=== PATIENT | female | born 1965 | race Caucasian/White ===

== ENCOUNTER 2016-11-28 10:25 | Emergency (ER) | payer MEDICARE, MEDICAID ==
[2016-11-28] MEDS ORDERED: Diazepam 5 MG TAB ONE (11:32)
[2016-11-28] MEDS ORDERED: Fentanyl 100 MCG/2 ML VIAL ONE (11:32)
== END 2016-11-28 14:29 | disposition home or self-care (01) ==
LOC: ERS 10:25
DX: M54.42 Lumbago with sciatica, left side (principal); M54.41 Lumbago with sciatica, right side; E11.9 Type 2 diabetes mellitus without complications; E78.5 Hyperlipidemia, unspecified; I10 Essential (primary) hypertension; F31.9 Bipolar disorder, unspecified; F41.9 Anxiety disorder, unspecified; Z87.891 Personal history of nicotine dependence; J44.9 Chronic obstructive pulmonary disease, unspecified; Z79.4 Long term (current) use of insulin; Z79.899 Other long term (current) drug therapy; Z79.82 Long term (current) use of aspirin; X50.1XXA Overexertion from prolonged static or awkward postures, initial encounter
CPT/HCPCS: 96374; J3010

== ENCOUNTER 2017-03-11 10:27 | Emergency (ER) | payer MEDICARE, MEDICAID | END 2017-03-11 11:34 | disposition home or self-care (01) | LOC: SCSER 10:27 | DX: L02.31 Cutaneous abscess of buttock (principal); E11.9 Type 2 diabetes mellitus without complications; E78.5 Hyperlipidemia, unspecified; I10 Essential (primary) hypertension; J44.9 Chronic obstructive pulmonary disease, unspecified; F41.9 Anxiety disorder, unspecified; F31.9 Bipolar disorder, unspecified; Z87.891 Personal history of nicotine dependence | CPT/HCPCS: 99282 ==

== ENCOUNTER 2017-03-24 11:09 | Outpatient (CLI) | payer MEDICARE, MEDICAID | END 2017-03-24 11:10 | disposition home or self-care (01) | LOC: BICMAMMO 11:09 | PROVIDERS: ATTEND Internal Medicine | DX: Z12.31 Encounter for screening mammogram for malignant neoplasm of breast (principal) | CPT/HCPCS: 77063; 77067 ==

== ENCOUNTER 2017-08-12 10:09 | Emergency (ER) | payer MEDICAID, MEDICARE | END 2017-08-12 11:08 | disposition home or self-care (01) | LOC: SCSER 10:09 | DX: L02.415 Cutaneous abscess of right lower limb (principal); E11.9 Type 2 diabetes mellitus without complications; E78.5 Hyperlipidemia, unspecified; I10 Essential (primary) hypertension; J44.9 Chronic obstructive pulmonary disease, unspecified; F41.9 Anxiety disorder, unspecified; F31.9 Bipolar disorder, unspecified; Z87.891 Personal history of nicotine dependence | CPT/HCPCS: 99283 ==

== ENCOUNTER 2018-01-26 17:00 | Emergency (ER) | payer MEDICARE | END 2018-01-26 17:42 | disposition home or self-care (01) | LOC: SCSER 17:00 | DX: S76.912A Strain of unspecified muscles, fascia and tendons at thigh level, left thigh, initial encounter (principal); F31.9 Bipolar disorder, unspecified; F41.9 Anxiety disorder, unspecified; J44.9 Chronic obstructive pulmonary disease, unspecified; E78.5 Hyperlipidemia, unspecified; E11.9 Type 2 diabetes mellitus without complications; I10 Essential (primary) hypertension; Z87.891 Personal history of nicotine dependence; W18.11XA Fall from or off toilet without subsequent striking against object, initial encounter | CPT/HCPCS: 99283 ==

== ENCOUNTER 2018-06-03 13:24 | Outpatient (CLI) | payer MEDICARE | END 2018-06-03 13:25 | disposition home or self-care (01) | LOC: DTY/OP 13:24 | PROVIDERS: ATTEND Internal Medicine | DX: E11.9 Type 2 diabetes mellitus without complications (principal); E66.9 Obesity, unspecified | CPT/HCPCS: 97802 ==

== ENCOUNTER 2018-08-05 15:25 | Inpatient (IN) | payer MEDICARE ==
[2018-08-05 16:07] LABS: #Basophils 0.1 thou/uL (0.0-0.2); #Eosinphils 0.3 thou/uL (0.0-0.7); #Lymphocytes 2.1 thou/uL (1.20-3.40); #Monocytes 0.6 thou/uL (0.11-0.59); #Neutrophils 5.9 thou/uL (1.40-6.50); %Basophils 0.7 % (0.0-1.0); %Eosinophils 3.2 % (0.0-10.0); %Lymphocytes 23.6 % (21.0-51.0); %Monocytes 7.1 % (0.0-10.0); %Neutrophils 65.4 % (42.0-75.0); Hemoglobin 10.4 g/dL (12.0-16.0); Mean Corpuscular HGB CONC 31.1 g/dL (32.0-36.0); Mean Corpuscular Hemoglobin 25.1 pg (27.0-31.0); Mean Corpuscular Volume 80.5 fL (78.0-98.0); Mean Platelet Volume 7.4 fL (7.4-10.4); Platelet Count 348 thou/uL (130-400); RBC Distribution Width 13.6 % (11.5-14.5); Red Blood Cell (RBC) Count 4.16 mill/uL (4.20-5.40)
--- NOTE | 2018-08-05 16:19 | RAD ---
PORTABLE CHEST ONE VIEW: 08/05/18 at 4:04 p.m. HISTORY: Dyspnea. FINDINGS: Comparison is made with exam of 10/21/12. The heart size is mildly enlarged. There is continued elevation of the right hemidiaphragm. No focal areas of consolidation, pneumothoraces, roselia pulmonary edema or pleural effusions are seen. There ar e degenerative changes in the spine. IMPRESSION: No acute process. POS: OFF
[2018-08-05 16:25] LABS: ALT (SGPT) 40 U/L (8-55); AST (SGOT) 32 U/L (5-34); Albumin 4.5 g/dL (3.5-5.0); Alkaline Phosphatase 51 U/L (40-150); Anion Gap 13 mmol/L (10-20); BUN (Urea Nitrogen) 16 mg/dL (9.8-20.1); Bilirubin, Total 0.2 mg/dL (0.2-1.2); Calc. Creatinine Clearance 0 mL/min (70-130); Calcium 9.4 mg/dL (7.8-10.44); Carbon Dioxide 31 mmol/L (22-29); Chloride 102 mmol/L (98-107); Estimated GFR-MDRD 53; Globulin 2.4 g/dL (2.4-3.5); Glucose 215 mg/dL (70-105); Potassium 4.3 mmol/L (3.5-5.1); Protein, Total 6.9 g/dL (6.0-8.3); Sodium 142 mmol/L (136-145)
[2018-08-05] MEDS ORDERED: methylPREDNISolone Sod Succ/PF 125 MG/2 ML VIAL ONE (17:11)
[2018-08-05 18:45] VITALS: BMI 47.2
[2018-08-05] MEDS ORDERED: Dextrose 50% Abboject 50 ML SYRINGE IVP PRN (21:19)
[2018-08-05] MEDS ORDERED: Dextrose 5% in Water 1,000 ML IV PRN (21:19)
[2018-08-05] MEDS ORDERED: Acetaminophen 325 MG TAB PO PRN (21:20)
[2018-08-05] MEDS: Insulin Regular 300 UNITS/3 ML VIAL SC PRN (21:34)
[2018-08-05] MEDS: methylPREDNISolone Sod Succ 40 MG VIAL IVP SCH (23:57)
[2018-08-06] MEDS ORDERED: Ondansetron ODT 8 MG TAB PO PRN (00:20)
[2018-08-06] MEDS ORDERED: hydrOXYzine Pamoate 25 mg Capsule PO PRN (00:26)
--- NOTE | 2018-08-06 01:55 | HP ---
CHIEF COMPLAINT: Shortness of breath, hypoxia. HISTORY OF PRESENT ILLNESS: Yehuda is a 53-year-old female with past medical history of COPD, obstructive sleep apnea, and diabetes mellitus who came to the office for routine physical. While in the office, she was hypoxic with high saturation of 85% on room air. The patient says she has been coughing some, had some difficulty breathing. The patient was given neb treatments and in spite of that, the saturation did not improve much. So she was transferred to the hospital for further evaluation. In the ER, the patient was evaluated and found to be in COPD exacerbation. She was given Solu-Medrol and neb treatment and admitted for further evaluation and management. PAST MEDICAL HISTORY: 1. Hypertension. 2. Diabetes mellitus. 3. History of bipolar disease. 4. COPD. 5. Obstructive sleep apnea. 6. Hyperlipidemia. 7. Morbid obesity. PAST SURGICAL HISTORY: 1. Status post knee surgery. 2. Status post ovarian wedge resection. 3. Status post hysterectomy. CURRENT MEDICATIONS: The patient is on: 1. Metformin 500 mg two tablets b.i.d. 2. Fenofibrate 150 daily. 3. Lisinopril 20 mg b.i.d. 4. Lyrica 100 mg b.i.d. 5. Prevacid 30 mg daily. 6. Tramadol p.r.n. 7. Olanzapine 20 mg daily. 8. Zofran p.r.n. 9. BuSpar 10 mg b.i.d. 10. Crestor 10 mg daily. 11. Ventolin inhaler q.i.d. 12. Onglyza 5 mg daily. 13. Insulin 70/30, 60 units in the morning, 50 in the evening. ALLERGIES: 1. BIAXIN. 2. KETOROLAC. 3. LATEX. 4. NATURAL RUBBER. 5. MORPHINE. FAMILY HISTORY: Nothing contributory. SOCIAL HISTORY: Patient lives with family. No history of smoking. No history of alcohol. REVIEW OF SYSTEMS: CARDIOVASCULAR: No chest pain. Has shortness of breath. RESPIRATORY: Has cough productive of white sputum. GASTROINTESTINAL: No nausea or vomiting. No abdominal pain. CENTRAL NERVOUS SYSTEM: Has headache. No dizziness. PHYSICAL EXAMINATION: GENERAL: Patient is alert, awake, oriented x3. VITAL SIGNS: Temperature 98, pulse 75, respirations 20, blood pressure 130/80. HEENT: Head is normocephalic and atraumatic. Pupils are equal and reactive. Nasopharynx is pale and dry. Hard and soft palate, no lesions. Skin turgor is decreased. NECK: Supple. No JVD. LUNGS: Breath sounds diminished bilaterally. Percussion dull bilaterally. Rhonchi present bilaterally. HEART: S1 and S2, regular. ABDOMEN: Soft. No distention. No tenderness. Normal bowel sounds present. CENTRAL NERVOUS SYSTEM: No focal deficits. LABORATORY DATA: CBC shows WBC 9, hemoglobin 10, hematocrit 33, platelets 348. D-dimer 0.28. Metabolic panel; sodium 140, potassium 4.3, chloride 102, CO2 31, BUN 16, creatinine 1, glucose 215. Troponin less than 0.01. IMAGING STUDIES: Chest x-ray negative. EKG shows normal sinus rhythm, no acute ST-T changes seen. ASSESSMENT: 1. Chronic obstructive pulmonary disease with acute exacerbation. 2. Hypoxia. 3. Obstructive sleep apnea. 4. Insulin-dependent diabetes. 5. Hypertension. 6. Bipolar disorder. PLAN: 1. Vital signs q.4h. 2. Activities as tolerated. 3. Allergies multiple. 4. Hep-Lock. 5. Solu-Medrol 20 IVP q.6 hours, Levaquin 750 mg IV piggyback daily. 6. DuoNeb 1 unit q.i.d. 7. Continue home medications. Accu-Chek before meals and at night. Sliding scale. Moderate regular insulin. Job ID: [id number]
[2018-08-06] MEDS: Insulin Regular 300 UNITS/3 ML VIAL SC PRN ×3 (05:28→21:02)
[2018-08-06] MEDS: methylPREDNISolone Sod Succ 40 MG VIAL IVP SCH ×3 (05:29→17:47)
[2018-08-06] MEDS: HumuLIN 70/30 (300 UNITS/3 ML VIAL) SC SCH (08:25)
[2018-08-06] MEDS: OLANZapine 5 MG TAB PO SCH (08:25)
[2018-08-06] MEDS: metFORMIN XR 500 MG TAB PO SCH ×2 (08:26→16:46)
[2018-08-06] MEDS: traMADol HCl 50 MG TAB PO SCH ×2 (08:26→20:29)
[2018-08-06] MEDS: Alogliptin 25 MG TAB PO SCH (08:27)
[2018-08-06] MEDS: Pregabalin 50 MG CAP PO SCH ×3 (08:28→20:33)
[2018-08-06] MEDS: Loratadine 10 MG TAB PO SCH (08:29)
[2018-08-06] MEDS: Fenofibrate Nanocrystallized 145 MG TAB PO SCH (08:29)
[2018-08-06] MEDS: Aspirin 81 mg Enteric Coated Tablet PO SCH (08:29)
[2018-08-06] MEDS: busPIRone HCl 10 MG TAB PO SCH ×2 (08:29→20:28)
[2018-08-06] MEDS: Lisinopril 20 MG TAB PO SCH ×2 (08:29→20:30)
[2018-08-06] MEDS: Magnesium Oxide 250 MG TAB PO SCH (08:29)
--- NOTE | 2018-08-06 09:51 | CT ---
CTA CHEST WITH CONTRAST: HISTORY: Shortness of breath for a month. COMPARISON: 12/16/2011 TECHNIQUE: Multiple contiguous axial images were obtained in a CTA chest with contrast, per pulmonary embolism p rotocol, and 3D oblique MIP reformats and direct coronal reformats were performed. FINDINGS: The pulmonary arteries are well opacified without filling defects to suggest pulmonary emboli. The h eart is normal in size without focal cardiac abnormality. No hilar or mediastinal lymphadenopathy is seen. There is a 4 mm nodule at the superior aspect of the left lower lobe on image 70 of 137. No other pu lmonary nodules are seen. Atelectasis is seen in the left lower lobe. No pneumothorax or pleural ef fusion is seen. Degenerative changes are seen in the spine. There is diffuse fatty infiltration of the liver. The o ther visualized subdiaphragmatic structures are unremarkable. The chest wall soft tissues are unrema rkable. IMPRESSION: 1. No evidence of pulmonary thromboembolism. 2. Left lower lobe pulmonary nodule. This was not definitely seen on the prior radiograph but could have been missed secondary to slice selection. 3. Fatty liver. POS: JASON
[2018-08-06] MEDS ORDERED: ISOVUE-370 76%-LOCM 1 ML ONE (10:15)
[2018-08-06] MEDS ORDERED: HumuLIN 70/30 (300 UNITS/3 ML VIAL) SC SCH (17:00)
[2018-08-06] MEDS ORDERED: Melatonin 3 MG TAB PO PRN (20:38)
[2018-08-06] MEDS ORDERED: Rosuvastatin 10 MG TAB PO SCH (21:00)
[2018-08-07] MEDS: methylPREDNISolone Sod Succ 40 MG VIAL IVP SCH ×3 (00:03→11:24)
[2018-08-07] MEDS: Insulin Regular 300 UNITS/3 ML VIAL SC PRN ×2 (06:01→11:26)
[2018-08-07] MEDS: OLANZapine 5 MG TAB PO SCH (08:07)
[2018-08-07] MEDS: Loratadine 10 MG TAB PO SCH (08:07)
[2018-08-07] MEDS: Magnesium Oxide 250 MG TAB PO SCH (08:08)
[2018-08-07] MEDS: Aspirin 81 mg Enteric Coated Tablet PO SCH (08:08)
[2018-08-07] MEDS: busPIRone HCl 10 MG TAB PO SCH (08:08)
[2018-08-07] MEDS: metFORMIN XR 500 MG TAB PO SCH (08:09)
[2018-08-07] MEDS: Alogliptin 25 MG TAB PO SCH (08:09)
[2018-08-07] MEDS: Fenofibrate Nanocrystallized 145 MG TAB PO SCH (08:10)
[2018-08-07] MEDS: traMADol HCl 50 MG TAB PO SCH (08:10)
[2018-08-07] MEDS: Lisinopril 20 MG TAB PO SCH (08:11)
[2018-08-07] MEDS: Pregabalin 50 MG CAP PO SCH ×2 (08:11→14:39)
[2018-08-07] MEDS: HumuLIN 70/30 (300 UNITS/3 ML VIAL) SC SCH (08:12)
--- NOTE | 2018-08-07 11:05 | EKG ---
Test Reason : Blood Pressure : / mmHG Vent. Rate : 101 BPM Atrial Rate : 101 BPM P-R Int : 164 ms QRS Dur : 086 ms QT Int : 350 ms P-R-T Axes : 046 057 004 degrees QTc Int : 453 ms Sinus tachycardia Septal infarct , age undetermined Abnormal ECG Confirmed by MODESTA BILLS ([id number]), scientific editor JOSE WHITNEY ([id number]) on 08/07/2018 11:04:55 AM Referred By: Confirmed By:MODESTA BILLS
[2018-08-07 11:25] VITALS: BP 120/74; TEMP 98
--- NOTE | 2018-08-09 08:12 | PQF ---
[facility] Crystal Reports Winform ViewerDENIS SOTO VENKAT R MD [id number] [id number] CLINICAL DOCUMENTATION CLARIFICATION FORM: POST DISCHARGE Addendum to original discharge summary date: ____ Late entry note date: __ DATE: 08/09/2018 ATTN: BRIAN RIBEIRO Please exercise your independent, professional judgment in responding to the clarification form. Clinical indicators are provided on the bottom of this form for your review Please check appropriate box(s): [ ] Acute Respiratory Failure: [ ] with Hypoxia [ ] with Hypercapnia [ ] Acute On Chronic Respiratory Failure: [ ] with Hypoxia [ ] with Hypercapnia [ ] ARDS (Acute Respiratory Distress Syndrome) [ ] Chronic Respiratory Failure only [ ] with Hypoxia [ ] with Hypercapnia [ y Hypoxia [ ] Other diagnosis [ ] Unable to determine In addition, please specify: Present on Admission (POA): [ y] Yes [ ] No [ ] Unable to determine For continuity of documentation, please document condition throughout progress notes and discharge summary. Thank You. CLINICAL INDICATORS - SIGNS / SYMPTOMS / LABS COPD exacerbation-H&P, 08/05 Sat-85% on room air-H&P, 08/05 Pulse:95, RR:20-H&P, 08/05 Lungs: breath sounds diminished bilaterally, percussion dull bilaterally, Rhonchi present bilaterally Hypoxia-H&P, 08/05 Acute asthma exacerbation, dyspnea, hypoxia-ED record, 08/05 Left lower lobe of pulmonary nodule-CAT scan report, 08/06 RISK FACTORS COPD exacerbation-H&P, 08/05 Hypoxia-H&P, 08/05 TREATMENTS: Solu-medrol 20 IVP, Duoneb 1 unit-H&P, 08/05 [facility] Crystal Reports Winform Viewer (This form is maintained as a part of the permanent medical record) 2014 [employer], [employer]. All Rights Reserved Christina Hernandez [not provided] [not provided] KAYLIE
== END 2018-08-07 16:32 | disposition home or self-care (01) | DRG 191 ==
LOC: ERS 15:25 → T4-A 17:03
PROVIDERS: ADMIT Internal Medicine; ATTEND Internal Medicine
DX: J44.1 Chronic obstructive pulmonary disease with (acute) exacerbation (principal); Z68.42 Body mass index [BMI] 45.0-49.9, adult; R09.02 Hypoxemia; M79.7 Fibromyalgia; E66.01 Morbid (severe) obesity due to excess calories; G47.33 Obstructive sleep apnea (adult) (pediatric); E11.9 Type 2 diabetes mellitus without complications; E78.5 Hyperlipidemia, unspecified; I10 Essential (primary) hypertension; F31.9 Bipolar disorder, unspecified; F41.9 Anxiety disorder, unspecified; Z90.710 Acquired absence of both cervix and uterus; Z88.8 Allergy status to other drugs, medicaments and biological substances; Z88.6 Allergy status to analgesic agent; Z88.1 Allergy status to other antibiotic agents; Z91.040 Latex allergy status
CPT/HCPCS: 36415; 36416; 71045; 71275; 80053; 83880; 84484; 85025; 85379; 93005; 94640; 96374; J1815; J2920; J2930; J7620; Q9966

== ENCOUNTER 2018-09-05 10:20 | Emergency (ER) | payer MEDICARE ==
[2018-09-05] MEDS ORDERED: Aspirin Chewable 81 MG TAB ONE ×2 (10:34→10:37)
--- NOTE | 2018-09-05 10:46 | RAD ---
XR Chest 1 View Portable HISTORY: Shortness of breath COMPARISON: 08/05/2018 study. FINDINGS: Heart size is enlarged. No signs of failure or focal infiltrates. IMPRESSION: Cardiomegaly. Stable exam.
[2018-09-05] MEDS ORDERED: Dexamethasone 10 MG/ML VIAL ONE (11:03)
[2018-09-05 11:18] LABS: ALT (SGPT) 54 U/L (8-55); AST (SGOT) 50 U/L (5-34); Albumin 4.2 g/dL (3.5-5.0); Alkaline Phosphatase 50 U/L (40-150); Anion Gap 15 mmol/L (10-20); BUN (Urea Nitrogen) 13 mg/dL (9.8-20.1); Bilirubin, Total 0.3 mg/dL (0.2-1.2); Calc. Creatinine Clearance 0 mL/min (70-130); Calcium 9.6 mg/dL (7.8-10.44); Carbon Dioxide 29 mmol/L (22-29); Chloride 100 mmol/L (98-107); Estimated GFR-MDRD 65; Globulin 3.3 g/dL (2.4-3.5); Glucose 227 mg/dL (70-105); Potassium 4.5 mmol/L (3.5-5.1); Protein, Total 7.5 g/dL (6.0-8.3); Sodium 139 mmol/L (136-145)
[2018-09-05 11:21] LABS: #Eosinphils 0.4 thou/uL (0.0-0.7); #Lymphocytes 1.6 thou/uL (1.20-3.40); #Monocytes 0.4 thou/uL (0.11-0.59); #Neutrophils 4.3 thou/uL (1.40-6.50); %Basophils 0.6 % (0.0-1.0); %Eosinophils 5.4 % (0.0-10.0); %Lymphocytes 23.8 % (21.0-51.0); %Monocytes 6.2 % (0.0-10.0); Hemoglobin 10.2 g/dL (12.0-16.0); Hypochromia SLIGHT = 6-15 cells (100X) (0-5/hpf); MDiff Complete? YES; Mean Corpuscular HGB CONC 29.8 g/dL (32.0-36.0); Mean Corpuscular Hemoglobin 24.4 pg (27.0-31.0); Mean Corpuscular Volume 81.7 fL (78.0-98.0); Mean Platelet Volume 7.8 fL (7.4-10.4); Platelet Count 357 thou/uL (130-400); RBC Distribution Width 14.9 % (11.5-14.5); Red Blood Cell (RBC) Count 4.19 mill/uL (4.20-5.40); White Blood Cell (WBC) Count 6.8 thou/uL (4.8-10.8)
== END 2018-09-05 13:30 | disposition home or self-care (01) ==
LOC: ERS 10:20
DX: J44.1 Chronic obstructive pulmonary disease with (acute) exacerbation (principal); E11.9 Type 2 diabetes mellitus without complications; E78.5 Hyperlipidemia, unspecified; F41.9 Anxiety disorder, unspecified; F31.9 Bipolar disorder, unspecified; Z87.891 Personal history of nicotine dependence; Z79.4 Long term (current) use of insulin; Z79.899 Other long term (current) drug therapy
CPT/HCPCS: 71045; 80053; 83880; 84484; 85025; 93005; 94640; J1100; J7620

== ENCOUNTER 2018-10-11 15:15 | Emergency (ER) | payer MEDICARE ==
[2018-10-11] MEDS ORDERED: Diazepam 5 MG TAB ONE (16:09)
[2018-10-11 16:26] LABS: #Basophils 0.1 thou/uL (0.0-0.2); #Eosinphils 0.3 thou/uL (0.0-0.7); #Lymphocytes 2.8 thou/uL (1.20-3.40); #Monocytes 0.9 thou/uL (0.11-0.59); #Neutrophils 8.1 thou/uL (1.40-6.50); %Basophils 0.6 % (0.0-1.0); %Eosinophils 2.9 % (0.0-10.0); %Lymphocytes 22.9 % (21.0-51.0); %Neutrophils 66.6 % (42.0-75.0); Hemoglobin 10.4 g/dL (12.0-16.0); Mean Corpuscular HGB CONC 31.5 g/dL (32.0-36.0); Mean Corpuscular Hemoglobin 24.8 pg (27.0-31.0); Mean Corpuscular Volume 78.7 fL (78.0-98.0); Mean Platelet Volume 7.6 fL (7.4-10.4); Platelet Count 374 thou/uL (130-400); RBC Distribution Width 15.6 % (11.5-14.5); Red Blood Cell (RBC) Count 4.18 mill/uL (4.20-5.40); White Blood Cell (WBC) Count 12.1 thou/uL (4.8-10.8)
[2018-10-11 16:52] LABS: ALT (SGPT) 45 U/L (8-55); AST (SGOT) 27 U/L (5-34); Albumin 4.4 g/dL (3.5-5.0); Alkaline Phosphatase 54 U/L (40-150); Anion Gap 13 mmol/L (10-20); BUN (Urea Nitrogen) 12 mg/dL (9.8-20.1); Bilirubin, Total 0.3 mg/dL (0.2-1.2); Calc. Creatinine Clearance 0 mL/min (70-130); Calcium 9.7 mg/dL (7.8-10.44); Carbon Dioxide 30 mmol/L (22-29); Chloride 101 mmol/L (98-107); Estimated GFR-MDRD 60; Globulin 2.6 g/dL (2.4-3.5); Glucose 122 mg/dL (70-105); Sodium 140 mmol/L (136-145)
== END 2018-10-11 17:45 | disposition home or self-care (01) ==
LOC: ERS 15:15
DX: R25.2 Cramp and spasm (principal); E11.9 Type 2 diabetes mellitus without complications; E78.5 Hyperlipidemia, unspecified; I10 Essential (primary) hypertension; J44.9 Chronic obstructive pulmonary disease, unspecified; F31.9 Bipolar disorder, unspecified; M79.7 Fibromyalgia; F41.9 Anxiety disorder, unspecified; Z87.891 Personal history of nicotine dependence; Z79.4 Long term (current) use of insulin; Z79.899 Other long term (current) drug therapy
CPT/HCPCS: 80053; 84443; 85025; 96360

== ENCOUNTER 2018-10-25 11:47 | Outpatient (CLI) | payer MEDICARE ==
--- NOTE | 2018-10-25 12:11 | RAD ---
Exam: Chest 2 views COMPARISON: 09/05/2018, 02/23/2012 HISTORY: Dyspnea FINDINGS: Upper normal cardiac silhouette Unremarkable pulmonary vessels Costophrenic angles are clear Mild hyperinflation with chronic changes. No consolidation or mass. No pneumothorax or acute osseous abnormalities. IMPRESSION: No acute cardiopulmonary process. Stable exam.
== END 2018-10-25 11:48 | disposition home or self-care (01) ==
LOC: RAD 11:47
PROVIDERS: ATTEND Internal Medicine Critical Care Medicine
DX: R06.00 Dyspnea, unspecified (principal)
CPT/HCPCS: 71046

== ENCOUNTER 2018-11-11 12:39 | Outpatient (CLI) | payer MEDICARE ==
--- NOTE | 2018-11-12 15:22 | PFT ---
PATIENT HISTORY: HEIGHT: 63 in WEIGHT: 274 SMOKER: no HOW LON yrs PACKS PER DAY: 1 PRODUCTIVE COUGH: no LUNG DISEASE: PHYSICIAN INTERPRETATION PFT data: 11/11/18 The FEV1 and FVC are both moderately to severely decreased. There is no improvement in spirometry after Bronchodilatation. Total Lung Capacity is mildly decreased. The gas exchange is normal. IMPRESSION: This is a Mild Restrictive Pulmonary Impairment. Normal gas exchange. I would favor obesity as being the reason for this impairment. [place] Engineer: ELISE Data Consultant: ELISE LOTT
== END 2018-11-11 12:40 | disposition home or self-care (01) ==
LOC: CP 12:39
PROVIDERS: ATTEND Internal Medicine Critical Care Medicine
DX: J45.909 Unspecified asthma, uncomplicated (principal)
CPT/HCPCS: 94060; 94727; 94729

== ENCOUNTER 2019-01-29 21:41 | Inpatient (IN) | payer MEDICARE ==
[2019-01-29 22:14] LABS: Bilirubin Negative (Negative); Blood, Urine Negative (Negative); Clarity Clear (Clear); Glucose, Urine (Dipstick) Normal (Negative); Leukocyte Negative Leu/uL (Negative); Nitrite Negative (Negative); Protein, Urine (Dipstick) Negative (Neg-Trace); Urobilinogen Normal mg/dL (Less than 2)
[2019-01-29 22:16] LABS: Pregnancy Test - Urine (BHCG) Negative (Negative); Pregu Control Background? CLEAR/WHITE (CLR/WHITE); Pregu Control Bar Appear? YES (CONTROL BAR); Specific Gravity 1.005 (1.002-1.036)
[2019-01-29] MEDS ORDERED: predniSONE 20 MG TAB ONE (22:59)
--- NOTE | 2019-01-29 23:03 | RAD ---
Chest AP view INDICATION: Dyspnea and shortness of breath COMPARISON: October 25, 2018 FINDINGS: Lungs:The lungs are clear Cardiac silhouette:Stable mild cardiomegaly Pulmonary vasculature:Normal Pleural spaces:No pleural effusion or pneumothorax is demonstrated. Upper abdomen:No abnormality seen. Osseous structures: No acute osseous abnormality. Additional findings:None. IMPRESSION: No acute cardiopulmonary abnormality.
[2019-01-29 23:09] LABS: #Eosinphils 0.5 thou/uL (0.0-0.7); #Lymphocytes 1.9 thou/uL (1.20-3.40); #Monocytes 0.8 thou/uL (0.11-0.59); %Basophils 0.4 % (0.0-1.0); %Eosinophils 3.8 % (0.0-10.0); %Lymphocytes 15.7 % (21.0-51.0); %Monocytes 6.7 % (0.0-10.0); %Neutrophils 73.4 % (42.0-75.0); Hemoglobin 9.3 g/dL (12.0-16.0); Mean Corpuscular HGB CONC 30.8 g/dL (32.0-36.0); Mean Corpuscular Hemoglobin 23.4 pg (27.0-31.0); Platelet Count 378 thou/uL (130-400); RBC Distribution Width 16.9 % (11.5-14.5); Red Blood Cell (RBC) Count 3.98 mill/uL (4.20-5.40); White Blood Cell (WBC) Count 12.2 thou/uL (4.8-10.8)
[2019-01-29 23:30] LABS: ALT (SGPT) 24 U/L (8-55); AST (SGOT) 21 U/L (5-34); Albumin 4.5 g/dL (3.5-5.0); Alkaline Phosphatase 55 U/L (40-110); Anion Gap 12 mmol/L (10-20); BUN (Urea Nitrogen) 15 mg/dL (9.8-20.1); Bilirubin, Total 0.4 mg/dL (0.2-1.2); Calc. Creatinine Clearance 0 mL/min (70-130); Calcium 9.6 mg/dL (7.8-10.44); Carbon Dioxide 32 mmol/L (22-29); Chloride 103 mmol/L (98-107); Estimated GFR-MDRD 63; Globulin 3.1 g/dL (2.4-3.5); Glucose 103 mg/dL (70-105); Protein, Total 7.6 g/dL (6.0-8.3); Sodium 143 mmol/L (136-145)
[2019-01-30] MEDS ORDERED: Ondansetron ODT 4 MG TAB SL PRN (03:14)
[2019-01-30] MEDS ORDERED: Ondansetron PF 4 MG/2 ML Vial IVP PRN (03:14)
[2019-01-30] MEDS ORDERED: Acetaminophen 325 MG TAB PO PRN (03:14)
[2019-01-30 03:49] VITALS: BMI 50.9
[2019-01-30] MEDS: methylPREDNISolone Sod Succ 40 MG VIAL IVP SCH ×2 (05:48→11:26)
--- NOTE | 2019-01-30 08:17 | CT ---
CTA OF THE THORAX UTILIZING IV CONTRAST AND PE PROTOCOL AND 3D REFORMATTED IMAGING: COMPARISON: Prior CT PE examination dated 08/06/2018. FINDINGS: The timing of the contrast bolus limits evaluation of the segmental pulmonary arteries. No definite central pulmonary embolus is evident. A few shotty-appearing lymph nodes are seen within the mediastinum, none of which are pathologically enlarged based on size criteria. There are areas of subsegmental volume loss seen throughout both lungs. The 4 mm pulmonary nodule previously described in the superior left lower lobe is slightly larger now measuring 6 mm. There is a stable right upper lobe nodule measuring 5 mm. No additional new pulmon charline nodule is evident. There is subtle scattered ground-glass opacity seen throughout both lungs. T his is new from the prior exam. Visualized upper abdomen demonstrates no definite acute abnormality. No acute osseous abnormality is evident. There is scattered degenerative and osteoarthritic change. IMPRESSION: 1. No definite central pulmonary embolus is evident. The contrast timing limits evaluation of the s egmental pulmonary arteries. 2. Scattered areas of ground-glass opacity seen throughout both lungs may reflect subsegmental volum e loss; however, an atypical infectious process cannot be entirely excluded. 3. Enlarging left lower lobe pulmonary nodule. Stable right upper lobe pulmonary nodule measuring 5 mm. Short-term followup in 3 months is recommended to document stability. 4. Slightly more prominent shotty-appearing lymph nodes within the mediastinum, none of which are pa thologically enlarged. These may be reactive in nature. Followup CT evaluation is recommended CODE LN POS: ISABEL
[2019-01-30] MEDS ORDERED: Furosemide 20 MG TAB PO SCH (09:30)
[2019-01-30] MEDS ORDERED: Dextrose 50% Abboject 50 ML SYRINGE IVP PRN (09:31)
[2019-01-30] MEDS ORDERED: Dextrose 5% in Water 1,000 ML IV PRN (09:31)
[2019-01-30] MEDS ORDERED: Iopamidol 370 76% 100 ML VIAL ONE (11:17)
[2019-01-30] MEDS: Insulin Regular 300 UNITS/3 ML VIAL SC PRN ×2 (11:34→15:58)
[2019-01-30] MEDS ORDERED: Melatonin 3 MG TAB PO PRN (11:38)
[2019-01-30] MEDS ORDERED: PROVENTIL INHALER 6.7 G (200 INHALATIONS) INH PRN (11:53)
[2019-01-30] MEDS ORDERED: Aspirin 81 mg Enteric Coated Tablet PO SCH (12:00)
[2019-01-30] MEDS ORDERED: metFORMIN 500 MG TAB PO SCH (12:15)
[2019-01-30] MEDS ORDERED: HumuLIN 70/30 (300 UNITS/3 ML VIAL) SC SCH ×3 (12:15→21:45)
[2019-01-30] MEDS ORDERED: Fenofibrate Nanocrystallized 145 MG TAB PO SCH (12:15)
[2019-01-30] MEDS ORDERED: traMADol HCl 50 MG TAB PO SCH (12:15)
[2019-01-30] MEDS ORDERED: Alogliptin 25 MG TAB PO SCH (12:15)
[2019-01-30] MEDS ORDERED: Magnesium Oxide 250 MG TAB PO SCH (12:15)
[2019-01-30] MEDS ORDERED: OLANZapine 5 MG TAB PO SCH (12:15)
[2019-01-30] MEDS ORDERED: Lisinopril 20 MG TAB PO SCH (12:15)
[2019-01-30] MEDS ORDERED: Loratadine 10 MG TAB PO SCH (12:15)
[2019-01-30] MEDS: Pregabalin 50 MG CAP PO SCH ×2 (15:57→20:56)
[2019-01-30] MEDS: metFORMIN 500 MG TAB PO SCH (16:00)
[2019-01-30] MEDS: Mometasone/Formoterol 120 PUFF INHALER INH SCH (19:00)
[2019-01-30] MEDS ORDERED: Ondansetron ODT 8 MG TAB PO PRN (20:00)
[2019-01-30] MEDS: traMADol HCl 50 MG TAB PO SCH (20:56)
[2019-01-30] MEDS: busPIRone HCl 10 MG TAB PO SCH (20:57)
[2019-01-30] MEDS: Montelukast Sodium 10 mg Tablet PO SCH (20:57)
[2019-01-30] MEDS: Lisinopril 20 MG TAB PO SCH (20:57)
[2019-01-30] MEDS: Rosuvastatin 10 MG TAB PO SCH (20:57)
[2019-01-31] MEDS: Insulin Regular 300 UNITS/3 ML VIAL SC PRN ×3 (06:32→16:32)
[2019-01-31] MEDS: Mometasone/Formoterol 120 PUFF INHALER INH SCH ×2 (06:51→18:33)
--- NOTE | 2019-01-31 08:43 | HP ---
CHIEF COMPLAINT: Shortness of breath, hypoxia. HISTORY OF PRESENT ILLNESS: Ms. Blackman is a 53-year-old female with past medical history of obstructive sleep apnea, hypertension, diabetes, possible obesity hypoventilation, came because of shortness of breath going on for 3 days. The patient thought that shortness of breath will get better in the next day or two but it got worse to the point she could not breathe, she could not move. She was not able to ambulate because she was getting very short of breath on walking very short distances. She does have some dry cough, which is not much. No fever. No chest pain. No nausea or vomiting. No headache. No dizziness. Her main complaint is shortness of breath especially on exertion. So she came to the hospital. The patient was found to be hypoxic as well. It was not clear what caused her shortness of breath because she did not have any wheezing. CT angio chest was negative for pulmonary embolism. There was no evidence of any CHF either. She was started on DuoNebs and Solu-Medrol. The patient received DuoNeb treatment x3 in the ER and received some prednisone as well. She was admitted for further evaluation and management. Currently, patient is still short of breath. She states she uses CPAP during the night. PAST MEDICAL HISTORY: 1. Insulin-dependent diabetes mellitus. 2. Hypertension. 3. Morbid obesity. 4. Hyperlipidemia. 5. Obstructive sleep apnea, on CPAP. 6. Bipolar disorder. 7. Possible obesity hypoventilation .. PAST SURGICAL HISTORY: Status post knee surgery, status post ovarian resection, status post hysterectomy. CURRENT MEDICATIONS: The patient is on 1. Tylenol p.r.n. 2. Aspirin 81 mg daily. 3. Symbicort two puffs b.i.d. 4. BuSpar 10 mg b.i.d. 5. Zyrtec 10 mg daily. 6. Vitamin D 5000 units daily. 7. Fenofibrate 160 mg daily. 8. Insulin 70/30, 85 units in the morning, 60 in the evening. 9. DuoNeb q.i.d. 10. Prevacid 30 mg daily. 11. Lisinopril 20 b.i.d. 12. Magnesium 250 daily. 13. Melatonin 10 mg at bedtime p.r.n. 14. Metformin 1000 b.i.d. 15. Singulair 10 mg daily. 16. Olanzapine 20 mg daily. 17. Zofran 8 mg daily p.r.n. 18. Lyrica 100 mg t.i.d. 19. Crestor 10 mg daily. 20. Onglyza 5 mg daily. 21. Tramadol p.r.n. 22. Ventolin inhaler p.r.n. ALLERGIES: 1. BIAXIN. 2. LATEX. 3. NATURAL RUBBER. 4. MORPHINE. 5. KETOROLAC. FAMILY HISTORY: Nothing contributory. SOCIAL HISTORY: The patient lives with family. No history of alcohol intake. No history of smoking. REVIEW OF SYSTEMS: Cardiovascular: No chest pain. Has shortness of breath. RESPIRATORY: Has cough. No fever. GASTROINTESTINAL: No nausea or vomiting, no abdominal pain. CENTRAL NERVOUS SYSTEM: No focal deficits. PHYSICAL EXAMINATION: GENERAL: The patient is alert, awake, oriented x3. VITAL SIGNS: Temperature 98, pulse 70, respirations 20, blood pressure 120/60. HEENT: Head is normocephalic, atraumatic. Pupils are equal and reactive. Nasopharynx is pale and dry. NECK: Supple. No JVD. LUNGS: Bilateral air entry present. No expiratory wheeze. HEART: S1, S2, regular. ABDOMEN: Soft. No distention. No tenderness. Normal bowel sounds. RECTAL: Deferred. CENTRAL NERVOUS SYSTEM: No focal deficit. EXTREMITIES: 2+ pitting edema. LABORATORY DATA: CBC shows WBC 12, hemoglobin 9.3, hematocrit 30, platelets 378. Metabolic panel: Sodium 143, potassium 4, chloride 103, CO2 of 32, BUN 15, creatinine 0.9, glucose 103. Urinalysis negative. D-dimer 0.47. DIAGNOSTIC STUDIES: Chest x-ray negative. CT angio chest negative for pulmonary embolism, showed scattered areas of ground-glass opacities, also showed right upper lobe pulmonary nodule which is stable. Pulmonary function test done in October revealed mild restrictive pulmonary impairment, possibly due to her obesity. EKG shows normal sinus rhythm, no acute ST-T changes seen. ASSESSMENT: 1. Possible obesity hypoventilation with respiratory distress. 2. Obstructive sleep apnea. 3. History of bronchial asthma. 4. Insulin-dependent diabetes mellitus. 5. Hypertension. 6. Morbid obesity. 7. Peripheral edema. PLAN: 1. Vital signs q.4 hours. 2. Activity as tolerated. 3. Hep-Lock. 4. Allergies, Biaxin, ketorolac, latex, morphine. 5. Diet, ADA. 6. DuoNeb 1 unit q.6 hours. 7. Solu-Medrol 20 IVP q.6. 8. Continue home medications. 9. Oxygen via nasal cannula 3 L. 10. Accu-Chek before meals and at bedtime. 11. Sliding scale moderate with regular insulin. 12. Pulmonary consult. Job ID: [id number]
[2019-01-31] MEDS: metFORMIN 500 MG TAB PO SCH ×2 (08:51→16:30)
[2019-01-31] MEDS: Alogliptin 25 MG TAB PO SCH (08:51)
[2019-01-31] MEDS: traMADol HCl 50 MG TAB PO SCH ×2 (08:52→20:38)
[2019-01-31] MEDS: Pregabalin 50 MG CAP PO SCH ×3 (08:53→20:36)
[2019-01-31] MEDS: busPIRone HCl 10 MG TAB PO SCH ×2 (08:54→20:36)
[2019-01-31] MEDS: Lisinopril 20 MG TAB PO SCH ×2 (08:56→20:37)
[2019-01-31] MEDS: Aspirin 81 mg Enteric Coated Tablet PO SCH (08:56)
[2019-01-31] MEDS: Loratadine 10 MG TAB PO SCH (08:57)
[2019-01-31] MEDS: Fenofibrate Nanocrystallized 145 MG TAB PO SCH (08:58)
[2019-01-31] MEDS: OLANZapine 5 MG TAB PO SCH (08:59)
[2019-01-31] MEDS ORDERED: Furosemide 20 MG TAB PO SCH (09:00)
[2019-01-31] MEDS: HumuLIN 70/30 (300 UNITS/3 ML VIAL) SC SCH ×2 (09:02→20:37)
[2019-01-31] MEDS: Magnesium Oxide 250 MG TAB PO SCH (09:08)
[2019-01-31] MEDS: Rosuvastatin 10 MG TAB PO SCH (20:36)
[2019-01-31] MEDS: Montelukast Sodium 10 mg Tablet PO SCH (20:37)
[2019-01-31] MEDS: Ibuprofen 600 MG TAB PO PRN (21:21)
--- NOTE | 2019-02-01 02:18 | CON ---
DATE OF CONSULTATION: 01/31/2019 SUBJECTIVE: Natalia Blackman is a very pleasant 53-year-old female whom I have seen in the office. She has had pulmonary function test done in the past that showed restrictive defect. This is felt largely to be related to her size. She was admitted this admission with complaints of shortness of breath. She says she improved with the nebulizer therapy and is under the impression that maybe the oxygen made her feel better. She subsequently has been admitted. We were consulted. She is a former smoker, but there were not a lot of abnormalities on her pulmonary function test that would lead me to believe that she had COPD. This admission, she had a CT pulmonary angiogram that showed no infiltrates and no evidence of thromboembolic disease. She was hospitalized in July with a similar event. I have explained to her that her pulmonary function test may not show an obstructive pattern if she has asthma mixed with her size issues. She is on Singulair. As I have explained to her she has no active asthma at the time of pulmonary function testing, we may not pick this up. PAST MEDICAL HISTORY: Remarkable for; 1. Sleep apnea. 2. Diabetes. 3. Hypertension. 4. Lipid disorder. 5. Reported bipolar disorder. 6. History of knee surgery. 7. History of hysterectomy and ovarian resection. MEDICATIONS: Prior to admission, she is on; 1. Aspirin. 2. Symbicort. 3. BuSpar. 4. Zyrtec. 5. Vitamin D. 6. Fenofibrate. 7. Insulin. 8. DuoNeb. 9. Prevacid. 10. Lisinopril. 11. Magnesium. 12. Melatonin. 13. Metformin. 14. Singulair. 15. Olanzapine. 16. Zofran. 17. Lyrica. 18. Crestor. 19. Onglyza. 20. Tramadol. 21. P.r.n. Ventolin. ALLERGIES: SHE REPORTS ALLERGIES TO BIAXIN, LATEX, MORPHINE, AND KETOPROFEN. FAMILY HISTORY: Negative for lung disease in early age. SOCIAL HISTORY: She is no longer smoking or drinking. REVIEW OF SYSTEMS: Ten point review of systems completed, otherwise negative. PHYSICAL EXAMINATION: GENERAL: Pleasant, in no distress. VITAL SIGNS: She is afebrile; heart rate is 90; respiratory rate is 18; oximetry is 95% on 3 L, has been as high as 100% on 3 L during the day; and blood pressure is 124/62. HEAD AND NECK: Unremarkable. She has no cervical lymphadenopathy. LUNGS: Distant, clear. HEART: Regular rhythm. S1, S2 normal. ABDOMEN: Soft and nontender. EXTREMITIES: Without clubbing, cyanosis, or edema. IMAGING: Chest CT and chest radiograph showed no infiltrates. It is interesting to note that her dyspnea was described as inspiratory, but she denies having stridor. IMPRESSION: 1. Question asthmatic bronchitis. 2. I think current management is appropriate given that she has improved clinically. 3. She is receiving nebulized treatments every 4 hours. She appears to be improving. She is a diabetic but may benefit from low-dose steroids if she fails to continue to improve. This is a 50 minute consult, with greater than 50% of time spent on unit coordinating care. Job ID: [id number] MTDD
[2019-02-01] MEDS: Insulin Regular 300 UNITS/3 ML VIAL SC PRN (06:48)
[2019-02-01] MEDS: Mometasone/Formoterol 120 PUFF INHALER INH SCH ×2 (07:22→20:30)
[2019-02-01] MEDS: OLANZapine 5 MG TAB PO SCH (08:25)
[2019-02-01] MEDS: metFORMIN 500 MG TAB PO SCH ×2 (08:25→17:15)
[2019-02-01] MEDS: busPIRone HCl 10 MG TAB PO SCH ×2 (08:25→21:48)
[2019-02-01] MEDS: Aspirin 81 mg Enteric Coated Tablet PO SCH (08:25)
[2019-02-01] MEDS: traMADol HCl 50 MG TAB PO SCH ×2 (08:26→21:52)
[2019-02-01] MEDS: Pregabalin 50 MG CAP PO SCH ×3 (08:27→21:50)
[2019-02-01] MEDS: Loratadine 10 MG TAB PO SCH (08:27)
[2019-02-01] MEDS: Fenofibrate Nanocrystallized 145 MG TAB PO SCH (08:27)
[2019-02-01] MEDS: Alogliptin 25 MG TAB PO SCH (08:28)
[2019-02-01] MEDS: Magnesium Oxide 250 MG TAB PO SCH (08:28)
[2019-02-01] MEDS: HumuLIN 70/30 (300 UNITS/3 ML VIAL) SC SCH ×2 (08:29→21:52)
[2019-02-01] MEDS: Lisinopril 20 MG TAB PO SCH ×2 (08:29→21:48)
[2019-02-01] MEDS: Ibuprofen 600 MG TAB PO PRN ×2 (13:00→21:58)
[2019-02-01] MEDS: Rosuvastatin 10 MG TAB PO SCH (21:49)
[2019-02-01] MEDS: Montelukast Sodium 10 mg Tablet PO SCH (21:49)
[2019-02-02] MEDS: Insulin Regular 300 UNITS/3 ML VIAL SC PRN (06:29)
[2019-02-02] MEDS: Mometasone/Formoterol 120 PUFF INHALER INH SCH (07:09)
[2019-02-02 07:20] VITALS: BP 107/68; TEMP 98.1
--- NOTE | 2019-02-02 07:42 | PRG ---
DATE OF SERVICE: 02/01/2019 SUBJECTIVE: Natalia Blackman is feeling better. OBJECTIVE: VITAL SIGNS: She is afebrile. Heart rate is 80, satting up to 95 on room air, clear now. HEART: Regular rhythm. ABDOMEN: Soft. LABORATORY: IMPRESSION: 1. airways. 2. . 3. Obesity. 4. Sleep apnea therapy. 5. Diabetes. 6. Hypertension. Probably should go home on some prednisone therapy as well as her Singulair but I would think she could go home in the morning. She wants to get out of the hospital because she has to take care of her father as her sister is leaving, going to [place]. Job ID: [id number]
[2019-02-02] MEDS ORDERED: predniSONE 20 MG TAB PO SCH (08:00)
[2019-02-02] MEDS: Aspirin 81 mg Enteric Coated Tablet PO SCH (08:32)
[2019-02-02] MEDS: Fenofibrate Nanocrystallized 145 MG TAB PO SCH (08:33)
[2019-02-02] MEDS: Loratadine 10 MG TAB PO SCH (08:33)
[2019-02-02] MEDS: metFORMIN 500 MG TAB PO SCH (08:33)
[2019-02-02] MEDS: Magnesium Oxide 250 MG TAB PO SCH (08:33)
[2019-02-02] MEDS: traMADol HCl 50 MG TAB PO SCH (08:36)
[2019-02-02] MEDS: OLANZapine 5 MG TAB PO SCH (08:37)
[2019-02-02] MEDS: busPIRone HCl 10 MG TAB PO SCH (08:38)
[2019-02-02] MEDS: Pregabalin 50 MG CAP PO SCH (08:39)
[2019-02-02] MEDS: Alogliptin 25 MG TAB PO SCH (08:40)
[2019-02-02] MEDS: Lisinopril 20 MG TAB PO SCH (08:40)
[2019-02-02] MEDS: HumuLIN 70/30 (300 UNITS/3 ML VIAL) SC SCH (08:44)
--- NOTE | 2019-02-03 03:14 | PQF ---
DENIS SOTO VENKAT R MD [id number] [place] [id number] CLINICAL DOCUMENTATION CLARIFICATION FORM: POST DISCHARGE Addendum to original discharge summary date: ____ Late entry note date: __ DATE: 02/03/19 ATTN: Júnior Bush Please exercise your independent, professional judgment in responding to the clarification form. Clinical indicators are provided on the bottom of this form for your review Can you please further clarify the etiology of SOB based on the clinical indicators below? Please check appropriate box(s): [ ] Acute Respiratory Failure: [ ] with Hypoxia[ ] with Hypercapnia [ ] Asthmatic Bronchitis [ ] Acute respiratory distress [ ] Hypoxia [ y] Other diagnosis please specify _obesity hypoventilation [ ] Unable to determine In addition, please specify: Present on Admission (POA): [ y ] Yes [ ] No [ ] Unable to determine For continuity of documentation, please document condition throughout progress notes and discharge summary. Thank You. CLINICAL INDICATORS - SIGNS / SYMPTOMS / LABS ED Provider pg.5- hypoxia H and P pg.1- Shortness of breath, hypoxia H and P pg.3- Possible obesity hypoventilation with respiratory distress Consult Dr. Jeter pg.3- questionable asthmatic bronchitis RISK FACTORS DM- H and P pg.1 Hypertension- H and P pg.1 Morbid Obesity- H and P pg.1 Obstructive sleep apnea- H and P pg.1 Former smoker- Consult- Dr. jeter pg.1 TREATMENTS: Vital signs B6hhrel- H and P pg.3 DuoNeb 1 unit q 6 Hours- H and P pg.1 Solu-Medrol 20IVP q6- H and P pg.1 Pulmonary consult- 01/31 Chest X ray 01/29 IV fluids- MAR (This form is maintained as a part of the permanent medical record) 2014 [employer]. All Rights Reserved [email or web address] [not provided] MTDD
== END 2019-02-02 10:45 | disposition home or self-care (01) | DRG 206 ==
LOC: ERS 21:41 → SURG A 01-30 01:49
PROVIDERS: ADMIT Internal Medicine; ATTEND Internal Medicine
DX: E66.2 Morbid (severe) obesity with alveolar hypoventilation (principal); Z68.43 Body mass index [BMI] 50.0-59.9, adult; J45.909 Unspecified asthma, uncomplicated; M79.7 Fibromyalgia; E11.9 Type 2 diabetes mellitus without complications; E78.5 Hyperlipidemia, unspecified; I10 Essential (primary) hypertension; F41.9 Anxiety disorder, unspecified; F31.9 Bipolar disorder, unspecified; Z90.49 Acquired absence of other specified parts of digestive tract; Z87.891 Personal history of nicotine dependence; Z88.8 Allergy status to other drugs, medicaments and biological substances; Z88.1 Allergy status to other antibiotic agents; Z88.5 Allergy status to narcotic agent; Z91.040 Latex allergy status; Z79.4 Long term (current) use of insulin; Z79.51 Long term (current) use of inhaled steroids; Z79.82 Long term (current) use of aspirin; Z99.89 Dependence on other enabling machines and devices; Z90.710 Acquired absence of both cervix and uterus; Z79.899 Other long term (current) drug therapy
CPT/HCPCS: 36415; 36416; 71045; 71275; 80053; 81003; 81025; 83880; 84484; 85025; 85379; 87804; 93005; J1815; J2920; J7512; J7620; Q0162; Q9967

== ENCOUNTER 2019-02-21 12:37 | Outpatient (CLI) | payer MEDICARE ==
--- NOTE | 2019-02-21 14:00 | RAD ---
2 VIEWS CHEST: Date: 02/21/2019 COMPARISON: 10/25/18. HISTORY: Dyspnea. FINDINGS: Two views of the chest show normal sized cardiomediastinal silhouette. There is no evidence of consol idation, mass, or pleural effusion. The bones are unremarkable. IMPRESSION: No evidence of acute cardiopulmonary disease. POS: CET
== END 2019-02-21 12:38 | disposition home or self-care (01) ==
LOC: RAD 12:37
PROVIDERS: ATTEND Internal Medicine Critical Care Medicine
DX: R06.00 Dyspnea, unspecified (principal)
CPT/HCPCS: 71046

== ENCOUNTER 2019-07-22 10:50 | Inpatient (IN) | payer MEDICARE, OTHER ==
[2019-07-22] MEDS ORDERED: Acetaminophen 500 MG TAB ONE (11:19)
[2019-07-22 11:32] LABS: #Lymphocytes 0.8 thou/uL (1.20-3.40); #Monocytes 0.5 thou/uL (0.11-0.59); #Neutrophils 5.4 thou/uL (1.40-6.50); %Basophils 0.3 % (0.0-1.0); %Eosinophils 0.4 % (0.0-10.0); %Lymphocytes 12.4 % (21.0-51.0); Hemoglobin 9.5 g/dL (12.0-16.0); Mean Corpuscular HGB CONC 30.2 g/dL (32.0-36.0); Mean Platelet Volume 8.2 fL (7.4-10.4); Platelet Count 336 thou/uL (130-400); RBC Distribution Width 16.2 % (11.5-14.5); Red Blood Cell (RBC) Count 4.11 mill/uL (4.20-5.40); White Blood Cell (WBC) Count 6.8 thou/uL (4.8-10.8)
[2019-07-22 11:59] LABS: ALT (SGPT) 50 U/L (8-55); AST (SGOT) 41 U/L (5-34); Albumin 4.1 g/dL (3.5-5.0); Alkaline Phosphatase 66 U/L (40-110); Anion Gap 12 mmol/L (10-20); BUN (Urea Nitrogen) 13 mg/dL (9.8-20.1); Bilirubin, Total 0.4 mg/dL (0.2-1.2); Calc. Creatinine Clearance 0 mL/min (70-130); Calcium 8.5 mg/dL (7.8-10.44); Carbon Dioxide 31 mmol/L (22-29); Chloride 101 mmol/L (98-107); Estimated GFR-MDRD 69; Globulin 3.3 g/dL (2.4-3.5); Glucose 177 mg/dL (70-105); Protein, Total 7.4 g/dL (6.0-8.3); Sodium 140 mmol/L (136-145)
--- NOTE | 2019-07-22 12:18 | RAD ---
RADIOGRAPH CHEST 1 VIEW: DATE: 07/22/2019 TIME: 11:26 AM HISTORY: 54-year-old female COVID-19 positive patient with increasing dyspnea COMPARISON: 07/19/2019 FINDINGS: Diffusely prominent interstitial markings. Additional hazy, patchy infiltrate-like densities at right upper and right lower lung zones. This appears slightly worse than on the prior study. No pneumothorax. IMPRESSION: Suspicious for developing mild right-sided infiltrates: Continued follow-up recommended.
[2019-07-22] MEDS ORDERED: cefTRIAXone\\ROCEPHIN 2 GM VIAL ONE (13:13)
[2019-07-22] MEDS ORDERED: ALPRAZolam 0.5 MG TAB PO PRN (18:17)
[2019-07-22] MEDS ORDERED: Dextrose 50% Abboject 50 ML SYRINGE SLOW IVP PRN (18:25)
[2019-07-22] MEDS ORDERED: Dextrose 5% in Water 1,000 ML IV PRN (18:25)
[2019-07-22] MEDS ORDERED: Bisacodyl 5 MG TAB PO PRN (18:27)
[2019-07-22] MEDS ORDERED: Senokot S 8.6-50 MG TAB PO PRN (18:27)
[2019-07-22] MEDS ORDERED: Albuterol 200 PUFF (6.7GM INHALER) INH SCH ×2 (18:30→19:00)
[2019-07-22] MEDS: Acetaminophen 325 MG TAB PO PRN ×2 (19:12→23:26)
[2019-07-22] MEDS: Rosuvastatin 10 MG TAB PO SCH (19:12)
[2019-07-22] MEDS: traMADol HCl 50 MG TAB PO SCH ×2 (19:12→19:40)
[2019-07-22] MEDS: busPIRone HCl 10 MG TAB PO SCH (19:12)
[2019-07-22] MEDS: Montelukast Sodium 10 mg Tablet PO SCH (19:12)
[2019-07-22] MEDS: Famotidine 20 MG TAB PO SCH (19:12)
[2019-07-22] MEDS: Enoxaparin Sodium 40 MG/0.4 ML SYRINGE SC SCH (19:13)
[2019-07-22] MEDS: Lisinopril 20 MG TAB PO SCH (19:13)
[2019-07-22 19:42] LABS: Bacteria/HPF None Seen HPF (None Seen); Bilirubin Negative (Negative); Blood, Urine Negative (Negative); Clarity Clear (Clear); Glucose, Urine (Dipstick) Normal (Negative); Leukocyte Negative Leu/uL (Negative); Nitrite Negative (Negative); Protein, Urine (Dipstick) 10 mg/dL (Neg-Trace); RBC/HPF 0-3 HPF (0-3); Squamous Epithelial 0-3 HPF (0-3); Urobilinogen Normal mg/dL (Less than 2); WBC/HPF 0-3 HPF (0-3)
[2019-07-22] MEDS ORDERED: rOPINIRole HCl 2 MG TAB PO SCH (19:45)
[2019-07-22] MEDS ORDERED: Polyethylene Glycol 3350 17 GM Packet PO PRN (19:57)
--- NOTE | 2019-07-22 20:01 | PDOC.EVN ---
Event Note - Event Note Event Note: Patient evaluated for COVID-19 with Pneumonia. Diagnosed 2 days ago. Vitals reviewed. I agree with the note, A & P of care as documented by SHEET CUTTING OPERATOR Jeff. GOODEN consulted Selected Entries 07/22/19 19:35 Temperature 100.5 F H Blood Pressure 177/80 H [Sitting] Respiratory 24 H Rate O2 Sat by Pulse 97 Oximetry Oxygen Flow 2 Rate Oxygen Delivery Nasal Cannula Method Laboratory Tests 07/22/19 07/22/19 15:40 15:40 D-Dimer 0.38 Ferritin 13.62
--- NOTE | 2019-07-22 20:42 | HP ---
PRIMARY CARE PHYSICIAN: Alem Marion MD CHIEF COMPLAINT: Fever, cough, and worsening shortness of breath. HISTORY OF PRESENT ILLNESS: The patient is a 54-year-old female with a past medical history significant for asthma; diabetes, type 2, on insulin; and bipolar with anxiety, who presents to the ER for the above complaint. The patient reports that approximately 1 week ago, multiple family members including her dad, sister, [id number], and 2 nephews, whom she lives with, tested positive for COVID. Per ER report, she tested positive for COVID 2 days ago as well. She reports developing worsening SOB, non productive cough and subjective fever yesterday. She denies any chest pain, heart palpitations, or lower extremity swelling. She denies any abdominal pain, nausea, vomiting, or diarrhea. She denies any nasal congestion or sore throat. For the above reason, she came to the ER. In the ER , vital signs were taken. She had a temperature of 101.6 oral. She was given 1 g of Tylenol. She was also tachypneic at 24 with SpO2 of 90% on room air. Chest x- ray showed suspicious for developing right-sided infiltrates. Her white blood cell count was 6.8. Her lactic acid was 0.7. Her EKG was normal sinus rhythm. Her initial troponin 0.017, and her CMP was unremarkable. She was started on Levaquin and Rocephin IV piggyback and given a liter of fluids. ALLERGIES: 1. CLARITHROMYCIN. 2. KETOROLAC. 3. LATEX. 4. MORPHINE. HOME MEDICATIONS: 1. Insulin Novolin 70/30 of 75 units subcutaneously q.p.m. and 90 units subcutaneously q.a.m. 2. Ondansetron 8 mg ODT tablet p.o. p.r.n. nausea and vomiting. 3. Metformin 1000 mg p.o. b.i.d. 4. Onglyza 5 mg p.o. daily. 5. Symbicort 160-4.5 two puffs inhaled b.i.d. 6. BuSpar 10 mg p.o. b.i.d. 7. Zyrtec 10 mg p.o. daily. 8. Vitamin D3 of 5000 units p.o. daily. 9. Fenofibrate 160 mg p.o. daily. 10. DuoNeb 3 mL nebulized q.i.d. p.r.n. shortness of breath and wheezing. 11. Lansoprazole 30 mg p.o. daily. 12. Lisinopril 20 mg p.o. b.i.d. 13. Magnesium 500 mg p.o. daily. 14. Singulair 10 mg p.o. at bedtime. 15. Olanzapine 20 mg p.o. daily. 16. Lyrica 100 mg p.o. t.i.d. 17. Vitamin B6 of 50 mg p.o. daily. 18. Requip 2 mg p.o. at 1945 in the evening. 19. Crestor 10 mg p.o. at bedtime. 20. Tramadol 50 mg p.o. b.i.d. PAST MEDICAL HISTORY: 1. Asthma. 2. Diabetes, type 2, on insulin. 3. Hypertension. 4. Hyperlipidemia. 5. Restless legs. 6. Fibromyalgia. 7. Anxiety and bipolar. 8. Morbid obesity. BMI 51. PAST SURGICAL HISTORY: 1. Hysterectomy in 2000. 2. Bilateral ovaries in 1989. 3. Right knee surgery in 2000. 4. Right cataracts in 2014. 5. Left cataracts in 2014. SOCIAL HISTORY: The patient lives with her family. She is a former smoker, quit in 2012, had more than a half a pack per day habit. She denies any EtOH or illicit drug use. She is unemployed. FAMILY HISTORY: Positive for hypertension. Positive for diabetes. REVIEW OF SYSTEMS: All other review of systems is negative unless otherwise noted in the HPI. PHYSICAL EXAMINATION: VITAL SIGNS: Temperature 101.6 Fahrenheit oral, blood pressure 160/72, heart rate 89, respirations 24, SpO2 of 92% on room air, pain scale 0/10. CONSTITUTIONAL: The patient is in mild resp. distress upon examination. She is alert, oriented to person, place, and time. She is nontoxic-appearing. HEENT: Eyes; PERRLA. Extraocular muscles are intact. Sclerae are Nonicteric. ENT; nares are patent bilaterally. Oropharynx is clear. Uvula is midline. Mucous membranes are dry. NECK: Supple. Trachea is midline. No JVD. RESPIRATORY/CHEST: Respirations; she is tachypneic, unable to speak in full sentences. Her lungs sound tight. Expiratory wheezes and rhonchi. CARDIOVASCULAR: Regular rate and rhythm. S1 and S2 appreciated. No murmurs, rubs, or gallops. ABDOMEN: Soft and nontender. Active bowel sounds. No guarding or rigidity. No peritoneal signs. EXTREMITIES: Bilateral upper extremities; full range of motion. Strength 5/5 on the power scale. Palpable radial pulses. Brisk cap refill. No swelling. Bilateral lower extremities; no swelling. Full range of motion. Palpable pedal pulses. Brisk cap refill. NEUROLOGIC: The patient is in mild respiratory distress. GCS of 15. Able to follow commands. PSYCHIATRIC: The patient has history of bipolar. She denies any suicidal or homicidal ideation. LABORATORY DATA: Chest x-ray was positive, suspicious for developing right- sided infiltrates. Troponin was 0.017. Lactic acid was 0.7. EKG was normal sinus rhythm. Sodium 140, potassium 4, chloride 101, carbon dioxide 31, BUN 13, creatinine 0.86, GFR 69, glucose 177, calcium 8.5, total bilirubin 0.4, AST 41, ALT 50, alkaline phosphatase 66, albumin 4.1. WBCs were 6.8, hemoglobin 9.5, hematocrit 31.3, platelets 336. D-dimer was 0.38. IMPRESSION AND PLAN: 1. Sepsis, likely secondary to COVID and bacterial pneumonia. Admit the patient to the telemetry floor inpatient status. Expected length of stay, at least 2 midnights. On exam, the patient was tachypneic into the mid 20s, saturating 100 % on 2 L nasal cannula, having difficulty speaking in complete sentence without having to take a breath. The patient received 1 L in the ER and had a lactic acid of 0.7. Blood cultures are pending. We will order UA. We will continue Rocephin and Levaquin for now, IV piggyback. 2. COVID positive. The patient reports that she has multiple family members, who have tested positive for COVID. The patient herself was positive for COVID 2 days [address] We will place the patient on droplet precautions. We will check acute phase reactants, ferritin, CRP, and D-dimer. We will consult Infectious Disease. 3. Asthma. The patient sounds a little tight on physical exam, saturating 100% on 2 L nasal cannula. We will restart the patient's home respiratory medications. 4. Diabetes, type 2. The patient reports taking insulin at home. She is on 70/ 30. She takes 90 units in the a.m. and 75 units in the evening. We will start NPH at approximately half the dose, and we will add aggressive sliding scale. We will check blood sugars a.c. and at bedtime. 5. Hypertension. The patient's blood pressure is stable, she presented at 160/ 72. We will restart the patient's home medications when reconciled. 6. Hyperlipidemia. We will restart the patient's home medications when reconciled. 7. Fibromyalgia, appears stable at this time. We will restart the patient's home medications when reconciled. 8. Restless legs. We will restart the patient's home medications when reconciled. 9. Bipolar. We will restart the patient's antipsychotic medications when reconciled. 10. Morbid obesity with BMI of 51. 11. Lovenox for deep venous thrombosis prophylaxis. We will add Pepcid for gastrointestinal prophylaxis. 12. The patient is a full code. She has not listed any MPOA. Discussed the case with Dr. Her. Job ID: [id number] MTDD
[2019-07-22] MEDS: Pregabalin 50 MG CAP PO SCH (20:43)
[2019-07-22] MEDS: guaiFENesin ER 600 MG TAB PO SCH (20:44)
[2019-07-22] MEDS: NPH, Human Insulin Isophane 300 UNIT/3 ML VIAL SC SCH (20:54)
[2019-07-22] MEDS ORDERED: rOPINIRole HCl 1 MG TAB PO SCH (21:00)
[2019-07-23] MEDS ORDERED: Ibuprofen 600 MG TAB PO PRN (00:31)
[2019-07-23 06:19] LABS: Anion Gap 12 mmol/L (10-20); BUN (Urea Nitrogen) 11 mg/dL (9.8-20.1); Calc. Creatinine Clearance 143 mL/min (70-130); Calcium 8.3 mg/dL (7.8-10.44); Carbon Dioxide 32 mmol/L (22-29); Chloride 103 mmol/L (98-107); Estimated GFR-MDRD 63; Glucose 131 mg/dL (70-105); Magnesium 1.9 mg/dL (1.6-2.6); Potassium 3.8 mmol/L (3.5-5.1); Sodium 143 mmol/L (136-145)
[2019-07-23 06:29] LABS: Mean Corpuscular HGB CONC 29.7 g/dL (32.0-36.0); Mean Corpuscular Hemoglobin 22.8 pg (27.0-31.0); Mean Corpuscular Volume 76.6 fL (78.0-98.0); Mean Platelet Volume 7.5 fL (7.4-10.4); Platelet Count 296 thou/uL (130-400); RBC Distribution Width 15.9 % (11.5-14.5); Red Blood Cell (RBC) Count 3.97 mill/uL (4.20-5.40); White Blood Cell (WBC) Count 5.5 thou/uL (4.8-10.8)
[2019-07-23 06:34] LABS: #Lymphocytes 1.2 thou/uL (1.20-3.40); #Monocytes 0.4 thou/uL (0.11-0.59); #Neutrophils 3.8 thou/uL (1.40-6.50); %Basophils 0.3 % (0.0-1.0); %Eosinophils 0.4 % (0.0-10.0); %Lymphocytes 22.1 % (21.0-51.0); %Monocytes 7.4 % (0.0-10.0); %Neutrophils 69.8 % (42.0-75.0); Hypochromia SLIGHT = 6-15 cells (100X) (0-5/hpf); MDiff Complete? YES
[2019-07-23] MEDS: Mometasone 200 MCG/Formoterol 5 MCG 120 PUFF INHALER INH SCH ×2 (06:41→18:32)
[2019-07-23] MEDS: Albuterol 200 PUFF (6.7GM INHALER) INH SCH ×4 (06:54→18:34)
[2019-07-23] MEDS: Fenofibrate Nanocrystallized 145 MG TAB PO SCH ×2 (09:19→09:54)
[2019-07-23] MEDS: Ascorbic Acid 500 mg Chewable Tablet PO SCH (09:19)
[2019-07-23] MEDS: busPIRone HCl 10 MG TAB PO SCH ×2 (09:19→21:01)
[2019-07-23] MEDS: Pregabalin 50 MG CAP PO SCH ×3 (09:19→21:01)
[2019-07-23] MEDS: Loratadine 10 MG TAB PO SCH (09:20)
[2019-07-23] MEDS: guaiFENesin ER 600 MG TAB PO SCH ×2 (09:20→21:03)
[2019-07-23] MEDS: pyridOXINE 50 MG (B6) TAB PO SCH (09:21)
[2019-07-23] MEDS: traMADol HCl 50 MG TAB PO SCH ×2 (09:21→21:04)
[2019-07-23] MEDS: Lisinopril 20 MG TAB PO SCH ×2 (09:46→21:03)
[2019-07-23] MEDS: Famotidine 20 MG TAB PO SCH ×2 (09:46→21:01)
[2019-07-23] MEDS: Zinc Sulfate 220 MG CAP PO SCH (09:55)
[2019-07-23] MEDS: OLANZapine 5 MG TAB PO SCH (09:55)
[2019-07-23] MEDS: Magnesium Oxide 250 MG TAB PO SCH (09:56)
[2019-07-23] MEDS: NPH, Human Insulin Isophane 300 UNIT/3 ML VIAL SC SCH ×2 (10:03→22:12)
[2019-07-23] MEDS: cefTRIAXone\\ROCEPHIN 1 GM in Sodium Chloride 0.9% 100 ML IVPB SCH (12:09)
[2019-07-23] MEDS: HumaLOG 300 UNITS/3 ML VIAL SC PRN (12:15)
[2019-07-23] MEDS: ALPRAZolam 0.5 MG TAB PO PRN ×2 (13:04→21:39)
[2019-07-23] MEDS: Ibuprofen 600 MG TAB PO PRN ×2 (14:31→21:01)
--- NOTE | 2019-07-23 17:25 | CON ---
DATE OF CONSULTATION: 07/23/2019 REASON FOR CONSULTATION: COVID-19 pneumonia. HISTORY OF PRESENT ILLNESS: A 54-year-old who used to be a patient of Dr. Meza with a history of COPD, prior smoking, obesity, type 2 diabetes, and bipolar disorder. The last time she was in the hospital was in January last year, came in with shortness of breath and was given corticosteroid inhalers and antimicrobials, and improved, was sent home on her usual medications. She has a fairly lengthy list as well as prednisone in tapering doses. This time, she started having symptoms about 7 days before today, about 5 days before admission, her whole family has developed COVID infection and she is the only one who was in the hospital and she developed a fever and some respiratory symptoms. She lost her sense of smell and became anorectic. No vomiting. She has had quite pronounced headaches and some diarrhea. No genitourinary symptoms. No other neurological symptoms. No skin disorder. MEDICAL HISTORY: 1. COPD. 2. Fibromyalgia. 3. Bipolar disorder. 4. Type 2 diabetes. 5. Hyperlipidemia. 6. Hypertension. 7. Restless legs syndrome. 8. Obesity. 9. Has had ovarian wedge resection. 10. Right knee surgery. SOCIAL HISTORY: Former smoker. No alcoholic beverage use. [place] town with family. ALLERGIES: BIAXIN, KETOROLAC, AND LATEX. CURRENT MEDICATIONS: 1. Proventil. 2. Xanax. 3. Vitamin C. 4. Dulcolax. 5. BuSpar. 6. Ceftriaxone. 7. Enoxaparin. 8. Pepcid. 9. TriCor. 10. Glucagon. 11. Motrin. 12. Insulin. 13. Levofloxacin. 14. Zestril. 15. MiraLAX. 16. Ropinirole. 17. Zinc sulfate. FAMILY HISTORY: Noncontributory. PHYSICAL EXAMINATION: VITAL SIGNS: T-max 100.5, BP 170/72, O2 saturations were started at 97 and now is starting to go down into 92, pulse 86, and respirations 18 O2. She is at 3 L nasal cannula. SKIN: Peripheral IV access. She is voiding in the in the toilet. No lymphadenopathy. GENERAL: She is awake, oriented, and speaks in full sentences. HEENT: Ocular movements conjugate. Oral cavity normal. NECK: Supple. LUNGS: Faint crackles up to a third of right and left hemithorax. HEART: S1 and S2. Regular rate. ABDOMEN: Soft with prominent panniculus. No tenderness. No organomegaly or bladder distention. EXTREMITIES: No joint inflammatory activity. Trace edema in the lower extremities. Pulses 1+ in dorsalis pedis. NEUROLOGIC: Nonfocal including cognitive function. LABORATORY STUDIES: Sodium 143 and creatinine 0.93. Lactic acid was 0.7. Ferritin was quite low at 13.62. CRP is 2.79. D-dimer 0.38. Chest x-ray with developing infiltrate in the right hemithorax. The COVID test was positive on 07/18. ASSESSMENT: 1. Asthma/chronic obstructive pulmonary disease. 2. Prior smoking. 3. Bipolar disorder. 4. Obesity. 5. Hypertension. 6. COVID-19 pneumonia with worsening respiratory function, increasing levels of O2 supplementation requirement. DISCUSSION: The patient has normal renal function and is within the range for administration of antiviral drug. I discussed the recommendations for the drug, explained that this is an emergency use authorization medication, but is not yet approved, but formally approved by FDA, but there is enough data to justify its use. I discussed potential adverse reactions, mostly liver toxicity, the need for monitoring. The patient understood and agreed with the administration of the antiviral, remdesivir. Continue monitoring her CRP, D-dimer, and ferritin every other day and O2 supplementation requirements as well as continuation of Lovenox prophylaxis. Job ID: [id number]
[2019-07-23] MEDS ORDERED: Non-Formulary Item 1 EACH in Sodium Chloride 0.9% 250 ML 210 ML IV SCH (18:00)
--- NOTE | 2019-07-23 19:19 | PDOC.HOSPP ---
- Subjective Encounter Date: 07/23/19 Encounter Time: 19:15 Subjective: f/u for COVID-19 PNA on current Remdesivir/Rocephin/Levaquin/Vit C/Zinc. Remains on 3L/min NC. - Objective Vital Signs & Weight: Vital Signs (12 hours) Temp Pulse Resp BP BP Pulse Ox 07/23/19 18:32 20 94 L 07/23/19 16:00 99.1 F 77 20 129/58 L 07/23/19 12:30 97.8 F 86 18 171/72 H 92 L 07/23/19 09:46 135/60 07/23/19 08:50 97.3 F L 83 20 135/60 95 Weight Weight 288 lb 1.6 oz I&O: 07/22/19 07/23/19 07/24/19 06:59 06:59 06:59 Intake Total 480 1300 Output Total 1100 Balance -620 1300 Result Diagrams: 07/23/19 05:22 07/23/19 05:22 Additional Labs: Accuchecks 07/23/19 07/22/19 12:11 20:52 POC Glucose 208 H 152 H Radiology Reviewed by me: Yes (PCXR - mild R infiltrates) EKG Reviewed by me: Yes (Tele -SR) Hospitalist ROS - Medication Medications: Active Medications Generic Name Dose Route Start Last Admin Trade Name Freq PRN Reason Stop Dose Admin Acetaminophen 650 mg 07/22/19 18:27 07/22/19 23:26 Tylenol PO 650 mg Q4H PRN Administration Headache/Fever/Mild Pain (1-3) Albuterol Sulfate 2 puff 07/23/19 07:00 07/23/19 18:34 Proventil Hfa INH 2 inh QID-RT BETO Administration Alprazolam 0.5 mg 07/23/19 12:57 07/23/19 13:04 Xanax PO 0.5 mg BIDPRN PRN Administration Anxiety Ascorbic Acid 1,000 mg 07/23/19 09:00 07/23/19 09:19 Vitamin C PO 1,000 mg DAILY BETO Administration Buspirone HCl 10 mg 07/22/19 21:00 07/23/19 09:19 Buspar PO 10 mg BID BETO Administration Cholecalciferol 5,000 units 07/23/19 09:00 07/23/19 09:18 Vitamin D3 PO 5,000 units DAILY BETO Administration Enoxaparin Sodium 40 mg 07/22/19 21:00 07/22/19 19:13 Lovenox SC 40 mg 2100 BETO Administration Famotidine 20 mg 07/22/19 21:00 07/23/19 09:46 Pepcid PO 20 mg BID BETO Administration Fenofibrate 145 mg 07/23/19 09:00 07/23/19 09:54 Tricor PO Not Given DAILY BETO Guaifenesin 600 mg 07/22/19 21:00 07/23/19 09:20 Mucinex PO 600 mg Q12HR BETO Administration Ceftriaxone Sodium 1 gm/ 100 mls @ 200 mls/hr 07/23/19 13:00 07/23/19 12:09 Sodium Chloride IVPB 100 mls Q24HR BETO Administration Levofloxacin 750 mg/ Device 150 mls @ 100 mls/hr 07/23/19 14:00 07/23/19 13: 20 IVPB 150 mls 1400 BETO Administration Ibuprofen 600 mg 07/23/19 13:08 07/23/19 14:31 Motrin PO 600 mg Q6H PRN Administration PAIN>3 Insulin Human Lispro 0 units 07/22/19 18:25 07/23/19 12:15 Humalog SC 6 unit .AGGRESSIVE SLIDING PRN Administration Aggressive Correctional Scale Insulin Human NPH 30 unit 07/22/19 21:00 07/22/19 20:54 Humulin N SC Not Given [facility] Insulin Human NPH 35 unit 07/23/19 09:00 07/23/19 10:03 Humulin N SC 35 unit DAILY BETO Administration Lisinopril 20 mg 07/22/19 21:00 07/23/19 09:46 Zestril PO 20 mg BID BETO Administration Loratadine 10 mg 07/23/19 09:00 07/23/19 09:20 Claritin PO 10 mg DAILY BETO Administration Magnesium Oxide 500 mg 07/23/19 09:00 07/23/19 09:56 Magnesium Oxide PO 500 mg DAILY BETO Administration Mometasone Furoate/Formoterol Fumar 2 puff 07/23/19 06:30 07/23/19 18:32 Dulera 200 Mcg/5 Mcg Inhaler INH 2 puff BID-RT BETO Administration Montelukast Sodium 10 mg 07/22/19 21:00 07/22/19 19:12 Singulair PO 10 mg HS BETO Administration Olanzapine 20 mg 07/23/19 09:00 07/23/19 09:55 Zyprexa PO 20 mg DAILY BETO Administration Pantoprazole Sodium 40 mg 07/23/19 09:00 07/23/19 09:21 Protonix PO 40 mg DAILY BETO Administration Pregabalin 100 mg 07/22/19 21:00 07/23/19 14:31 Lyrica PO 100 mg TID BETO Administration Pyridoxine HCl 50 mg 07/23/19 09:00 07/23/19 09:21 Vitamin B 6 PO 50 mg DAILY BETO Administration Rosuvastatin Calcium 10 mg 07/22/19 21:00 07/22/19 19:12 Crestor PO 10 mg HS BETO Administration Tramadol HCl 50 mg 07/22/19 21:00 07/23/19 09:21 Ultram PO Not Given BID BETO Zinc Sulfate 220 mg 07/23/19 09:00 07/23/19 09:55 Zinc Sulfate PO 220 mg DAILY BETO Administration - Exam General Appearance: NAD, awake alert Eye: PERRL, anicteric sclera ENT: normocephalic atraumatic, no oropharyngeal lesions Neck: supple, symmetric, no JVD, no thyromegaly, no lymphadenopathy Heart: RRR, no gallops, no rubs, normal peripheral pulses Heart - other findings: S1, S2 Respiratory: no tachypnea Respiratory - other findings: scattered rhonchi Gastrointestinal: soft, non-tender, non-distended, normal bowel sounds, no palpable masses Extremities: no cyanosis, no clubbing, no edema Skin: normal turgor, no lesions Neurological: cranial nerve grossly intact, no new deficit Musculoskeletal: generalized weakness Psychiatric: normal affect, A&O x 3 Hosp A/P (1) Pneumonia due to COVID-19 virus Code(s): U07.1 - COVID-19; J12.89 - OTHER VIRAL PNEUMONIA Status: Acute Plan: Continue pulmonary support, Remdesivir IV, continue Rocephin/Levaquin/O2 support /Vitamin C/Zinc (2) Acute respiratory failure with hypoxia Code(s): J96.01 - ACUTE RESPIRATORY FAILURE WITH HYPOXIA Status: Acute Plan: Continue O2 support with NC (3) CKD (chronic kidney disease), stage III Code(s): N18.3 - CHRONIC KIDNEY DISEASE, STAGE 3 (MODERATE) Status: Chronic Plan: Avoid nephrotoxic meds and limit contrast (4) HTN (hypertension) Code(s): I10 - ESSENTIAL (PRIMARY) HYPERTENSION Status: Chronic Qualifiers: Hypertension type: essential hypertension Qualified Code(s): I10 - Essential (primary) hypertension Plan: Resume home BP meds and monitor clinical response (5) DM II (diabetes mellitus, type II), controlled Code(s): E11.9 - TYPE 2 DIABETES MELLITUS WITHOUT COMPLICATIONS Status: Chronic Plan: Continue NPH 35u qam/30u qhs, ISS, serial accuchecks, ADA - Plan continue antibiotics, PT/OT, social service liaison, respiratory therapy, out of bed/ ambulate, DVT proph w/SCDs Continue current O2 support Remdesivir daily Continue Rocephin/Levaquin Albuterl MDI q6h PRN Continue Dulera Continue Singulair AM lab: BMP, CBC
[2019-07-23] MEDS: Enoxaparin Sodium 40 MG/0.4 ML SYRINGE SC SCH (21:00)
[2019-07-23] MEDS: Rosuvastatin 10 MG TAB PO SCH (21:01)
[2019-07-23] MEDS: rOPINIRole HCl 1 MG TAB PO SCH (21:01)
[2019-07-23] MEDS: Montelukast Sodium 10 mg Tablet PO SCH (21:03)
[2019-07-23] MEDS: Acetaminophen 325 MG TAB PO PRN (23:54)
[2019-07-23] MEDS: Ondansetron PF 4 MG/2 ML Vial IVP PRN (23:54)
[2019-07-24] MEDS ORDERED: Albuterol 200 PUFF (6.7GM INHALER) INH PRN (01:25)
[2019-07-24] MEDS ORDERED: Mometasone 100 MCG/Formoterol 5 MCG 120 PUFF INHALER INH SCH ×2 (01:30→18:30)
[2019-07-24] MEDS ORDERED: Mometasone 200 MCG/Formoterol 5 MCG 120 PUFF INHALER INH SCH ×2 (01:45)
[2019-07-24 05:30] LABS: Anion Gap 18 mmol/L (10-20); BUN (Urea Nitrogen) 11 mg/dL (9.8-20.1); CRP (Inflammatory) 8.24 mg/dL (= or < 0.5); Calc. Creatinine Clearance 146 mL/min (70-130); Calcium 8.6 mg/dL (7.8-10.44); Carbon Dioxide 26 mmol/L (22-29); Chloride 101 mmol/L (98-107); Estimated GFR-MDRD 64; Glucose 171 mg/dL (70-105); Potassium 4.2 mmol/L (3.5-5.1); Sodium 141 mmol/L (136-145)
[2019-07-24 05:33] LABS: ALT (SGPT) 44 U/L (8-55); AST (SGOT) 32 U/L (5-34); Albumin 4.1 g/dL (3.5-5.0); Alkaline Phosphatase 72 U/L (40-110); Bilirubin, Direct 0.2 mg/dL (0.1-0.3); Bilirubin, Total 0.3 mg/dL (0.2-1.2); Protein, Total 7.4 g/dL (6.0-8.3)
[2019-07-24] MEDS: HumaLOG 300 UNITS/3 ML VIAL SC PRN ×2 (06:05→08:52)
[2019-07-24] MEDS: Albuterol 200 PUFF (6.7GM INHALER) INH SCH ×4 (06:14→18:33)
[2019-07-24] MEDS: Mometasone 200 MCG/Formoterol 5 MCG 120 PUFF INHALER INH SCH ×2 (06:14→18:34)
[2019-07-24 06:16] LABS: Band 19 % (5-11); Eosinophils 1 % (0-10); Hemoglobin 9.9 g/dL (12.0-16.0); Hypochromia SLIGHT = 6-15 cells (100X) (0-5/hpf); Lymphocytes 19 % (21-51); MDiff Complete? YES; Mean Corpuscular HGB CONC 29.7 g/dL (32.0-36.0); Mean Corpuscular Hemoglobin 23.2 pg (27.0-31.0); Mean Corpuscular Volume 78.4 fL (78.0-98.0); Mean Platelet Volume 8.4 fL (7.4-10.4); Monocytes 8 % (0-10); Myelocyte 1 % (0-0); Neutrophil 52 % (42-75); Platelet Count 289 thou/uL (130-400); Platelet Morphology Comment Appears Adequate; Polychromasia SLIGHT = 2-3 cells (100X) (0-2/hpf); Red Blood Cell (RBC) Count 4.24 mill/uL (4.20-5.40); White Blood Cell (WBC) Count 7.7 thou/uL (4.8-10.8)
[2019-07-24 06:52] LABS: Actual Bicarbonate (HCO3a) 33.3 mEq/L (22-28); Calcium, Ionized (arterial) 1.17 mmol/L (1.12-1.30); Carboxyhemoglobin (COHb) 0.9 gm% (0.0-3.0); Hemoglobin (Hb) 10.6 g/dL (12.0-16.0); O2 Tension (PaO2), arterial 61.5 mmHg (80.0-100.0); Potassium - ABG Lab 4.57 mmol/L (3.70-5.30)
[2019-07-24 06:56] LABS: ALV-art Gradient 81.055 (0-20); CO2 Tension 91.3 mmHg (35.0-45.0); Puncture Site RRA; pH, Arterial 7.18 (7.35-7.45)
[2019-07-24] MEDS ORDERED: hydrALAZINE 20 MG/ML VIAL SLOW IVP PRN (08:04)
[2019-07-24] MEDS: Fenofibrate Nanocrystallized 145 MG TAB PO SCH (08:05)
[2019-07-24] MEDS: Lisinopril 20 MG TAB PO SCH ×2 (08:05→22:50)
[2019-07-24] MEDS: busPIRone HCl 10 MG TAB PO SCH ×2 (08:05→21:16)
[2019-07-24] MEDS: Zinc Sulfate 220 MG CAP PO SCH (08:06)
[2019-07-24] MEDS: Pregabalin 50 MG CAP PO SCH ×3 (08:06→21:15)
[2019-07-24] MEDS: Loratadine 10 MG TAB PO SCH (08:06)
[2019-07-24] MEDS: Ascorbic Acid 500 mg Chewable Tablet PO SCH (08:06)
[2019-07-24] MEDS: guaiFENesin ER 600 MG TAB PO SCH ×3 (08:07→22:53)
[2019-07-24] MEDS: Acetaminophen 325 MG TAB PO PRN ×2 (08:07→14:11)
[2019-07-24] MEDS: ALPRAZolam 0.5 MG TAB PO PRN (08:07)
[2019-07-24] MEDS: traMADol HCl 50 MG TAB PO SCH ×2 (08:07→21:15)
[2019-07-24] MEDS: hydrALAZINE 20 MG/ML VIAL SLOW IVP PRN (08:08)
[2019-07-24] MEDS: Famotidine 20 MG TAB PO SCH ×2 (08:09→21:13)
--- NOTE | 2019-07-24 08:26 | PDOC.HOSPP ---
- Subjective Encounter Date: 07/24/19 Encounter Time: 08:15 Subjective: f/u for COVID-19 PNA decompensating overnight with somnolence and increased O2 requirement necessitating transfer to CCU for BiPAP NIMV. Receiving Rocephin/ Levaquin/Remdesivir. - Objective Vital Signs & Weight: Vital Signs (12 hours) Temp Pulse Resp BP BP Pulse Ox 07/24/19 08:08 111 H 220/110 H 07/24/19 08:05 102 H 28 H 220/110 H 98 07/24/19 06:55 89 L 07/24/19 04:15 98.9 F 109 H 24 H 143/64 H 94 L 07/24/19 01:30 98.6 F 101 H 24 H 145/67 H 94 L 07/24/19 00:35 102 H 93 L 07/24/19 00:33 84 L 07/24/19 00:25 96 07/24/19 00:12 93 L 07/24/19 00:11 96 07/24/19 00:01 100.4 F H 100 24 H 141/70 H 80 L 07/23/19 21:12 99.4 F 99 22 H 173/89 H 98 Weight Weight 288 lb 1.6 oz I&O: 07/23/19 07/24/19 07/25/19 06:59 06:59 06:59 Intake Total 480 1560 Output Total 1100 Balance -620 1560 Result Diagrams: 07/24/19 05:05 07/24/19 05:05 Additional Labs: Accuchecks 07/24/19 07/23/19 07/23/19 06:37 21:18 16:56 POC Glucose 342 H 157 H 122 H 07/23/19 12:11 POC Glucose 208 H Laboratory Tests 07/24/19 07/24/19 07/24/19 05:05 05:05 05:05 Neutrophils % (Manual) 52 Band Neuts % (Manual) 19 H Bicarbonate Actual ABG pH ABG pCO2 ABG pO2 ABG O2 Sat (Measured) Inspired O2 Ferritin 65.24 C-Reactive Protein 8.24 H 07/24/19 06:40 Neutrophils % (Manual) Band Neuts % (Manual) Bicarbonate Actual 33.3 H ABG pH 7.18 L* ABG pCO2 91.3 H* ABG pO2 61.5 L ABG O2 Sat (Measured) 85.7 L* Inspired O2 36 Ferritin C-Reactive Protein Radiology Reviewed by me: Yes (PCXR - increased bilat infiltrates) EKG Reviewed by me: Yes (Tele - sinus tachycardia) Hospitalist ROS - Medication Medications: Active Medications Generic Name Dose Route Start Last Admin Trade Name Freq PRN Reason Stop Dose Admin Acetaminophen 650 mg 07/22/19 18:27 07/24/19 08:07 Tylenol PO 650 mg Q4H PRN Administration Headache/Fever/Mild Pain (1-3) Albuterol Sulfate 2 puff 07/23/19 07:00 07/24/19 06:14 Proventil Hfa INH 2 inh QID-RT BETO Administration Alprazolam 0.5 mg 07/23/19 12:57 07/24/19 08:07 Xanax PO 0.5 mg BIDPRN PRN Administration Anxiety Ascorbic Acid 1,000 mg 07/23/19 09:00 07/24/19 08:06 Vitamin C PO 1,000 mg DAILY BETO Administration Buspirone HCl 10 mg 07/22/19 21:00 07/24/19 08:05 Buspar PO 10 mg BID BTEO Administration Cholecalciferol 5,000 units 07/23/19 09:00 07/24/19 08:05 Vitamin D3 PO 5,000 units DAILY BETO Administration Enoxaparin Sodium 40 mg 07/22/19 21:00 07/23/19 21:00 Lovenox SC 40 mg 2100 BETO Administration Famotidine 20 mg 07/22/19 21:00 07/24/19 08:09 Pepcid PO Not Given BID BETO Fenofibrate 145 mg 07/23/19 09:00 07/24/19 08:05 Tricor PO 145 mg DAILY BETO Administration Guaifenesin 600 mg 07/22/19 21:00 07/24/19 08:07 Mucinex PO 600 mg Q12HR BETO Administration Hydralazine HCl 10 mg 07/22/19 20:04 07/24/19 08:08 Apresoline SLOW IVP 10 mg Q4H PRN Administration SBP Greater Than 180 Ceftriaxone Sodium 1 gm/ 100 mls @ 200 mls/hr 07/23/19 13:00 07/23/19 12:09 Sodium Chloride IVPB 100 mls Q24HR BETO Administration Levofloxacin 750 mg/ Device 150 mls @ 100 mls/hr 07/23/19 14:00 07/23/19 13: 20 IVPB 150 mls 1400 BETO Administration Ibuprofen 600 mg 07/23/19 13:08 07/23/19 21:01 Motrin PO 600 mg Q6H PRN Administration PAIN>3 Insulin Human Lispro 0 units 07/22/19 18:25 07/24/19 06:05 Humalog SC 3 unit .AGGRESSIVE SLIDING PRN Administration Aggressive Correctional Scale Insulin Human NPH 30 unit 07/22/19 21:00 07/23/19 22:12 Humulin N SC Not Given HS BETO Insulin Human NPH 35 unit 07/23/19 09:00 07/23/19 10:03 Humulin N SC 35 unit DAILY BETO Administration Lisinopril 20 mg 07/22/19 21:00 07/24/19 08:05 Zestril PO 20 mg BID BETO Administration Loratadine 10 mg 07/23/19 09:00 07/24/19 08:06 Claritin PO 10 mg DAILY BETO Administration Magnesium Oxide 500 mg 07/23/19 09:00 07/23/19 09:56 Magnesium Oxide PO 500 mg DAILY BETO Administration Mometasone Furoate/Formoterol Fumar 2 puff 07/23/19 06:30 07/24/19 06:14 Dulera 200 Mcg/5 Mcg Inhaler INH 2 puff BID-RT BETO Administration Montelukast Sodium 10 mg 07/22/19 21:00 07/23/19 21:03 Singulair PO 10 mg HS BETO Administration Olanzapine 20 mg 07/23/19 09:00 07/23/19 09:55 Zyprexa PO 20 mg DAILY BETO Administration Ondansetron HCl 4 mg 07/23/19 23:38 07/23/19 23:54 Zofran IVP 4 mg Q6H PRN Administration Nausea/Vomiting Pantoprazole Sodium 40 mg 07/23/19 09:00 07/24/19 08:06 Protonix PO 40 mg DAILY BETO Administration Pregabalin 100 mg 07/22/19 21:00 07/24/19 08:06 Lyrica PO 100 mg TID BETO Administration Pyridoxine HCl 50 mg 07/23/19 09:00 07/23/19 09:21 Vitamin B 6 PO 50 mg DAILY BETO Administration Ropinirole HCl 2 mg 07/23/19 19:45 07/23/19 21:01 Requip PO 2 mg 194 BETO Administration Rosuvastatin Calcium 10 mg 07/22/19 21:00 07/23/19 21:01 Crestor PO 10 mg HS BETO Administration Tramadol HCl 50 mg 07/22/19 21:00 07/24/19 08:07 Ultram PO 50 mg BID BETO Administration Zinc Sulfate 220 mg 07/23/19 09:00 07/24/19 08:06 Zinc Sulfate PO 220 mg DAILY BETO Administration - Exam General - other findings: somnolent, lethargic, opens eyes to name Eye: PERRL, anicteric sclera ENT: normocephalic atraumatic, no oropharyngeal lesions Neck: supple, symmetric, no JVD, no thyromegaly Heart: no murmur, no gallops, no rubs, normal peripheral pulses Heart - other findings: S1, S2, tachycardic Respiratory: no rales, tachypneic Respiratory - other findings: diminished bilat Gastrointestinal: soft, non-tender, non-distended, normal bowel sounds Gastrointestinal - other findings: obese Extremities: no cyanosis, no clubbing, 1+ LE edema Skin: normal turgor, no lesions Neurological: cranial nerve grossly intact Musculoskeletal: generalized weakness Psychiatric: somnolent, lethargic Hosp A/P (1) Acute respiratory failure with hypoxia Code(s): J96.01 - ACUTE RESPIRATORY FAILURE WITH HYPOXIA Status: Acute Plan: Continue BiPAP NIMV titrating to clinical response (2) Pneumonia due to COVID-19 virus Code(s): U07.1 - COVID-19; J12.89 - OTHER VIRAL PNEUMONIA Status: Acute Plan: Continue Rocephin/Levaquin, continue Remdesivir and transfuse convalescent plasma today (3) CKD (chronic kidney disease), stage III Code(s): N18.3 - CHRONIC KIDNEY DISEASE, STAGE 3 (MODERATE) Status: Chronic (4) HTN (hypertension) Code(s): I10 - ESSENTIAL (PRIMARY) HYPERTENSION Status: Chronic Qualifiers: Hypertension type: essential hypertension Qualified Code(s): I10 - Essential (primary) hypertension (5) DM II (diabetes mellitus, type II), controlled Code(s): E11.9 - TYPE 2 DIABETES MELLITUS WITHOUT COMPLICATIONS Status: Chronic - Plan plan discussed w/ family, continue antibiotics, social worker delinquency prevention, respiratory therapy, DVT proph w/SCDs Continue critical support BiPAP NIMV with FIO2 40% Remdesivir IV Transfuse convalescent plasma today Type and Screen Continue Rocephin/Levaquin Albuterl MDI q6h PRN Continue Dulera Continue Singulair AM lab: BMP, CBC, BNP PCXR in am Discussed and coordinated care with Dr. Mcgregor/Andrea Updated clinical situation with pt's sister Rohini Davila Critical care provided by me: 35min
[2019-07-24] MEDS: Magnesium Oxide 250 MG TAB PO SCH (08:51)
[2019-07-24] MEDS: pyridOXINE 50 MG (B6) TAB PO SCH (08:52)
[2019-07-24] MEDS: OLANZapine 5 MG TAB PO SCH (08:52)
[2019-07-24] MEDS: NPH, Human Insulin Isophane 300 UNIT/3 ML VIAL SC SCH ×2 (09:05→22:50)
[2019-07-24] MEDS ORDERED: Ventilator Sedation Protocol 1 EACH FS SCH (12:15)
[2019-07-24] MEDS ORDERED: Propofol BOLUS 1,000 MG/100 ML VIAL IV PRN (12:17)
[2019-07-24] MEDS ORDERED: Morphine 2 MG/ML SYRINGE SLOW IVP PRN (12:17)
[2019-07-24] MEDS ORDERED: DISCONTINUE PREVIOUS NARCOTIC PAIN MEDICATIONS AND BENZODIAZEPINES FS SCH (12:17)
[2019-07-24] MEDS ORDERED: Fentanyl BOLUS 250 ML IVPB PRN (12:17)
[2019-07-24] MEDS ORDERED: Propofol 1,000 MG/100 ML VIAL IV ONE (12:37)
[2019-07-24] MEDS: cefTRIAXone\\ROCEPHIN 1 GM in Sodium Chloride 0.9% 100 ML IVPB SCH (12:50)
[2019-07-24] MEDS: Lorazepam 2 MG/ML VIAL SLOW IVP PRN (12:51)
--- NOTE | 2019-07-24 13:46 | RAD ---
PORTABLE CHEST: History: Mental status change. Covid positive. Comparison: 07-22-2019. FINDINGS: Poor inspiration. Bilateral infiltrates with somewhat nodular infiltrates apparent. IMPRESSION: Suboptimal exam due to positioning with poor inspiration. There are bilateral infiltrates apparent. POS: AGW
[2019-07-24] MEDS: fentaNYL Citrate/PF 2,000 MCG in Sodium Chloride 0.9% 60 ML IV SCH (14:05)
[2019-07-24 14:39] LABS: Bilirubin Negative (Negative); Blood, Urine Negative (Negative); Clarity Clear (Clear); Glucose, Urine (Dipstick) 200 mg/dL (Negative); Leukocyte Negative Leu/uL (Negative); Nitrite Negative (Negative); Protein, Urine (Dipstick) 50 mg/dL (Neg-Trace); Squamous Epithelial None Seen HPF (0-3); Urobilinogen Normal mg/dL (Less than 2)
[2019-07-24 14:51] LABS: Bacteria/HPF Rare-Few HPF (None Seen); Transitional Epithelial 0-3 HPF (None Seen)
[2019-07-24 14:52] LABS: RBC/HPF 0-3 HPF (0-3); WBC/HPF 0-3 HPF (0-3)
[2019-07-24] MEDS ORDERED: Sodium Chloride 0.9% 1,000 ML IV SCH ×2 (15:30→18:45)
[2019-07-24] MEDS: Propofol 1,000 MG/100 ML VIAL IV PRN (16:33)
[2019-07-24] MEDS ORDERED: Non-Formulary Item 1 EACH in Sodium Chloride 0.9% 250 ML 230 ML IV SCH (18:00)
[2019-07-24] MEDS: Albumin 25% 25 GM/100 ML BOT IVPB SCH (19:58)
[2019-07-24] MEDS: rOPINIRole HCl 1 MG TAB PO SCH (21:13)
[2019-07-24] MEDS: Montelukast Sodium 10 mg Tablet PO SCH (21:13)
[2019-07-24] MEDS: Rosuvastatin 10 MG TAB PO SCH (21:13)
[2019-07-24] MEDS: methylPREDNISolone Sod Succ 40 MG VIAL IVP SCH (21:14)
[2019-07-24] MEDS: Enoxaparin Sodium 40 MG/0.4 ML SYRINGE SC SCH (21:14)
[2019-07-24 23:41] LABS: Lactic Acid 0.8 mmol/L (0.5-2.2)
[2019-07-24 23:56] LABS: Anion Gap 16 mmol/L (10-20); BUN (Urea Nitrogen) 26 mg/dL (9.8-20.1); Calc. Creatinine Clearance 53 mL/min (70-130); Calcium 7.9 mg/dL (7.8-10.44); Carbon Dioxide 24 mmol/L (22-29); Chloride 105 mmol/L (98-107); Estimated GFR-MDRD 20; Glucose 126 mg/dL (70-105); Potassium 4.3 mmol/L (3.5-5.1); Sodium 141 mmol/L (136-145)
[2019-07-25] MEDS: Albumin 25% 25 GM/100 ML BOT IVPB SCH ×4 (00:33→18:12)
[2019-07-25] MEDS: Propofol 1,000 MG/100 ML VIAL IV PRN ×5 (00:33→21:48)
[2019-07-25] MEDS: Sodium Chloride 0.9% 1,000 ML IV SCH ×3 (00:50→11:32)
[2019-07-25] MEDS: Acetaminophen 325 MG TAB PO PRN ×2 (03:22→08:48)
[2019-07-25 06:03] LABS: Hemoglobin 8.5 g/dL (12.0-16.0); Mean Corpuscular HGB CONC 31.7 g/dL (32.0-36.0); Mean Corpuscular Hemoglobin 23.6 pg (27.0-31.0); Mean Corpuscular Volume 74.6 fL (78.0-98.0); Mean Platelet Volume 8.7 fL (7.4-10.4); Platelet Count 261 thou/uL (130-400); RBC Distribution Width 15.9 % (11.5-14.5); Red Blood Cell (RBC) Count 3.57 mill/uL (4.20-5.40); White Blood Cell (WBC) Count 4.1 thou/uL (4.8-10.8)
[2019-07-25 06:16] LABS: Band 21 % (5-11); Lymphocytes 17 % (21-51); MDiff Complete? YES; Monocytes 5 % (0-10); Neutrophil 57 % (42-75)
[2019-07-25 06:20] LABS: ALT (SGPT) 2261 U/L (8-55); Albumin 3.8 g/dL (3.5-5.0); Alkaline Phosphatase 70 U/L (40-110); Anion Gap 18 mmol/L (10-20); BUN (Urea Nitrogen) 35 mg/dL (9.8-20.1); Bilirubin, Direct 0.4 mg/dL (0.1-0.3); Bilirubin, Total 0.5 mg/dL (0.2-1.2); Calc. Creatinine Clearance 42 mL/min (70-130); Calcium 7.9 mg/dL (7.8-10.44); Carbon Dioxide 22 mmol/L (22-29); Chloride 106 mmol/L (98-107); Estimated GFR-MDRD 15; Globulin 2.4 g/dL (2.4-3.5); Glucose 215 mg/dL (70-105); Potassium 4.6 mmol/L (3.5-5.1); Protein, Total 6.2 g/dL (6.0-8.3); Sodium 141 mmol/L (136-145)
[2019-07-25 06:24] LABS: AST (SGOT) Greater than 3500 U/L (5-34)
--- NOTE | 2019-07-25 07:00 | CON ---
DATE OF CONSULTATION: HISTORY OF PRESENT ILLNESS: Natalia Blackman is a 54-year-old female who sees Dr. Mena in our office, 128 kg, presented to the hospital with low-grade fever, temperature 99, blood pressure 160/72, respirations 24, and sats in room are 92. This was on 07/22/2019. As of 07/23/2019, she became progressively more hypoxic. X-ray shows worsening diffuse infiltrates. She was transferred to the ICU, placed on noninvasive ventilation. She has a positive coronavirus serology done several days ago. In the ICU, she is on a BiPAP. Denies any coughing or wheezing or chest pain. PAST MEDICAL HISTORY: Chronic asthma, history of bipolar disorder, anxiety, chronic pain, diabetes, hyperlipidemia, hypertension, and restless legs. SOCIAL HISTORY: Previous tobacco abuse, previous apparent drug abuse, none recently. PREVIOUS SURGERIES: Right knee, ovarian surgery, and hysterectomy. ALLERGIES: BIAXIN AND MORPHINE. HOME MEDICATIONS: Includes: 1. Vitamin B6 of 50 mg. 2. Requip 2. 3. Zofran . 4. Magnesium. 5. Zyrtec 10. 6. Tramadol 50. 7. BuSpar 10. 8. Lansoprazole 30. 9. Lyrica 100. 10. Singulair 10. 11. Olanzapine 20. 12. Symbicort twice a day. 13. Crestor 10. 14. Insulin 75 units in the evening, 90 units in the morning. REVIEW OF SYSTEMS: Unremarkable. PHYSICAL EXAMINATION: VITAL SIGNS: Blood pressure 156/91, sats are 96% right now, . CHEST: No wheezing or crackles. CARDIAC: Normal S1, S2. No gallops. ABDOMEN: Soft. LABORATORY DATA: White count 7000, H and H 9 and 33, and platelet count is 289. Lytes are normal. PO2 was 61, pCO2 was 91, pH 7.18 on nasal O2. ASSESSMENT AND PLAN: Respiratory failure, marked respiratory acidosis, bilateral pulmonary infiltrates, pneumonia, acute respiratory distress syndrome, and coronavirus positive. The patient was apparently given remdesivir yesterday. She is on ceftriaxone and Levaquin and other home medication. Started low-dose steroids. She is probably going to benefit from plasma therapy. Otherwise, we will follow and notify Dr. Mena who was seen in the past. Consultation note, 70 minutes, 50% direct patient care. Job ID: [id number]
[2019-07-25] MEDS: Albuterol 200 PUFF (6.7GM INHALER) INH SCH ×2 (07:45→11:10)
[2019-07-25] MEDS: Mometasone 200 MCG/Formoterol 5 MCG 120 PUFF INHALER INH SCH (07:45)
[2019-07-25] MEDS: Famotidine 20 MG TAB PO SCH (08:45)
[2019-07-25] MEDS: Pregabalin 50 MG CAP PO SCH ×3 (08:45→20:35)
[2019-07-25] MEDS: guaiFENesin ER 600 MG TAB PO SCH (08:45)
[2019-07-25] MEDS: traMADol HCl 50 MG TAB PO SCH (08:46)
[2019-07-25] MEDS: Loratadine 10 MG TAB PO SCH (08:46)
[2019-07-25] MEDS: Lisinopril 20 MG TAB PO SCH (08:46)
[2019-07-25] MEDS: Zinc Sulfate 220 MG CAP PO SCH (08:47)
[2019-07-25] MEDS: Ascorbic Acid 500 mg Chewable Tablet PO SCH (08:48)
[2019-07-25] MEDS: OLANZapine 5 MG TAB PO SCH (08:49)
[2019-07-25] MEDS: Magnesium Oxide 250 MG TAB PO SCH (08:49)
[2019-07-25] MEDS: pyridOXINE 50 MG (B6) TAB PO SCH (08:50)
[2019-07-25] MEDS: NPH, Human Insulin Isophane 300 UNIT/3 ML VIAL SC SCH ×2 (08:54→21:01)
[2019-07-25] MEDS: methylPREDNISolone Sod Succ 40 MG VIAL IVP SCH ×2 (08:55→20:37)
[2019-07-25] MEDS ORDERED: Famotidine 20 MG TAB PO SCH (09:00)
[2019-07-25] MEDS: busPIRone HCl 10 MG TAB PO SCH ×3 (09:00→20:46)
[2019-07-25] MEDS: Fenofibrate Nanocrystallized 145 MG TAB PO SCH (09:00)
--- NOTE | 2019-07-25 10:49 | ULT ---
RENAL ULTRASOUND: HISTORY: Acute kidney insufficiency. FINDINGS: Both kidneys have a normal sonographic appearance. No hydronephrosis. The urinary bladder is contra cted with Palomo catheter in place. Cortical echogenicity appears normally maintained. IMPRESSION: Unremarkable renal ultrasound. POS: [facility]
--- NOTE | 2019-07-25 11:31 | RAD ---
PORTABLE CHEST: HISTORY: COVID positive pneumonia followup. FINDINGS: Extensive infiltrative lung changes are stable. Endotracheal tube is in satisfactory position. NG t ube is below the hemidiaphragm. IMPRESSION: Stable pneumonia changes. POS: [facility]
[2019-07-25] MEDS: HumaLOG 300 UNITS/3 ML VIAL SC PRN ×3 (11:33→21:02)
[2019-07-25] MEDS: cefTRIAXone\\ROCEPHIN 1 GM in Sodium Chloride 0.9% 100 ML IVPB SCH (13:06)
[2019-07-25] MEDS ORDERED: Sodium Chloride 0.9% (PF) 10 ML VIAL FS PRN (13:12)
--- NOTE | 2019-07-25 15:03 | CON ---
DATE OF CONSULTATION: SERVICE: Renal Medicine. HISTORY OF PRESENT ILLNESS: Ms. Blackman is a 54-year-old white female, who was admitted for worsening shortness of breath. She presented with fever and cough. She does have history of being COVID positive in exposure to other COVID positive patients. We are now being consulted for her acute kidney injury. Initially, urine sediment was relatively benign. Empiric volume repletion is being given. She is currently on albumin infusion as well as crystalloid. She has now gone to acute respiratory failure, currently intubated. ID is following the patient and currently on antiviral therapy. REVIEW OF SYSTEMS: Not obtainable since the patient is sedated and intubated. MEDICATIONS: 1. Albumin 25 g IV q.6 hours. 2. Xanax 0.5 mg p.o. b.i.d. p.r.n. 3. Ascorbic acid 1000 mg daily. 4. Buspirone 10 mg p.o. b.i.d. 5. Ceftriaxone 1 g IV q.24 hours. 6. Vitamin D 5000 international units daily. 7. Lovenox 30 mg subcu daily. 8. Pepcid 20 mg daily. 9. Lisinopril 20 mg p.o. b.i.d. - on hold. 10. Levaquin 750 mg every 2 days. 11. Methylprednisolone 40 mg IV b.i.d. 12. Singulair 10 mg at bedtime. 13. NPH 35 units subcu daily and 30 units at night. 14. Lyrica 100 mg p.o. b.i.d. 15. Normal saline at 100 mL/h. PAST MEDICAL HISTORY: 1. Acute kidney injury, recently diagnosis worsening renal dysfunction - on admission. 2. Type 2 diabetes mellitus. 3. Asthma. 4. Hypertension. 5. Hyperlipidemia. 6. Restless legs syndrome. 7. Anxiety and bipolar disorder. 8. Morbid obesity. PAST SURGICAL HISTORY: Recently, status post intubation, status post hysterectomy, status post bilateral oophorectomy, status post right knee surgery, and status post right bilateral cataract surgery. SOCIAL HISTORY: The patient lives with her family. Lives in the [facility]. She is a former smoker, quit in 2012. No alcohol. No IV drug abuse. Unemployed. FAMILY HISTORY: Positive family history of diabetes mellitus and hypertension. PHYSICAL EXAMINATION: VITAL SIGNS: Blood pressure 159/90, heart rate 61, respiratory rate 22, O2 saturations 99%, and temperature 99.5. GENERAL: The patient is sedated, intubated, on ventilator support. SKIN: Adequate turgor. HEENT: She has a slightly pale conjunctivae. Anicteric sclerae. NECK: No neck mass. No carotid bruits. No JVD. CHEST: No deformities. LUNGS: Decreased breath sounds. HEART: Normal sinus rhythm. No murmur. No gallops. No rubs. ABDOMEN: Globular, soft, and nontender. No masses. EXTREMITIES: Positive for edema. NEUROLOGICAL: Sedated and intubated. IMAGING DATA: Chest x-ray of July 25, 2019, shows extensive infiltrated lung changes/pneumonia. Renal ultrasound within normal. LABORATORY DATA: Laboratories of July 25, 2019; white count 4.1, hemoglobin 8.5. Sodium 141, potassium 4.6, chloride 106, carbon dioxide 22, BUN 35, creatinine 3.22, glucose 215, AST greater than 3500, ALT is 2261, and albumin 3.8. White count 4.1, hemoglobin 8.5. Urinalysis of July 24, 2019; specific gravity 1.018, protein is 50. No pigmented granular casts, rbc's 0 to 3, wbc 0 to 3. ASSESSMENT AND PLAN: 1. Acute kidney injury/decreased urine output - I still suspect that this could be a hemodynamically-mediated renal dysfunction. The patient may be third-spacing secondary to a presumed sepsis. Currently, on empiric IV antibiotics. Previously on antiviral therapy. Continue supportive care. Agree with albumin infusion. No indication for any dialytic intervention. I will be reviewing another urine sediment to rule out any superimposed acute tubular necrosis. Urine chemistries - urine sodium can be done to see if this can confirm prerenal azotemia with this patient. 2. Pneumonia/viral, most likely from coronavirus. Currently, on supportive care. Overall, prognosis with this patient remains guarded. Thank you for the consult. We will continue to follow. Job ID: [id number]
[2019-07-25 16:17] LABS: Bilirubin Negative (Negative); Blood, Urine 2+ (Negative); Clarity Turbid (Clear); Glucose, Urine (Dipstick) 70 mg/dL (Negative); Leukocyte Negative Leu/uL (Negative); Nitrite Negative (Negative); Protein, Urine (Dipstick) 70 mg/dL (Neg-Trace); Squamous Epithelial 0-3 HPF (0-3); Urobilinogen Normal mg/dL (Less than 2); WBC/HPF 0-3 HPF (0-3)
[2019-07-25 16:18] LABS: Bacteria/HPF 1+ HPF (None Seen)
[2019-07-25 16:31] LABS: Creatinine, Urine 93.83 mg/dL (47-110)
--- NOTE | 2019-07-25 18:04 | PRG ---
DATE OF SERVICE: SUBJECTIVE: Ms. Blackman is in the ICU. She is orotracheally intubated. OBJECTIVE: VITAL SIGNS: She has had temp elevations up to 103 and O2 saturations are like 98 with a FiO2 of 50. BP 120/70. Heart rate 53. The blood pressure has remained stable at 130/70. GENERAL: The exam shows the patient is sedated. Constricted pupils. LUNGS: With coarse breath sounds. HEART: S1 and S2 regular rate. ABDOMEN: Soft. LABORATORY DATA: Latest labs; white cell count 4.1, hemoglobin 8.5, platelets 261, 21% bands, D-dimer 0.72 yesterday, and ferritin 65. Had a marked elevation of transaminases to 3500 and creatinine went up to 2.51 and 3.22. Remdesivir has been discontinued. DIAGNOSTIC DATA: Chest x-ray showed bilateral infiltrates, fairly stable. Dr. Jordan has been consulted because of her decreasing renal function. Does not feel that there is an indication for dialysis yet. ASSESSMENT AND DISCUSSION: Chronic obstructive pulmonary disease, prior smoking, bipolar disorder, obesity, hypertension, severe COVID pneumonia, marked elevation in liver enzymes and remdesivir has been discontinued worsening renal function, possibly hemodynamically mediated. I do not see any episode of severe hypotension, so it does not look like she had liver ischemia. So until proven otherwise, we will have to assume remdesivir toxicity. Job ID: [id number]
--- NOTE | 2019-07-25 18:59 | PDOC.HOSPP ---
- Subjective Encounter Date: 07/25/19 Encounter Time: 17:20 Subjective: f/u for COVID-19 PNA and resp failure requiring mech ventilation. Remains ventilated and sedate. Poor UOP per nursing despite IVF's and Albumin infusion. - Objective Vital Signs & Weight: Vital Signs (12 hours) Pulse Resp BP Pulse Ox 07/25/19 18:23 56 L 07/25/19 18:00 22 H 07/25/19 16:00 22 H 07/25/19 15:06 54 L 22 H 98 07/25/19 15:00 53 L 140/78 07/25/19 14:00 22 H 07/25/19 12:00 22 H 07/25/19 11:00 54 L 126/71 07/25/19 10:00 22 H 07/25/19 08:46 140/63 07/25/19 08:00 23 H 95 07/25/19 07:40 61 130/65 Weight Admit Weight 296 lb Weight 296 lb 8.348 oz Most Recent Monitor Data Heart Rate from ECG 56 NIBP 130/71 NIBP BP-Mean 90 Respiration from ECG 23 SpO2 95 I&O: 07/24/19 07/25/19 07/26/19 06:59 06:59 06:59 Intake Total 1560 5454.3 2004 Output Total 725 220 Balance 1560 4729.3 1785 Result Diagrams: 07/25/19 05:41 07/25/19 05:41 Additional Labs: Accuchecks 07/25/19 07/25/19 07/24/19 16:40 11:41 21:27 POC Glucose 280 H 240 H 135 H Microbiology 07/22/19 13:22 Venous blood - Left Hand Blood Culture - Final Coagulase Neg Staphylococcus 07/24/19 09:15 Urine abdi catheter Urine Culture - Preliminary NO GROWTH AT 24 HOURS 07/22/19 13:22 Venous blood - Right Arm Blood Culture - Preliminary NO GROWTH AT 48 HOURS Laboratory Tests 07/22/19 07/24/19 07/24/19 11:20 05:05 05:05 Neutrophils % (Manual) Band Neuts % (Manual) Bicarbonate Actual ABG pH ABG pCO2 ABG pO2 ABG O2 Sat (Measured) Inspired O2 Creatinine 0.91 Magnesium Ferritin 65.24 AST 41 H ALT 50 C-Reactive Protein 8.24 H 06/09/0407/24/19 07/24/19 05:05 05:05 06:40 Neutrophils % (Manual) 52 Band Neuts % (Manual) 19 H Bicarbonate Actual 33.3 H ABG pH 7.18 L* ABG pCO2 91.3 H* ABG pO2 61.5 L ABG O2 Sat (Measured) 85.7 L* Inspired O2 36 Creatinine Magnesium Ferritin AST 32 ALT 44 C-Reactive Protein 07/24/19 07/25/19 07/25/19 23:15 05:41 05:41 Neutrophils % (Manual) Band Neuts % (Manual) Bicarbonate Actual ABG pH ABG pCO2 ABG pO2 ABG O2 Sat (Measured) Inspired O2 Creatinine 2.51 H Magnesium 2.1 Ferritin AST Greater than 3500 H ALT 2261 H C-Reactive Protein Radiology Reviewed by me: Yes (PCXR - marked bilat infiltrates unchanged from prior study) EKG Reviewed by me: Yes (Tele - SR) Hospitalist ROS - Medication Medications: Active Medications Generic Name Dose Route Start Last Admin Trade Name Freq PRN Reason Stop Dose Admin Acetaminophen 650 mg 07/22/19 18:27 07/25/19 08:48 Tylenol PO 650 mg Q4H PRN Administration Headache/Fever/Mild Pain (1-3) Albuterol/Ipratropium 3 ml 07/25/19 14:30 07/25/19 18:22 Duoneb NEB 3 ml [id number] BETO Administration Alprazolam 0.5 mg 07/23/19 12:57 07/24/19 08:07 Xanax PO 0.5 mg BIDPRN PRN Administration Anxiety Ascorbic Acid 1,000 mg 07/23/19 09:00 07/25/19 08:48 Vitamin C PO 1,000 mg DAILY BETO Administration Buspirone HCl 10 mg 07/22/19 21:00 07/25/19 09:00 Buspar PO 10 mg BID BETO Administration Cholecalciferol 5,000 units 07/23/19 09:00 07/25/19 09:00 Vitamin D3 PO 5,000 units DAILY BETO Administration Hydralazine HCl 10 mg 07/22/19 20:04 07/24/19 08:08 Apresoline SLOW IVP 10 mg Q4H PRN Administration SBP Greater Than 180 Ceftriaxone Sodium 1 gm/ 100 mls @ 200 mls/hr 07/23/19 13:00 07/25/19 13:06 Sodium Chloride IVPB 100 mls Q24HR BETO Administration Fentanyl Citrate 2,000 mcg/ 100 mls @ 0 mls/hr 07/24/19 12:17 07/24/19 14:05 Sodium Chloride IV 08/23/19 12:17 100 mls INF BETO Administration Protocol Per Protocol Sodium Chloride 1,000 mls @ 125 mls/hr 07/25/19 00:24 07/25/19 11:32 Normal Saline 0.9% IV 1,000 mls .Q8H BETO Administration Levofloxacin 750 mg/ Device 150 mls @ 100 mls/hr 07/25/19 14:00 07/25/19 14: 39 IVPB 150 mls Q2D@1400 BETO Administration Insulin Human Lispro 0 units 07/22/19 18:25 07/25/19 17:00 Humalog SC 280 unit .AGGRESSIVE SLIDING PRN Administration Aggressive [employer] Scale Insulin Human NPH 30 unit 07/22/19 21:00 07/24/19 22:50 Humulin N SC Not Given HS BETO Insulin Human NPH 35 unit 07/23/19 09:00 07/25/19 08:54 Humulin N SC 35 unit DAILY BETO Administration Loratadine 10 mg 07/23/19 09:00 07/25/19 08:46 Claritin PO 10 mg DAILY BETO Administration Lorazepam 2 mg 07/24/19 12:17 07/24/19 12:51 Ativan SLOW IVP 08/23/19 12:17 2 mg Q1H PRN Administration Breakthrough agitation Magnesium Oxide 500 mg 07/23/19 09:00 07/25/19 08:49 Magnesium Oxide PO 500 mg DAILY BETO Administration Methylprednisolone Sodium Succinate 40 mg 07/24/19 21:00 07/25/19 08:55 Solu-Medrol IVP 40 mg BID BETO Administration Montelukast Sodium 10 mg 07/22/19 21:00 07/24/19 21:13 Singulair PO 10 mg HS BEOT Administration Olanzapine 20 mg 07/23/19 09:00 07/25/19 08:49 Zyprexa PO 20 mg DAILY BETO Administration Ondansetron HCl 4 mg 07/23/19 23:38 07/23/19 23:54 Zofran IVP 4 mg Q6H PRN Administration Nausea/Vomiting Pregabalin 100 mg 07/22/19 21:00 07/25/19 14:40 Lyrica PO 100 mg TID BETO Administration Propofol 1,000 mg 07/24/19 12:17 07/25/19 17:07 Diprivan IV 08/23/19 12:17 1,000 mg INF PRN Administration TO ACHIEVE GOAL RASS Protocol Pyridoxine HCl 50 mg 07/23/19 09:00 07/25/19 08:50 Vitamin B 6 PO 50 mg DAILY BETO Administration Ropinirole HCl 2 mg 07/23/19 19:45 07/24/19 21:13 Requip PO 2 mg 1945 BETO Administration Zinc Sulfate 220 mg 07/23/19 09:00 07/25/19 08:47 Zinc Sulfate PO 220 mg DAILY BETO Administration - Exam General Appearance: NAD General - other findings: sedate on mech vent ENT: normocephalic atraumatic, no oropharyngeal lesions ENT - other findings: ETT in place Neck: supple, symmetric, no JVD, no thyromegaly, no lymphadenopathy Heart: RRR, no gallops, no rubs, normal peripheral pulses Heart - other findings: S1, S2 Respiratory: no tachypnea Respiratory - other findings: diminished bilat, coarse sounds noted Gastrointestinal: soft, non-tender, non-distended, normal bowel sounds, no palpable masses Extremities: no cyanosis, no clubbing, 2+ LE edema Skin: normal turgor, no lesions Musculoskeletal: generalized weakness Psychiatric: somnolent, lethargic Psychiatric - other findings: sedate on mech ventilation Hosp A/P (1) Acute respiratory failure with hypoxia Code(s): J96.01 - ACUTE RESPIRATORY FAILURE WITH HYPOXIA Status: Acute Plan: continue Mech ventilation titrating to clinical response, not weanable currently , AM PCXR/ABG (2) Pneumonia due to COVID-19 virus Code(s): U07.1 - COVID-19; J12.89 - OTHER VIRAL PNEUMONIA Status: Acute Plan: Continue Rocephin/Levaquin, pulmonary supportive mgmt, O2 support (3) Acute kidney injury (TAMICA) with acute tubular necrosis (ATN) Code(s): N17.0 - ACUTE KIDNEY FAILURE WITH TUBULAR NECROSIS Status: Acute Plan: Worsening renal function, avoid nephrotoxic meds and limit contrast exposure, continue IVF's and Albumin infusion (4) CKD (chronic kidney disease), stage III Code(s): N18.3 - CHRONIC KIDNEY DISEASE, STAGE 3 (MODERATE) Status: Chronic (5) HTN (hypertension) Code(s): I10 - ESSENTIAL (PRIMARY) HYPERTENSION Status: Chronic Qualifiers: Hypertension type: essential hypertension Qualified Code(s): I10 - Essential (primary) hypertension (6) DM II (diabetes mellitus, type II), controlled Code(s): E11.9 - TYPE 2 DIABETES MELLITUS WITHOUT COMPLICATIONS Status: Chronic - Plan continue antibiotics, PT/OT, social service liaison, respiratory therapy, out of bed/ ambulate, DVT proph w/SCDs Continue critical support Continue SIMV for mech ventilation Remdesivir IV d/c'd due to TAMICA s/p convalescent plasma Type and Screen Continue Rocephin/Levaquin Albuterl MDI q6h PRN Continue Dulera Continue Singulair AM lab: BMP, CBC, BNP PCXR in am Start TF's 20ml/h Discussed and coordinated care with Dr. Mcgregor/Andrea
[2019-07-25] MEDS: rOPINIRole HCl 1 MG TAB PO SCH (19:30)
[2019-07-25] MEDS ORDERED: Sodium Chloride 0.9% 15 ML NEB ONE (20:00)
[2019-07-25] MEDS: Montelukast Sodium 10 mg Tablet PO SCH (20:35)
[2019-07-25] MEDS: Enoxaparin Sodium 60 MG/0.6 ML SYRINGE SC SCH (20:36)
[2019-07-25] MEDS ORDERED: Enoxaparin Sodium 30 MG/0.3 ML SYRINGE SC SCH (21:00)
--- NOTE | 2019-07-25 21:23 | PRG ---
DATE OF SERVICE: 07/25/2019 SUBJECTIVE: Ms. lBackman's events over the weekend have been reviewed. She is ventilated. She is sedated. OBJECTIVE: VITAL SIGNS: Heart rate is in the 50s, respiratory rates in the 20s. LUNGS: Clear anteriorly. HEART: Regular rhythm. ABDOMEN: Soft. EXTREMITIES: Without edema. LABORATORY DATA: White count 4.1, hemoglobin 8.5, platelets 261. PH 7.8, CO2 91, PO2 of 61. Blood gas was done today. Electrolytes today are normal except for creatinine 3.22. Urine output is falling off dramatically. Nephrology has been consulted. Reportedly, her COVID serology was positive, 07/18. This is 6 days later that she is mechanically ventilated. She has bilateral infiltrates on chest x-ray. IMPRESSION: 1. COVID-19 pneumonia. 2. Underlying asthma. She was seen in the office earlier this year and was doing well. 3. History of diabetes. 4. Obesity with deconditioning. 5. History of multiple family members with COVID. 6. Allergies to clarithromycin, latex, morphine. 7. She has had convalescent plasma. 8. The antiviral drug has been stopped because of elevated liver enzymes. 9. Antiviral drug is about to be in short supply again from what I can tell. 10. Her Levaquin dose is at this point, probably too high for her degree of renal function. 11. The Levaquin will be discontinued. Doxycycline will be started to cover for atypical, even though it is unlikely that she has an atypical infection. 12. Her Lovenox next dose will be increased to cover for the COVID associated hypercoagulable state. 13. She is on Pepcid for GI prophylaxis. We will continue supportive care. Critical care time 30 min. Job ID: [id number] [facility]
[2019-07-26] MEDS: Sodium Chloride 0.9% 1,000 ML IV SCH ×3 (01:22→14:00)
[2019-07-26] MEDS: Propofol 1,000 MG/100 ML VIAL IV PRN ×6 (01:45→21:10)
[2019-07-26 04:37] LABS: ALT (SGPT) 2171 U/L (8-55); AST (SGOT) 2734 U/L (5-34); Alkaline Phosphatase 71 U/L (40-110); Bilirubin, Direct 0.3 mg/dL (0.1-0.3); Bilirubin, Total 0.3 mg/dL (0.2-1.2); Calc. Creatinine Clearance 28 mL/min (70-130); Estimated GFR-MDRD 9; Protein, Total 6.2 g/dL (6.0-8.3)
[2019-07-26 05:31] LABS: Anion Gap 23 mmol/L (10-20); BUN (Urea Nitrogen) 64 mg/dL (9.8-20.1); Calc. Creatinine Clearance 28 mL/min (70-130); Calcium 7.5 mg/dL (7.8-10.44); Carbon Dioxide 17 mmol/L (22-29); Chloride 105 mmol/L (98-107); Estimated GFR-MDRD 9; Glucose 338 mg/dL (70-105); Potassium 4.8 mmol/L (3.5-5.1); Sodium 140 mmol/L (136-145)
[2019-07-26] MEDS: HumaLOG 300 UNITS/3 ML VIAL SC PRN ×4 (05:44→21:21)
[2019-07-26] MEDS: Lorazepam 2 MG/ML VIAL SLOW IVP PRN ×2 (05:47→12:01)
[2019-07-26] MEDS: Magnesium Oxide 250 MG TAB PO SCH (07:21)
[2019-07-26] MEDS: busPIRone HCl 10 MG TAB PO SCH ×2 (07:21→21:09)
[2019-07-26] MEDS: Pregabalin 50 MG CAP PO SCH ×3 (07:22→21:08)
[2019-07-26] MEDS: Zinc Sulfate 220 MG CAP PO SCH (07:22)
[2019-07-26] MEDS: Loratadine 10 MG TAB PO SCH (07:22)
[2019-07-26] MEDS: Ascorbic Acid 500 mg Chewable Tablet PO SCH (07:23)
[2019-07-26] MEDS: OLANZapine 5 MG TAB PO SCH (07:23)
[2019-07-26] MEDS: NPH, Human Insulin Isophane 300 UNIT/3 ML VIAL SC SCH ×2 (07:24→08:13)
[2019-07-26] MEDS: methylPREDNISolone Sod Succ 40 MG VIAL IVP SCH ×2 (07:24→21:09)
[2019-07-26] MEDS: Pantoprazole 40 MG VIAL IVP SCH (07:24)
--- NOTE | 2019-07-26 07:48 | RAD ---
AP VIEW OF THE CHEST: INDICATION: History of respiratory failure and pneumonia; COVID positive. COMPARISON: Prior exam dated 07/25/2019. IMPRESSION: Stable bilateral pneumonia, ET tube, and gastric catheter. No pneumothorax is demonstrated. POS: BH
[2019-07-26] MEDS: hydrALAZINE 20 MG/ML VIAL SLOW IVP PRN (08:07)
[2019-07-26] MEDS: pyridOXINE 50 MG (B6) TAB PO SCH (08:14)
--- NOTE | 2019-07-26 10:47 | PRG ---
DATE OF SERVICE: 07/26/2019 SUBJECTIVE: Ms. Blackman is a 54-year-old white female, who has viral pneumonia secondary to related COVID-19 infection. We are following her up for acute kidney injury. Initially, the patient presented with progressive azotemia as well as decreased urine output. Empiric volume repletion was given to this patient in the last 24 to 48 hours. Two days ago, she received a total of 5 L of fluid combination crystalloid and albumin. Yesterday, she received a total of 3.8 L. However, urine output still noted to be down on the oliguric side. I did review the urine sediment. There is no evidence of a superimposed acute tubular necrosis or glomerulonephritis. My feeling is that she may be third-spacing. Due to the significantly decreased urine output and the need to remove volume, we may need to initiate dialysis. I have consulted Surgery for placement of a temporary dialysis catheter. OBJECTIVE: VITAL SIGNS: Blood pressure is 148/65, heart rate 100, respiratory rate 22, O2 saturation 92%, and temperature 97.2. GENERAL: The patient is intubated, sedated on ventilator support, obese. SKIN: Adequate turgor. HEENT: Slightly pale conjunctivae. Anicteric sclerae. NECK: No neck mass. No carotid bruits. No JVD. CHEST: No deformities. LUNGS: Decreased breath sounds. HEART: Normal sinus rhythm. No murmur. No gallops. No rubs. ABDOMEN: Globular, soft, and nontender. No masses. EXTREMITIES: Positive for edema. MEDICATIONS: Medications of July 26, 2019, were reviewed. LABORATORY DATA: Laboratories of July 26, 2019; sodium 140, potassium 4.8, chloride 105, carbon dioxide 17, BUN 64, creatinine 4.95, glucose 338, and calcium 7.5. On July 25, 2019; white count 4.1, hemoglobin 8.5. Urinalysis of July 25, 2019; specific gravity 1.015, rbc 11 to 20, protein is 70, wbc 0 to 3, urine sodium 26, and urine creatinine 93.83. ASSESSMENT AND PLAN: 1. Acute kidney injury - initially we felt that this was a hemodynamically-mediated renal dysfunction. Empiric volume repletion was given - crystalloid plus colloid without improvement in the renal function or urine output. She continues to remain on the oliguric side. Possibility of superimposed acute tubular necrosis always remains with this patient. She does have proteinuria in the last few days. Our plan is due to volume issues. We will initiate her on hemodialysis. A surgical consult has been done. 2. Viral pneumonia/COVID-19 infection - supportive care. Overall, agree with current management. Job ID: [id number]
[2019-07-26] MEDS: Acetaminophen 325 MG TAB PO PRN (12:01)
--- NOTE | 2019-07-26 13:15 | PRG ---
DATE OF SERVICE: 07/26/2019 SUBJECTIVE: Natalia Blackman remains mechanically ventilated. OBJECTIVE: VITAL SIGNS: Her blood pressure is up earlier this morning and at lunch, but now is down to 142/74. Intake and outputs positive 3250. She was positive 4729 yesterday, positive 1560 the day before. She still has 590 mL urine out in spite of the positive fluid balance. LUNGS: Unchanged. HEART: Unchanged. ABDOMEN: Unchanged. LABORATORY DATA: White count 4.1, hemoglobin 8.5, platelets 261. Yesterday, sodium 140, potassium 4.8, chloride 105, bicarb 17, BUN 64, creatinine 4.95. Blood gas was not done today. IMPRESSION: 1. Respiratory failure, with respiratory acidosis. She likely will require dialysis. 2. COVID-19 pneumonia. Need a blood gas today. Critical care time 30 min. Job ID: [id number] [facility]
[2019-07-26 13:17] LABS: Actual Bicarbonate (HCO3a) 18.8 mEq/L (22-28); Base Excess (BEa) -7.2 mEq/L (-2.0 to +3.0); CO2 Tension 39.8 mmHg (35.0-45.0); Calcium, Ionized (arterial) 1.04 mmol/L (1.12-1.30); Carboxyhemoglobin (COHb) 0.2 gm% (0.0-3.0); Hemoglobin (Hb) 9.9 g/dL (12.0-16.0); O2 Tension (PaO2), arterial 71.6 mmHg (80.0-100.0); Potassium - ABG Lab 4.52 mmol/L (3.70-5.30); pH, Arterial 7.29 (7.35-7.45)
[2019-07-26 13:22] LABS: Puncture Site RRA
--- NOTE | 2019-07-26 14:44 | PQF ---
CLINICAL DOCUMENTATION IMPROVEMENT CLARIFICATION FORM: ICD-10 Updated PLEASE DO AN ADDENDUM TO THE PROGRESS NOTE WITH ANY DOCUMENTATION UPDATES OR ADDITIONS AND CARRY THROUGH TO DC SUMMARY. THANK YOU. DATE: 07/26/2019 ATTN: Dr. Koch Please exercise your independent, professional judgment in responding to the clarification form. Clinical indicators are provided on the bottom of this form for your review Please check appropriate box(s) to clarify if the following diagnosis has been ruled in or ruled out: SEPSIS [ ] Ruled in diagnosis [ ] Continue to treat [ ] Resolved [ x ] Ruled out diagnosis [ ] Improving [ ] Cannot rule out diagnosis [ ] Other diagnosis [ ] Unable to determine In addition, please specify: Present on Admission (POA): [ ] Yes [ x ] No [ ] Unable to determine For continuity of documentation, please document condition throughout progress notes and discharge summary. Thank You. CLINICAL INDICATORS - SIGNS / SYMPTOMS / LABS / RESULTS AND LOCATION IN ER Record 07/21: VS BP 185/91, pulse 83, Resp. 26. Temp 101.0 H&P 07/21: Chest x-ray positive, suspicious for developing r-sided infiltrates. I/P: Sepsis, likely secondary to COVID and bacterial pneumonia. LAB 07/21: C-Reactive Protein 2.79 07/24 (August) Acute resp. failure with hypoxia Pneumonia d/t COVID-19 virus TAMICA with ATN RISKS; H&P 07/21: Covid positive. Asthma, DM 2, Morbid obesity with BMI 51. 07/22 (August) Pneumonia due to COVID-19 virus. Acute respiratory failure with hypoxia. TREATMENT: ID Consult 07/22 07/24 (August) Continue SIMV for mech ventilation. Remdesivir IV dc'd due to TAMICA s/p convalescent plasma; Continue Rocephin/Levaquin Thank you, Nelida (This form is maintained as a part of the permanent medical record) 2014 [employer]. All Rights Reserved Nelida Montejo RN, BSN [email or web address]
[2019-07-26] MEDS ORDERED: NPH, Human Insulin Isophane 300 UNIT/3 ML VIAL SC SCH (17:37)
[2019-07-26 17:58] LABS: HBSAB Concentration 5.95 mIU/mL; HBSAg Index 0.22 S/CO (0-0.99); Hep B Surf AB Non-Reactive (NonReactive); Hep B Surf Ag Non-Reactive S/CO (NonReactive)
[2019-07-26] MEDS: rOPINIRole HCl 1 MG TAB PO SCH (20:46)
[2019-07-26] MEDS ORDERED: rOPINIRole HCl 1 MG TAB PO SCH (21:00)
[2019-07-26] MEDS: Montelukast Sodium 10 mg Tablet PO SCH (21:08)
[2019-07-26] MEDS: Enoxaparin Sodium 60 MG/0.6 ML SYRINGE SC SCH (21:09)
[2019-07-26] MEDS: cefTRIAXone\\ROCEPHIN 1 GM in Sodium Chloride 0.9% 100 ML IVPB SCH (21:10)
--- NOTE | 2019-07-26 23:54 | OP ---
DATE OF PROCEDURE: 07/26/2019 PREOPERATIVE DIAGNOSES: 1. Acute COVID-19 infection with respiratory failure. 2. Acute renal failure. POSTOPERATIVE DIAGNOSES: 1. Acute COVID-19 infection with respiratory failure. 2. Acute renal failure. PROCEDURE PERFORMED: Placement of right femoral Trialysis catheter for hemodialysis. INDICATIONS FOR PROCEDURE: A 54-year-old morbidly obese woman, admitted in ICU following a COVID-19 infection with acute respiratory failure. The patient has developed an interval acute renal failure. She requires emergent hemodialysis and I have been asked to place a catheter for that purpose. DESCRIPTION OF PROCEDURE: Informed consent was obtained from the patient's family. The patient was placed in supine position on full mechanical ventilator support. The right groin was sterilely prepped and draped in usual fashion. The right femoral artery was palpated at the groin and medial to this, the overlying skin was infiltrated with 1% lidocaine. The right femoral vein was cannulated with an 18-gauge introducer needle returning dark venous blood. Guidewire was passed through the needle and advanced into the right femoral vein without resistance. Needle was withdrawn over the guidewire. A stab incision was made adjacent to the guidewire using an 11 scalpel. The dilator was passed over the guidewire dilating the subcutaneous tissues. The dilator was removed and a triple-lumen Trialysis catheter was advanced over the guidewire and placed in the right femoral vein without resistance down to the hub. Guidewire was removed. Dark venous blood was aspirated from all three ports, which were individually flushed with sterile saline followed by heparin. Catheter was secured to the right groin using 3-0 nylon suture at two points. Sterile dressings were applied. The patient tolerated the operation without any apparent complication and remains hemodynamically stable following completion of the procedure. Job ID: [id number]
[2019-07-27] MEDS: Propofol 1,000 MG/100 ML VIAL IV PRN ×3 (01:46→09:30)
[2019-07-27] MEDS: Sodium Chloride 0.9% 1,000 ML IV SCH ×2 (03:41→08:15)
[2019-07-27] MEDS: HumaLOG 300 UNITS/3 ML VIAL SC PRN ×3 (04:14→11:01)
[2019-07-27] MEDS: hydrALAZINE 20 MG/ML VIAL SLOW IVP PRN (05:24)
[2019-07-27] MEDS: ALPRAZolam 0.5 MG TAB PO PRN (05:29)
[2019-07-27] MEDS: Lorazepam 2 MG/ML VIAL SLOW IVP PRN (05:29)
[2019-07-27 07:21] LABS: Hemoglobin 9.3 g/dL (12.0-16.0); Mean Corpuscular HGB CONC 31.5 g/dL (32.0-36.0); Mean Corpuscular Hemoglobin 23.3 pg (27.0-31.0); Mean Corpuscular Volume 73.8 fL (78.0-98.0); Mean Platelet Volume 9.4 fL (7.4-10.4); Platelet Count 341 thou/uL (130-400); RBC Distribution Width 16.3 % (11.5-14.5); Red Blood Cell (RBC) Count 4.01 mill/uL (4.20-5.40); White Blood Cell (WBC) Count 15.1 thou/uL (4.8-10.8)
[2019-07-27] MEDS: Pregabalin 50 MG CAP PO SCH ×3 (07:23→20:50)
[2019-07-27] MEDS: pyridOXINE 50 MG (B6) TAB PO SCH (07:24)
[2019-07-27] MEDS: Loratadine 10 MG TAB PO SCH (07:24)
[2019-07-27] MEDS: Ascorbic Acid 500 mg Chewable Tablet PO SCH (07:24)
[2019-07-27] MEDS: Magnesium Oxide 250 MG TAB PO SCH (07:24)
[2019-07-27] MEDS: OLANZapine 5 MG TAB PO SCH (07:24)
[2019-07-27] MEDS: Zinc Sulfate 220 MG CAP PO SCH (07:24)
[2019-07-27] MEDS: Pantoprazole 40 MG VIAL IVP SCH (07:25)
[2019-07-27] MEDS: methylPREDNISolone Sod Succ 40 MG VIAL IVP SCH (07:25)
[2019-07-27] MEDS: busPIRone HCl 10 MG TAB PO SCH ×2 (07:29→20:49)
[2019-07-27 07:47] LABS: Band 14 % (5-11); Lymphocytes 3 % (21-51); MDiff Complete? YES; Microcytosis SLIGHT = 6-15 cells (100X) (0-5/hpf); Monocytes 3 % (0-10); Myelocyte 1 % (0-0); Neutrophil 78 % (42-75); Platelet Morphology Comment Appears Adequate; Polychromasia SLIGHT = 2-3 cells (100X) (0-2/hpf); Reactive Lymphocytes 1 % (0-10)
--- NOTE | 2019-07-27 07:48 | RAD ---
Chest one view HISTORY: Pneumonia. Follow-up. COMPARISON: 07/26/2019. FINDINGS: Cardiac silhouette is magnified and enlarged. Pulmonary vasculature remains engorged. Mediastinum is midline. Lines and tubes are unchanged in position. Patchy areas of ill-defined parenchymal infiltrate throughout each lung are unchanged in appearance. No evidence of pneumothorax. surveillance system monitor leads overlie the chest. IMPRESSION : Multifocal bilateral infiltrates and other findings are stable.
[2019-07-27 07:50] LABS: ALT (SGPT) 1745 U/L (8-55); AST (SGOT) 768 U/L (5-34); Albumin 3.7 g/dL (3.5-5.0); Alkaline Phosphatase 78 U/L (40-110); Anion Gap 20 mmol/L (10-20); BUN (Urea Nitrogen) 83 mg/dL (9.8-20.1); Bilirubin, Direct 0.2 mg/dL (0.1-0.3); Bilirubin, Total 0.3 mg/dL (0.2-1.2); Calc. Creatinine Clearance 26 mL/min (70-130); Calcium 7.6 mg/dL (7.8-10.44); Carbon Dioxide 17 mmol/L (22-29); Chloride 104 mmol/L (98-107); Estimated GFR-MDRD 8; Glucose 497 mg/dL (70-105); Protein, Total 6.3 g/dL (6.0-8.3); Sodium 136 mmol/L (136-145)
[2019-07-27] MEDS ORDERED: NPH, Human Insulin Isophane 300 UNIT/3 ML VIAL SC SCH (09:00)
--- NOTE | 2019-07-27 10:58 | PRG ---
DATE OF SERVICE: 07/27/2019 SUBJECTIVE: Ms. Blackman is a 54-year-old white female with known diagnosis of viral pneumonia secondary to COVID-19, and seen by the Renal Service for acute kidney injury. Initially, we felt that she had a hemodynamically-mediated renal dysfunction. Her renal function continues to worsen with concomitant decreased urine output. She may simply be third-spacing. Her urine sediment did not show outright acute tubular necrosis. However, her clinical course is more suggestive of an acute tubular necrosis. Hemodialysis has been initiated. Due to the much decreased urine output, we will hold off the current normal saline on hold for the moment. OBJECTIVE: VITAL SIGNS: Blood pressure is 170/70 with a heart rate of 99, O2 saturation 90%. GENERAL: The patient is sedated, intubated, on ventilator support. SKIN: Adequate turgor. HEENT: Pinkish conjunctivae. Anicteric sclerae. NECK: No neck mass. No carotid bruits. No JVD. CHEST: No deformities. LUNGS: Decreased breath sounds. HEART: Tachycardic. Normal sinus rhythm. No murmur. No gallops or rubs. ABDOMEN: Globular, soft, nontender. EXTREMITIES: Trace edema. MEDICATIONS: Medications of July 27, 2019, were reviewed. LABORATORY DATA: Laboratories of July 27, 2019, white count 15.1, hemoglobin 9.3, sodium 136, potassium 5, chloride 104, carbon dioxide 17, BUN 83, creatinine 5.36, GFR 8 mL/minute, calcium 7.6, AST 768, ALT 1745, albumin is 3.7. ASSESSMENT AND PLAN: 1. Acute kidney injury, consider the possibility of now a superimposed acute tubular necrosis. She is currently having a urine output of at least more than a liter in the last 24 hours. We will continue current dialysis regimen. I plan to do a 2-hour hemodialysis with this patient. Please note that dialysis was initiated due to the progressive azotemia as well as decreased urine output. 2. Viral pneumonia/acute respiratory failure-secondary to a COVID-19 infection. Continuing supportive care. 3. Borderline anemia. We will continue to observe. Overall prognosis remains guarded with this patient. Job ID: [id number]
[2019-07-27] MEDS: HUMULIN R 100 UNITS in Sodium Chloride 0.9% 100 ML IVPB SCH ×2 (14:02→20:50)
--- NOTE | 2019-07-27 14:52 | PRG ---
DATE OF SERVICE: 07/27/2019 SUBJECTIVE: Natalia Blackman remains mechanically ventilated. She is a little bit dyssynchronous with ventilation. She also is extremely hyperglycemic, so we are taking her off propofol drip, putting her on an insulin drip, and switching her to a Versed drip for sedation. OBJECTIVE: VITAL SIGNS: Heart rates in the 90s, blood pressure 166/82, FiO2 is at 50%. She is being dialyzed when I evaluated her. HEAD AND NECK: Unchanged. LUNGS: Clear anteriorly. HEART: Regular rhythm. ABDOMEN: Soft. EXTREMITIES: Without edema. LABORATORY DATA: White count 15.1, hemoglobin 9.3, and platelets 341. Sodium 136, potassium 5, chloride 104, bicarb 17, BUN 83, and creatinine 5.36. IMPRESSION: 1. COVID positive pneumonia. 2. Underlying asthma. 3. Acute renal failure. 4. Dramatically elevated liver enzymes of unclear etiology. PLAN: Continue supportive care. She is currently not weanable. Her premorbid deconditioning and asthma will play a role in whether or not she will need a tracheostomy at some point. At this point in time, she is medically stable, and obviously, she would not be a candidate for tracheostomy for at least 2 weeks from now. In theory, she is no longer contagious after 8 days of symptoms, but we would certainly try to delay this as long as possible. CRITICAL CARE TIME: 30 minutes. Job ID: [id number] MTDD
--- NOTE | 2019-07-27 15:54 | PDOC.HOSPP ---
- Subjective Encounter Date: 07/27/19 Encounter Time: 15:50 Subjective: f/u for COVID-19 PNA on current Rocephin/Doxycycline/Solumedrol. Remains mech ventilated and received HD today with approx 2L removed. - Objective Vital Signs & Weight: Vital Signs (12 hours) Temp Pulse Resp BP Pulse Ox 07/27/19 14:30 90 07/27/19 14:00 22 H 07/27/19 12:00 22 H 07/27/19 10:41 85 07/27/19 10:00 22 H 07/27/19 08:20 103 H 07/27/19 08:00 22 H 92 L 07/27/19 06:00 22 H 07/27/19 05:24 101 H 203/91 H 07/27/19 04:00 97.7 F 22 H Weight Admit Weight 296 lb Weight 298 lb 8.094 oz Most Recent Monitor Data Heart Rate from ECG 71 NIBP 139/65 NIBP BP-Mean 89 Respiration from ECG 22 SpO2 91 I&O: 07/26/19 07/27/19 07/28/19 06:59 06:59 06:59 Intake Total 3840 4057 180 Output Total 590 1670 950 Balance 3250 2387 -770 Result Diagrams: 07/27/19 07:13 07/27/19 07:13 Additional Labs: Accuchecks 07/27/19 07/27/19 07/27/19 15:19 11:00 04:13 POC Glucose 305 H 460 H 456 H 07/26/19 07/26/19 21:24 16:58 POC Glucose 378 H 428 H Microbiology 07/22/19 13:22 Venous blood - Left Hand Blood Culture - Final Coagulase Neg Staphylococcus 07/24/19 09:15 Urine abdi catheter Urine Culture - Preliminary NO GROWTH AT 24 HOURS 07/22/19 13:22 Venous blood - Right Arm Blood Culture - Preliminary NO GROWTH AT 48 HOURS Laboratory Tests 07/22/19 07/24/19 07/24/19 11:20 05:05 05:05 WBC Hgb Neutrophils % (Manual) Band Neuts % (Manual) Bicarbonate Actual ABG pH ABG pCO2 ABG pO2 ABG O2 Sat (Measured) Inspired O2 Carbon Dioxide Creatinine 0.91 Magnesium Ferritin 65.24 AST 41 H ALT 50 Alkaline Phosphatase C-Reactive Protein 8.24 H 07/24/19 07/24/19 07/24/19 05:05 05:05 06:40 WBC Hgb Neutrophils % (Manual) 52 Band Neuts % (Manual) 19 H Bicarbonate Actual 33.3 H ABG pH 7.18 L* ABG pCO2 91.3 H* ABG pO2 61.5 L ABG O2 Sat (Measured) 85.7 L* Inspired O2 36 Carbon Dioxide Creatinine Magnesium Ferritin AST 32 ALT 44 Alkaline Phosphatase C-Reactive Protein 07/24/19 07/25/19 07/25/19 23:15 05:41 05:41 WBC 4.1 L Hgb 8.5 L Neutrophils % (Manual) Band Neuts % (Manual) Bicarbonate Actual ABG pH ABG pCO2 ABG pO2 ABG O2 Sat (Measured) Inspired O2 Carbon Dioxide Creatinine 2.51 H Magnesium Ferritin AST Greater than 3500 H ALT 2261 H Alkaline Phosphatase C-Reactive Protein 07/25/19 07/26/19 07/27/19 05:41 03:40 07:13 WBC Hgb Neutrophils % (Manual) Band Neuts % (Manual) Bicarbonate Actual ABG pH ABG pCO2 ABG pO2 ABG O2 Sat (Measured) Inspired O2 Carbon Dioxide 17 L Creatinine Magnesium 2.1 Ferritin AST 768 H ALT 1745 H Alkaline Phosphatase 78 C-Reactive Protein 07/27/19 07:13 WBC Hgb Neutrophils % (Manual) Band Neuts % (Manual) Bicarbonate Actual ABG pH ABG pCO2 ABG pO2 ABG O2 Sat (Measured) Inspired O2 Carbon Dioxide Creatinine Magnesium Ferritin AST ALT Alkaline Phosphatase C-Reactive Protein 3.81 H Radiology Reviewed by me: Yes (PCXR - multifocal infiltrates, lines/tubes in place) EKG Reviewed by me: Yes (Tele - SR, short run V-tach) Hospitalist ROS - Medication Medications: Active Medications Generic Name Dose Route Start Last Admin Trade Name Freq PRN Reason Stop Dose Admin Acetaminophen 650 mg 07/22/19 18:27 07/26/19 12:01 Tylenol PO 650 mg Q4H PRN Administration Headache/Fever/Mild Pain (1-3) Albuterol/Ipratropium 3 ml 07/25/19 14:30 07/27/19 14:29 Duoneb NEB 3 ml [id number] BETO Administration Ascorbic Acid 1,000 mg 07/23/19 09:00 06/10/20 07:24 Vitamin C PO 1,000 mg DAILY BETO Administration Buspirone HCl 10 mg 07/22/19 21:00 07/27/19 07:29 Buspar PO 10 mg BID BETO Administration Cholecalciferol 5,000 units 07/23/19 09:00 07/27/19 07:29 Vitamin D3 PO 5,000 units DAILY BETO Administration Enoxaparin Sodium 60 mg 07/25/19 21:00 07/26/19 21:09 Lovenox SC 60 mg 2100 BETO Administration Hydralazine HCl 10 mg 07/22/19 20:04 07/27/19 05:24 Apresoline SLOW IVP 10 mg Q4H PRN Administration SBP Greater Than 180 Fentanyl Citrate 2,000 mcg/ 100 mls @ 0 mls/hr 07/24/19 12:17 07/24/19 14:05 Sodium Chloride IV 08/23/19 12:17 100 mls INF BETO Administration Protocol Per Protocol Doxycycline Hyclate 100 mg/ 100 mls @ 100 mls/hr 07/25/19 21:00 07/27/19 08: 15 Sodium Chloride IVPB 100 mls Q12HR BETO Administration Ceftriaxone Sodium 1 gm/ 100 mls @ 200 mls/hr 07/26/19 21:00 07/26/19 21:10 Sodium Chloride IVPB 100 mls 2100 BETO Administration Insulin Human Regular 100 101 mls @ 0 mls/hr 07/27/19 13:30 07/27/19 14:02 units/ Sodium Chloride IVPB 101 mls INF BETO Administration Protocol Titrate Midazolam HCl 100 mls @ 0 mls/hr 07/27/19 13:30 07/27/19 14:02 Versed IVPB 100 mls INF BETO Administration Protocol Titrate Loratadine 10 mg 07/23/19 09:00 07/27/19 07:24 Claritin PO 10 mg DAILY BETO Administration Lorazepam 2 mg 07/24/19 12:17 07/27/19 05:29 Ativan SLOW IVP 08/23/19 12:17 2 mg Q1H PRN Administration Breakthrough agitation Magnesium Oxide 500 mg 07/23/19 09:00 07/27/19 07:24 Magnesium Oxide PO 500 mg DAILY BETO Administration Montelukast Sodium 10 mg 07/22/19 21:00 07/26/19 21:08 Singulair PO 10 mg HS BETO Administration Ondansetron HCl 4 mg 07/23/19 23:38 07/23/19 23:54 Zofran IVP 4 mg Q6H PRN Administration Nausea/Vomiting Pantoprazole Sodium 40 mg 07/26/19 09:00 07/27/19 07:25 Protonix IVP 40 mg DAILY BETO Administration Pregabalin 100 mg 07/22/19 21:00 07/27/19 07:23 Lyrica PO 100 mg TID BETO Administration Pyridoxine HCl 50 mg 07/23/19 09:00 07/27/19 07:24 Vitamin B 6 PO 50 mg DAILY BETO Administration Sodium Chloride 10 ml 07/22/19 18:27 07/25/19 20:37 Flush - Normal Saline IVF 10 ml Q12HR PRN Administration Saline Flush Zinc Sulfate 220 mg 07/23/19 09:00 07/27/19 07:24 Zinc Sulfate PO 220 mg DAILY BETO Administration - Exam General Appearance: NAD General - other findings: sedate on mech vent ENT: normocephalic atraumatic, no oropharyngeal lesions ENT - other findings: ETT in place Neck: supple, symmetric, no JVD, no thyromegaly Heart: RRR, no murmur, no gallops, no rubs, normal peripheral pulses Heart - other findings: S1, S2 Respiratory - other findings: diminished bilat, scattered coarse sounds Gastrointestinal: soft, non-tender, non-distended, normal bowel sounds Gastrointestinal - other findings: obese Extremities: no cyanosis, no clubbing, 2+ LE edema Skin: normal turgor Skin - other findings: erythema of head/neck Psychiatric: somnolent, lethargic Hosp A/P (1) Acute respiratory failure with hypoxia Code(s): J96.01 - ACUTE RESPIRATORY FAILURE WITH HYPOXIA Status: Acute Plan: Continue [facility] ventilation, not weanable currently, continue pulmonary supportive mgmt (2) Pneumonia due to COVID-19 virus Code(s): U07.1 - COVID-19; J12.89 - OTHER VIRAL PNEUMONIA Status: Acute Plan: Continue Rocephin/Doxycycline/Solumedrol (3) Acute kidney injury (TAMICA) with acute tubular necrosis (ATN) Code(s): N17.0 - ACUTE KIDNEY FAILURE WITH TUBULAR NECROSIS Status: Acute Plan: Continue HD per Renal service, monitor daily weight and volume status (4) CKD (chronic kidney disease), stage III Code(s): N18.3 - CHRONIC KIDNEY DISEASE, STAGE 3 (MODERATE) Status: Chronic (5) HTN (hypertension) Code(s): I10 - ESSENTIAL (PRIMARY) HYPERTENSION Status: Chronic Qualifiers: Hypertension type: essential hypertension Qualified Code(s): I10 - Essential (primary) hypertension (6) DM II (diabetes mellitus, type II), controlled Code(s): E11.9 - TYPE 2 DIABETES MELLITUS WITHOUT COMPLICATIONS Status: Chronic Plan: Labile due to Solumedrol, Insulin gtt, serial accuchecks, Solumedrol dose decreased by 1/2 - Plan plan discussed w/ family, continue antibiotics, dialysis social worker, respiratory therapy, DVT proph w/SCDs Continue critical support Continue SIMV for mech ventilation, no weanable Remdesivir IV d/c'd due to TAMICA s/p convalescent plasma Type and Screen Continue Rocephin/Doxycycline Albuterl MDI q6h PRN Continue Dulera Continue Singulair Nutritional support with Vital HP @ 25ml/h AM lab: BMP, CBC, CRP PCXR in am
--- NOTE | 2019-07-27 16:37 | PRG ---
DATE OF SERVICE: 07/27/2019 SUBJECTIVE: The patient still intubated, in the ICU. OBJECTIVE: VITAL SIGNS: T-max 103 day before yesterday. She has been afebrile since. O2 saturation is 92% to 94%, FiO2 is like 50. BP 130/60, pulse is 71. HEENT: Ocular movements are not testable. LUNGS: Coarse breath sounds. HEART: S1 and S2. Regular rate. ABDOMEN: Soft, not distended. Unable to evaluate mobility. LABORATORY DATA: White cell count 15.1, probably from steroids. Hemoglobin 9.3, platelets 341, 14% bands. Creatinine is 5.36. AST is down to 768, ALT is at 1745, which is down. Bilirubin is normal. CRP is down to 3.81 and ferritin is 65. Coagulase-negative Staph, one set of blood culture, probably a contaminant. Chest x-ray from today with multifocal bilateral infiltrates. ASSESSMENT AND DISCUSSION: Chronic obstructive lung disease, smoking, bipolar disorder, obesity, hypertension, severe COVID pneumonia, hepatotoxicity versus COVID associated liver disease. Remdesivir has been discontinued. The patient has renal failure, it could again either be remdesivir or COVID infection associated renal failure. The patient has a dialysis catheter and will be started to be dialyzed. The prognosis is guarded. Job ID: [id number]
[2019-07-27] MEDS ORDERED: Propofol 1,000 MG/100 ML VIAL IV ONE (20:27)
[2019-07-27] MEDS: cefTRIAXone\\ROCEPHIN 1 GM in Sodium Chloride 0.9% 100 ML IVPB SCH (20:49)
[2019-07-27] MEDS: Enoxaparin Sodium 60 MG/0.6 ML SYRINGE SC SCH (20:49)
[2019-07-27] MEDS: Montelukast Sodium 10 mg Tablet PO SCH (20:50)
[2019-07-28] MEDS: HUMULIN R 100 UNITS in Sodium Chloride 0.9% 100 ML IVPB SCH ×2 (03:28→23:28)
[2019-07-28] MEDS ORDERED: Propofol 1,000 MG/100 ML VIAL IV ONE (05:12)
[2019-07-28 05:19] LABS: Anion Gap 15 mmol/L (10-20); BUN (Urea Nitrogen) 68 mg/dL (9.8-20.1); CRP (Inflammatory) 2.03 mg/dL (= or < 0.5); Calc. Creatinine Clearance 31 mL/min (70-130); Calcium 8.1 mg/dL (7.8-10.44); Carbon Dioxide 25 mmol/L (22-29); Chloride 106 mmol/L (98-107); Estimated GFR-MDRD 11; Glucose 155 mg/dL (70-105); Potassium 3.9 mmol/L (3.5-5.1); Sodium 142 mmol/L (136-145)
[2019-07-28 05:57] LABS: Band 16 % (5-11); Hemoglobin 8.3 g/dL (12.0-16.0); Lymphocytes 16 % (21-51); MDiff Complete? YES; Mean Corpuscular HGB CONC 30.2 g/dL (32.0-36.0); Mean Corpuscular Hemoglobin 21.8 pg (27.0-31.0); Mean Corpuscular Volume 72.1 fL (78.0-98.0); Mean Platelet Volume 9.1 fL (7.4-10.4); Monocytes 2 % (0-10); Neutrophil 66 % (42-75); Platelet Count 357 thou/uL (130-400); RBC Distribution Width 16.1 % (11.5-14.5); White Blood Cell (WBC) Count 12.9 thou/uL (4.8-10.8)
[2019-07-28] MEDS: Zinc Sulfate 220 MG CAP PO SCH (08:06)
[2019-07-28] MEDS: Loratadine 10 MG TAB PO SCH (08:06)
[2019-07-28] MEDS: Ascorbic Acid 500 mg Chewable Tablet PO SCH (08:06)
[2019-07-28] MEDS: Pantoprazole 40 MG VIAL IVP SCH (08:06)
[2019-07-28] MEDS: methylPREDNISolone Sod Succ 40 MG VIAL IVP SCH (08:06)
[2019-07-28] MEDS: Pregabalin 50 MG CAP PO SCH ×3 (08:14→20:31)
[2019-07-28] MEDS: busPIRone HCl 10 MG TAB PO SCH ×2 (08:15→20:36)
[2019-07-28] MEDS: pyridOXINE 50 MG (B6) TAB PO SCH (09:02)
[2019-07-28] MEDS: Magnesium Oxide 250 MG TAB PO SCH (09:02)
[2019-07-28] MEDS ORDERED: Heparin 10,000 UNITS/ 10 ML VIAL ONE (09:08)
--- NOTE | 2019-07-28 10:15 | PDOC.HOSPP ---
- Subjective Encounter Date: 07/28/19 Encounter Time: 09:30 Subjective: f/u for COVID-19 PNA and resp failure remaining on mech ventilation. Receiving HD this am with plans for 3hr session. - Objective Vital Signs & Weight: Vital Signs (12 hours) Temp Pulse Resp BP Pulse Ox 07/28/19 09:02 94 07/28/19 08:00 98.8 F 22 H 95 07/28/19 06:00 22 H 07/28/19 04:00 22 H 07/28/19 02:20 70 115/55 L 07/28/19 02:00 22 H 07/28/19 00:00 22 H 07/27/19 22:27 90 160/79 H Weight Admit Weight 296 lb Weight 305 lb 8.971 oz Most Recent Monitor Data Heart Rate from ECG 68 NIBP 119/69 NIBP BP-Mean 85 Respiration from ECG 6 SpO2 95 I&O: 07/27/19 07/28/19 07/29/19 06:59 06:59 06:59 Intake Total 4057 3105.7 100 Output Total 1670 2090 Balance 2387 1015.7 100 Result Diagrams: 07/28/19 04:05 07/28/19 04:05 Additional Labs: Accuchecks 07/28/19 07/28/19 07/28/19 06:22 05:37 04:06 POC Glucose 156 H 137 H 175 H 07/28/19 07/28/19 07/28/19 03:06 02:08 01:10 POC Glucose 153 H 125 H 123 H 07/28/19 07/27/19 07/27/19 00:15 23:08 22:02 POC Glucose 144 H 156 H 194 H 07/27/19 07/27/19 07/27/19 21:06 19:39 17:55 POC Glucose 224 H 240 H 273 H 07/27/19 07/27/19 07/27/19 17:07 16:00 15:19 POC Glucose 300 H 305 H 305 H 07/27/19 11:00 POC Glucose 460 H Microbiology 07/22/19 13:22 Venous blood - Left Hand Blood Culture - Final Coagulase Neg Staphylococcus 07/24/19 09:15 Urine abdi catheter Urine Culture - Preliminary NO GROWTH AT 24 HOURS 07/22/19 13:22 Venous blood - Right Arm Blood Culture - Preliminary NO GROWTH AT 48 HOURS Laboratory Tests 07/22/19 07/24/19 07/24/19 11:20 05:05 05:05 WBC Hgb Neutrophils % (Manual) Band Neuts % (Manual) Bicarbonate Actual ABG pH ABG pCO2 ABG pO2 ABG O2 Sat (Measured) Inspired O2 Carbon Dioxide Creatinine 0.91 Magnesium Ferritin 65.24 AST 41 H ALT 50 Alkaline Phosphatase C-Reactive Protein 8.24 H 07/24/19 07/24/19 07/24/19 05:05 05:05 06:40 WBC Hgb Neutrophils % (Manual) 52 Band Neuts % (Manual) 19 H Bicarbonate Actual 33.3 H ABG pH 7.18 L* ABG pCO2 91.3 H* ABG pO2 61.5 L ABG O2 Sat (Measured) 85.7 L* Inspired O2 36 Carbon Dioxide Creatinine Magnesium Ferritin AST 32 ALT 44 Alkaline Phosphatase C-Reactive Protein 07/24/19 07/25/19 07/25/19 23:15 05:41 05:41 WBC 4.1 L Hgb 8.5 L Neutrophils % (Manual) Band Neuts % (Manual) Bicarbonate Actual ABG pH ABG pCO2 ABG pO2 ABG O2 Sat (Measured) Inspired O2 Carbon Dioxide Creatinine 2.51 H Magnesium Ferritin AST Greater than 3500 H ALT 2261 H Alkaline Phosphatase C-Reactive Protein 07/25/19 07/26/19 07/27/19 05:41 03:40 07:13 WBC Hgb Neutrophils % (Manual) Band Neuts % (Manual) Bicarbonate Actual ABG pH ABG pCO2 ABG pO2 ABG O2 Sat (Measured) Inspired O2 Carbon Dioxide 17 L Creatinine Magnesium 2.1 Ferritin AST 768 H ALT 1745 H Alkaline Phosphatase 78 C-Reactive Protein 07/27/19 07:13 WBC Hgb Neutrophils % (Manual) Band Neuts % (Manual) Bicarbonate Actual ABG pH ABG pCO2 ABG pO2 ABG O2 Sat (Measured) Inspired O2 Carbon Dioxide Creatinine Magnesium Ferritin AST ALT Alkaline Phosphatase C-Reactive Protein 3.81 H Radiology Reviewed by me: Yes (PCXR - multifocal bilat infiltrates) EKG Reviewed by me: Yes (Tele - SR) Hospitalist ROS - Medication Medications: Active Medications Generic Name Dose Route Start Last Admin Trade Name Freq PRN Reason Stop Dose Admin Acetaminophen 650 mg 07/22/19 18:27 07/26/19 12:01 Tylenol PO 650 mg Q4H PRN Administration Headache/Fever/Mild Pain (1-3) Albuterol/Ipratropium 3 ml 07/25/19 14:30 07/28/19 09:02 Duoneb NEB 3 ml [id number] BETO Administration Ascorbic Acid 1,000 mg 07/23/19 09:00 07/28/19 08:06 Vitamin C PO 1,000 mg DAILY BETO Administration Buspirone HCl 10 mg 07/22/19 21:00 07/28/19 08:15 Buspar PO 10 mg BID BETO Administration Cholecalciferol 5,000 units 07/23/19 09:00 07/28/19 08:15 Vitamin D3 PO 5,000 units DAILY BETO Administration Enoxaparin Sodium 60 mg 07/25/19 21:00 07/27/19 20:49 Lovenox SC 60 mg 2100 BETO Administration Hydralazine HCl 10 mg 07/22/19 20:04 07/27/19 05:24 Apresoline SLOW IVP 10 mg Q4H PRN Administration SBP Greater Than 180 Fentanyl Citrate 2,000 mcg/ 100 mls @ 0 mls/hr 07/24/19 12:17 07/24/19 14:05 Sodium Chloride IV 08/23/19 12:17 100 mls INF BETO Administration Protocol Per Protocol Ceftriaxone Sodium 1 gm/ 100 mls @ 200 mls/hr 07/26/19 21:00 07/27/19 20:49 Sodium Chloride IVPB 100 mls 2100 BETO Administration Insulin Human Regular 100 101 mls @ 0 mls/hr 07/27/19 13:30 07/28/19 03:28 units/ Sodium Chloride IVPB 101 mls INF BETO Administration Protocol Titrate Midazolam HCl 100 mls @ 0 mls/hr 07/27/19 13:30 07/28/19 03:54 Versed IVPB 100 mls INF BETO Administration Protocol Titrate Loratadine 10 mg 07/23/19 09:00 07/28/19 08:06 Claritin PO 10 mg DAILY BETO Administration Lorazepam 2 mg 07/24/19 12:17 07/27/19 05:29 Ativan SLOW IVP 08/23/19 12:17 2 mg Q1H PRN Administration Breakthrough agitation Magnesium Oxide 500 mg 07/23/19 09:00 07/27/19 07:24 Magnesium Oxide PO 500 mg DAILY BETO Administration Methylprednisolone Sodium Succinate 40 mg 07/28/19 09:00 07/28/19 08:06 Solu-Medrol IVP 40 mg DAILY BETO Administration Montelukast Sodium 10 mg 07/22/19 21:00 07/27/19 20:50 Singulair PO 10 mg HS BETO Administration Ondansetron HCl 4 mg 07/23/19 23:38 07/23/19 23:54 Zofran IVP 4 mg Q6H PRN Administration Nausea/Vomiting Pantoprazole Sodium 40 mg 07/26/19 09:00 07/28/19 08:06 Protonix IVP 40 mg DAILY BETO Administration Pregabalin 100 mg 07/22/19 21:00 07/28/19 08:14 Lyrica PO 100 mg TID BETO Administration Pyridoxine HCl 50 mg 07/23/19 09:00 07/27/19 07:24 Vitamin B 6 PO 50 mg DAILY BETO Administration Sodium Chloride 10 ml 07/22/19 18:27 07/25/19 20:37 Flush - Normal Saline IVF 10 ml Q12HR PRN Administration Saline Flush Zinc Sulfate 220 mg 07/23/19 09:00 07/28/19 08:06 Zinc Sulfate PO 220 mg DAILY BETO Administration - Exam General - other findings: sedate on mech vent ENT: normocephalic atraumatic, no oropharyngeal lesions ENT - other findings: ETT in place Neck: supple, symmetric, no JVD, no thyromegaly, no lymphadenopathy Heart: RRR, no murmur, no gallops, no rubs, normal peripheral pulses Heart - other findings: S1, S2 Respiratory: tachypneic Respiratory - other findings: diminished bilat, exp wheezes Gastrointestinal: soft, non-tender, non-distended, normal bowel sounds, no palpable masses Gastrointestinal - other findings: obese Extremities: no cyanosis, no clubbing, no edema Skin: normal turgor, no lesions Psychiatric: somnolent, lethargic Psychiatric - other findings: sedate on mech vent Hosp A/P (1) Acute respiratory failure with hypoxia Code(s): J96.01 - ACUTE RESPIRATORY FAILURE WITH HYPOXIA Status: Acute Plan: Continue mech ventilation, not weanable, see below (2) Pneumonia due to COVID-19 virus Code(s): U07.1 - COVID-19; J12.89 - OTHER VIRAL PNEUMONIA Status: Acute Plan: Continue Rocephin/Solumedrol, s/p convalescent plasma (3) Acute kidney injury (TAMICA) with acute tubular necrosis (ATN) Code(s): N17.0 - ACUTE KIDNEY FAILURE WITH TUBULAR NECROSIS Status: Acute Plan: HD continuing today, serial creatinine monitoring (4) CKD (chronic kidney disease), stage III Code(s): N18.3 - CHRONIC KIDNEY DISEASE, STAGE 3 (MODERATE) Status: Chronic (5) HTN (hypertension) Code(s): I10 - ESSENTIAL (PRIMARY) HYPERTENSION Status: Chronic Qualifiers: Hypertension type: essential hypertension Qualified Code(s): I10 - Essential (primary) hypertension (6) DM II (diabetes mellitus, type II), controlled Code(s): E11.9 - TYPE 2 DIABETES MELLITUS WITHOUT COMPLICATIONS Status: Chronic Plan: Overall glycemic trend improved, continue Insulin gtt, serial accuchecks - Plan continue antibiotics, drug abuse social worker, respiratory therapy, DVT proph w/SCDs Continue critical support Continue SIMV for mech ventilation, not weanable Remdesivir IV d/c'd due to TAMICA s/p convalescent plasma Continue Rocephin/Solumedrol Albuterl MDI q6h PRN Continue Dulera Continue Singulair Nutritional support with Vital HP @ 25ml/h HD per Renal service AM lab: CMP, CBC, CRP PCXR in am
--- NOTE | 2019-07-28 10:28 | PRG ---
DATE OF SERVICE: 07/28/2019 SUBJECTIVE: Ms. Blackman is a 54-year-old white female who was admitted for acute respiratory failure secondary to viral pneumonia from COVID-19 infection. She is currently intubated on ventilator support. We are following her up for acute kidney injury, which is most likely related to acute tubular necrosis. She is tolerating her hemodialysis. I am attempting 3 L fluid removal with her. I have discontinued her IV fluids yesterday. No acute events noted last night. The patient is not-weanable from her endotracheal tube at the moment and consideration for tracheostomy is being made. OBJECTIVE: VITAL SIGNS: Blood pressure 117/56, heart rate 65, O2 saturation is 95%, and temperature 97.7. GENERAL: The patient is sedated, intubated on ventilator support. Obese. SKIN: Adequate turgor. HEENT: Slightly pale conjunctivae. Anicteric sclerae. NECK: No neck mass. No carotid bruits. No JVD. CHEST: No deformities. LUNGS: Harsh breath sounds. HEART: Normal sinus rhythm. No murmurs, gallops, or rubs. ABDOMEN: Globular, soft, nontender. EXTREMITIES: No edema. MEDICATIONS: Medications of July 28, 2019, were reviewed. LABORATORY DATA: Laboratories of July 28, 2019; white count 12.9, hemoglobin 8.3. Sodium 142, potassium 3.9, chloride 106, carbon dioxide 25, BUN 68, creatinine 4.38, and glucose 185. C-reactive protein 2.03, calcium 8.1. ASSESSMENT AND PLAN: 1. Acute kidney injury secondary to presumed acute tubular necrosis, continuing daily hemodialysis with fluid removal as tolerated. As previously mentioned, attempt at 3 L fluid removal. We will re-evaluate again tomorrow if there is a need for dialysis. 2. Acute respiratory failure secondary to viral pneumonia/COVID-19. Supportive care. Possible tracheostomy placement. Overall, prognosis remains guarded. Job ID: [id number]
--- NOTE | 2019-07-28 12:05 | PRG ---
DATE OF SERVICE: SUBJECTIVE: Natalia Blackman remains hemodynamically stable and sedated. OBJECTIVE: VITAL SIGNS: Heart rate is in 60s, blood pressure 110/62, respiratory rates in the teens to low 20s. She is afebrile. LUNGS: Clear. HEART: Regular rhythm. ABDOMEN: Soft. EXTREMITIES: Without asymmetry. LABORATORY DATA: White count 12.9, hemoglobin 8.3, and platelets 357. Electrolytes are normal. Creatinine 4.38. Currently being dialyzed. IMPRESSION: 1. Respiratory failure associated with COVID pneumonia. 2. Asthma, clinically stable. 3. Obesity. 4. Deconditioning. 5. Acute renal failure. 6. Hepatitis ? secondary to COVID. The enzyme elevation is out of proportion to what we normally see. In any event, she appears to be stable. Her improvement will, however, be slow. CRITICAL CARE TIME: 30 minutes. Job ID: [id number]
[2019-07-28] MEDS: Lorazepam 2 MG/ML VIAL SLOW IVP PRN (12:14)
[2019-07-28] MEDS: Acetaminophen 325 MG TAB PO PRN (12:14)
[2019-07-28] MEDS: fentaNYL Citrate/PF 2,000 MCG in Sodium Chloride 0.9% 60 ML IV SCH (13:29)
[2019-07-28] MEDS: Enoxaparin Sodium 60 MG/0.6 ML SYRINGE SC SCH (20:30)
[2019-07-28] MEDS: cefTRIAXone\\ROCEPHIN 1 GM in Sodium Chloride 0.9% 100 ML IVPB SCH (20:31)
[2019-07-28] MEDS: Montelukast Sodium 10 mg Tablet PO SCH (20:31)
[2019-07-29 04:04] LABS: Band 5 % (5-11); Hemoglobin 8.5 g/dL (12.0-16.0); Hypochromia SLIGHT = 6-15 cells (100X) (0-5/hpf); Lymphocytes 14 % (21-51); MDiff Complete? YES; Mean Corpuscular HGB CONC 32.5 g/dL (32.0-36.0); Mean Corpuscular Hemoglobin 23.6 pg (27.0-31.0); Mean Corpuscular Volume 72.5 fL (78.0-98.0); Mean Platelet Volume 9.3 fL (7.4-10.4); Microcytosis SLIGHT = 6-15 cells (100X) (0-5/hpf); Monocytes 4 % (0-10); Neutrophil 77 % (42-75); Platelet Count 318 thou/uL (130-400); Platelet Morphology Comment Appears Adequate; RBC Distribution Width 16.3 % (11.5-14.5); White Blood Cell (WBC) Count 11.5 thou/uL (4.8-10.8)
[2019-07-29 04:08] LABS: ALT (SGPT) 755 U/L (8-55); AST (SGOT) 112 U/L (5-34); Albumin 3.2 g/dL (3.5-5.0); Alkaline Phosphatase 63 U/L (40-110); Anion Gap 16 mmol/L (10-20); BUN (Urea Nitrogen) 63 mg/dL (9.8-20.1); Bilirubin, Total 0.3 mg/dL (0.2-1.2); CRP (Inflammatory) 1.59 mg/dL (= or < 0.5); Calc. Creatinine Clearance 36 mL/min (70-130); Calcium 8.2 mg/dL (7.8-10.44); Carbon Dioxide 25 mmol/L (22-29); Chloride 104 mmol/L (98-107); Estimated GFR-MDRD 12; Globulin 2.4 g/dL (2.4-3.5); Glucose 129 mg/dL (70-105); Potassium 4.8 mmol/L (3.5-5.1); Protein, Total 5.6 g/dL (6.0-8.3); Sodium 140 mmol/L (136-145)
--- NOTE | 2019-07-29 08:11 | RAD ---
SINGLE VIEW OF THE CHEST: COMPARISON: 07/27/2019. HISTORY: Ventilated patient with respiratory failure. FINDINGS: A single view of the chest shows an enlarged but stable cardiomediastinal silhouette. The endotrache al tube and NG tube are unchanged in position. There are stable mixed scattered opacities in the ca gs. IMPRESSION: Stable exam. POS: EAA
[2019-07-29] MEDS: Magnesium Oxide 250 MG TAB PO SCH (09:43)
[2019-07-29] MEDS: Pantoprazole 40 MG VIAL IVP SCH (09:48)
[2019-07-29] MEDS: methylPREDNISolone Sod Succ 40 MG VIAL IVP SCH (09:48)
[2019-07-29] MEDS: Pregabalin 50 MG CAP PO SCH (09:49)
[2019-07-29] MEDS: Ascorbic Acid 500 mg Chewable Tablet PO SCH (09:49)
[2019-07-29] MEDS: busPIRone HCl 10 MG TAB PO SCH (09:49)
[2019-07-29] MEDS: Zinc Sulfate 220 MG CAP PO SCH (09:50)
[2019-07-29] MEDS: Loratadine 10 MG TAB PO SCH (09:50)
[2019-07-29] MEDS: pyridOXINE 50 MG (B6) TAB PO SCH (09:53)
--- NOTE | 2019-07-29 14:39 | PRG ---
DATE OF SERVICE: 07/29/2019 SUBJECTIVE: Ms. Blackman is hemodynamically stable. OBJECTIVE: VITAL SIGNS: Heart rate is 105, blood pressure 134/67, respiratory rate in the 20s, oximetry is in the low 90s, and temperature is 100.2. LUNGS: Unchanged. HEART: Unchanged. ABDOMEN: Unchanged. EXTREMITIES: Unchanged. She was sedated for ventilation with Versed 10 mg in an hour. LABORATORY DATA: White count 11.5, hemoglobin 8.5, and platelets 318. Sodium 140, potassium 4.8, chloride 104, bicarb 25, BUN 63, creatinine 3.9. Intake and outputs +107. Her urine output in the last 24 hours was 1035. She is starting to make urine, so dialysis is being held today. Chest x-ray still shows diffuse infiltrates. I talked to the daughter. I explained that this will be a slow process with her significant deconditioning leading up to this. I answered all of her questions to her satisfaction. She will remain with current care in the critical care unit. CRITICAL CARE TIME: 30 minutes. Job ID: [id number]
[2019-07-29] MEDS: HumaLOG 300 UNITS/3 ML VIAL SC PRN ×2 (16:06→20:42)
--- NOTE | 2019-07-29 16:44 | PRG ---
DATE OF SERVICE: 07/29/2019 SUBJECTIVE: The patient is in the ICU and intubated, being dialyzed except for today. OBJECTIVE: GENERAL: She is awake and follows commands and understands questions. VITAL SIGNS: Temperature seems to have improved over the past few hours. BP 150/71, and O2 saturations are ranging from 91% to 98% on mechanical ventilator, FiO2 is 50%. LUNGS: Coarse breath sounds. HEART: S1 and S2. Regular rate. ABDOMEN: Soft. Not distended. GENITOURINARY: She has had quite a bit of urinary output over the past 24 hours. LABORATORY DATA: White cell count is at 11.5, hemoglobin 8.5, platelets 318. Creatinine is 3.94. AST is down to 112, ALT is down to 755. CRP is at 1.59. Ferritin was not repeated from the 7th. D-dimer 0.72. The x-ray showed bilateral infiltrates. ASSESSMENT AND DISCUSSION: Chronic obstructive pulmonary disease, smoking, bipolar disorder, obesity, severe COVID pneumonia, hepatotoxicity versus COVID associated effects or hepatic congestion from the kidney failure and right-sided overload. and hopefully, the kidney function will recover in the ensuing days. Again, as expected, protracted clinical course if she survives this illness in the ICU. Job ID: [id number] [facility]
--- NOTE | 2019-07-29 18:00 | PDOC.EVN ---
Event Note - Event Note Event Note: To limit provider exposure please see previous notes from Pulmonology and ID regarding progress today. Pt remains on mech ventilation and unable to wean. Tolerated HD but currently held after increased urine output observed. Will continue to follow with Pulmonology and ID service.
[2019-07-29] MEDS: Enoxaparin Sodium 60 MG/0.6 ML SYRINGE SC SCH (20:03)
[2019-07-29] MEDS: cefTRIAXone\\ROCEPHIN 1 GM in Sodium Chloride 0.9% 100 ML IVPB SCH (20:03)
[2019-07-29] MEDS ORDERED: Insulin Regular 300 UNITS/3 ML VIAL IVP SCH (22:15)
[2019-07-30] MEDS: HumaLOG 300 UNITS/3 ML VIAL SC PRN ×11 (00:20→22:37)
[2019-07-30 06:31] LABS: Hemoglobin 8.3 g/dL (12.0-16.0); Mean Corpuscular HGB CONC 31.1 g/dL (32.0-36.0); Mean Corpuscular Hemoglobin 22.5 pg (27.0-31.0); Mean Corpuscular Volume 72.3 fL (78.0-98.0); Mean Platelet Volume 8.9 fL (7.4-10.4); Platelet Count 315 thou/uL (130-400); RBC Distribution Width 16.3 % (11.5-14.5); Red Blood Cell (RBC) Count 3.68 mill/uL (4.20-5.40); White Blood Cell (WBC) Count 13.1 thou/uL (4.8-10.8)
[2019-07-30 06:32] LABS: Band 3 % (5-11); Eosinophils 1 % (0-10); Lymphocytes 21 % (21-51); MDiff Complete? YES; Monocytes 10 % (0-10); Neutrophil 65 % (42-75); Platelet Morphology Comment Appears Adequate
[2019-07-30 06:41] LABS: Anion Gap 17 mmol/L (10-20); BUN (Urea Nitrogen) 103 mg/dL (9.8-20.1); Calc. Creatinine Clearance 25 mL/min (70-130); Calcium 8.9 mg/dL (7.8-10.44); Carbon Dioxide 24 mmol/L (22-29); Chloride 105 mmol/L (98-107); Estimated GFR-MDRD 8; Glucose 130 mg/dL (70-105); Potassium 5.2 mmol/L (3.5-5.1); Sodium 141 mmol/L (136-145)
[2019-07-30] MEDS: Ascorbic Acid 500 mg Chewable Tablet PO SCH (08:09)
[2019-07-30] MEDS: Pantoprazole 40 MG VIAL IVP SCH (08:10)
[2019-07-30] MEDS: methylPREDNISolone Sod Succ 40 MG VIAL IVP SCH (08:10)
--- NOTE | 2019-07-30 12:24 | PRG ---
DATE OF SERVICE: 07/30/2019 SUBJECTIVE: Ms. Blackman remains mechanically ventilated. OBJECTIVE: VITAL SIGNS: Heart rate is in 80s, respiratory rate is in the high 20s to 30, oximetry is in the low 90s, FiO2 is at 50%, and blood pressure 157/76. LUNGS: Clear. HEART: Regular rhythm. ABDOMEN: Soft. EXTREMITIES: Without asymmetry. LABORATORY DATA: White count 13.1, hemoglobin 8.3, and platelets 315. Sodium 141, potassium 5.2, chloride 105, bicarb 24, BUN 103, and creatinine 5.49. IMPRESSION: 1. Respiratory failure. 2. COVID pneumonia. 3. Obesity. 4. Asthma. 5. Acute renal failure. 6. Hepatic enzymitis. PLAN: We are making slow decrease ventilatory support. This will be a slow progress, but we seem to be making slow progress. CRITICAL CARE TIME: 30 minutes. Job ID: [id number]
[2019-07-30] MEDS ORDERED: Heparin 10,000 UNITS/ 10 ML VIAL ONE (12:39)
--- NOTE | 2019-07-30 12:49 | PRG ---
DATE OF SERVICE: 07/30/2019 SUBJECTIVE: Ms. Blackman is a 54-year-old white female, followed up by the Renal Service for acute kidney injury secondary to presumed acute tubular necrosis. She has been undergoing hemodialysis. Our plan is to schedule her back for her hemodialysis today. BUN is noted at 103 with a creatinine of 5.49. She did not receive dialysis yesterday. In addition, the patient has been having urine output of about 1.3 L in the last 24 hours. No acute events noted. OBJECTIVE: VITAL SIGNS: Blood pressure 157/76, heart rate 91, respiratory rate 32, O2 saturation 90%, temperature 98.6. GENERAL: The patient is sedated, intubated, on ventilator support, obese. SKIN: Adequate turgor. HEENT: She has a slightly pale conjunctivae. Anicteric sclerae. No neck mass. No carotid bruits. No JVD. CHEST: No deformities. LUNGS: Decreased breath sounds. HEART: Normal sinus rhythm. No murmurs, no gallops, no rubs. ABDOMEN: Globular, soft, nontender. EXTREMITIES: Trace edema. MEDICATIONS: Medications of July 30, 2019, was reviewed. LABORATORY DATA: Laboratories of July 30, 2019; white count 13.1, hemoglobin 8.3. Sodium 141, potassium 5.2, chloride 105, carbon dioxide 24, BUN 103, creatinine 5.49, glucose 130, calcium 8.9. ASSESSMENT AND PLAN: 1. Acute kidney injury - secondary to presumed acute tubular necrosis. The patient is currently nonoliguric. We will continue hemodialysis regimen. I have planned her for 3-hour hemodialysis today with fluid removal only as tolerated. 2. Anemia. Continue supportive care, p.r.n. blood transfusion. 3. Acute respiratory failure from COVID pneumonia. Continue supportive care. Overall, prognosis remains guarded with this patient. Job ID: [id number]
--- NOTE | 2019-07-30 18:57 | PDOC.HOSPP ---
- Subjective Encounter Date: 07/30/19 Subjective: Remains on mechanical ventilation. - Objective Vital Signs & Weight: Vital Signs (12 hours) Pulse Resp Pulse Ox 07/30/19 18:42 84 93 L 07/30/19 16:04 92 07/30/19 16:03 92 30 H 93 L 07/30/19 14:00 31 H 07/30/19 12:00 33 H 07/30/19 10:31 85 30 H 92 L 07/30/19 10:00 29 H 07/30/19 08:13 71 22 H 94 L 07/30/19 08:00 22 H 94 L Weight Admit Weight 296 lb Weight 302 lb 7.587 oz Most Recent Monitor Data Heart Rate from ECG 88 NIBP 142/77 NIBP BP-Mean 98 Respiration from ECG 30 SpO2 95 I&O: 07/29/19 07/30/19 07/31/19 06:59 06:59 06:59 Intake Total 1142.3 204.0 100 Output Total 1035 1385 1070 Balance 107.3 -1181.0 -970 Result Diagrams: 07/30/19 06:14 07/30/19 06:14 Additional Labs: Accuchecks 07/30/19 07/30/19 07/30/19 06:17 04:23 02:10 POC Glucose 136 H 153 H 188 H 07/29/19 07/29/19 07/29/19 23:54 22:10 20:15 POC Glucose 260 H 312 H 382 H 07/29/19 18:00 POC Glucose 413 H Hospitalist ROS - Medication Medications: Active Medications Generic Name Dose Route Start Last Admin Trade Name Ricardoq PRN Reason Stop Dose Admin Acetaminophen 650 mg 07/22/19 18:27 07/28/19 12:14 Tylenol PO 650 mg Q4H PRN Administration Headache/Fever/Mild Pain (1-3) Albuterol/Ipratropium 3 ml 07/25/19 14:30 07/30/19 18:42 Duoneb NEB 3 ml [id number] BETO Administration Ascorbic Acid 1,000 mg 07/23/19 09:00 07/30/19 08:09 Vitamin C PO 1,000 mg DAILY BETO Administration Enoxaparin Sodium 60 mg 07/25/19 21:00 07/29/19 20:03 Lovenox SC 60 mg 2100 BETO Administration Hydralazine HCl 10 mg 07/22/19 20:04 07/27/19 05:24 Apresoline SLOW IVP 10 mg Q4H PRN Administration SBP Greater Than 180 Fentanyl Citrate 2,000 mcg/ 100 mls @ 0 mls/hr 07/24/19 12:17 07/28/19 13:29 Sodium Chloride IV 08/23/19 12:17 100 mls INF BETO Administration Protocol Per Protocol Ceftriaxone Sodium 1 gm/ 100 mls @ 200 mls/hr 07/26/19 21:00 07/29/19 20:03 Sodium Chloride IVPB 100 mls 2100 BETO Administration Midazolam HCl 100 mls @ 0 mls/hr 07/27/19 13:30 07/30/19 18:31 Versed IVPB 100 mls INF BETO Administration Protocol Titrate Insulin Human Lispro 0 units 07/29/19 15:40 07/30/19 18:51 Humalog SC 6 unit .AGGRESSIVE SLIDING PRN Administration AGGRESSIVE SLIDING SCALE Protocol Lorazepam 2 mg 07/24/19 12:17 07/28/19 12:14 Ativan SLOW IVP 08/23/19 12:17 2 mg Q1H PRN Administration Breakthrough agitation Methylprednisolone Sodium Succinate 40 mg 07/28/19 09:00 07/30/19 08:10 Solu-Medrol IVP 40 mg DAILY BETO Administration Ondansetron HCl 4 mg 07/23/19 23:38 07/23/19 23:54 Zofran IVP 4 mg Q6H PRN Administration Nausea/Vomiting Pantoprazole Sodium 40 mg 07/26/19 09:00 07/30/19 08:10 Protonix IVP 40 mg DAILY BETO Administration Sodium Chloride 10 ml 07/22/19 18:27 07/25/19 20:37 Flush - Normal Saline IVF 10 ml Q12HR PRN Administration Saline Flush Sodium Chloride 10 ml 07/25/19 13:12 07/29/19 09:48 Normal Saline Pf FS 10 ml PRN PRN Administration RECONSTITUTION - Exam General - other findings: Physical examination was not performed to limit provider exposure. Hosp A/P (1) Acute kidney injury (TAMICA) with acute tubular necrosis (ATN) Code(s): N17.0 - ACUTE KIDNEY FAILURE WITH TUBULAR NECROSIS Status: Acute (2) Acute respiratory failure with hypoxia Code(s): J96.01 - ACUTE RESPIRATORY FAILURE WITH HYPOXIA Status: Acute (3) Pneumonia due to COVID-19 virus Code(s): U07.1 - COVID-19; J12.89 - OTHER VIRAL PNEUMONIA Status: Acute (4) DM II (diabetes mellitus, type II), controlled Code(s): E11.9 - TYPE 2 DIABETES MELLITUS WITHOUT COMPLICATIONS Status: Chronic (5) HTN (hypertension) Code(s): I10 - ESSENTIAL (PRIMARY) HYPERTENSION Status: Chronic Qualifiers: Hypertension type: essential hypertension Qualified Code(s): I10 - Essential (primary) hypertension - Plan The patient remains on the vent and making slow progress per pulmonology. Nephrology planning to remove 3 L of fluids with hemodialysis today. We will continue to follow the management plan per pulmonology and nephrology until the patient is extubated.
[2019-07-30] MEDS: cefTRIAXone\\ROCEPHIN 1 GM in Sodium Chloride 0.9% 100 ML IVPB SCH (19:52)
[2019-07-30] MEDS: Enoxaparin Sodium 60 MG/0.6 ML SYRINGE SC SCH (19:53)
[2019-07-31] MEDS: HumaLOG 300 UNITS/3 ML VIAL SC PRN ×5 (00:28→14:31)
[2019-07-31 02:51] LABS: Band 4 % (5-11); Hemoglobin 8.5 g/dL (12.0-16.0); Hypochromia SLIGHT = 6-15 cells (100X) (0-5/hpf); Lymphocytes 23 % (21-51); MDiff Complete? YES; Mean Corpuscular HGB CONC 31.9 g/dL (32.0-36.0); Mean Corpuscular Hemoglobin 23.2 pg (27.0-31.0); Mean Corpuscular Volume 72.7 fL (78.0-98.0); Microcytosis SLIGHT = 6-15 cells (100X) (0-5/hpf); Monocytes 9 % (0-10); Neutrophil 64 % (42-75); Platelet Count 324 thou/uL (130-400); Platelet Morphology Comment Appears Adequate; RBC Distribution Width 16.3 % (11.5-14.5); Red Blood Cell (RBC) Count 3.65 mill/uL (4.20-5.40); White Blood Cell (WBC) Count 12.8 thou/uL (4.8-10.8)
[2019-07-31 03:03] LABS: Anion Gap 18 mmol/L (10-20); BUN (Urea Nitrogen) 72 mg/dL (9.8-20.1); Calc. Creatinine Clearance 36 mL/min (70-130); Calcium 8.7 mg/dL (7.8-10.44); Carbon Dioxide 26 mmol/L (22-29); Chloride 102 mmol/L (98-107); Estimated GFR-MDRD 12; Glucose 132 mg/dL (70-105); Potassium 5.3 mmol/L (3.5-5.1); Sodium 141 mmol/L (136-145)
[2019-07-31 07:47] LABS: Actual Bicarbonate (HCO3a) 25.6 mEq/L (22-28); Base Excess (BEa) 1.3 mEq/L (-2.0 to +3.0); CO2 Tension 39.5 mmHg (35.0-45.0); Calcium, Ionized (arterial) 1.16 mmol/L (1.12-1.30); Carboxyhemoglobin (COHb) 0.9 gm% (0.0-3.0); Hemoglobin (Hb) 9.4 g/dL (12.0-16.0); O2 Tension (PaO2), arterial 67.6 mmHg (80.0-100.0); Potassium - ABG Lab 4.65 mmol/L (3.70-5.30); pH, Arterial 7.43 (7.35-7.45)
[2019-07-31 08:06] LABS: Puncture Site RRAD
[2019-07-31 08:07] LABS: ALV-art Gradient 239.525 (0-20)
--- NOTE | 2019-07-31 08:29 | RAD ---
Exam: Chest one view HISTORY:Respiratory distress. Ventilated patient. Comparison: 07/29/2019 FINDINGS: Lines and tubes: Redemonstration of endotracheal and nasogastric tube. Cardiac silhouette:Stable cardiomegaly Aorta: Unremarkable Pulmonary vessels: Normal Costophrenic angles: Clear LUNGS: Stable opacification of the lung parenchyma. Pneumothorax: None Osseous abnormalities: None IMPRESSION: No significant interval change.
[2019-07-31] MEDS: methylPREDNISolone Sod Succ 40 MG VIAL IVP SCH (08:45)
[2019-07-31] MEDS: Ascorbic Acid 500 mg Chewable Tablet PO SCH (08:45)
[2019-07-31] MEDS: Pantoprazole 40 MG VIAL IVP SCH (08:45)
--- NOTE | 2019-07-31 13:47 | PDOC.HOSPP ---
- Subjective Encounter Date: 07/31/19 non-verbal Subjective: Remains on the Vent - Objective Vital Signs & Weight: Vital Signs (12 hours) Pulse Resp Pulse Ox 07/31/19 10:19 85 07/31/19 10:18 84 29 H 93 L 07/31/19 10:00 28 H 07/31/19 08:04 88 31 H 93 L 07/31/19 08:00 29 H 93 L 07/31/19 05:47 25 H 07/31/19 04:00 25 H 07/31/19 03:34 77 07/31/19 02:00 27 H Weight Admit Weight 296 lb Weight 305 lb 5.443 oz Most Recent Monitor Data Heart Rate from ECG 86 NIBP 131/65 NIBP BP-Mean 87 Respiration from ECG 25 SpO2 93 I&O: 07/30/19 07/31/19 08/01/19 06:59 06:59 06:59 Intake Total 204.0 449 80 Output Total 1385 6363 700 Balance -1181.0 -1531 -620 Result Diagrams: 07/31/19 02:26 07/31/19 02:26 Additional Labs: Accuchecks 07/31/19 07/31/19 07/31/19 04:30 02:20 00:23 POC Glucose 152 H 141 H 159 H 07/30/19 07/30/19 07/30/19 22:23 20:04 18:43 POC Glucose 170 H 200 H 222 H 07/30/19 07/30/19 07/30/19 16:31 14:18 12:25 POC Glucose 210 H 287 H 284 H 07/30/19 07/30/19 10:21 08:28 POC Glucose 186 H 156 H Hospitalist ROS - Medication Medications: Active Medications Generic Name Dose Route Start Last Admin Trade Name Freq PRN Reason Stop Dose Admin Acetaminophen 650 mg 07/22/19 18:27 07/28/19 12:14 Tylenol PO 650 mg Q4H PRN Administration Headache/Fever/Mild Pain (1-3) Albuterol/Ipratropium 3 ml 07/25/19 14:30 07/31/19 10:18 Duoneb NEB 3 ml [id number] BETO Administration Ascorbic Acid 1,000 mg 07/23/19 09:00 07/31/19 08:45 Vitamin C PO 1,000 mg DAILY BETO Administration Enoxaparin Sodium 60 mg 07/25/19 21:00 07/30/19 19:53 Lovenox SC 60 mg 2100 BETO Administration Hydralazine HCl 10 mg 07/22/19 20:04 07/27/19 05:24 Apresoline SLOW IVP 10 mg Q4H PRN Administration SBP Greater Than 180 Fentanyl Citrate 2,000 mcg/ 100 mls @ 0 mls/hr 07/24/19 12:17 07/28/19 13:29 Sodium Chloride IV 08/23/19 12:17 100 mls INF BETO Administration Protocol Per Protocol Ceftriaxone Sodium 1 gm/ 100 mls @ 200 mls/hr 07/26/19 21:00 07/30/19 19:52 Sodium Chloride IVPB 100 mls 2100 BETO Administration Midazolam HCl 100 mls @ 0 mls/hr 07/27/19 13:30 07/31/19 04:13 Versed IVPB 100 mls INF BETO Administration Protocol Titrate Insulin Human Lispro 0 units 07/29/19 15:40 07/31/19 13:26 Humalog SC 11 unit .AGGRESSIVE SLIDING PRN Administration AGGRESSIVE SLIDING SCALE Protocol Lorazepam 2 mg 07/24/19 12:17 07/28/19 12:14 Ativan SLOW IVP 08/23/19 12:17 2 mg Q1H PRN Administration Breakthrough agitation Methylprednisolone Sodium Succinate 40 mg 07/28/19 09:00 07/31/19 08:45 Solu-Medrol IVP 40 mg DAILY BETO Administration Ondansetron HCl 4 mg 07/23/19 23:38 07/23/19 23:54 Zofran IVP 4 mg Q6H PRN Administration Nausea/Vomiting Pantoprazole Sodium 40 mg 07/26/19 09:00 07/31/19 08:45 Protonix IVP 40 mg DAILY BETO Administration Sodium Chloride 10 ml 07/22/19 18:27 07/25/19 20:37 Flush - Normal Saline IVF 10 ml Q12HR PRN Administration Saline Flush Sodium Chloride 10 ml 07/25/19 13:12 07/29/19 09:48 Normal Saline Pf FS 10 ml PRN PRN Administration RECONSTITUTION - Exam Heart: RRR Hosp A/P (1) Acute kidney injury (TAMICA) with acute tubular necrosis (ATN) Code(s): N17.0 - ACUTE KIDNEY FAILURE WITH TUBULAR NECROSIS Status: Acute (2) Acute respiratory failure with hypoxia Code(s): J96.01 - ACUTE RESPIRATORY FAILURE WITH HYPOXIA Status: Acute (3) Pneumonia due to COVID-19 virus Code(s): U07.1 - COVID-19; J12.89 - OTHER VIRAL PNEUMONIA Status: Acute (4) DM II (diabetes mellitus, type II), controlled Code(s): E11.9 - TYPE 2 DIABETES MELLITUS WITHOUT COMPLICATIONS Status: Chronic (5) HTN (hypertension) Code(s): I10 - ESSENTIAL (PRIMARY) HYPERTENSION Status: Chronic Qualifiers: Hypertension type: essential hypertension Qualified Code(s): I10 - Essential (primary) hypertension - Plan The patient remains on the vent and making slow progress per pulmonology. Code positive status post convalescence plasma. Continue hemodialysis per nephrology. Remains on bronchodilators, corticosteroids and IV antibiotics.
--- NOTE | 2019-07-31 14:48 | PRG ---
DATE OF SERVICE: 07/31/2019 SUBJECTIVE: Ms. Blackman is hemodynamically stable. OBJECTIVE: VITAL SIGNS: Heart rate is in the 80s, respiratory rates in the high 20s, oximetry is 92%, FiO2 is at 50%, blood pressure 144/75. LUNGS: Unchanged. HEART: Unchanged. ABDOMEN: Unchanged. EXTREMITIES: Unchanged. LABORATORY DATA: White count 12.8, hemoglobin 8.5, and platelets 324. Sodium 141, potassium 5.3, chloride 102, bicarb 26, BUN 73, and creatinine 3.86. Intake and outputs negative 1531 and urine output was 1980 mL yesterday. She was dialyzed 2600 mL yesterday, which was not adding in the intake and output above. Chest x-ray is essentially unchanged. A pH 7.43, CO2 of 39, and PO2 of 67. IMPRESSION: 1. COVID-19 pneumonia. 2. Respiratory failure. 3. Asthma. 4. Acute renal failure. 5. Hepatic enzymitis, it is improved. 6. Metabolic acidosis. 7. Respiratory acidosis, it is improved. Her renal function may be starting to recover. We will continue with ventilatory support. She is currently not weanable now because of her underlying asthma and deconditioning. CRITICAL CARE TIME: 30 minutes. Job ID: [id number]
[2019-07-31] MEDS ORDERED: HumuLIN 70/30 (300 UNITS/3 ML VIAL) SC SCH ×2 (15:00→21:00)
[2019-07-31] MEDS: cefTRIAXone\\ROCEPHIN 1 GM in Sodium Chloride 0.9% 100 ML IVPB SCH (19:54)
[2019-07-31] MEDS: Enoxaparin Sodium 60 MG/0.6 ML SYRINGE SC SCH (19:55)
[2019-07-31] MEDS: HumuLIN 70/30 (300 UNITS/3 ML VIAL) SC SCH (19:56)
[2019-07-31] MEDS ORDERED: REG INSULIN SC SCH (21:00)
[2019-07-31] MEDS ORDERED: INSULIN NPH HUM SC SCH (21:00)
[2019-07-31] MEDS ORDERED: [UNRECOGNIZED DRUG - OTHER] SC SCH (21:00)
[2019-08-01] MEDS: HumaLOG 300 UNITS/3 ML VIAL SC PRN ×5 (00:39→20:51)
[2019-08-01 02:43] LABS: Band 8 % (5-11); Eosinophils 1 % (0-10); Hemoglobin 8.6 g/dL (12.0-16.0); Lymphocytes 9 % (21-51); MDiff Complete? YES; Mean Corpuscular HGB CONC 31.2 g/dL (32.0-36.0); Mean Corpuscular Hemoglobin 22.8 pg (27.0-31.0); Mean Corpuscular Volume 72.9 fL (78.0-98.0); Mean Platelet Volume 9.2 fL (7.4-10.4); Metamyelocyte 1 % (0-0); Monocytes 10 % (0-10); Neutrophil 71 % (42-75); Platelet Count 364 thou/uL (130-400); Platelet Morphology Comment Appears Adequate; RBC Distribution Width 16.5 % (11.5-14.5); Red Blood Cell (RBC) Count 3.77 mill/uL (4.20-5.40); White Blood Cell (WBC) Count 12.3 thou/uL (4.8-10.8)
[2019-08-01 02:55] LABS: Anion Gap 21 mmol/L (10-20); BUN (Urea Nitrogen) 105 mg/dL (9.8-20.1); Calc. Creatinine Clearance 33 mL/min (70-130); Calcium 9.6 mg/dL (7.8-10.44); Carbon Dioxide 27 mmol/L (22-29); Chloride 104 mmol/L (98-107); Estimated GFR-MDRD 11; Glucose 179 mg/dL (70-105); Potassium 5.6 mmol/L (3.5-5.1); Sodium 146 mmol/L (136-145)
[2019-08-01 07:01] LABS: Actual Bicarbonate (HCO3a) 25.3 mEq/L (22-28); Base Excess (BEa) 0.6 mEq/L (-2.0 to +3.0); CO2 Tension 40.6 mmHg (35.0-45.0); Calcium, Ionized (arterial) 1.24 mmol/L (1.12-1.30); Carboxyhemoglobin (COHb) 0.8 gm% (0.0-3.0); O2 Tension (PaO2), arterial 80.2 mmHg (80.0-100.0); Potassium - ABG Lab 5.04 mmol/L (3.70-5.30); pH, Arterial 7.41 (7.35-7.45)
[2019-08-01 07:39] LABS: Puncture Site RRA
[2019-08-01] MEDS: Pantoprazole 40 MG VIAL IVP SCH (08:56)
[2019-08-01] MEDS: methylPREDNISolone Sod Succ 40 MG VIAL IVP SCH (08:56)
[2019-08-01] MEDS: Ascorbic Acid 500 mg Chewable Tablet PO SCH (08:56)
[2019-08-01] MEDS: HumuLIN 70/30 (300 UNITS/3 ML VIAL) SC SCH ×2 (08:57→20:49)
[2019-08-01] MEDS ORDERED: [UNRECOGNIZED DRUG - OTHER] SC SCH (09:00)
[2019-08-01] MEDS ORDERED: REG INSULIN SC SCH (09:00)
[2019-08-01] MEDS ORDERED: INSULIN NPH HUM SC SCH (09:00)
--- NOTE | 2019-08-01 11:01 | PRG ---
DATE OF SERVICE: 08/01/2019 SUBJECTIVE: Natalia Blackman remains mechanically ventilated. OBJECTIVE: VITAL SIGNS: Heart rate is in 60s, blood pressure 150/56. She is afebrile. LUNGS: Unchanged. HEART: Unchanged. ABDOMEN: Unchanged. LABORATORY DATA: White count 12.3, hemoglobin 8.6, platelets 364. Sodium 146, potassium 5.6, chloride 104, bicarb 27, BUN 105, and creatinine 4.28. IMPRESSION: 1. COVID-19 pneumonia. 2. Liver enzyme elevation, it is improving. 3. Acute renal failure. She is starting to make good amounts of urine, but is also trending toward being hyperkalemic, so probably needs dialysis. We will decrease her ventilatory support today, although I would anticipate at some point in time she will require tracheostomy given her size and her inactivity. Critical care time 30 min. Job ID: [id number] [facility]
--- NOTE | 2019-08-01 11:13 | PRG ---
DATE OF SERVICE: 08/01/2019 SUBJECTIVE: Ms. Blackman is a 54-year-old white female, who was admitted for acute respiratory failure secondary to COVID-19 pneumonia. We are following her up for her acute kidney injury secondary to a presumed acute tubular necrosis. She has been undergoing intermittent hemodialysis. I reviewed her numbers this morning and urine output. She has picked up with her urine output. She made about 3 L of urine output in the last 24 hours. Chest x-ray showed some improvement. The pulmonary vessels are within normal. OBJECTIVE: VITAL SIGNS: Blood pressure is 115/56, heart rate 62, respiratory rate is 20, O2 saturation 94%, temperature 97.7. GENERAL: The patient is arousable, intubated on ventilator support. SKIN: Adequate turgor. HEENT: Slightly pale conjunctivae. Anicteric sclerae. NECK: No neck mass. No carotid bruits. No JVD. CHEST: No deformities. LUNGS: Decreased breath sounds. HEART: Normal sinus rhythm. No murmur. No gallops. No rubs. ABDOMEN: Globular, soft, nontender. No masses. EXTREMITIES: No edema. No deformities. MEDICATIONS: Medications of August 01, 2019, was reviewed. LABORATORY DATA: Laboratories of August 01, 2019, white count 12.3, hemoglobin 8.6, sodium 146, potassium 5.6, chloride 104, carbon dioxide 27, BUN 105, creatinine 4.28, glucose 179, calcium 9.6. ASSESSMENT AND PLAN: 1. Acute kidney injury secondary to presumed acute tubular necrosis. Continue supportive care. The patient is on intermittent hemodialysis. No indication for any emergent hemodialysis this morning. Due to the improving urine output, we will support IV intake with this patient. Albumin 25 g IV q.6 was given. 2. Mild hyperkalemia/mild hypernatremia. Continue to observe. If needed, we can start this patient on a relatively hypotonic solution half-normal saline at 100 mL/h depending what the serum sodium will be tomorrow. 3. COVID-19 pneumonia/acute respiratory failure. Continue supportive care. The patient is stable. Job ID: [id number]
[2019-08-01] MEDS: Albumin 25% 25 GM/100 ML BOT IVPB SCH ×3 (11:40→22:02)
--- NOTE | 2019-08-01 20:38 | PDOC.HOSPP ---
- Subjective Encounter Date: 08/01/19 non-verbal (Intubated) - Objective Vital Signs & Weight: Vital Signs (12 hours) Temp Pulse Resp BP Pulse Ox 08/01/19 20:00 97.5 F L 08/01/19 18:33 88 147/83 H 08/01/19 18:00 22 H 08/01/19 16:00 19 08/01/19 14:53 63 110/47 L 08/01/19 14:44 71 23 H 98 08/01/19 14:00 20 08/01/19 10:38 76 127/58 L 08/01/19 10:37 73 24 H 98 08/01/19 10:00 24 H Weight Admit Weight 296 lb Weight 303 lb 12.752 oz Most Recent Monitor Data Heart Rate from ECG 80 NIBP 152/71 NIBP BP-Mean 98 Respiration from ECG 21 SpO2 94 I&O: 07/31/19 08/01/19 08/02/19 06:59 06:59 06:59 Intake Total 449 850 696 Output Total 7460 1298 2773 Balance -5442 -0764 -9984 Result Diagrams: 08/01/19 02:20 08/01/19 02:20 Additional Labs: Accuchecks 08/01/19 07/31/19 07/27/19 00:28 20:55 14:23 POC Glucose 223 H 226 H 307 H Hospitalist ROS - Medication Medications: Active Medications Generic Name Dose Route Start Last Admin Trade Name Freq PRN Reason Stop Dose Admin Acetaminophen 650 mg 07/22/19 18:27 07/28/19 12:14 Tylenol PO 650 mg Q4H PRN Administration Headache/Fever/Mild Pain (1-3) Albumin Human 25 gm 08/01/19 10:00 08/01/19 16:32 Albumin 25% IVPB 08/02/19 04:01 25 gm Q6H BETO Administration Albuterol/Ipratropium 3 ml 07/25/19 14:30 08/01/19 18:32 Duoneb NEB 3 ml [id number] BETO Administration Ascorbic Acid 1,000 mg 07/23/19 09:00 08/01/19 08:56 Vitamin C PO 1,000 mg DAILY BETO Administration Enoxaparin Sodium 60 mg 07/25/19 21:00 07/31/19 19:55 Lovenox SC 60 mg 2100 BETO Administration Hydralazine HCl 10 mg 07/22/19 20:04 07/27/19 05:24 Apresoline SLOW IVP 10 mg Q4H PRN Administration SBP Greater Than 180 Fentanyl Citrate 2,000 mcg/ 100 mls @ 0 mls/hr 07/24/19 12:17 07/28/19 13:29 Sodium Chloride IV 08/23/19 12:17 100 mls INF BETO Administration Protocol Per Protocol Ceftriaxone Sodium 1 gm/ 100 mls @ 200 mls/hr 07/26/19 21:00 07/31/19 19:54 Sodium Chloride IVPB 100 mls 2100 BETO Administration Midazolam HCl 100 mls @ 0 mls/hr 07/27/19 13:30 08/01/19 19:52 Versed IVPB 100 mls INF BETO Administration Protocol Titrate Insulin Human Isoph/Insulin Regular 35 units 07/31/19 21:00 08/01/19 08:57 Humulin 70/30 SC 35 unit Q12HR BETO Administration Insulin Human Lispro 0 units 07/29/19 15:40 08/01/19 16:50 Humalog SC 11 unit .AGGRESSIVE SLIDING PRN Administration AGGRESSIVE SLIDING SCALE Protocol Lorazepam 2 mg 07/24/19 12:17 07/28/19 12:14 Ativan SLOW IVP 08/23/19 12:17 2 mg Q1H PRN Administration Breakthrough agitation Methylprednisolone Sodium Succinate 40 mg 07/28/19 09:00 08/01/19 08:56 Solu-Medrol IVP 40 mg DAILY BETO Administration Ondansetron HCl 4 mg 07/23/19 23:38 07/23/19 23:54 Zofran IVP 4 mg Q6H PRN Administration Nausea/Vomiting Pantoprazole Sodium 40 mg 07/26/19 09:00 08/01/19 08:56 Protonix IVP 40 mg DAILY BETO Administration Sodium Chloride 10 ml 07/22/19 18:27 07/25/19 20:37 Flush - Normal Saline IVF 10 ml Q12HR PRN Administration Saline Flush Sodium Chloride 10 ml 07/25/19 13:12 07/29/19 09:48 Normal Saline Pf FS 10 ml PRN PRN Administration RECONSTITUTION - Exam General Appearance: awake alert Eye: anicteric sclera ENT: normocephalic atraumatic Neck: supple Heart: RRR Respiratory: normal chest expansion, no tachypnea Gastrointestinal: soft Hosp A/P (1) Acute kidney injury (TAMICA) with acute tubular necrosis (ATN) Code(s): N17.0 - ACUTE KIDNEY FAILURE WITH TUBULAR NECROSIS Status: Acute (2) Acute respiratory failure with hypoxia Code(s): J96.01 - ACUTE RESPIRATORY FAILURE WITH HYPOXIA Status: Acute (3) Pneumonia due to COVID-19 virus Code(s): U07.1 - COVID-19; J12.89 - OTHER VIRAL PNEUMONIA Status: Acute (4) DM II (diabetes mellitus, type II), controlled Code(s): E11.9 - TYPE 2 DIABETES MELLITUS WITHOUT COMPLICATIONS Status: Chronic (5) HTN (hypertension) Code(s): I10 - ESSENTIAL (PRIMARY) HYPERTENSION Status: Chronic Qualifiers: Hypertension type: essential hypertension Qualified Code(s): I10 - Essential (primary) hypertension - Plan Continue vent management per pulmonology. COVID positive, status post convalescence plasma. Urine output is improving. No acute indication for hemodialysis per nephrology. Mild hyperkalemia and hypernatremia are present. Continue to monitor. IV albumin initiated for volume support. On Lovenox for DVT prophylaxis given high risk for VTE with COVID. Remains on bronchodilators, corticosteroids and IV antibiotics.
[2019-08-01] MEDS: Enoxaparin Sodium 60 MG/0.6 ML SYRINGE SC SCH (20:46)
[2019-08-01] MEDS: cefTRIAXone\\ROCEPHIN 1 GM in Sodium Chloride 0.9% 100 ML IVPB SCH (20:46)
[2019-08-02] MEDS: Albumin 25% 25 GM/100 ML BOT IVPB SCH (05:35)
[2019-08-02 06:41] LABS: Hemoglobin 8.6 g/dL (12.0-16.0); Mean Corpuscular HGB CONC 31.1 g/dL (32.0-36.0); Mean Corpuscular Volume 73.9 fL (78.0-98.0); Mean Platelet Volume 9.3 fL (7.4-10.4); Platelet Count 373 thou/uL (130-400); RBC Distribution Width 16.9 % (11.5-14.5); Red Blood Cell (RBC) Count 3.72 mill/uL (4.20-5.40); White Blood Cell (WBC) Count 12.1 thou/uL (4.8-10.8)
[2019-08-02 07:06] LABS: Band 5 % (5-11); Eosinophils 1 % (0-10); Hypochromia SLIGHT = 6-15 cells (100X) (0-5/hpf); Lymphocytes 15 % (21-51); MDiff Complete? YES; Metamyelocyte 1 % (0-0); Microcytosis SLIGHT = 6-15 cells (100X) (0-5/hpf); Monocytes 5 % (0-10); Neutrophil 72 % (42-75); Platelet Morphology Comment Appears Adequate; Polychromasia SLIGHT = 2-3 cells (100X) (0-2/hpf); Reactive Lymphocytes 1 % (0-10)
[2019-08-02 07:12] LABS: Anion Gap 21 mmol/L (10-20); Calc. Creatinine Clearance 30 mL/min (70-130); Calcium 10.4 mg/dL (7.8-10.44); Carbon Dioxide 26 mmol/L (22-29); Chloride 108 mmol/L (98-107); Estimated GFR-MDRD 11; Glucose 103 mg/dL (70-105); Potassium 5.2 mmol/L (3.5-5.1); Sodium 150 mmol/L (136-145)
[2019-08-02 07:23] LABS: BUN (Urea Nitrogen) 112 mg/dL (9.8-20.1)
[2019-08-02 07:32] LABS: Actual Bicarbonate (HCO3a) 25.2 mEq/L (22-28); Base Excess (BEa) -0.5 mEq/L (-2.0 to +3.0); Calcium, Ionized (arterial) 1.32 mmol/L (1.12-1.30); Carboxyhemoglobin (COHb) 0.4 gm% (0.0-3.0); Hemoglobin (Hb) 10.5 g/dL (12.0-16.0); O2 Tension (PaO2), arterial 70.4 mmHg (80.0-100.0); Potassium - ABG Lab 4.83 mmol/L (3.70-5.30); pH, Arterial 7.36 (7.35-7.45)
[2019-08-02 07:33] LABS: Puncture Site RBA
--- NOTE | 2019-08-02 07:57 | RAD ---
RADIOGRAPH CHEST 1 VIEW: DATE: 08/02/2019 TIME: 4:49 AM HISTORY: 54-year-old female in respiratory failure COMPARISON: 07/31/2019 FINDINGS: No change in life support lines. No change in left pleural effusion. Patchy right-sided infiltrates remain. More diffuse interstitial type infiltrates bilaterally have im proved. No pneumothorax. IMPRESSION: 1) small focal consolidation right midlung zone unchanged. 2) mild interval improvement more diffuse interstitial type infiltrates, especially on the left
[2019-08-02] MEDS: HumuLIN 70/30 (300 UNITS/3 ML VIAL) SC SCH ×2 (08:05→19:52)
[2019-08-02] MEDS: Pantoprazole 40 MG VIAL IVP SCH (08:07)
[2019-08-02] MEDS: methylPREDNISolone Sod Succ 40 MG VIAL IVP SCH (08:07)
[2019-08-02] MEDS: Ascorbic Acid 500 mg Chewable Tablet PO SCH (08:07)
--- NOTE | 2019-08-02 09:15 | PRG ---
DATE OF SERVICE: 08/02/2019 SUBJECTIVE: Ms. Blackman is a 54-year-old white female who was admitted for acute respiratory failure secondary to a COVID-19 pneumonia. Currently intubated, on ventilator support. We are following her up for her acute kidney injury. In the last 2-3 days, the patient's urine output has picked up. Her creatinine has remained stable in the last 48 hours. We initially were planning to do dialysis, but we will hold it off. She might be recovering. Please note she received some albumin infusion yesterday. OBJECTIVE: VITAL SIGNS: Blood pressure is 143/71, heart rate 65, respiratory rate 19, O2 saturation 93%, and temperature 97.9. GENERAL: Noted to be sedated and intubated, on ventilator support. MEDICATIONS: Medications of 08/02/2019 were reviewed. LABORATORY DATA: On 08/02/2019: White count 12.1 and hemoglobin 8.6. Sodium 150, potassium 5.2, chloride 108, carbon dioxide 26, BUN 112, creatinine 4.24, GFR 11 mL/minute, and calcium 10.4. On 08/01/2019: BUN 105, creatinine 4.28, and potassium 5.6. ASSESSMENT AND PLAN: 1. Acute kidney injury, secondary to presumed acute tubular necrosis. The patient has started picking up her urine output. Creatinine also remained stable in the last 24 hours. My plan is to hold off dialysis. Continue to hydrate the patient. 2. Mild hyperkalemia. We will simply observe this. 3. Acute respiratory failure from viral infection. Supportive care. 4. Hypernatremie, free water 250 mL every 4 hours. We will also start hydrating the patient with 0.45% sodium chloride at 100 mL an hour. Overall prognosis remains guarded. Job ID: [id number]
[2019-08-02] MEDS ORDERED: Sodium Chloride 0.45% 1,000 ML IV SCH (10:45)
[2019-08-02] MEDS: HumaLOG 300 UNITS/3 ML VIAL SC PRN ×3 (17:07→20:29)
[2019-08-02] MEDS: Lorazepam 2 MG/ML VIAL SLOW IVP PRN (18:41)
[2019-08-02] MEDS: Enoxaparin Sodium 60 MG/0.6 ML SYRINGE SC SCH (19:55)
[2019-08-02] MEDS: cefTRIAXone\\ROCEPHIN 1 GM in Sodium Chloride 0.9% 100 ML IVPB SCH (19:55)
--- NOTE | 2019-08-02 20:31 | PDOC.HOSPP ---
- Subjective Encounter Date: 08/02/19 Subjective: Remains intubated - Objective Vital Signs & Weight: Vital Signs (12 hours) Pulse Resp BP 08/02/19 19:07 74 08/02/19 18:00 25 H 08/02/19 16:00 24 H 08/02/19 15:16 74 151/77 H 08/02/19 14:00 21 H 08/02/19 12:00 21 H 08/02/19 10:53 59 L 08/02/19 10:00 21 H Weight Admit Weight 296 lb Weight 279 lb 1.683 oz Most Recent Monitor Data Heart Rate from ECG 78 NIBP 172/76 NIBP BP-Mean 108 Respiration from ECG 23 SpO2 97 I&O: 08/01/19 08/02/19 08/03/19 06:59 06:59 06:59 Intake Total 850 1299 626 Output Total 3002 3925 2100 Balance -2155 -2401 -1654 Result Diagrams: 08/02/19 05:30 08/02/19 05:30 Additional Labs: Accuchecks 08/02/19 08/01/19 08/01/19 00:12 21:00 16:42 POC Glucose 190 H 276 H 321 H 08/01/19 08/01/19 08/01/19 12:00 07:51 04:46 POC Glucose 224 H 153 H 139 H Hospitalist ROS - Medication Medications: Active Medications Generic Name Dose Route Start Last Admin Trade Name Freq PRN Reason Stop Dose Admin Acetaminophen 650 mg 07/22/19 18:27 07/28/19 12:14 Tylenol PO 650 mg Q4H PRN Administration Headache/Fever/Mild Pain (1-3) Albuterol/Ipratropium 3 ml 07/25/19 14:30 08/02/19 19:07 Duoneb NEB 3 ml [id number] BETO Administration Ascorbic Acid 1,000 mg 07/23/19 09:00 08/02/19 08:07 Vitamin C PO 1,000 mg DAILY BETO Administration Enoxaparin Sodium 60 mg 07/25/19 21:00 08/02/19 19:55 Lovenox SC 60 mg 2100 BETO Administration Hydralazine HCl 10 mg 07/22/19 20:04 07/27/19 05:24 Apresoline SLOW IVP 10 mg Q4H PRN Administration SBP Greater Than 180 Fentanyl Citrate 2,000 mcg/ 100 mls @ 0 mls/hr 07/24/19 12:17 07/28/19 13:29 Sodium Chloride IV 08/23/19 12:17 100 mls INF BETO Administration Protocol Per Protocol Ceftriaxone Sodium 1 gm/ 100 mls @ 200 mls/hr 07/26/19 21:00 08/02/19 19:55 Sodium Chloride IVPB 100 mls 2100 BETO Administration Midazolam HCl 100 mls @ 0 mls/hr 07/27/19 13:30 08/02/19 17:08 Versed IVPB 100 mls INF BETO Administration Protocol Titrate Insulin Human Isoph/Insulin Regular 35 units 07/31/19 21:00 08/02/19 19:52 Humulin 70/30 SC 35 unit Q12HR BETO Administration Insulin Human Lispro 0 units 07/29/19 15:40 08/02/19 17:07 Humalog SC 9 unit .AGGRESSIVE SLIDING PRN Administration AGGRESSIVE SLIDING SCALE Protocol Lorazepam 2 mg 07/24/19 12:17 08/02/19 18:41 Ativan SLOW IVP 08/23/19 12:17 2 mg Q1H PRN Administration Breakthrough agitation Methylprednisolone Sodium Succinate 40 mg 07/28/19 09:00 08/02/19 08:07 Solu-Medrol IVP 40 mg DAILY BETO Administration Ondansetron HCl 4 mg 07/23/19 23:38 07/23/19 23:54 Zofran IVP 4 mg Q6H PRN Administration Nausea/Vomiting Pantoprazole Sodium 40 mg 07/26/19 09:00 08/02/19 08:07 Protonix IVP 40 mg DAILY BETO Administration Hosp A/P (1) Acute kidney injury (TAMICA) with acute tubular necrosis (ATN) Code(s): N17.0 - ACUTE KIDNEY FAILURE WITH TUBULAR NECROSIS Status: Acute (2) Acute respiratory failure with hypoxia Code(s): J96.01 - ACUTE RESPIRATORY FAILURE WITH HYPOXIA Status: Acute (3) Pneumonia due to COVID-19 virus Code(s): U07.1 - COVID-19; J12.89 - OTHER VIRAL PNEUMONIA Status: Acute (4) DM II (diabetes mellitus, type II), controlled Code(s): E11.9 - TYPE 2 DIABETES MELLITUS WITHOUT COMPLICATIONS Status: Chronic (5) HTN (hypertension) Code(s): I10 - ESSENTIAL (PRIMARY) HYPERTENSION Status: Chronic Qualifiers: Hypertension type: essential hypertension Qualified Code(s): I10 - Essential (primary) hypertension - Plan Continue vent management per pulmonology. COVID positive, status post convalescence plasma. Urine output is improving. No acute indication for hemodialysis per nephrology. Mild hyperkalemia and hypernatremia are present. Continue to monitor. Water flushes ordered to manage her hypernatremia. On Lovenox for DVT prophylaxis given high risk for VTE with COVID. Remains on bronchodilators, corticosteroids and IV antibiotics.
[2019-08-02] MEDS: Nystatin Cream 30 GM TUBE TOP SCH (21:54)
[2019-08-03 03:50] LABS: Band 11 % (5-11); Eosinophils 2 % (0-10); Hemoglobin 8.4 g/dL (12.0-16.0); Lymphocytes 14 % (21-51); MDiff Complete? YES; Mean Corpuscular HGB CONC 30.5 g/dL (32.0-36.0); Mean Corpuscular Hemoglobin 22.8 pg (27.0-31.0); Mean Corpuscular Volume 74.8 fL (78.0-98.0); Mean Platelet Volume 9.2 fL (7.4-10.4); Monocytes 8 % (0-10); Neutrophil 65 % (42-75); Platelet Count 404 thou/uL (130-400); Platelet Morphology Comment Appears Adequate; RBC Distribution Width 17.2 % (11.5-14.5); Red Blood Cell (RBC) Count 3.66 mill/uL (4.20-5.40); White Blood Cell (WBC) Count 11.3 thou/uL (4.8-10.8)
[2019-08-03 03:54] LABS: Anion Gap 17 mmol/L (10-20); Calc. Creatinine Clearance 34 mL/min (70-130); Calcium 10.7 mg/dL (7.8-10.44); Carbon Dioxide 28 mmol/L (22-29); Chloride 109 mmol/L (98-107); Estimated GFR-MDRD 13; Glucose 123 mg/dL (70-105); Potassium 4.8 mmol/L (3.5-5.1); Sodium 149 mmol/L (136-145)
[2019-08-03 04:06] LABS: BUN (Urea Nitrogen) 114 mg/dL (9.8-20.1)
[2019-08-03 06:53] LABS: Actual Bicarbonate (HCO3a) 25.2 mEq/L (22-28); Base Excess (BEa) -0.1 mEq/L (-2.0 to +3.0); CO2 Tension 44.1 mmHg (35.0-45.0); Calcium, Ionized (arterial) 1.33 mmol/L (1.12-1.30); Carboxyhemoglobin (COHb) 0.7 gm% (0.0-3.0); O2 Tension (PaO2), arterial 78.9 mmHg (80.0-100.0); Potassium - ABG Lab 4.63 mmol/L (3.70-5.30); pH, Arterial 7.38 (7.35-7.45)
--- NOTE | 2019-08-03 06:53 | PRG ---
DATE OF SERVICE: 08/02/2019 SUBJECTIVE: Natalia Blackman is tolerating decreased ventilatory support. OBJECTIVE: VITAL SIGNS: Blood pressure 151/77, heart rate 74. She is on 50%, oximetry is in the mid 90s, PEEP is at 8. LUNGS: Unchanged. HEART: Unchanged. ABDOMEN: Unchanged. LABORATORY DATA: White count 12.1, hemoglobin 8.6, platelets 373. Sodium 150, potassium 5.2, chloride 108, bicarb 26, BUN 112, creatinine 4.24. Intake and outputs -2401. Urine output was brisk in the last 24 hours, totaling 3700 mL. IMPRESSION AND PLAN: 1. Respiratory failure associated with COVID-19 pneumonia. 2. Acute renal failure. 3. Hepatic enzymitis. Overall, she is slowly improving. Chest x-ray is not improving rapidly as expected, but may be a little bit better looking back through several days worth of films, we may be able to avoid a tracheostomy. Job ID: [id number]
[2019-08-03 06:54] LABS: ALV-art Gradient 222.475 (0-20); Puncture Site RRA
--- NOTE | 2019-08-03 09:26 | PRG ---
DATE OF SERVICE: 08/03/2019 SUBJECTIVE: Ms. Blackman is a 54-year-old white female, who was admitted for an acute respiratory failure secondary to a viral [id number]. She is currently on ventilator support. We are following her up for her acute kidney injury. At that time, we felt that the acute kidney injury may be related to an acute tubular necrosis. She was placed on dialysis. On the last several days, we held off the dialysis and she started making urine output and creatinine is stabilizing. She was also noted to be hypernatremic and initially was given half-normal saline. In addition, we are continuing free water at 250 mL via NGT every 4 hours. No acute events noted. OBJECTIVE: VITAL SIGNS: Blood pressure 137/64, heart rate 84, respiratory rate 22, O2 saturation 93%, and temperature 97.9. GENERAL: Noted to be arousable, intubated on ventilator support, obese. SKIN: Adequate turgor. HEENT: Pinkish conjunctivae. Anicteric sclerae. NECK: No neck mass. No carotid bruits. No JVD. CHEST: No deformities. LUNGS: Decreased breath sounds. HEART: Normal sinus rhythm. No murmur. No gallops. No rubs. ABDOMEN: Globular, soft, nontender. No masses. EXTREMITIES: Trace edema. MEDICATIONS: Medications of August 03, 2019, were reviewed. LABORATORY DATA: Laboratories of August 03, 2019; white count 11.3, hemoglobin 8.4. Sodium 149, potassium 4.8, chloride 109, carbon dioxide 28, BUN 114, creatinine 3.76, glucose 123, and calcium 10.7. August 02, 2019, chest x-ray showed small focal consolidation in the right midlung zone. Improving interstitial infiltrates. ASSESSMENT AND PLAN: 1. Acute respiratory failure-secondary to viral pneumonia/[id number] stable. On empiric antibiotics. Currently slowly improving. Pulmonary is following. 2. Acute kidney injury-secondary to presumed acute tubular necrosis. I feel that there is some recovery with her renal function. The patient is diuresing and she is spontaneously improving her renal function. We will continue to hold off dialysis. Continue supportive care. 3. Hypernatremia, currently on free water via NG tube. Continue supportive care. Job ID: [id number] [facility]
[2019-08-03] MEDS: Ascorbic Acid 500 mg Chewable Tablet PO SCH (10:11)
[2019-08-03] MEDS: HumuLIN 70/30 (300 UNITS/3 ML VIAL) SC SCH ×2 (10:11→19:49)
[2019-08-03] MEDS: methylPREDNISolone Sod Succ 40 MG VIAL IVP SCH (10:12)
[2019-08-03] MEDS: Nystatin Cream 30 GM TUBE TOP SCH ×2 (10:12→21:10)
[2019-08-03] MEDS: Pantoprazole 40 MG VIAL IVP SCH (10:28)
[2019-08-03] MEDS: HumaLOG 300 UNITS/3 ML VIAL SC PRN ×4 (11:36→20:04)
--- NOTE | 2019-08-03 16:45 | PRG ---
DATE OF SERVICE: 08/03/2019 SUBJECTIVE: Natalia Blackman is clinically unchanged. We will continue to turn down her ventilator slowly. Her rate is turned down and her PEEP is turned down today. FiO2 is at 40. OBJECTIVE: VITAL SIGNS: Blood pressure is 116/54, heart rate is 83, respiratory rates in the teens with gradually decrease in her sedation as well. LUNGS: Unchanged. HEART: Unchanged. ABDOMEN: Unchanged. LABORATORY DATA: White count is 11.3, hemoglobin 8.4, platelets 404. Sodium 149, potassium 4.8, chloride 109, bicarb 28, BUN 114, creatinine 3.76. Urine output still brisk, but her BUN remains high. Her intake and outputs are -1710. IMPRESSION: 1. Respiratory failure associated with COVID-19. 2. Renal failure. 3. Hepatic enzymitis. 4. Obesity. 5. Asthma. 6. Deconditioning. PLAN: Continue supportive care and slow weaning. At some point in time, once we can get her to a comfortable place, we may be able to do a spontaneous breathing trial, but she is not at that point yet. Job ID: [id number]
[2019-08-03] MEDS: Enoxaparin Sodium 60 MG/0.6 ML SYRINGE SC SCH (19:49)
[2019-08-03] MEDS: cefTRIAXone\\ROCEPHIN 1 GM in Sodium Chloride 0.9% 100 ML IVPB SCH (19:49)
--- NOTE | 2019-08-03 21:50 | PDOC.BPN ---
- Brief Progress Note The patient remains intubated and on mechanical ventilation. Continue management per pulmonology team.
[2019-08-04 05:40] LABS: Band 5 % (5-11); Hemoglobin 8.6 g/dL (12.0-16.0); Hypochromia SLIGHT = 6-15 cells (100X) (0-5/hpf); Lymphocytes 8 % (21-51); MDiff Complete? YES; Mean Corpuscular HGB CONC 29.7 g/dL (32.0-36.0); Mean Corpuscular Hemoglobin 22.4 pg (27.0-31.0); Mean Corpuscular Volume 75.2 fL (78.0-98.0); Mean Platelet Volume 9.3 fL (7.4-10.4); Monocytes 8 % (0-10); Neutrophil 79 % (42-75); Platelet Count 424 thou/uL (130-400); Platelet Morphology Comment Appears Increased; RBC Distribution Width 17.3 % (11.5-14.5); Red Blood Cell (RBC) Count 3.82 mill/uL (4.20-5.40); White Blood Cell (WBC) Count 14.1 thou/uL (4.8-10.8)
[2019-08-04 05:51] LABS: Anion Gap 17 mmol/L (10-20); BUN (Urea Nitrogen) 120 mg/dL (9.8-20.1); Calc. Creatinine Clearance 40 mL/min (70-130); Carbon Dioxide 27 mmol/L (22-29); Chloride 111 mmol/L (98-107); Estimated GFR-MDRD 15; Glucose 111 mg/dL (70-105); Potassium 4.3 mmol/L (3.5-5.1); Sodium 151 mmol/L (136-145)
[2019-08-04 06:43] LABS: Actual Bicarbonate (HCO3a) 26.8 mEq/L (22-28); Base Excess (BEa) 1.7 mEq/L (-2.0 to +3.0); CO2 Tension 44.3 mmHg (35.0-45.0); Calcium, Ionized (arterial) 1.38 mmol/L (1.12-1.30); Carboxyhemoglobin (COHb) 0.7 gm% (0.0-3.0); Hemoglobin (Hb) 9.5 g/dL (12.0-16.0); O2 Tension (PaO2), arterial 73.8 mmHg (80.0-100.0); Potassium - ABG Lab 4.26 mmol/L (3.70-5.30)
[2019-08-04 07:57] LABS: ALV-art Gradient 156.025 (0-20); Puncture Site RRA
--- NOTE | 2019-08-04 08:27 | RAD ---
PORTABLE CHEST: DATE: 08/04/2019. PROVIDED CLINICAL HISTORY: Respiratory insufficiency. FINDINGS: Evaluation is limited by patient body habitus. Comparison 08/02/2019. Significant interval change wi th respect to the prior examination is not apparent. IMPRESSION: As above. POS: JAEL
[2019-08-04] MEDS: methylPREDNISolone Sod Succ 40 MG VIAL IVP SCH (08:40)
[2019-08-04] MEDS: Ascorbic Acid 500 mg Chewable Tablet PO SCH (08:40)
[2019-08-04] MEDS: Nystatin Cream 30 GM TUBE TOP SCH ×2 (08:41→20:27)
[2019-08-04] MEDS: Pantoprazole 40 MG VIAL IVP SCH (08:41)
[2019-08-04] MEDS: HumuLIN 70/30 (300 UNITS/3 ML VIAL) SC SCH ×2 (08:41→20:27)
--- NOTE | 2019-08-04 08:59 | PRG ---
DATE OF SERVICE: 08/04/2019 SUBJECTIVE: Ms. Blackman is a 54-year-old white female seen by the Renal Service for acute kidney injury secondary to presumed ATN. She underwent hemodialysis. However, in the last several days, renal function has improved and she is off dialysis. She has been noted to be diuresing very well. She is also mildly hypernatremic. OBJECTIVE: VITAL SIGNS: Blood pressure is 127/54, heart rate is 86, respiratory rate 21, O2 saturation 91%, and temperature 99.2. GENERAL: The patient is still intubated, but currently on CPAP, not in distress. Obese. SKIN: Adequate turgor. HEENT: She has slightly pale conjunctivae. Anicteric sclerae. NECK: No neck mass. No carotid bruits. No JVD. CHEST: No deformities. LUNGS: Decreased breath sounds. HEART: Normal sinus rhythm. No murmurs. No gallops. No rubs. ABDOMEN: Globular, soft. EXTREMITIES: No edema. MEDICATIONS: Medications of August 04, 2019, were reviewed. LABORATORY DATA: Laboratories of August 04, 2019; white count 14.1, hemoglobin 8.6. Sodium 151, potassium 4.3, chloride 111, carbon dioxide 27, BUN 120, creatinine 3.22, calcium is 11, and glucose 137. I's and O's for the last 24 hours showed intake of 2.6 L with urine output of 6 L. ASSESSMENT AND PLAN: 1. Acute kidney injury - secondary to a superimposed acute tubular necrosis, much improved. Currently off hemodialysis. The patient was noted to have diuresed about 6 L yesterday and prior to that she made 4.2 L. We will start this patient on relatively hypotonic solution in view of the hypernatremia. She is also on a free water supplement. 2. Hypernatremia - start 0.45% sodium chloride at 125 mL/hour. Adjust as needed. 3. Acute respiratory failure, currently on CPAP secondary to underlying viral pneumonia - COVID-19. Agree with current management. Job ID: [id number]
[2019-08-04] MEDS: HumaLOG 300 UNITS/3 ML VIAL SC PRN ×2 (12:19→20:02)
--- NOTE | 2019-08-04 13:22 | PRG ---
DATE OF SERVICE: 08/04/2019 SUBJECTIVE: Natalia Blackman is down to spontaneous breathing trial. She appears to be doing well. OBJECTIVE: VITAL SIGNS: Heart rates in the 90s, blood pressure 130/63, respiratory rates in the teens to low 20s. She is afebrile. LUNGS: Unchanged. HEART: Unchanged. ABDOMEN: Unchanged. LABORATORY DATA: White count 14.1, hemoglobin 8.6, platelets 424,000. Sodium 151, potassium 4.3, chloride 111, bicarb 27, BUN 120, creatinine 3.2. Intake and output, negative 3468. IMPRESSION AND PLAN: 1. Respiratory failure associated with COVID pneumonia. 2. Asthma. 3. Obesity. 4. Deconditioning. 5. Acute renal failure on top of chronic kidney disease. 6. Hepatic enzymitis. Overall, she is clinically improving. We may be able to extubate her in the morning. She does pass a leak test at this time. CRITICAL CARE TIME: 30 minutes. Job ID: [id number]
--- NOTE | 2019-08-04 14:49 | PDOC.HOSPP ---
- Subjective Encounter Date: 08/04/19 non-verbal (intubated ) - Objective Vital Signs & Weight: Vital Signs (12 hours) Temp Pulse Resp BP Pulse Ox 08/04/19 12:15 92 138/63 08/04/19 08:00 20 08/04/19 06:27 87 23 H 99 08/04/19 06:00 21 H 08/04/19 04:00 98.4 F 27 H 08/04/19 03:06 79 120/59 L 08/04/19 03:03 66 21 H 97 Weight Admit Weight 296 lb Weight 272 lb 11.389 oz Most Recent Monitor Data Heart Rate from ECG 77 NIBP 118/52 NIBP BP-Mean 74 Respiration from ECG 22 SpO2 98 I&O: 08/03/19 08/04/19 08/05/19 06:59 06:59 06:59 Intake Total 5067 2022 Output Total 4240 6150 420 Balance -1703 -3468 -420 Result Diagrams: 08/04/19 04:30 08/04/19 04:30 Additional Labs: Accuchecks 08/04/19 08/04/19 08/04/19 12:19 07:50 04:42 POC Glucose 251 H 137 H 125 H 08/03/19 08/03/19 08/03/19 23:49 20:01 18:41 POC Glucose 119 H 182 H 207 H 08/03/19 14:10 POC Glucose 207 H Hospitalist ROS - Medication Medications: Active Medications Generic Name Dose Route Start Last Admin Trade Name Freq PRN Reason Stop Dose Admin Acetaminophen 650 mg 07/22/19 18:27 07/28/19 12:14 Tylenol PO 650 mg Q4H PRN Administration Headache/Fever/Mild Pain (1-3) Albuterol/Ipratropium 3 ml 07/25/19 14:30 08/04/19 14:18 Duoneb NEB 3 ml [id number] BETO Administration Ascorbic Acid 1,000 mg 07/23/19 09:00 08/04/19 08:40 Vitamin C PO 1,000 mg DAILY BETO Administration Enoxaparin Sodium 60 mg 07/25/19 21:00 08/03/19 19:49 Lovenox SC 60 mg 2100 BETO Administration Hydralazine HCl 10 mg 07/22/19 20:04 07/27/19 05:24 Apresoline SLOW IVP 10 mg Q4H PRN Administration SBP Greater Than 180 Ceftriaxone Sodium 1 gm/ 100 mls @ 200 mls/hr 07/26/19 21:00 08/03/19 19:49 Sodium Chloride IVPB 100 mls 2100 BETO Administration Midazolam HCl 100 mls @ 0 mls/hr 07/27/19 13:30 08/04/19 12:08 Versed IVPB 100 mls INF BETO Administration Protocol Titrate Insulin Human Isoph/Insulin Regular 35 units 07/31/19 21:00 08/04/19 08:41 Humulin 70/30 SC Not Given Q12HR BETO Insulin Human Lispro 0 units 07/29/19 15:40 08/04/19 12:19 Humalog SC 9 unit .AGGRESSIVE SLIDING PRN Administration AGGRESSIVE SLIDING SCALE Protocol Methylprednisolone Sodium Succinate 40 mg 07/28/19 09:00 08/04/19 08:40 Solu-Medrol IVP 40 mg DAILY BETO Administration Nystatin 0 gm 08/02/19 21:00 08/04/19 08:41 Mycostatin Cream TOP 1 gm BID BETO Administration Ondansetron HCl 4 mg 07/23/19 23:38 07/23/19 23:54 Zofran IVP 4 mg Q6H PRN Administration Nausea/Vomiting Pantoprazole Sodium 40 mg 07/26/19 09:00 08/04/19 08:41 Protonix IVP 40 mg DAILY BETO Administration Hosp A/P (1) Acute kidney injury (TAMICA) with acute tubular necrosis (ATN) Code(s): N17.0 - ACUTE KIDNEY FAILURE WITH TUBULAR NECROSIS Status: Acute (2) Acute respiratory failure with hypoxia Code(s): J96.01 - ACUTE RESPIRATORY FAILURE WITH HYPOXIA Status: Acute (3) Pneumonia due to COVID-19 virus Code(s): U07.1 - COVID-19; J12.89 - OTHER VIRAL PNEUMONIA Status: Acute (4) DM II (diabetes mellitus, type II), controlled Code(s): E11.9 - TYPE 2 DIABETES MELLITUS WITHOUT COMPLICATIONS Status: Chronic (5) HTN (hypertension) Code(s): I10 - ESSENTIAL (PRIMARY) HYPERTENSION Status: Chronic Qualifiers: Hypertension type: essential hypertension Qualified Code(s): I10 - Essential (primary) hypertension - Plan Continue vent management per pulmonology. COVID positive, status post convalescence plasma. No acute indication for hemodialysis per nephrology. CXR unchanged. Sugar control is better after restarting Humalin 70/30. On Lovenox for DVT prophylaxis given high risk for VTE with COVID. Remains on bronchodilators, corticosteroids and IV antibiotics.
[2019-08-04] MEDS: cefTRIAXone\\ROCEPHIN 1 GM in Sodium Chloride 0.9% 100 ML IVPB SCH (20:25)
[2019-08-04] MEDS: Enoxaparin Sodium 60 MG/0.6 ML SYRINGE SC SCH (20:26)
[2019-08-05 04:50] LABS: Band 10 % (5-11); Eosinophils 3 % (0-10); Hemoglobin 8.5 g/dL (12.0-16.0); Lymphocytes 13 % (21-51); MDiff Complete? YES; Mean Corpuscular HGB CONC 31.1 g/dL (32.0-36.0); Mean Corpuscular Hemoglobin 23.6 pg (27.0-31.0); Mean Corpuscular Volume 76.1 fL (78.0-98.0); Mean Platelet Volume 8.9 fL (7.4-10.4); Monocytes 2 % (0-10); Neutrophil 72 % (42-75); Platelet Count 432 thou/uL (130-400); Platelet Morphology Comment Appears Increased; RBC Distribution Width 17.2 % (11.5-14.5); White Blood Cell (WBC) Count 14.2 thou/uL (4.8-10.8)
[2019-08-05 05:05] LABS: Anion Gap 15 mmol/L (10-20); BUN (Urea Nitrogen) 103 mg/dL (9.8-20.1); Calc. Creatinine Clearance 47 mL/min (70-130); Calcium 10.9 mg/dL (7.8-10.44); Carbon Dioxide 27 mmol/L (22-29); Chloride 113 mmol/L (98-107); Estimated GFR-MDRD 19; Glucose 120 mg/dL (70-105); Potassium 4.1 mmol/L (3.5-5.1); Sodium 151 mmol/L (136-145)
[2019-08-05] MEDS: Sodium Chloride 0.45% 1,000 ML IV SCH ×3 (07:20→15:31)
[2019-08-05] MEDS: Ascorbic Acid 500 mg Chewable Tablet PO SCH (10:05)
[2019-08-05] MEDS: Pantoprazole 40 MG VIAL IVP SCH (10:05)
[2019-08-05] MEDS: HumuLIN 70/30 (300 UNITS/3 ML VIAL) SC SCH ×2 (10:05→22:28)
[2019-08-05] MEDS: methylPREDNISolone Sod Succ 40 MG VIAL IVP SCH (10:05)
[2019-08-05] MEDS: Nystatin Cream 30 GM TUBE TOP SCH ×2 (10:05→22:28)
--- NOTE | 2019-08-05 10:05 | PRG ---
DATE OF SERVICE: 08/05/2019 SUBJECTIVE: Ms. Blackman is a 54-year-old white female, who was admitted for acute respiratory failure secondary to viral pneumonia/COVID-19. We are following up this patient for her acute kidney injury. Previously, she was on dialysis secondary to presumed ATN. She did recover with the renal function. She is off dialysis. We are currently doing gentle hydration with her due to much increased urine output. Last urine output was noted at 5 L. She is also noted to be hypernatremic. For that reason, she is on half-normal saline. OBJECTIVE: VITAL SIGNS: Blood pressure 125/66, heart rate 82, respiratory rate 19, and temperature 98. GENERAL: She is noted to be awake, intubated, and on CPAP. MEDICATIONS: Medications of August 05, 2019, reviewed. LABORATORY DATA: Laboratories of August 05, 2019: White count 4.2, hemoglobin 8.5. Sodium 151, potassium 4.1, chloride 103, carbon dioxide 23, BUN 103, creatinine 2.66, and calcium is 10.9. ASSESSMENT AND PLAN: 1. Acute kidney injury - superimposed acute tubular necrosis. She is now progressing and improving renal function, currently off dialysis. She is diuresing well. Half-normal saline was started yesterday. 2. Mild hypernatremia. Continuing half-normal saline. If her serum sodium further worsens, we can change her to a D5 water 0.5% sodium chloride. 3. Acute respiratory - improving - eventual extubation, doing better. Job ID: [id number] [facility]
--- NOTE | 2019-08-05 13:48 | PRG ---
DATE OF SERVICE: 08/05/2019 SUBJECTIVE: Natalia Blackman awakens. She is on a low-dose of Versed. OBJECTIVE: VITAL SIGNS: Heart rates in the 80s, respiratory rates in the teens to low 20s, blood pressure 125/66. LUNGS: Unchanged. HEART: Unchanged. ABDOMEN: Unchanged. It is anticipated that she will be extubated today. LABORATORY DATA: White count 14.2, hemoglobin 8.5, and platelets 432. Sodium 151, potassium 4.1, chloride 113, bicarb 27, BUN 103, and creatinine 2.66. IMPRESSION: 1. Respiratory failure secondary to COVID. 2. Asthma. 3. Obesity. 4. Acute renal failure, associated with COVID. Her intake and output negative 3468 and her urine output was 6150. 5. Her renal function is slowly recovering, and she is diuresing rapidly. She should do well postextubation. Job ID: [id number]
[2019-08-05] MEDS: Enoxaparin Sodium 60 MG/0.6 ML SYRINGE SC SCH (22:27)
[2019-08-05] MEDS: cefTRIAXone\\ROCEPHIN 1 GM in Sodium Chloride 0.9% 100 ML IVPB SCH (22:27)
[2019-08-05] MEDS: Ipratropium/Albuterol Sulfate 4 GM AER IH SCH (22:29)
[2019-08-06] MEDS: Ipratropium/Albuterol Sulfate 4 GM AER IH SCH ×3 (02:51→22:04)
[2019-08-06 07:52] LABS: Anion Gap 15 mmol/L (10-20); BUN (Urea Nitrogen) 84 mg/dL (9.8-20.1); Calc. Creatinine Clearance 55 mL/min (70-130); Calcium 10.2 mg/dL (7.8-10.44); Carbon Dioxide 24 mmol/L (22-29); Chloride 118 mmol/L (98-107); Estimated GFR-MDRD 23; Glucose 135 mg/dL (70-105); Potassium 4.2 mmol/L (3.5-5.1); Sodium 153 mmol/L (136-145)
--- NOTE | 2019-08-06 08:05 | RAD ---
SINGLE VIEW OF THE CHEST: Date: 08/06/2019 COMPARISON: 08/04/2019. HISTORY: Ventilated patient with respiratory failure. FINDINGS: Single view of the chest shows an enlarged but stable cardiomediastinal silhouette. The endotracheal tube has been removed. Subtle multifocal areas of air space opacity are seen in the lungs. IMPRESSION: Stable exam status post extubation. POS: EAA
[2019-08-06 08:22] LABS: Hemoglobin 8.9 g/dL (12.0-16.0); Mean Corpuscular HGB CONC 30.3 g/dL (32.0-36.0); Mean Corpuscular Hemoglobin 23.4 pg (27.0-31.0); Mean Corpuscular Volume 77.3 fL (78.0-98.0); RBC Distribution Width 17.3 % (11.5-14.5); White Blood Cell (WBC) Count 14.3 thou/uL (4.8-10.8)
[2019-08-06 08:23] LABS: Band 5 % (5-11); Eosinophils 1 % (0-10); Lymphocytes 10 % (21-51); MDiff Complete? YES; Mean Platelet Volume 9.2 fL (7.4-10.4); Monocytes 6 % (0-10); Neutrophil 78 % (42-75); Platelet Count 429 thou/uL (130-400)
[2019-08-06] MEDS: methylPREDNISolone Sod Succ 40 MG VIAL IVP SCH (08:57)
[2019-08-06] MEDS: Pantoprazole 40 MG VIAL IVP SCH (08:58)
[2019-08-06] MEDS: Ascorbic Acid 500 mg Chewable Tablet PO SCH (08:59)
[2019-08-06] MEDS: HumuLIN 70/30 (300 UNITS/3 ML VIAL) SC SCH ×2 (09:00→21:43)
[2019-08-06] MEDS: Sodium Chloride 0.45% 1,000 ML IV SCH (09:05)
[2019-08-06] MEDS: Nystatin Cream 30 GM TUBE TOP SCH ×2 (09:30→22:05)
[2019-08-06] MEDS ORDERED: Sodium Chloride 0.45% 1,000 ML IV SCH (09:51)
--- NOTE | 2019-08-06 10:28 | PRG ---
DATE OF SERVICE: 08/06/2019 SUBJECTIVE: The patient was successfully extubated yesterday afternoon. She is awake, alert, somewhat confused, but doing well. OBJECTIVE: VITAL SIGNS: Temperature 98.2, pulse 72, blood pressure 112/60, O2 saturation 93%. 24-hour intake 3086, output 4210. HEENT: Unremarkable. NECK: No adenopathy or JVD. LUNGS: Clear anteriorly. CARDIAC: S1 and S2. Regular. ABDOMEN: Soft. EXTREMITIES: No edema. She is currently wearing 2 L nasal cannula, O2 saturations about 95%. LABORATORY DATA: White blood cell count 14.3, hematocrit 29.4, and platelet count 429. Sodium 153, potassium 4.2, chloride 118, CO2 of 24, BUN 84, creatinine 2.2, and glucose 135. Chest x-ray shows stable and may be somewhat improved bilateral infiltrates. ASSESSMENT: 1. COVID-19 pneumonia with acute hypoxic respiratory failure, which did require mechanical ventilation. 2. Asthma. 3. Obesity. 4. Acute renal failure with improved renal function. 5. Hypernatremia. PLAN: This patient could be transferred out to the COVID-19 unit on . She is continuing anticoagulation. Her IV fluids have been adjusted by Dr. Jordan. She is on low-dose steroids. Need to initiate physical therapy. Need to initiate diet. Job ID: [id number]
--- NOTE | 2019-08-06 10:47 | PRG ---
DATE OF SERVICE: 08/06/2019 SUBJECTIVE: Ms. Blackman is a 54-year-old white female, who was admitted for acute respiratory failure secondary to viral pneumonia/COVID-19 infection. Please note, the patient went to acute kidney injury secondary to presumed ischemic acute tubular necrosis. She was on dialysis for about four days. We have stopped dialysis due to spontaneous recovery of the renal function. She is also diuresing well. She has been noted to be hypernatremic. For that reason, we are adjusting her fluid. No acute events noted. Please note, she is extubated. OBJECTIVE: VITAL SIGNS: Blood pressure 112/68, heart rate 72, respiratory rate 16, O2 saturation 93%. GENERAL: The patient is awake, comfortable, not in distress. SKIN: Adequate turgor. HEENT: She has pinkish conjunctivae. Anicteric sclerae. NECK: No neck mass. No carotid bruits. No JVD. CHEST: No deformities. LUNGS: Clear breath sounds. No wheezing. No crackles. HEART: Normal sinus rhythm. No murmur. No gallops. No rubs. ABDOMEN: Globular, soft, nontender. No masses. EXTREMITIES: No edema. No deformities. MEDICATIONS: Medications of August 06, 2019, was reviewed. LABORATORY DATA: Laboratories of August 06, 2019; white count 14.3, hemoglobin 8.9. Sodium 153, potassium 4.2, chloride 118, carbon dioxide 24, BUN 84, creatinine 2.19, glucose 135, calcium 10.2. ASSESSMENT AND PLAN: 1. Acute kidney injury-secondary to presumed acute tubular necrosis, slowly improving. Creatinine today is much improved when compared to yesterday, where it was 2.66. Continue current management. The patient is diuresing well. 2. Hypernatremia-changed IV fluid to D5 0.2% sodium chloride at 125 mL/hour. Encouraged the patient to increase her free water intake. 3. Acute respiratory failure secondary to COVID-19 pneumonia-stable, much improved. The patient is extubated and is oxygenating well. Overall, I agree with current management. Job ID: [id number]
[2019-08-06 11:39] LABS: SARS-CoV-2 MS2 Positive; SARS-CoV-2 N Gene Negative; SARS-CoV-2 S Gene Negative; SARS-CoV-2 orf1ab Negative
[2019-08-06] MEDS: D5 1/4 NS 1,000 ML IV SCH ×2 (12:59→19:39)
[2019-08-06] MEDS: HumaLOG 300 UNITS/3 ML VIAL SC PRN ×3 (13:05→18:45)
[2019-08-06] MEDS: Enoxaparin Sodium 60 MG/0.6 ML SYRINGE SC SCH (22:07)
--- NOTE | 2019-08-06 22:17 | PDOC.HOSPP ---
- Subjective Encounter Date: 08/06/19 - Objective Vital Signs & Weight: Vital Signs (12 hours) Temp Pulse Resp Pulse Ox 08/06/19 21:52 58 L 16 98 08/06/19 20:00 98.7 F 08/06/19 16:00 98.6 F 08/06/19 12:00 98.5 F Weight Admit Weight 296 lb Weight 261 lb 11.019 oz Most Recent Monitor Data Heart Rate from ECG 65 NIBP 134/78 NIBP BP-Mean 96 Respiration from ECG 17 SpO2 99 I&O: 08/05/19 08/06/19 08/07/19 06:59 06:59 06:59 Intake Total 5539.6 3086.3 1348 Output Total 5170 4210 2240 Balance 369.6 -1123.7 -892 Result Diagrams: 08/06/19 07:28 08/06/19 07:28 Additional Labs: Accuchecks 08/06/19 08/06/19 08/06/19 18:39 16:04 12:59 POC Glucose 175 H 187 H 174 H 08/06/19 08/06/19 08/05/19 05:08 00:57 22:25 POC Glucose 92 115 H 153 H 08/05/19 08/05/19 18:42 00:39 POC Glucose 223 H 126 H Hospitalist ROS - Medication Medications: Active Medications Generic Name Dose Route Start Last Admin Trade Name Freq PRN Reason Stop Dose Admin Acetaminophen 650 mg 07/22/19 18:27 07/28/19 12:14 Tylenol PO 650 mg Q4H PRN Administration Headache/Fever/Mild Pain (1-3) Albuterol/Ipratropium 0 gm 08/05/19 22:30 08/06/19 22:04 Combivent Respimat 20-100 Mcg IH 1 inh [id number] BETO Administration Ascorbic Acid 1,000 mg 07/23/19 09:00 08/06/19 08:59 Vitamin C PO Not Given DAILY BETO Enoxaparin Sodium 60 mg 07/25/19 21:00 08/06/19 22:07 Lovenox SC 60 mg 2100 BETO Administration Dextrose/Sodium Chloride 1,000 mls @ 125 mls/hr 08/06/19 12:30 08/06/19 19:39 D5 1/4 Ns IV 1,000 mls .Q8H BETO Administration Insulin Human Isoph/Insulin Regular 35 units 07/31/19 21:00 08/06/19 09:00 Humulin 70/30 SC 35 unit Q12HR BETO Administration Insulin Human Lispro 0 units 07/29/19 15:40 08/06/19 18:45 Humalog SC 3 unit .AGGRESSIVE SLIDING PRN Administration AGGRESSIVE SLIDING SCALE Protocol Methylprednisolone Sodium Succinate 40 mg 07/28/19 09:00 08/06/19 08:57 Solu-Medrol IVP 40 mg DAILY BETO Administration Nystatin 0 gm 08/02/19 21:00 08/06/19 22:05 Mycostatin Cream TOP 1 gm BID BETO Administration Ondansetron HCl 4 mg 07/23/19 23:38 07/23/19 23:54 Zofran IVP 4 mg Q6H PRN Administration Nausea/Vomiting Pantoprazole Sodium 40 mg 07/26/19 09:00 08/06/19 08:58 Protonix IVP 40 mg DAILY BETO Administration Sodium Chloride 10 ml 08/05/19 09:00 08/06/19 22:05 Flush - Normal Saline IVF 10 ml Q12HR BETO Administration - Exam General Appearance: awake alert ENT: normocephalic atraumatic Neck: supple Heart: RRR Respiratory: normal chest expansion, no tachypnea Gastrointestinal: soft, non-tender, non-distended, normal bowel sounds Extremities: no cyanosis Skin: normal turgor Neurological: cranial nerve grossly intact, no focal deficits Psychiatric: normal affect Hosp A/P (1) Acute kidney injury (TAMICA) with acute tubular necrosis (ATN) Code(s): N17.0 - ACUTE KIDNEY FAILURE WITH TUBULAR NECROSIS Status: Acute (2) Acute respiratory failure with hypoxia Code(s): J96.01 - ACUTE RESPIRATORY FAILURE WITH HYPOXIA Status: Acute (3) Pneumonia due to COVID-19 virus Code(s): U07.1 - COVID-19; J12.89 - OTHER VIRAL PNEUMONIA Status: Acute (4) DM II (diabetes mellitus, type II), controlled Code(s): E11.9 - TYPE 2 DIABETES MELLITUS WITHOUT COMPLICATIONS Status: Chronic (5) HTN (hypertension) Code(s): I10 - ESSENTIAL (PRIMARY) HYPERTENSION Status: Chronic Qualifiers: Hypertension type: essential hypertension Qualified Code(s): I10 - Essential (primary) hypertension - Plan The patient was extubated successfully. She is alert and oriented and does not appear to be in any distress. COVID positive, status post convalescence plasma. No acute indication for hemodialysis per nephrology. CXR unchanged. Sugar control is better after restarting Humalin 70/30. On Lovenox for DVT prophylaxis given high risk for VTE with COVID. Remains on bronchodilators, corticosteroids and IV antibiotics.
[2019-08-07] MEDS: Ipratropium/Albuterol Sulfate 4 GM AER IH SCH ×3 (02:16→21:07)
[2019-08-07] MEDS: D5 1/4 NS 1,000 ML IV SCH ×3 (03:46→20:45)
[2019-08-07 04:26] LABS: Anion Gap 16 mmol/L (10-20); BUN (Urea Nitrogen) 70 mg/dL (9.8-20.1); Calc. Creatinine Clearance 64 mL/min (70-130); Carbon Dioxide 27 mmol/L (22-29); Chloride 115 mmol/L (98-107); Estimated GFR-MDRD 28; Glucose 147 mg/dL (70-105); Potassium 4.2 mmol/L (3.5-5.1); Sodium 154 mmol/L (136-145)
[2019-08-07] MEDS: methylPREDNISolone Sod Succ 40 MG VIAL IVP SCH (09:45)
[2019-08-07] MEDS: Pantoprazole 40 MG VIAL IVP SCH (09:45)
[2019-08-07] MEDS: Ascorbic Acid 500 mg Chewable Tablet PO SCH (09:45)
[2019-08-07] MEDS: HumuLIN 70/30 (300 UNITS/3 ML VIAL) SC SCH ×2 (09:46→21:08)
--- NOTE | 2019-08-07 09:50 | PRG ---
DATE OF SERVICE: 08/07/2019 SUBJECTIVE: The patient is doing extremely well. She is awaiting to be transferred to the floor. OBJECTIVE: VITAL SIGNS: Temperature 97.5, pulse 56, blood pressure 147/59, and O2 sat 99%. HEENT: Unremarkable. NECK: No adenopathy or JVD. LUNGS: Clear anteriorly. CARDIAC: S1 and S2, regular. ABDOMEN: Soft. EXTREMITIES: No edema. LABORATORY DATA: Sodium 154, potassium 4.2, chloride 115, CO2 of 27, BUN 70, creatinine 1.8, and glucose 147. White blood cell count 14.3, hematocrit 29.4, and platelet count 429. ASSESSMENT: 1. COVID-19 pneumonia, apparently is negative for COVID on repeat testing yesterday. 2. Hypernatremia. 3. Acute renal failure, which is improving. PLAN: 1. Transfer to medical floor. 2. Increase free water. Job ID: [id number]
[2019-08-07] MEDS: Nystatin Cream 30 GM TUBE TOP SCH ×2 (11:43→20:44)
[2019-08-07] MEDS: Enoxaparin Sodium 60 MG/0.6 ML SYRINGE SC SCH (20:43)
--- NOTE | 2019-08-07 20:49 | PDOC.HOSPP ---
- Subjective Encounter Date: 08/07/19 Subjective: The patient is alert and oriented. She denied shortness of breath, chest pain, palpitations, or dizziness. - Objective Vital Signs & Weight: Vital Signs (12 hours) Temp Pulse Resp BP Pulse Ox 08/07/19 15:15 97.8 F 57 L 18 148/70 H 100 08/07/19 12:31 98.0 F 76 16 168/122 H 100 Weight Admit Weight 296 lb Weight 263 lb 0.183 oz Most Recent Monitor Data Heart Rate from ECG 69 NIBP 142/69 NIBP BP-Mean 93 Respiration from ECG 15 SpO2 97 I&O: 08/06/19 08/07/19 08/08/19 06:59 06:59 06:59 Intake Total 3086.3 3552 500 Output Total 4210 3880 1570 Balance -1123.7 -328 -1070 Result Diagrams: 08/06/19 07:28 08/07/19 03:27 Additional Labs: Accuchecks 08/06/19 08/06/19 23:56 20:02 POC Glucose 134 H 151 H Hospitalist ROS - Medication Medications: Active Medications Generic Name Dose Route Start Last Admin Trade Name Freq PRN Reason Stop Dose Admin Acetaminophen 650 mg 07/22/19 18:27 07/28/19 12:14 Tylenol PO 650 mg Q4H PRN Administration Headache/Fever/Mild Pain (1-3) Albuterol/Ipratropium 0 gm 08/05/19 22:30 08/07/19 05:58 Combivent Respimat 20-100 Mcg IH 1 inh [id number] BETO Administration Ascorbic Acid 1,000 mg 07/23/19 09:00 08/07/19 09:45 Vitamin C PO 1,000 mg DAILY BETO Administration Enoxaparin Sodium 60 mg 07/25/19 21:00 08/07/19 20:43 Lovenox SC 60 mg 2100 BETO Administration Dextrose/Sodium Chloride 1,000 mls @ 150 mls/hr 08/07/19 11:35 08/07/19 12:45 D5 1/4 Ns IV 1,000 mls .[id number] BETO Administration Insulin Human Isoph/Insulin Regular 35 units 07/31/19 21:00 08/07/19 09:46 Humulin 70/30 SC 35 unit Q12HR BETO Administration Insulin Human Lispro 0 units 07/29/19 15:40 08/06/19 18:45 Humalog SC 3 unit .AGGRESSIVE SLIDING PRN Administration AGGRESSIVE SLIDING SCALE Protocol Methylprednisolone Sodium Succinate 40 mg 07/28/19 09:00 08/07/19 09:45 Solu-Medrol IVP 40 mg DAILY BETO Administration Nystatin 0 gm 08/02/19 21:00 08/07/19 20:44 Mycostatin Cream TOP 1 gm BID BETO Administration Ondansetron HCl 4 mg 07/23/19 23:38 07/23/19 23:54 Zofran IVP 4 mg Q6H PRN Administration Nausea/Vomiting Pantoprazole Sodium 40 mg 07/26/19 09:00 08/07/19 09:45 Protonix IVP 40 mg DAILY BETO Administration Sodium Chloride 10 ml 08/05/19 09:00 08/07/19 20:44 Flush - Normal Saline IVF Not Given Q12HR BETO - Exam General Appearance: awake alert ENT: normocephalic atraumatic Neck: supple Heart: RRR, no murmur, no gallops, no rubs Respiratory: normal chest expansion, no tachypnea Hosp A/P (1) Acute kidney injury (TAMICA) with acute tubular necrosis (ATN) Code(s): N17.0 - ACUTE KIDNEY FAILURE WITH TUBULAR NECROSIS Status: Acute (2) Acute respiratory failure with hypoxia Code(s): J96.01 - ACUTE RESPIRATORY FAILURE WITH HYPOXIA Status: Acute (3) Pneumonia due to COVID-19 virus Code(s): U07.1 - COVID-19; J12.89 - OTHER VIRAL PNEUMONIA Status: Acute (4) DM II (diabetes mellitus, type II), controlled Code(s): E11.9 - TYPE 2 DIABETES MELLITUS WITHOUT COMPLICATIONS Status: Chronic (5) HTN (hypertension) Code(s): I10 - ESSENTIAL (PRIMARY) HYPERTENSION Status: Chronic Qualifiers: Hypertension type: essential hypertension Qualified Code(s): I10 - Essential (primary) hypertension - Plan The patient was extubated successfully. She is alert and oriented and does not appear to be in any distress. COVID positive, status post convalescence plasma. Repeat serology negative for COVID. No acute indication for hemodialysis per nephrology. CXR unchanged. Sugar control is better after restarting Humalin 70/30. Remains on bronchodilator and corticosteroids. Hypernatremia is present. Water intake was encouraged. On 02/19 NS per nephrology.
[2019-08-08] MEDS: Ondansetron PF 4 MG/2 ML Vial IVP PRN (00:12)
[2019-08-08] MEDS: Ipratropium/Albuterol Sulfate 4 GM AER IH SCH ×9 (01:19→22:32)
[2019-08-08] MEDS: D5 1/4 NS 1,000 ML IV SCH ×3 (05:19→12:50)
--- NOTE | 2019-08-08 09:06 | PDOC.HOSPP ---
- Subjective Encounter Date: 08/08/19 Encounter Time: 13:40 Subjective: Patient without complaints. Eager to improve and get out of hospital. - Objective Vital Signs & Weight: Vital Signs (12 hours) Temp Pulse Resp BP Pulse Ox 08/08/19 06:00 98.2 F 61 20 137/72 99 08/08/19 00:00 97.6 F 58 L 18 150/76 H 100 Weight Admit Weight 296 lb Weight 263 lb 0.183 oz Most Recent Monitor Data Heart Rate from ECG 69 NIBP 142/69 NIBP BP-Mean 93 Respiration from ECG 15 SpO2 97 I&O: 08/07/19 08/08/19 08/09/19 06:59 06:59 06:59 Intake Total 3552 2660 Output Total 3880 2770 Balance -328 -110 Result Diagrams: 08/06/19 07:28 08/08/19 09:03 Additional Labs: Accuchecks 08/08/19 08/07/19 05:30 09:58 POC Glucose 171 H 173 H Hospitalist ROS - Review of Systems Constitutional: denies: fever, chills Respiratory: denies: cough, shortness of breath Cardiovascular: denies: chest pain, palpitations Gastrointestinal: denies: nausea, vomiting, abdominal pain Neurological: reports: weakness - Medication Medications: Active Medications Generic Name Dose Route Start Last Admin Trade Name Freq PRN Reason Stop Dose Admin Acetaminophen 650 mg 07/22/19 18:27 07/28/19 12:14 Tylenol PO 650 mg Q4H PRN Administration Headache/Fever/Mild Pain (1-3) Albuterol/Ipratropium 0 gm 08/05/19 22:30 08/08/19 06:20 Combivent Respimat 20-100 Mcg IH Not Given [id number] BETO Ascorbic Acid 1,000 mg 07/23/19 09:00 08/07/19 09:45 Vitamin C PO 1,000 mg DAILY BETO Administration Enoxaparin Sodium 60 mg 07/25/19 21:00 08/07/19 20:43 Lovenox SC 60 mg 2100 BETO Administration Dextrose/Sodium Chloride 1,000 mls @ 150 mls/hr 08/07/19 11:35 08/08/19 05:19 D5 1/4 Ns IV 1,000 mls .Q6H40M BETO Administration Insulin Human Isoph/Insulin Regular 35 units 06/14/20 21:00 08/07/19 21:08 Humulin 70/30 SC Not Given Q12HR BETO Insulin Human Lispro 0 units 07/29/19 15:40 08/06/19 18:45 Humalog SC 3 unit .AGGRESSIVE SLIDING PRN Administration AGGRESSIVE SLIDING SCALE Protocol Methylprednisolone Sodium Succinate 40 mg 07/28/19 09:00 08/07/19 09:45 Solu-Medrol IVP 40 mg DAILY BETO Administration Nystatin 0 gm 08/02/19 21:00 08/07/19 20:44 Mycostatin Cream TOP 1 gm BID BETO Administration Ondansetron HCl 4 mg 07/23/19 23:38 08/08/19 00:12 Zofran IVP 4 mg Q6H PRN Administration Nausea/Vomiting Pantoprazole Sodium 40 mg 07/26/19 09:00 08/07/19 09:45 Protonix IVP 40 mg DAILY BETO Administration Sodium Chloride 10 ml 08/05/19 09:00 08/07/19 20:44 Flush - Normal Saline IVF Not Given Q12HR BETO - Exam General Appearance: NAD, awake alert ENT: moist mucosa Heart: RRR, no murmur, no gallops, no rubs Respiratory: CTAB, no wheezes, no rales, no ronchi Gastrointestinal: soft, non-tender, non-distended, normal bowel sounds Psychiatric: normal affect, normal behavior Hosp A/P (1) Pneumonia due to COVID-19 virus Code(s): U07.1 - COVID-19; J12.89 - OTHER VIRAL PNEUMONIA Status: Acute (2) Acute respiratory failure with hypoxia Code(s): J96.01 - ACUTE RESPIRATORY FAILURE WITH HYPOXIA Status: Acute (3) Acute kidney injury ([place]AMICA) with acute tubular necrosis (ATN) Code(s): N17.0 - ACUTE KIDNEY FAILURE WITH TUBULAR NECROSIS Status: Acute (4) CKD (chronic kidney disease), stage III Code(s): N18.3 - CHRONIC KIDNEY DISEASE, STAGE 3 (MODERATE) Status: Chronic (5) DM II (diabetes mellitus, type II), controlled Code(s): E11.9 - TYPE 2 DIABETES MELLITUS WITHOUT COMPLICATIONS Status: Chronic (6) HTN (hypertension) Code(s): I10 - ESSENTIAL (PRIMARY) HYPERTENSION Status: Chronic Qualifiers: Hypertension type: essential hypertension Qualified Code(s): I10 - Essential (primary) hypertension - Plan The patient was extubated successfully. She is alert and oriented and does not appear to be in any distress. COVID pneumonia, status post convalescence plasma. Repeat serology negative for COVID. No acute indication for hemodialysis per nephrology. CXR unchanged. Sugar control is better after restarting Humalin 70/30. Remains on bronchodilator and corticosteroids. Hypernatremia is present, slight worsening Water intake was encouraged. On 02/19 NS per nephrology.
[2019-08-08 09:29] LABS: Anion Gap 12 mmol/L (10-20); BUN (Urea Nitrogen) 48 mg/dL (9.8-20.1); Calc. Creatinine Clearance 76 mL/min (70-130); Calcium 9.2 mg/dL (7.8-10.44); Carbon Dioxide 27 mmol/L (22-29); Chloride 106 mmol/L (98-107); Estimated GFR-MDRD 34; Glucose 181 mg/dL (70-105); Potassium 3.9 mmol/L (3.5-5.1); Sodium 141 mmol/L (136-145)
[2019-08-08] MEDS: Pantoprazole 40 MG VIAL IVP SCH (10:25)
[2019-08-08] MEDS: Ascorbic Acid 500 mg Chewable Tablet PO SCH (10:25)
[2019-08-08] MEDS: methylPREDNISolone Sod Succ 40 MG VIAL IVP SCH (10:27)
[2019-08-08] MEDS: Nystatin Cream 30 GM TUBE TOP SCH ×2 (10:33→21:14)
[2019-08-08] MEDS: HumuLIN 70/30 (300 UNITS/3 ML VIAL) SC SCH ×2 (10:48→21:47)
[2019-08-08 16:09] VITALS: BMI 46.5
[2019-08-08] MEDS: Enoxaparin Sodium 60 MG/0.6 ML SYRINGE SC SCH (21:29)
[2019-08-09] MEDS: D5 1/4 NS 1,000 ML IV SCH ×2 (02:07→13:32)
[2019-08-09] MEDS: Ipratropium/Albuterol Sulfate 4 GM AER IH SCH ×6 (02:30→23:40)
[2019-08-09 05:53] LABS: #Basophils 0.1 thou/uL (0.0-0.2); #Eosinphils 0.3 thou/uL (0.0-0.7); #Lymphocytes 2.5 thou/uL (1.20-3.40); #Monocytes 0.6 thou/uL (0.11-0.59); #Neutrophils 7.4 thou/uL (1.40-6.50); %Basophils 0.7 % (0.0-1.0); %Eosinophils 2.4 % (0.0-10.0); %Lymphocytes 22.8 % (21.0-51.0); %Monocytes 5.7 % (0.0-10.0); %Neutrophils 68.3 % (42.0-75.0); Hemoglobin 8.7 g/dL (12.0-16.0); Mean Corpuscular HGB CONC 30.3 g/dL (32.0-36.0); Mean Corpuscular Hemoglobin 23.4 pg (27.0-31.0); Mean Corpuscular Volume 77.2 fL (78.0-98.0); Mean Platelet Volume 8.9 fL (7.4-10.4); Platelet Count 367 thou/uL (130-400); RBC Distribution Width 16.7 % (11.5-14.5); Red Blood Cell (RBC) Count 3.71 mill/uL (4.20-5.40); White Blood Cell (WBC) Count 10.9 thou/uL (4.8-10.8)
[2019-08-09 06:17] LABS: Anion Gap 12 mmol/L (10-20); BUN (Urea Nitrogen) 38 mg/dL (9.8-20.1); Calc. Creatinine Clearance 89 mL/min (70-130); Carbon Dioxide 29 mmol/L (22-29); Chloride 107 mmol/L (98-107); Estimated GFR-MDRD 41; Potassium 3.8 mmol/L (3.5-5.1); Sodium 144 mmol/L (136-145)
[2019-08-09 06:18] LABS: Calcium 9.5 mg/dL (7.8-10.44); Glucose 104 mg/dL (70-105)
--- NOTE | 2019-08-09 08:22 | PDOC.HOSPP ---
- Subjective Encounter Date: 08/09/19 Encounter Time: 11:30 Subjective: Patient without complaints. Strength very slowly improving. - Objective Vital Signs & Weight: Vital Signs (12 hours) Temp Pulse Resp BP Pulse Ox 08/09/19 02:07 98.3 F 60 18 135/69 99 Weight Admit Weight 296 lb Weight 252 lb 10.396 oz Most Recent Monitor Data Heart Rate from ECG 69 NIBP 142/69 NIBP BP-Mean 93 Respiration from ECG 15 SpO2 97 I&O: 08/08/19 08/09/19 08/10/19 06:59 06:59 06:59 Intake Total 2660 900 Output Total 2770 2625 Balance -110 -925 Result Diagrams: 08/09/19 05:14 08/09/19 05:14 Additional Labs: Accuchecks 08/08/19 08/07/19 21:40 20:59 POC Glucose 204 H 192 H Hospitalist ROS - Review of Systems Constitutional: denies: fever, chills Respiratory: denies: cough, shortness of breath Cardiovascular: denies: chest pain, palpitations Gastrointestinal: denies: nausea, vomiting, abdominal pain - Medication Medications: Active Medications Generic Name Dose Route Start Last Admin Trade Name Freq PRN Reason Stop Dose Admin Acetaminophen 650 mg 07/22/19 18:27 07/28/19 12:14 Tylenol PO 650 mg Q4H PRN Administration Headache/Fever/Mild Pain (1-3) Albuterol/Ipratropium 0 gm 08/05/19 22:30 08/08/19 19:30 Combivent Respimat 20-100 Mcg IH 1 inh [id number] BETO Administration Ascorbic Acid 1,000 mg 07/23/19 09:00 08/08/19 10:25 Vitamin C PO 1,000 mg DAILY BETO Administration Enoxaparin Sodium 60 mg 07/25/19 21:00 08/08/19 21:29 Lovenox SC 60 mg 2100 BETO Administration Dextrose/Sodium Chloride 1,000 mls @ 75 mls/hr 08/08/19 11:48 08/09/19 02:07 D5 1/4 Ns IV 1,000 mls .[id number] BETO Administration Insulin Human Isoph/Insulin Regular 35 units 07/31/19 21:00 08/08/19 21:47 Humulin 70/30 SC 35 unit Q12HR BETO Administration Insulin Human Lispro 0 units 07/29/19 15:40 08/06/19 18:45 Humalog SC 3 unit .AGGRESSIVE SLIDING PRN Administration AGGRESSIVE SLIDING SCALE Protocol Methylprednisolone Sodium Succinate 40 mg 07/28/19 09:00 08/08/19 10:27 Solu-Medrol IVP 40 mg DAILY BETO Administration Nystatin 0 gm 08/02/19 21:00 08/08/19 21:14 Mycostatin Cream TOP Not Given BID BETO Ondansetron HCl 4 mg 07/23/19 23:38 08/08/19 00:12 Zofran IVP 4 mg Q6H PRN Administration Nausea/Vomiting Pantoprazole Sodium 40 mg 07/26/19 09:00 08/08/19 10:25 Protonix IVP 40 mg DAILY BETO Administration Sodium Chloride 10 ml 08/05/19 09:00 08/08/19 21:30 Flush - Normal Saline IVF Not Given Q12HR BETO - Exam General Appearance: NAD, awake alert ENT: moist mucosa Heart: RRR, no murmur, no gallops, no rubs Respiratory: CTAB, no wheezes, no rales, no ronchi Gastrointestinal: soft, non-tender, non-distended, normal bowel sounds Psychiatric: normal affect, normal behavior, A&O x 3 Hosp A/P (1) Pneumonia due to COVID-19 virus Code(s): U07.1 - COVID-19; J12.89 - OTHER VIRAL PNEUMONIA Status: Acute (2) Acute respiratory failure with hypoxia Code(s): J96.01 - ACUTE RESPIRATORY FAILURE WITH HYPOXIA Status: Acute (3) Acute kidney injury ([place]AM[place]) with acute tubular necrosis (ATN) Code(s): N17.0 - ACUTE KIDNEY FAILURE WITH TUBULAR NECROSIS Status: Acute (4) CKD (chronic kidney disease), stage III Code(s): N18.3 - CHRONIC KIDNEY DISEASE, STAGE 3 (MODERATE) Status: Chronic (5) DM II (diabetes mellitus, type II), controlled Code(s): E11.9 - TYPE 2 DIABETES MELLITUS WITHOUT COMPLICATIONS Status: Chronic (6) HTN (hypertension) Code(s): I10 - ESSENTIAL (PRIMARY) HYPERTENSION Status: Chronic Qualifiers: Hypertension type: essential hypertension Qualified Code(s): I10 - Essential (primary) hypertension - Plan The patient was extubated successfully. She is alert and oriented and does not appear to be in any distress. COVID pneumonia, status post convalescence plasma. Repeat serology negative for COVID. No acute indication for hemodialysis per nephrology. CXR unchanged. Sugar control is better after restarting Humalin 70/30. Remains on bronchodilator and corticosteroids. Hypernatremia resolved Water intake was encouraged. On 02/19 NS per nephrology. Needs rehab/SNF. Patient has one negative Covid-19 test. Will see about possibility of placement at swing bed.
[2019-08-09] MEDS: HumuLIN 70/30 (300 UNITS/3 ML VIAL) SC SCH ×2 (09:25→21:35)
[2019-08-09] MEDS: Ascorbic Acid 500 mg Chewable Tablet PO SCH (09:26)
[2019-08-09] MEDS: Nystatin Cream 30 GM TUBE TOP SCH ×2 (09:26→21:39)
[2019-08-09] MEDS: Pantoprazole 40 MG VIAL IVP SCH (09:27)
[2019-08-09] MEDS: methylPREDNISolone Sod Succ 40 MG VIAL IVP SCH (09:30)
[2019-08-09] MEDS: HumaLOG 300 UNITS/3 ML VIAL SC PRN ×2 (13:37→18:52)
[2019-08-09] MEDS: Enoxaparin Sodium 60 MG/0.6 ML SYRINGE SC SCH (21:32)
[2019-08-10] MEDS: Ipratropium/Albuterol Sulfate 4 GM AER IH SCH ×4 (03:16→14:06)
[2019-08-10] MEDS: D5 1/4 NS 1,000 ML IV SCH (03:37)
[2019-08-10 06:54] LABS: #Basophils 0.1 thou/uL (0.0-0.2); #Eosinphils 0.3 thou/uL (0.0-0.7); #Monocytes 0.7 thou/uL (0.11-0.59); #Neutrophils 8.4 thou/uL (1.40-6.50); %Basophils 0.7 % (0.0-1.0); %Eosinophils 2.2 % (0.0-10.0); %Lymphocytes 23.9 % (21.0-51.0); %Monocytes 5.5 % (0.0-10.0); %Neutrophils 67.8 % (42.0-75.0); Hemoglobin 8.9 g/dL (12.0-16.0); Mean Corpuscular Hemoglobin 23.8 pg (27.0-31.0); Mean Corpuscular Volume 76.8 fL (78.0-98.0); Mean Platelet Volume 8.7 fL (7.4-10.4); Platelet Count 343 thou/uL (130-400); RBC Distribution Width 16.8 % (11.5-14.5); Red Blood Cell (RBC) Count 3.72 mill/uL (4.20-5.40); White Blood Cell (WBC) Count 12.3 thou/uL (4.8-10.8)
[2019-08-10 07:16] LABS: Anion Gap 12 mmol/L (10-20); BUN (Urea Nitrogen) 29 mg/dL (9.8-20.1); Calc. Creatinine Clearance 97 mL/min (70-130); Calcium 9.9 mg/dL (7.8-10.44); Carbon Dioxide 30 mmol/L (22-29); Chloride 104 mmol/L (98-107); Estimated GFR-MDRD 48; Glucose 127 mg/dL (70-105); Potassium 3.5 mmol/L (3.5-5.1); Sodium 142 mmol/L (136-145)
--- NOTE | 2019-08-10 08:21 | PDOC.HOSPP ---
- Subjective Encounter Date: 08/10/19 Encounter Time: 11:00 Subjective: Patient without complaints. Moving a bit better. No shortness of breath on supplemental oxygen. - Objective Vital Signs & Weight: Vital Signs (12 hours) Temp Pulse Resp BP Pulse Ox 08/10/19 08:00 98.2 F 96 16 166/77 H 96 08/10/19 04:00 98.2 F 66 18 126/73 98 08/10/19 00:00 98.2 F 61 16 120/55 L 99 Weight Admit Weight 296 lb Weight 248 lb 3.848 oz Most Recent Monitor Data Heart Rate from ECG 69 NIBP 142/69 NIBP BP-Mean 93 Respiration from ECG 15 SpO2 97 I&O: 08/09/19 08/10/19 08/11/19 06:59 06:59 06:59 Intake Total 900 Output Total 2925 Balance -2024 Result Diagrams: 08/10/19 06:35 08/10/19 06:35 Additional Labs: Accuchecks 08/10/19 08/09/19 08/09/19 03:46 21:50 18:56 POC Glucose 120 H 160 H 204 H 08/09/19 13:41 POC Glucose 246 H Hospitalist ROS - Review of Systems Constitutional: denies: fever, chills Respiratory: denies: cough, shortness of breath Cardiovascular: denies: chest pain, palpitations Gastrointestinal: denies: nausea, vomiting, abdominal pain - Medication Medications: Active Medications Generic Name Dose Route Start Last Admin Trade Name Freq PRN Reason Stop Dose Admin Acetaminophen 650 mg 07/22/19 18:27 07/28/19 12:14 Tylenol PO 650 mg Q4H PRN Administration Headache/Fever/Mild Pain (1-3) Albuterol/Ipratropium 0 gm 08/05/19 22:30 08/10/19 06:46 Combivent Respimat 20-100 Mcg IH 1 inh [id number] BETO Administration Ascorbic Acid 1,000 mg 07/23/19 09:00 08/09/19 09:26 Vitamin C PO 1,000 mg DAILY BETO Administration Enoxaparin Sodium 60 mg 07/25/19 21:00 08/09/19 21:32 Lovenox SC 60 mg 2100 BETO Administration Dextrose/Sodium Chloride 1,000 mls @ 75 mls/hr 08/08/19 11:48 08/10/19 03:37 D5 1/4 Ns IV 1,000 mls .[id number] BETO Administration Insulin Human Isoph/Insulin Regular 35 units 07/31/19 21:00 08/09/19 21:35 Humulin 70/30 SC Not Given Q12HR BETO Insulin Human Lispro 0 units 07/29/19 15:40 08/09/19 18:52 Humalog SC 6 unit .AGGRESSIVE SLIDING PRN Administration AGGRESSIVE SLIDING SCALE Protocol Methylprednisolone Sodium Succinate 40 mg 07/28/19 09:00 08/09/19 09:30 Solu-Medrol IVP 40 mg DAILY BETO Administration Nystatin 0 gm 08/02/19 21:00 08/09/19 21:39 Mycostatin Cream TOP 30 gm BID BETO Administration Ondansetron HCl 4 mg 07/23/19 23:38 08/08/19 00:12 Zofran IVP 4 mg Q6H PRN Administration Nausea/Vomiting Pantoprazole Sodium 40 mg 07/26/19 09:00 08/09/19 09:27 Protonix IVP 40 mg DAILY BETO Administration Sodium Chloride 10 ml 08/05/19 09:00 08/09/19 21:34 Flush - Normal Saline IVF Not Given Q12HR BETO - Exam General Appearance: NAD, awake alert ENT: moist mucosa Heart: RRR, no murmur, no gallops, no rubs Respiratory: CTAB, no wheezes, no rales, no ronchi Gastrointestinal: soft, non-tender, non-distended, normal bowel sounds Psychiatric: normal affect, normal behavior, A&O x 3 Hosp A/P (1) Pneumonia due to COVID-19 virus Code(s): U07.1 - COVID-19; J12.89 - OTHER VIRAL PNEUMONIA Status: Acute (2) Acute respiratory failure with hypoxia Code(s): J96.01 - ACUTE RESPIRATORY FAILURE WITH HYPOXIA Status: Acute (3) Acute kidney injury ([place]) with acute tubular necrosis (ATN) Code(s): N17.0 - ACUTE KIDNEY FAILURE WITH TUBULAR NECROSIS Status: Acute (4) CKD (chronic kidney disease), stage III Code(s): N18.3 - CHRONIC KIDNEY DISEASE, STAGE 3 (MODERATE) Status: Chronic (5) DM II (diabetes mellitus, type II), controlled Code(s): E11.9 - TYPE 2 DIABETES MELLITUS WITHOUT COMPLICATIONS Status: Chronic (6) HTN (hypertension) Code(s): I10 - ESSENTIAL (PRIMARY) HYPERTENSION Status: Chronic Qualifiers: Hypertension type: essential hypertension Qualified Code(s): I10 - Essential (primary) hypertension - Plan The patient was extubated successfully. She is alert and oriented and does not appear to be in any distress. COVID pneumonia, status post convalescence plasma. Repeat serology negative for COVID. No acute indication for hemodialysis per nephrology. CXR unchanged. Sugar control is better after restarting Humalin 70/30. Remains on bronchodilator and corticosteroids. Hypernatremia resolved Water intake was encouraged. On 02/19 NS per nephrology. Needs rehab/SNF. Patient has one negative Covid-19 test. Will see about possibility of placement at swing bed. Will recheck Covid-19.
[2019-08-10] MEDS: Ascorbic Acid 500 mg Chewable Tablet PO SCH (09:20)
[2019-08-10] MEDS: HumuLIN 70/30 (300 UNITS/3 ML VIAL) SC SCH (09:20)
[2019-08-10] MEDS: methylPREDNISolone Sod Succ 40 MG VIAL IVP SCH (09:21)
[2019-08-10] MEDS: Nystatin Cream 30 GM TUBE TOP SCH (09:21)
[2019-08-10] MEDS: Pantoprazole 40 MG VIAL IVP SCH (09:22)
[2019-08-10] MEDS: HumaLOG 300 UNITS/3 ML VIAL SC PRN (11:58)
[2019-08-10 13:27] VITALS: BP 148/78; TEMP 98
[2019-08-10] MEDS ORDERED: Apixaban 5 MG TAB PO SCH (21:00)
--- NOTE | 2019-08-11 06:03 | DIS ---
DATE OF ADMISSION: 07/22/2019 DATE OF DISCHARGE: 08/10/2019 PRIMARY CARE PHYSICIAN: Dr. Marion. REASON FOR ADMISSION: COVID pneumonia. DIAGNOSES AT DISCHARGE: 1. COVID pneumonia, improved, with repeat testing negative x1, second repeat test is pending. 2. Acute respiratory failure with hypoxia, improved. 3. Acute tubular necrosis, resolved on top of stage 3 chronic kidney disease. 4. Diabetes mellitus, type 2. 5. Hypertension. 6. Restless legs syndrome. 7. Asthma. 8. Fibromyalgia. 9. Anxiety and bipolar depression. 10. Morbid obesity. 11. Sepsis, resolved. PROCEDURES: 1. Ultrasound of the kidneys showing normal renal ultrasound. 2. Right femoral Trialysis catheter placement and later removal. CONSULTATIONS: 1. Infectious Disease, Dr. Mendez. 2. Pulmonology, Dr. Mena. 3. Nephrology, Dr. Jordan. SUMMARY OF HOSPITAL COURSE: This is a 54-year-old white female with a past medical history of insulin-dependent diabetes mellitus, asthma, hypertension, hyperlipidemia, restless legs syndrome, fibromyalgia and morbid obesity, who presented with 1 week of fever, cough and shortness of breath. She had positive COVID test 2 days prior to arrival to the hospital. The patient was admitted. She did qualify for a trial of remdesivir per Dr. Mendez. Since this was given, the patient had decline of her course during hospitalization. She eventually required intubation and mechanical ventilation for persistent hypoxia. The patient also developed acute tubular necrosis from her severe illness and she had to be put on temporary dialysis for a few days until her kidneys improved. The patient did meet criteria for sepsis on arrival. The patient had a very prolonged hospital course. She was eventually able to be extubated and then had slow improvement with weaning down of her oxygen and starting to get her moving. She is still very debilitated and will need further physical therapy given her COVID infection. She is not able to go to rehab or [facility] facility. We did do a repeat COVID test when she was markedly improved, about 5 days ago, this was negative. A second repeat test is being done today. For now, she is still on COVID contact precautions. We were able to arrange for her to go to a swing bed in [place] with continued contact precautions until the second test comes back negative. Per Dr. Mena's recommendations, we are continuing the patient on anticoagulation for full 3 months after her admission. We will switch her to Eliquis from the once a day Lovenox that she has been on. DISCHARGE MANAGEMENT: Discharged to swing bed at [facility]. ACTIVITY: As tolerated. DIET: Diabetic diet with NDD2 texture and extra sauce and gravy. THERAPY: Occupational, physical, and speech therapy. EQUIPMENT SUPPLIES: Oxygen. DISCHARGE MEDICATIONS: 1. Acetaminophen as needed. 2. Eliquis 5 mg twice a day for another 2 months. 3. Vitamin C 1000 mg daily. 4. Dulcolax as needed. 5. Humulin 70/30 35 units twice a day with Humalog aggressive sliding scale. 6. Methylprednisolone 40 mg daily. 7. Protonix 40 mg daily. 8. MiraLAX 17 g daily. 9. Senokot S as needed. 10. Symbicort 160/4.5 two puffs inhaled twice a day. 11. Fenofibrate 160 mg daily. 12. Montelukast 10 mg at night. Her other medications are still on hold including her Requip. This can be reinstituted should she develop restless legs syndrome symptoms during her hospitalization. I did speak with Dr. Grimes at swing bed in [place] where she has been accepted. The patient is to follow up with Dr. Jordan in the next 2 to [address] Quesada in next 3 to 4 weeks and with her primary care doctor after discharge from [place]. Arranging the details of this discharge took 35 minutes. Job ID: [id number]
--- NOTE | 2019-08-12 05:36 | PQF ---
DENIS SOTO RYAN ANDREW MD [id number] CLINICAL DOCUMENTATION CLARIFICATION FORM: POST DISCHARGE Addendum to original discharge summary date: ____ Late entry note date: __ DATE: 08/12/2019 ATTN: Jose Carlos Ryan Please exercise your independent, professional judgment in responding to the clarification form. Clinical indicators are provided on the bottom of this form for your review Please check appropriate box(s): Conflicting documentation was noted in the Medical Record, please clarify if patient is being treated/monitored for: [ X ] Sepsis - resolved [ ] Sepsis- Ruled out [ ] Other diagnosis [ ] Unable to determine For continuity of documentation, please document condition throughout progress notes and discharge summary. Thank You. CLINICAL INDICATORS - SIGNS / SYMPTOMS/ LABS Laboratory 07/21 WBC 6.8, Platelet count 336, Neutrophils 79.0, Latic acid 0.7 Laboratory 07/24 WBC 4.1, Platelet count 261, Neutrophils 69.8, Band 21 Blood culture 07/21 Positive Coagulase Neg Staphylococcus H&P p3 07/21 Sepsis likley secondary to Covid and Bacteremial Pneumonia Physcian documentation p1 07/25 Ruled out Sepsis Discharge summary p1 08/09 ATN Discharge summary p1 08/09 Acute respiratory failure Discharge summary p1 08/09 Sepsis, Resolved Consult 07/24 The patient may be third spacing secondary to presumed sepsis RISK FACTORS H&P p2 07/21 DM H&P p2 07/21 Asthma H&P p2 07/21 HTN H&P p2 07/21 Fibromyalgia H&P p2 07/21 Morbid Obesity H&P p2 07/21 Former Smoker H&P p3 07/21 - Covid and Bacteremial Pneumonia. PN 07/22 CKD stage 3 TREATMENT MAR 07/21 IV Rocephin 2 gm MAR 07/21 IV Lavaquin 750 mg MAR 07/21 IV Doxycycline Hyclate 100 mg MAR 07/21 IVF NS 1L Blood culture 07/21 Respiratory panel 07/21 BiPap Respiratory panel 07/23 Mechanical Ventilator Chest X-ray 07/21 (This form is maintained as a part of the permanent medical record) 2014 [email or web address] All Rights Reserved [email or web address]
[2019-08-12 12:08] LABS: SARS-CoV-2 MS2 Positive; SARS-CoV-2 N Gene Positive; SARS-CoV-2 S Gene Negative; SARS-CoV-2 orf1ab Negative
[2019-08-12] MEDS ORDERED: hydrALAZINE 25 MG TAB PO SCH (15:00)
== END 2019-08-10 17:20 | disposition swing bed (61) | DRG 870 ==
LOC: ERS 10:50 → OBSVTOIN 14:09 → 2SW 14:09 → CCU 07-24 07:12 → T4-B 08-07 12:32
PROVIDERS: ADMIT Internal Medicine; ATTEND Internal Medicine
PROC: 8E0ZXY6 Isolation (ICD-10-PCS; 2019-07-22)
PROC: 5A09357 Assistance with Respiratory Ventilation, Less than 24 Consecutive Hours, Continuous Positive Airway Pressure (ICD-10-PCS; 2019-07-22)
PROC: 5A1955Z Respiratory Ventilation, Greater than 96 Consecutive Hours (ICD-10-PCS; principal; 2019-07-24)
PROC: 0BH17EZ Insertion of Endotracheal Airway into Trachea, Via Natural or Artificial Opening (ICD-10-PCS; 2019-07-24)
PROC: 30233L1 Transfusion of Nonautologous Fresh Plasma into Peripheral Vein, Percutaneous Approach (ICD-10-PCS; 2019-07-24)
PROC: 30233K1 Transfusion of Nonautologous Frozen Plasma into Peripheral Vein, Percutaneous Approach (ICD-10-PCS; 2019-07-24)
PROC: 5A1D70Z Performance of Urinary Filtration, Intermittent, Less than 6 Hours Per Day (ICD-10-PCS; 2019-07-26)
PROC: 06HY33Z Insertion of Infusion Device into Lower Vein, Percutaneous Approach (ICD-10-PCS; 2019-07-26)
DX: A41.89 Other specified sepsis (principal); U07.1 COVID-19; J12.89 Other viral pneumonia; J96.01 Acute respiratory failure with hypoxia; N17.0 Acute kidney failure with tubular necrosis; E87.4 Mixed disorder of acid-base balance; E87.0 Hyperosmolality and hypernatremia; Z68.41 Body mass index [BMI] 40.0-44.9, adult; J44.0 Chronic obstructive pulmonary disease with (acute) lower respiratory infection; N18.3 Chronic kidney disease, stage 3 (moderate); I12.9 Hypertensive chronic kidney disease with stage 1 through stage 4 chronic kidney disease, or unspecified chronic kidney disease; G25.81 Restless legs syndrome; M79.7 Fibromyalgia; F41.9 Anxiety disorder, unspecified; F32.9 Major depressive disorder, single episode, unspecified; E66.01 Morbid (severe) obesity due to excess calories; E78.5 Hyperlipidemia, unspecified; E11.22 Type 2 diabetes mellitus with diabetic chronic kidney disease; G89.29 Other chronic pain; D63.1 Anemia in chronic kidney disease; E87.5 Hyperkalemia; R74.8 Abnormal levels of other serum enzymes; Z88.5 Allergy status to narcotic agent; Z88.8 Allergy status to other drugs, medicaments and biological substances; Z91.040 Latex allergy status; Z79.899 Other long term (current) drug therapy; Z79.890 Hormone replacement therapy; Z79.4 Long term (current) use of insulin; Z90.710 Acquired absence of both cervix and uterus; Z87.891 Personal history of nicotine dependence; Z90.722 Acquired absence of ovaries, bilateral; Z98.42 Cataract extraction status, left eye; Z98.41 Cataract extraction status, right eye
CPT/HCPCS: 36415; 36416; 36430; 71045; 76770; 80048; 80053; 80076; 81001; 81003; 81015; 82565; 82570; 82728; 82805; 83605; 83735; 83880; 84300; 84484; 85007; 85025; 85027; 85379; 86140; 86706; 86850; 86900; 86901; 87040; 87086; 87149; 87340; 87635; 90935; 93005; 94002; 94003; 94640; 94660; 96365; 96367; A4218; C1752; C9113; G0257; J0360; J0696; J1642; J1644; J1650; J1815; J1956; J2060; J2405; J2704; J2920; J3010; J3490; J7042; J7620; P9047; U0003

== ENCOUNTER 2020-02-25 02:54 | Emergency (ER) | payer MEDICARE ==
[2020-02-25] MEDS ORDERED: Dicyclomine 20 MG TAB ONE (03:31)
[2020-02-25 04:01] LABS: Hemoglobin 11.1 g/dL (12.0-16.0); Mean Corpuscular HGB CONC 31.2 g/dL (32.0-36.0); Mean Corpuscular Hemoglobin 26.4 pg (27.0-31.0); Mean Corpuscular Volume 84.6 fL (78.0-98.0); Mean Platelet Volume 8.5 fL (7.4-10.4); Platelet Count 323 thou/uL (130-400); RBC Distribution Width 13.6 % (11.5-14.5); White Blood Cell (WBC) Count 17.9 thou/uL (4.8-10.8)
[2020-02-25 04:15] LABS: Band 15 % (5-11); Hypochromia SLIGHT = 6-15 cells (100X) (0-5/hpf); Lymphocytes 2 % (21-51); MDiff Complete? YES; Metamyelocyte 1 % (0-0); Monocytes 21 % (0-10); Neutrophil 61 % (42-75); Platelet Morphology Comment Appears Adequate
[2020-02-25 04:25] LABS: ALT (SGPT) 14 U/L (8-55); AST (SGOT) 10 U/L (5-34); Albumin 4.1 g/dL (3.5-5.0); Alkaline Phosphatase 50 U/L (40-110); Anion Gap 17 mmol/L (10-20); BUN (Urea Nitrogen) 34 mg/dL (9.8-20.1); Bilirubin, Total 0.4 mg/dL (0.2-1.2); Calc. Creatinine Clearance 0 mL/min (70-130); Calcium 8.5 mg/dL (7.8-10.44); Carbon Dioxide 31 mmol/L (22-29); Chloride 98 mmol/L (98-107); Globulin 2.4 g/dL (2.4-3.5); Glucose 328 mg/dL (70-105); Lipase 52 U/L (8-78); Potassium 4.8 mmol/L (3.5-5.1); Protein, Total 6.5 g/dL (6.0-8.3); Sodium 141 mmol/L (136-145)
[2020-02-25] MEDS ORDERED: Acetaminophen 500 MG TAB ONE (05:19)
[2020-02-25] MEDS ORDERED: Ondansetron ODT 4 MG TAB ONE (05:19)
[2020-02-25 05:43] LABS: Clarity Clear (Clear)
[2020-02-25 05:44] LABS: Bilirubin Negative (Negative); Blood, Urine Negative (Negative); Glucose, Urine (Dipstick) Negative (Negative); Ketone, Urine Negative (Negative); Leukocyte Negative Leu/uL (Negative); Nitrite Negative (Negative); Protein, Urine (Dipstick) Negative (Neg-Trace); Specific Gravity, Urine 1.027 (1.002-1.036); Urobilinogen 0.2 mg/dL (Less than 2)
--- NOTE | 2020-02-25 08:27 | RAD ---
Exam: Chest one view HISTORY:Chest pain Comparison: 08/06/2019 FINDINGS: Cardiac silhouette: Normal Aorta: Unremarkable Pulmonary vessels: Normal Costophrenic angles: Clear LUNGS: Scattered interstitial opacities predominantly lung bases. Pneumothorax: None Osseous abnormalities: None IMPRESSION: Bibasilar interstitial opacities. Correlate for infiltrate.
--- NOTE | 2020-03-03 12:18 | EKG ---
Test Reason : Blood Pressure : / mmHG Vent. Rate : 098 BPM Atrial Rate : 098 BPM P-R Int : 142 ms QRS Dur : 096 ms QT Int : 336 ms P-R-T Axes : 057 019 071 degrees QTc Int : 428 ms Normal sinus rhythm Anterior infarct , age undetermined Abnormal ECG Confirmed by MARTÍN LOOMIS DO ([id number]), newspaper or periodical editor JOSE WHITNEY ([id number]) on 03/03/2020 12:18:07 PM Referred By: Confirmed By:MARTÍN LOOMIS DO
== END 2020-02-25 06:00 | disposition home or self-care (01) ==
LOC: ERS 02:54
DX: R19.7 Diarrhea, unspecified (principal); R11.2 Nausea with vomiting, unspecified; J45.909 Unspecified asthma, uncomplicated; E11.9 Type 2 diabetes mellitus without complications; E78.5 Hyperlipidemia, unspecified; I10 Essential (primary) hypertension; Z87.891 Personal history of nicotine dependence; Z79.899 Other long term (current) drug therapy; Z79.4 Long term (current) use of insulin; Z79.891 Long term (current) use of opiate analgesic
CPT/HCPCS: 36415; 71045; 80053; 81003; 83690; 83880; 84484; 85025; 85379; 93005; Q0162

== ENCOUNTER 2020-03-15 11:10 | Inpatient (IN) | payer MEDICARE ==
[2020-03-15 11:50] LABS: #Eosinphils 0.3 thou/uL (0.0-0.7); #Lymphocytes 1.3 thou/uL (1.20-3.40); #Monocytes 0.6 thou/uL (0.11-0.59); #Neutrophils 7.2 thou/uL (1.40-6.50); %Basophils 0.5 % (0.0-1.0); %Eosinophils 3.3 % (0.0-10.0); %Monocytes 6.3 % (0.0-10.0); Hemoglobin 10.2 g/dL (12.0-16.0); Mean Corpuscular HGB CONC 31.3 g/dL (32.0-36.0); Mean Corpuscular Hemoglobin 26.8 pg (27.0-31.0); Mean Corpuscular Volume 85.5 fL (78.0-98.0); Mean Platelet Volume 8.2 fL (7.4-10.4); Platelet Count 286 thou/uL (130-400); RBC Distribution Width 13.6 % (11.5-14.5); Red Blood Cell (RBC) Count 3.81 mill/uL (4.20-5.40); White Blood Cell (WBC) Count 9.5 thou/uL (4.8-10.8)
[2020-03-15 12:00] LABS: PTT 29.2 sec (22.9-36.1)
[2020-03-15 12:10] LABS: ALT (SGPT) 15 U/L (8-55); AST (SGOT) 15 U/L (5-34); Albumin 3.9 g/dL (3.5-5.0); Alkaline Phosphatase 44 U/L (40-110); Anion Gap 12 mmol/L (10-20); BUN (Urea Nitrogen) 17 mg/dL (9.8-20.1); Bilirubin, Total 0.3 mg/dL (0.2-1.2); CK (CPK) 69 U/L (29-168); Calc. Creatinine Clearance 0 mL/min (70-130); Calcium 8.7 mg/dL (7.8-10.44); Carbon Dioxide 33 mmol/L (22-29); Chloride 100 mmol/L (98-107); Globulin 2.8 g/dL (2.4-3.5); Glucose 282 mg/dL (70-105); Lipase 31 U/L (8-78); Potassium 4.6 mmol/L (3.5-5.1); Protein, Total 6.7 g/dL (6.0-8.3); Sodium 140 mmol/L (136-145)
--- NOTE | 2020-03-15 12:13 | RAD ---
RADIOGRAPH CHEST 1 VIEW: DATE: 03/15/2020 TIME: 12:00 PM HISTORY: 54-year-old female with dyspnea and hypoxemia COMPARISON: 02/25/2020 FINDINGS: There has been apparent mild interval worsening of mild infiltrates at the right lower lung zone. Prominent interstitial markings at left lower lung zone remain. No cardiomegaly. Upper lung zones are bilaterally clear. No pneumothorax. No effacement of lateral costophrenic angles. IMPRESSION: Apparent mild progression of mild infiltrate at right lower lung zone.
[2020-03-15] MEDS ORDERED: Furosemide 40 MG/4 ML VIAL ONE (12:28)
[2020-03-15] MEDS ORDERED: cefTRIAXone\\ROCEPHIN 2 GM VIAL ONE (12:28)
[2020-03-15] MEDS ORDERED: Nitroglycerin 2% Ointment 1 INCH/1 GM Packet ONE (12:28)
--- NOTE | 2020-03-15 12:51 | PDOC.HHP ---
Hospitalist HPI Shortness of breath History of Present Illness: Patient reports that she had a COVID-19 infection in July at that time she required intubation, since then patient has gradually worsening of shortness of breath, patient has gradually increasing bilateral lower extremity edema, Patient saw cardiology yesterday and they were planning to do stress test and echocardiography as an outpatient basis. Last night patient was feeling more short of breath, she was feeling intermittent palpitation and nausea, she was not able to breathe and her oxygen saturation was low and she was also tachycardic at home so she decided to come to emergency room for evaluation. She did not have any fever or chills, she denies any cough or upper respiratory infection, she denies any further COVID-19 exposure, In the emergency room patient had BNP normal, she was having bilateral lower extremity edema and she was hypoxic to 80% on room air, with oxygen her saturation improved. She received Lasix and after that patient was feeling better, we have admitted this patient for further evaluation. ED Course: In the emergency room patient was hypoxic with 80% on room air, oxygen saturation improved to 98% on 3 L, her blood sugar was also elevated, patient had chest x-ray which showed right lower lobe infiltration, patient is given Rocephin 2 g, Levaquin 750 mg, Nitropatch and Lasix 40 mg, Allergies/Adverse Reactions: Allergy/AdvReac Type Severity Reaction Status Date / Time clarithromycin [From Biaxin] Allergy Intermediate Verified 08/10/19 19:12 ketorolac tromethamine Allergy Intermediate Rash Verified 08/10/19 19:12 [From Toradol] Latex, Natural Rubber Allergy Intermediate Rash Verified 08/10/19 19:12 morphine Allergy Intermediate Hives Verified 08/10/19 19:12 Home Medications: Medication Instructions Recorded Confirmed Type Ipratropium/Albuterol Sulfate 3 ml NEB QID 01/30/19 08/10/19 History [DuoNeb] Acetaminophen [Tylenol Regular 650 mg PO Q4H PRN tab 08/10/19 08/10/19 Rx Strength] Bisacodyl [Dulcolax] 10 mg PO DAILYPRN PRN tab 08/10/19 08/10/19 Rx HumuLIN 70/30 [HumuLIN 70/30 Vial] 35 units SC BID 08/10/19 08/10/19 History Polyethylene Glycol 3350 [Miralax] 17 gm PO DAILY PRN pk 08/10/19 08/10/19 Rx Sennosides/Docusate Sodium 2 tab PO BID PRN tab 08/10/19 08/10/19 Rx [Senokot S] Amlodipine [Norvasc] 5 mg PO DAILY #30 tab 08/25/19 Rx Apixaban [Eliquis] 5 mg PO BID #60 tab 08/25/19 Rx Ascorbic Acid [Vitamin C] 1,000 mg PO DAILY #30 tab 08/25/19 Rx Fenofibrate 160 mg PO DAILY #30 tablet 08/25/19 Rx Lisinopril [Zestril] 20 mg PO HS #30 tab 08/25/19 Rx Mometasone/Formoterol 200/5 2 puff INH BID #1 aer 08/25/19 Rx [Dulera 200 mcg/5 mcg Inhaler] Montelukast Sodium [Singulair] 10 mg PO HS #30 tab 08/25/19 Rx Nystatin [Mycostatin Powder] 2 gm TOP BID bot 08/25/19 Rx OLANZapine [ZyPREXA] 10 mg PO 2100 tab 08/25/19 Rx Pantoprazole [Protonix] 40 mg PO DAILY #30 tab 08/25/19 Rx Past History: PMHx: Diabetes type 2, Dyslipidemia Hypertension COPD Restless leg syndrome Gastroesophageal reflux disease Recent COVID-19 infection and pneumonia required intubation PSHx: Ovarian wedge resection Right knee surgery Hysterectomy Past psychiatric history Anxiety and depression, bipolar disorder FHx: No strong family history of premature coronary artery disease stroke or cancer Social: Patient is former drug abuser with marijuana, no alcohol or drug abuse at this point, she is former smoker, Hospitalist HPI ROS Constitutional: reports: weakness. denies: fever, chills, sweats, malaise, other Eyes: denies: pain, vision change, conjunctivae inflammation, eyelid inflammation, redness, other ENT: denies: ear pain, ear discharge, nose pain, nose discharge, nose congesti on, mouth pain, mouth swelling, throat pain, throat swelling, other Respiratory: reports: shortness of breath, SOB with excertion. denies: cough, dry, hemoptysis, pleuritic pain, sputum, wheezing, other Cardiovascular: denies: chest pain, palpitations, orthopnea, paroxysmal noc. dyspnea, edema, light headedness, other Gastrointestinal: denies: nausea, vomiting, abdominal pain, diarrhea, constipation, melena, hematochezia, other Genitourinary: denies: dysuria, frequency, incontinence, hematuria, retention, other Musculoskeletal: denies: neck pain, shoulder pain, arm pain, back pain, hand pain, leg pain, foot pain, other Skin: denies: rash, lesions, deep, bruising, other Hospitalist Exam Vitals: VITAL SIGNS Vijaya Mar 15, 2020 11:27 BP: 130/58, Pulse: 86, Resp: 22, Temp: 98.3 (Oral), Pain: 0, O2 sat: 96 on (Room Air), Time: 03/15/2020 11:27. General Appearance: NAD, awake alert Eye: PERRL, anicteric sclera ENT: normocephalic atraumatic, no oropharyngeal lesions Neck: supple, symmetric, no JVD, no thyromegaly Heart: RRR, no murmur, no gallops, no rubs Respiratory - other findings: Bibasilar rales Gastrointestinal: soft, non-tender, non-distended, normal bowel sounds Extremities: no cyanosis, no clubbing, 1+ LE edema Skin: normal turgor, no lesions Neurological: no focal deficits, no new deficit Musculoskeletal: normal tone, normal strength Psychiatric: normal affect, normal behavior Hospitalist Results Result Diagrams: 03/15/20 11:41 03/15/20 11:41 Lab results: Laboratory Last Values WBC 9.5 thou/uL (4.8-10.8) 03/15/20 11:41 RBC 3.81 mill/uL (4.20-5.40) L 03/15/20 11:41 Hgb 10.2 g/dL (12.0-16.0) L 03/15/20 11:41 Hct 32.6 % (36.0-47.0) L 03/15/20 11:41 MCV 85.5 fL (78.0-98.0) 03/15/20 11:41 MCH 26.8 pg (27.0-31.0) L 03/15/20 11:41 MCHC 31.3 g/dL (32.0-36.0) L 03/15/20 11:41 RDW 13.6 % (11.5-14.5) 03/15/20 11:41 Plt Count 286 thou/uL (130-400) 03/15/20 11:41 MPV 8.2 fL (7.4-10.4) 03/15/20 11:41 Neutrophils % 76.0 % (42.0-75.0) H 03/15/20 11:41 Lymphocytes % 14.0 % (21.0-51.0) L 03/15/20 11:41 Monocytes % 6.3 % (0.0-10.0) 03/15/20 11:41 Eosinophils % 3.3 % (0.0-10.0) 03/15/20 11:41 Basophils % 0.5 % (0.0-1.0) 03/15/20 11:41 Neutrophils # 7.2 thou/uL (1.40-6.50) H 03/15/20 11:41 Lymphocytes # 1.3 thou/uL (1.20-3.40) 03/15/20 11:41 Monocytes # 0.6 thou/uL (0.11-0.59) H 03/15/20 11:41 Eosinophils # 0.3 thou/uL (0.0-0.7) 03/15/20 11:41 Basophils # 0.0 thou/uL (0.0-0.2) 03/15/20 11:41 PT 13.0 sec (12.0-14.7) 03/15/20 11:41 INR 1.0 03/15/20 11:41 APTT 29.2 sec (22.9-36.1) 03/15/20 11:41 Sodium 140 mmol/L (136-145) 03/15/20 11:41 Potassium 4.6 mmol/L (3.5-5.1) 03/15/20 11:41 Chloride 100 mmol/L (98-107) 03/15/20 11:41 Carbon Dioxide 33 mmol/L (22-29) H 03/15/20 11:41 Anion Gap 12 mmol/L (10-20) 03/15/20 11:41 BUN 17 mg/dL (9.8-20.1) 03/15/20 11:41 Creatinine 1.15 mg/dL (0.6-1.1) H 03/15/20 11:41 Estimated GFR (MDRD) 49 03/15/20 11:41 Glucose 282 mg/dL (70-105) H 03/15/20 11:41 Calcium 8.7 mg/dL (7.8-10.44) 03/15/20 11:41 Total Bilirubin 0.3 mg/dL (0.2-1.2) 03/15/20 11:41 AST 15 U/L (5-34) 03/15/20 11:41 ALT 15 U/L (8-55) 03/15/20 11:41 Alkaline Phosphatase 44 U/L (40-110) 03/15/20 11:41 Creatine Kinase 69 U/L (29-168) 03/15/20 11:41 Troponin I Less than 0.010 ng/mL (< 0.028) 03/15/20 11:41 B-Natriuretic Peptide 37.7 pg/mL (0-100) 03/15/20 11:41 Serum Total Protein 6.7 g/dL (6.0-8.3) 03/15/20 11:41 Albumin 3.9 g/dL (3.5-5.0) 03/15/20 11:41 Globulin 2.8 g/dL (2.4-3.5) 03/15/20 11:41 Albumin/Globulin Ratio 1.4 g/dL (1.2-2.2) 03/15/20 11:41 Lipase 31 U/L (8-78) 03/15/20 11:41 Additional comment: 12 LEAD EKG INTERPRETATION Normal sinus rhythm pulse 86 no STEMI Chest x-ray Status: image reviewed by me Additional Comments: Chest x-ray showing mild interval progression of infiltrate in the right lower lung, prominent interstitial marking in left lower lobe Hospitalist H&P A/P (1) Pneumonia Code(s): J18.9 - PNEUMONIA, UNSPECIFIED ORGANISM Status: Acute Qualifiers: Aspiration pneumonia type: unspecified Lung location: unspecified part of lung Assessment and Plan: At this point we will continue with the levofloxacin 750 mg IV daily, will also check urine streptococcal pneumonia and Legionella antigen test, will also check influenza screen, will also repeat the COVID-19 test to rule out the possibility. 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: with skilled nursing use Diabetes mellitus complication status: without complication Qualified Code(s): E11.9 - Type 2 diabetes mellitus without complications; 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 Assessment and Plan: We will continue with insulin as per aggressive sliding scale, NovoLog insulin 8 units subcu twice daily (4) HTN (hypertension) Code(s): I10 - ESSENTIAL (PRIMARY) HYPERTENSION Status: Chronic Qualifiers: Hypertension type: essential hypertension Qualified Code(s): I10 - Essential (primary) hypertension Assessment and Plan: We will continue her home medication of amlodipine, lisinopril, adjust medication accordingly (5) Acute diastolic heart failure Code(s): I50.31 - ACUTE DIASTOLIC (CONGESTIVE) HEART FAILURE Status: Acute Assessment and Plan: We will continue the Lasix 40 mg IV twice daily, will continue with echocardiography, (6) Morbid obesity Code(s): E66.01 - MORBID (SEVERE) OBESITY DUE TO EXCESS CALORIES Status: Chronic Assessment and Plan: Dietary counseling given, weight loss education given (7) Obstructive sleep apnea on CPAP Code(s): G47.33 - OBSTRUCTIVE SLEEP APNEA (ADULT) (PEDIATRIC); Z99.89 - DEPENDENCE ON OTHER ENABLING MACHINES AND DEVICES Status: Chronic Assessment and Plan: We will continue home CPAP machine while asleep (8) Dyslipidemia Code(s): E78.5 - HYPERLIPIDEMIA, UNSPECIFIED Status: Chronic Assessment and Plan: Continue home dose of Crestor (9) Bipolar disorder Code(s): F31.9 - BIPOLAR DISORDER, UNSPECIFIED Status: Chronic Assessment and Plan: Continue home dose of Zyprexa (10) COPD with asthma Code(s): J44.9 - CHRONIC OBSTRUCTIVE PULMONARY DISEASE, UNSPECIFIED Status: Chronic Assessment and Plan: We will continue DuoNeb therapy every 6 hourly and Dulera 2 puff inhalation twice daily (11) CKD (chronic kidney disease), stage III Code(s): N18.3 - CHRONIC KIDNEY DISEASE, STAGE 3 (MODERATE) * DO NOT USE * Status: Chronic Qualifiers: Chronic kidney disease stage 3 subtype: stage 3a (GFR 45-59) Qualified Code(s): N18.31 - Chronic kidney disease, stage 3a Assessment and Plan: Monitor renal function, avoid nephrotoxin agent
[2020-03-15 13:22] LABS: Bilirubin Negative (Negative); Blood, Urine Negative (Negative); Clarity Clear (Clear); Glucose, Urine (Dipstick) Greater than 1000 mg/dL (Negative); Ketone, Urine Negative (Negative); Leukocyte Negative Leu/uL (Negative); Nitrite Negative (Negative); Protein, Urine (Dipstick) Negative (Neg-Trace); Specific Gravity, Urine 1.012 (1.002-1.036); Urobilinogen Normal mg/dL (Less than 2); pH, Urine 5.5 (5.0-9.0)
[2020-03-15 14:48] LABS: SARS-CoV-2 NAA Rapid Test Not Detected (NotDetected)
[2020-03-15 15:21] LABS: Troponin I 0.017 ng/mL (< 0.028)
[2020-03-15] MEDS ORDERED: Benzonatate 100 MG CAP PO PRN (17:09)
[2020-03-15] MEDS ORDERED: Calcium Carbonate 500 MG ChewTAB PO PRN (17:09)
[2020-03-15] MEDS ORDERED: Senokot S 8.6-50 MG TAB PO PRN (17:09)
[2020-03-15] MEDS ORDERED: Dextrose 5% in Water 1,000 ML IV PRN (17:09)
[2020-03-15] MEDS ORDERED: Dextrose 50% Abboject 50 ML SYRINGE SLOW IVP PRN (17:09)
[2020-03-15] MEDS ORDERED: Ondansetron PF 4 MG/2 ML Vial IVP PRN (17:09)
[2020-03-15] MEDS ORDERED: Cepastat Lozenges 1 LOZ PO PRN (17:09)
[2020-03-15] MEDS ORDERED: Insulin Regular 300 UNITS/3 ML VIAL SC PRN (17:09)
[2020-03-15] MEDS ORDERED: Sodium Chloride 0.65% Nasal 44 ML BOT EA NARE PRN (17:09)
[2020-03-15] MEDS ORDERED: hydrALAZINE 20 MG/ML VIAL SLOW IVP PRN (17:09)
[2020-03-15] MEDS ORDERED: Loperamide HCl 2 MG CAP PO PRN (17:09)
[2020-03-15] MEDS ORDERED: Loratadine 10 MG TAB PO PRN (17:09)
[2020-03-15] MEDS ORDERED: Ondansetron ODT 4 MG TAB PO PRN (17:09)
[2020-03-15] MEDS ORDERED: Bisacodyl 10 MG SUPP PR PRN (17:09)
[2020-03-15] MEDS ORDERED: Guaifenesin DM 100-10/5 ML UDCUP PO PRN (17:09)
[2020-03-15] MEDS ORDERED: Furosemide 40 MG/4 ML VIAL SLOW IVP SCH (17:30)
[2020-03-15 18:12] VITALS: BMI 41.4
[2020-03-15] MEDS: metFORMIN 500 MG TAB PO SCH (18:12)
[2020-03-15 18:58] LABS: Troponin I Less than 0.010 ng/mL (< 0.028)
[2020-03-15] MEDS: Mometasone 200 MCG/Formoterol 5 MCG 120 PUFF INHALER INH SCH (19:40)
[2020-03-15] MEDS: Acetaminophen 325 MG TAB PO PRN (21:11)
[2020-03-15] MEDS: Rosuvastatin 10 MG TAB PO SCH (21:11)
[2020-03-15] MEDS: HumuLIN 70/30 (300 UNITS/3 ML VIAL) SC SCH (21:12)
[2020-03-15 21:23] LABS: Albumin 4.2 g/dL (3.5-5.0); BUN (Urea Nitrogen) 15 mg/dL (9.8-20.1); BUN/Creatinine Ratio 11.36; Calc. Creatinine Clearance 79 mL/min (70-130); Calcium 8.9 mg/dL (7.8-10.44); Glucose 203 mg/dL (70-105); Phosphorus 3.5 mg/dL (2.3-4.7)
[2020-03-15 21:32] LABS: Anion Gap 16 mmol/L (10-20); Carbon Dioxide 39 mmol/L (22-29); Chloride 91 mmol/L (98-107); Potassium 3.6 mmol/L (3.5-5.1); Sodium 142 mmol/L (136-145)
[2020-03-16] MEDS ORDERED: Magnesium Sulfate 4 GM in Sodium Chloride 0.9% 250 ML 250 ML IVPB SCH (03:00)
[2020-03-16] MEDS: Acetaminophen 325 MG TAB PO PRN ×2 (03:42→10:15)
[2020-03-16 04:45] LABS: #Basophils 0.1 thou/uL (0.0-0.2); #Eosinphils 0.3 thou/uL (0.0-0.7); #Lymphocytes 2.5 thou/uL (1.20-3.40); #Monocytes 0.9 thou/uL (0.11-0.59); #Neutrophils 6.5 thou/uL (1.40-6.50); %Basophils 0.7 % (0.0-1.0); %Eosinophils 3.2 % (0.0-10.0); %Lymphocytes 24.2 % (21.0-51.0); %Monocytes 8.7 % (0.0-10.0); %Neutrophils 63.2 % (42.0-75.0); Hemoglobin 10.3 g/dL (12.0-16.0); Mean Corpuscular HGB CONC 30.7 g/dL (32.0-36.0); Mean Corpuscular Hemoglobin 25.9 pg (27.0-31.0); Mean Corpuscular Volume 84.3 fL (78.0-98.0); Mean Platelet Volume 8.3 fL (7.4-10.4); Platelet Count 298 thou/uL (130-400); RBC Distribution Width 13.8 % (11.5-14.5); Red Blood Cell (RBC) Count 3.97 mill/uL (4.20-5.40); White Blood Cell (WBC) Count 10.3 thou/uL (4.8-10.8)
[2020-03-16 05:13] LABS: ALT (SGPT) 14 U/L (8-55); AST (SGOT) 14 U/L (5-34); Albumin 3.8 g/dL (3.5-5.0); Alkaline Phosphatase 42 U/L (40-110); BUN (Urea Nitrogen) 19 mg/dL (9.8-20.1); Bilirubin, Total 0.3 mg/dL (0.2-1.2); Calc. Creatinine Clearance 86 mL/min (70-130); Calcium 8.7 mg/dL (7.8-10.44); Globulin 2.8 g/dL (2.4-3.5); Glucose 163 mg/dL (70-105); Magnesium 1.6 mg/dL (1.6-2.6); Protein, Total 6.6 g/dL (6.0-8.3)
[2020-03-16 05:34] LABS: Chloride 94 mmol/L (98-107); Potassium 3.4 mmol/L (3.5-5.1); Sodium 141 mmol/L (136-145)
[2020-03-16 05:36] LABS: Anion Gap 15 mmol/L (10-20); Carbon Dioxide 35 mmol/L (22-29)
[2020-03-16] MEDS: Furosemide 40 MG/4 ML VIAL SLOW IVP SCH ×2 (06:01→13:16)
[2020-03-16 07:22] LABS: Bacteria/HPF None Seen HPF (None Seen); Bilirubin Negative (Negative); Blood, Urine Negative (Negative); Clarity Clear (Clear); Glucose, Urine (Dipstick) Normal (Negative); Ketone, Urine Negative (Negative); Leukocyte Negative Leu/uL (Negative); Nitrite Negative (Negative); Protein, Urine (Dipstick) Negative (Neg-Trace); RBC/HPF 0-3 HPF (0-3); Specific Gravity, Urine 1.027 (1.002-1.036); Squamous Epithelial 0-3 HPF (0-3); Urobilinogen Normal mg/dL (Less than 2); pH, Urine 5.5 (5.0-9.0)
[2020-03-16 07:39] LABS: Legionella Urinary Ag Negative (Negative); Strep pneumo Urine Ag NEGATIVE (NEGATIVE)
[2020-03-16] MEDS ORDERED: Potassium Chloride 20 MEQ TAB PO SCH (07:45)
[2020-03-16] MEDS: Mometasone 200 MCG/Formoterol 5 MCG 120 PUFF INHALER INH SCH ×2 (08:55→18:22)
[2020-03-16] MEDS ORDERED: Amlodipine 10 MG TAB PO SCH (09:00)
[2020-03-16] MEDS ORDERED: Lisinopril 20 MG TAB PO SCH (09:00)
[2020-03-16] MEDS: Enoxaparin Sodium 40 MG/0.4 ML SYRINGE SC SCH (10:01)
[2020-03-16] MEDS: metFORMIN 500 MG TAB PO SCH ×2 (10:02→16:59)
[2020-03-16] MEDS ORDERED: HYDROcodone/Acetaminophen 5/325 mg Tablet PO PRN (10:04)
[2020-03-16] MEDS ORDERED: GUAIFENESIN SF SOLN 200 MG/10 ML UDCUP PO PRN (10:06)
[2020-03-16] MEDS: OLANZapine 5 MG TAB PO SCH (10:06)
[2020-03-16] MEDS: HumuLIN 70/30 (300 UNITS/3 ML VIAL) SC SCH ×2 (10:16→21:15)
--- NOTE | 2020-03-16 10:29 | PDOC.HOSPP ---
- Subjective Encounter Date: 03/16/20 Encounter Time: 07:10 Subjective: Patient was experiencing anxiety while in hospital, patient was complaining of headache from nitro patch, she had good diuretic response, she denies any chest pain, no fever, - Objective Vital Signs & Weight: Vital Signs (12 hours) Temp Pulse Resp BP BP Pulse Ox 03/16/20 10:05 126/59 L 03/16/20 10:03 80 126/59 L 03/16/20 08:57 70 12 03/16/20 03:45 70 16 111/56 L 97 03/16/20 00:22 75 16 98 03/16/20 00:15 99.0 F 90 18 120/57 L 95 Weight Weight 226 lb 9.6 oz I&O: 03/15/20 03/16/20 03/17/20 06:59 06:59 06:59 Intake Total 1238 Output Total 100 Balance 1138 Result Diagrams: 03/16/20 04:03 03/16/20 04:03 Additional Labs: Accuchecks 03/15/20 03/15/20 23:16 20:36 POC Glucose 113 H 192 H EKG Reviewed by me: Yes Hospitalist ROS - Review of Systems Constitutional: reports: weakness Eyes: denies: pain, vision change, conjunctivae inflammation, eyelid inflammation, redness, other ENT: denies: ear pain, ear discharge, nose pain, nose discharge, nose congestion, mouth pain, mouth swelling, throat pain, throat swelling, other Respiratory: reports: cough, shortness of breath, SOB with excertion. denies: dry, hemoptysis, pleuritic pain, sputum, wheezing, other Cardiovascular: denies: chest pain, palpitations, orthopnea, paroxysmal noc. dyspnea, edema, light headedness, other Gastrointestinal: denies: nausea, vomiting, abdominal pain, diarrhea, constipation, melena, hematochezia, other Genitourinary: denies: dysuria, frequency, incontinence, hematuria, retention, other Musculoskeletal: denies: neck pain, shoulder pain, arm pain, back pain, hand pain, leg pain, foot pain, other Skin: denies: rash, lesions, deep, bruising, other Neurological: denies: weakness, numbness, incoordination, change in speech, confusion, seizures, other - Medication Medications: Active Medications Generic Name Dose Route Start Last Admin Trade Name Freq PRN Reason Stop Dose Admin Acetaminophen 650 mg 03/15/20 17:09 03/16/20 10:15 Acetaminophen 325 Mg Tab PO 650 mg Q4H PRN Administration Headache/Fever/Mild Pain (1-3) Albuterol/Ipratropium 3 ml 03/15/20 19:00 03/16/20 08:57 Ipratropium/Albuterol Sulfate 3 Ml Neb NEB 3 ml [id number] BETO Administration Amlodipine Besylate 10 mg 03/16/20 09:00 03/16/20 10:03 Amlodipine 10 Mg Tab PO 10 mg DAILY BETO Administration Enoxaparin Sodium 40 mg 03/16/20 09:00 03/16/20 10:01 Enoxaparin Sodium 40 Mg/0.4 Ml Syringe SC 40 mg 0900 BETO Administration Furosemide 40 mg 03/16/20 06:00 03/16/20 06:01 Furosemide 40 Mg/4 Ml Vial SLOW IVP 40 mg 0600,1400 BETO Administration Insulin Human Isoph/Insulin Regular 80 units 03/15/20 21:00 03/16/20 10:16 Humulin 70/30 (300 Units/3 Ml Vial) SC 80 unit BID BETO Administration Lisinopril 20 mg 03/16/20 09:00 03/16/20 10:05 Lisinopril 20 Mg Tab PO 20 mg DAILY BETO Administration Metformin HCl 1,000 mg 03/15/20 17:00 03/16/20 10:02 Metformin 500 Mg Tab PO 1,000 mg BID-WM BETO Administration Mometasone Furoate/Formoterol Fumar 2 puff 03/15/20 18:30 03/16/20 08:55 Mometasone 200 Mcg/Formoterol 5 Mcg 120 Puff Inhaler INH 2 puff BID-RT BETO Administration Olanzapine 20 mg 03/16/20 09:00 03/16/20 10:06 Olanzapine 5 Mg Tab PO 20 mg DAILY BETO Administration Ondansetron HCl 4 mg 03/15/20 17:09 03/16/20 10:17 Ondansetron Pf 4 Mg/2 Ml Vial IVP 4 mg Q6H PRN Administration Nausea/Vomiting Pantoprazole Sodium 40 mg 03/16/20 09:00 03/16/20 10:06 Pantoprazole 40 Mg Tab PO 40 mg DAILY BETO Administration Rosuvastatin Calcium 10 mg 03/15/20 21:00 03/15/20 21:11 Rosuvastatin 10 Mg Tab PO 10 mg HS BETO Administration Hospitalist Exam Vitals: Vital Signs (12 hours) Temp Pulse Resp BP BP Pulse Ox 03/16/20 10:05 126/59 L 03/16/20 10:03 80 126/59 L 03/16/20 08:57 70 12 03/16/20 03:45 70 16 111/56 L 97 03/16/20 00:22 75 16 98 03/16/20 00:15 99.0 F 90 18 120/57 L 95 Weight Weight 226 lb 9.6 oz General Appearance: NAD, awake alert Eye: PERRL, anicteric sclera ENT: normocephalic atraumatic, no oropharyngeal lesions Neck: supple, symmetric, no JVD, no thyromegaly Heart: RRR, no murmur, no gallops, no rubs Respiratory: no wheezes, no ronchi, no tachypnea Respiratory - other findings: Basilar rales and coarse breath sound Gastrointestinal: soft, non-tender, non-distended, normal bowel sounds Gastrointestinal - other findings: Morbid obesity limiting examination Extremities: 2+ LE edema Extremities - other findings: Edema improving Skin: normal turgor, no lesions Neurological: no focal deficits Musculoskeletal: normal tone, normal strength Psychiatric: normal affect, normal behavior, A&O x 3 Hosp A/P (1) Acute diastolic heart failure Code(s): I50.31 - ACUTE DIASTOLIC (CONGESTIVE) HEART FAILURE Status: Acute (2) Pneumonia Code(s): J18.9 - PNEUMONIA, UNSPECIFIED ORGANISM Status: Acute Qualifiers: Aspiration pneumonia type: unspecified Lung location: unspecified part of lung (3) Acute respiratory failure with hypoxia Code(s): J96.01 - ACUTE RESPIRATORY FAILURE WITH HYPOXIA Status: Acute (4) DM II (diabetes mellitus, type II), controlled Code(s): E11.9 - TYPE 2 DIABETES MELLITUS WITHOUT COMPLICATIONS Status: Chronic Qualifiers: Diabetes mellitus truck terminal manager insulin use: with truck terminal manager use Diabetes mellitus complication status: without complication Qualified Code(s): E11.9 - Type 2 diabetes mellitus without complications; Z79.4 - FPC (current) use of insulin (5) HTN (hypertension) Code(s): I10 - ESSENTIAL (PRIMARY) HYPERTENSION Status: Chronic Qualifiers: Hypertension type: essential hypertension Qualified Code(s): I10 - Essential (primary) hypertension (6) Morbid obesity Code(s): E66.01 - MORBID (SEVERE) OBESITY DUE TO EXCESS CALORIES Status: Chronic (7) Obstructive sleep apnea on CPAP Code(s): G47.33 - OBSTRUCTIVE SLEEP APNEA (ADULT) (PEDIATRIC); Z99.89 - D EPENDENCE ON OTHER ENABLING MACHINES AND DEVICES Status: Chronic (8) Dyslipidemia Code(s): E78.5 - HYPERLIPIDEMIA, UNSPECIFIED Status: Chronic (9) Bipolar disorder Code(s): F31.9 - BIPOLAR DISORDER, UNSPECIFIED Status: Chronic (10) COPD with asthma Code(s): J44.9 - CHRONIC OBSTRUCTIVE PULMONARY DISEASE, UNSPECIFIED Status: Chronic (11) CKD (chronic kidney disease), stage III Code(s): N18.3 - CHRONIC KIDNEY DISEASE, STAGE 3 (MODERATE) * DO NOT USE * Status: Chronic Qualifiers: Chronic kidney disease stage 3 subtype: stage 3a (GFR 45-59) Qualified Code(s): N18.31 - Chronic kidney disease, stage 3a (12) Hypokalemia Code(s): E87.6 - HYPOKALEMIA Status: Acute (13) Anemia, normocytic normochromic Code(s): D64.9 - ANEMIA, UNSPECIFIED Status: Chronic - 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, continue antibiotics, respiratory therapy, DVT proph w/lovenox Plan Continue IV Lasix, patient has good diuretic response and clinical improvement We will replace potassium chloride 40 mill EQ p.o. one-time dose Continue IV levofloxacin Echocardiography done and result is pending, We will consider doing stress test before discharge once patient becomes euvolemic For her anxiety I have added Xanax 0.25 mg 3 times daily as needed Regarding her headache I have discontinued Nitropatch and added Tylenol 3 which is not allergy as per patient Ambulate as tolerated Wean off oxygen as tolerated Medication reviewed and continue provide symptomatic and supportive care
[2020-03-16] MEDS ORDERED: Acetaminophen 325 MG TAB PO PRN (10:57)
[2020-03-16] MEDS: Acetaminophen/Codeine 30-300mg Tablet PO PRN ×2 (13:15→17:36)
[2020-03-16] MEDS: ALPRAZolam 0.25 MG TAB PO PRN ×2 (13:16→21:11)
[2020-03-16] MEDS: Insulin Regular 300 UNITS/3 ML VIAL SC PRN (17:36)
[2020-03-16] MEDS: Zolpidem Tartrate 5 MG TAB PO PRN (21:11)
[2020-03-16] MEDS: Rosuvastatin 10 MG TAB PO SCH ×2 (21:11→21:12)
[2020-03-17] MEDS: Acetaminophen/Codeine 30-300mg Tablet PO PRN ×4 (01:34→19:25)
[2020-03-17] MEDS: ALPRAZolam 0.25 MG TAB PO PRN ×3 (06:28→19:53)
[2020-03-17] MEDS: Furosemide 40 MG/4 ML VIAL SLOW IVP SCH ×2 (06:28→15:45)
[2020-03-17] MEDS: Insulin Regular 300 UNITS/3 ML VIAL SC PRN ×2 (06:29→11:59)
[2020-03-17] MEDS: OLANZapine 5 MG TAB PO SCH (08:27)
[2020-03-17] MEDS: metFORMIN 500 MG TAB PO SCH ×2 (08:28→15:46)
[2020-03-17] MEDS: Enoxaparin Sodium 40 MG/0.4 ML SYRINGE SC SCH (08:28)
[2020-03-17] MEDS: HumuLIN 70/30 (300 UNITS/3 ML VIAL) SC SCH ×2 (08:29→20:23)
[2020-03-17] MEDS ORDERED: Amlodipine 5 MG TAB PO SCH (09:00)
--- NOTE | 2020-03-17 09:25 | PDOC.HOSPP ---
- Subjective Encounter Date: 03/17/20 Encounter Time: 07:00 Subjective: Patient seen and examined bedside today, no overnight event, patient is subjectively feeling better - Objective Vital Signs & Weight: Vital Signs (12 hours) Temp Pulse Resp BP BP Pulse Ox 03/17/20 08:04 98.4 F 63 12 108/53 L 100 03/17/20 03:24 98.1 F 83 18 121/59 L 98 03/17/20 00:00 71 105/59 L 98 Weight Weight 289 lb 14.4 oz I&O: 03/16/20 03/17/20 03/18/20 06:59 06:59 06:59 Intake Total 1238 960 Output Total 100 2560 Balance 1138 -1600 Result Diagrams: 03/16/20 04:03 03/16/20 04:03 Additional Labs: Accuchecks 03/17/20 03/16/20 03/16/20 05:42 20:57 16:58 POC Glucose 221 H 176 H 170 H Radiology Reviewed by me: Yes (Echocardiography report reviewed) EKG Reviewed by me: Yes (Normal sinus rhythm) Hospitalist ROS - Review of Systems Constitutional: denies: fever, chills, sweats, weakness, malaise, other Respiratory: reports: SOB with excertion. denies: cough, dry, shortness of breath, hemoptysis, pleuritic pain, sputum, wheezing, other Cardiovascular: denies: chest pain, palpitations, orthopnea, paroxysmal noc. dyspnea, edema, light headedness, other Gastrointestinal: denies: nausea, vomiting, abdominal pain, diarrhea, constipation, melena, hematochezia, other Genitourinary: denies: dysuria, frequency, incontinence, hematuria, retention, other Musculoskeletal: denies: neck pain, shoulder pain, arm pain, back pain, hand pain, leg pain, foot pain, other - Medication Medications: Active Medications Generic Name Dose Route Start Last Admin Trade Name Freq PRN Reason Stop Dose Admin Acetaminophen/Codeine Phosphate 1 tab 03/16/20 10:07 03/17/20 07:06 Acetaminophen/Codeine 30-300mg Tablet PO 1 tab Q4H PRN Administration Moderate Pain (4-6) Albuterol/Ipratropium 3 ml 03/15/20 19:00 03/17/20 08:19 Ipratropium/Albuterol Sulfate 3 Ml Neb NEB 3 ml [id number] BETO Administration Alprazolam 0.25 mg 03/16/20 10:04 03/17/20 06:28 Alprazolam 0.25 Mg Tab PO 0.25 mg TIDPRN PRN Administration Anxiety Enoxaparin Sodium 40 mg 03/16/20 09:00 03/17/20 08:28 Enoxaparin Sodium 40 Mg/0.4 Ml Syringe SC 40 mg 0900 BETO Administration Furosemide 40 mg 03/16/20 06:00 03/17/20 06:28 Furosemide 40 Mg/4 Ml Vial SLOW IVP 40 mg 0600,1400 BETO Administration Insulin Human Isoph/Insulin Regular 80 units 03/15/20 21:00 03/17/20 08:29 Humulin 70/30 (300 Units/3 Ml Vial) SC 80 unit BID BETO Administration Insulin Human Regular 0 units 03/15/20 17:09 03/17/20 06:29 Insulin Regular 300 Units/3 Ml Vial SC 6 unit .AGGRESSIVE SLIDING PRN Administration Aggressive Correctional Scale Metformin HCl 1,000 mg 03/15/20 17:00 03/17/20 08:28 Metformin 500 Mg Tab PO 1,000 mg BID-WM BETO Administration Mometasone Furoate/Formoterol Fumar 2 puff 03/15/20 18:30 03/16/20 18:22 Mometasone 200 Mcg/Formoterol 5 Mcg 120 Puff Inhaler INH 2 puff BID-RT BETO Administration Olanzapine 20 mg 03/16/20 09:00 03/17/20 08:27 Olanzapine 5 Mg Tab PO 20 mg DAILY BETO Administration Ondansetron HCl 4 mg 03/15/20 17:09 03/16/20 10:17 Ondansetron Pf 4 Mg/2 Ml Vial IVP 4 mg Q6H PRN Administration Nausea/Vomiting Pantoprazole Sodium 40 mg 03/16/20 09:00 03/17/20 08:28 Pantoprazole 40 Mg Tab PO 40 mg DAILY BETO Administration Rosuvastatin Calcium 10 mg 03/15/20 21:00 03/16/20 21:12 Rosuvastatin 10 Mg Tab PO 10 mg HS BETO Administration Zolpidem Tartrate 5 mg 03/15/20 17:09 03/16/20 21:11 Zolpidem Tartrate 5 Mg Tab PO 5 mg HSPRN PRN Administration Insomnia Hospitalist Exam Vitals: Vital Signs (12 hours) Temp Pulse Resp BP BP Pulse Ox 03/17/20 08:04 98.4 F 63 12 108/53 L 100 03/17/20 03:24 98.1 F 83 18 121/59 L 98 03/17/20 00:00 71 105/59 L 98 Weight Weight 289 lb 14.4 oz General Appearance: NAD, awake alert Eye: PERRL, anicteric sclera ENT: normocephalic atraumatic, no oropharyngeal lesions Neck: supple, symmetric, no JVD, no thyromegaly Heart: RRR, no murmur, no gallops, no rubs Respiratory: no wheezes, no rales, no ronchi Gastrointestinal: soft, non-tender, non-distended, normal bowel sounds Extremities: no cyanosis, no clubbing, 1+ LE edema Skin: normal turgor, no lesions Neurological: no focal deficits Musculoskeletal: normal tone, normal strength Psychiatric: normal affect, normal behavior, A&O x 3 Hosp A/P (1) Acute diastolic heart failure Code(s): I50.31 - ACUTE DIASTOLIC (CONGESTIVE) HEART FAILURE Status: Acute (2) Pneumonia Code(s): J18.9 - PNEUMONIA, UNSPECIFIED ORGANISM Status: Acute Qualifiers: Aspiration pneumonia type: unspecified Lung location: unspecified part of lung (3) Acute respiratory failure with hypoxia Code(s): J96.01 - ACUTE RESPIRATORY FAILURE WITH HYPOXIA Status: Acute (4) DM II (diabetes mellitus, type II), controlled Code(s): E11.9 - TYPE 2 DIABETES MELLITUS WITHOUT COMPLICATIONS Status: Chronic Qualifiers: Diabetes mellitus prison insulin use: with prison use Diabetes mellitus complication status: without complication Qualified Code(s): E11.9 - Type 2 diabetes mellitus without complications; Z79.4 - exterminator helper 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 (current) use of insulin (5) HTN (hypertension) Code(s): I10 - ESSENTIAL (PRIMARY) HYPERTENSION Status: Chronic Qualifiers: Hypertension type: essential hypertension Qualified Code(s): I10 - Essential (primary) hypertension (6) Morbid obesity Code(s): E66.01 - MORBID (SEVERE) OBESITY DUE TO EXCESS CALORIES Status: C hronic (7) Obstructive sleep apnea on CPAP Code(s): G47.33 - OBSTRUCTIVE SLEEP APNEA (ADULT) (PEDIATRIC); Z99.89 - DEPENDENCE ON OTHER ENABLING MACHINES AND DEVICES Status: Chronic (8) Dyslipidemia Code(s): E78.5 - HYPERLIPIDEMIA, UNSPECIFIED Status: Chronic (9) Bipolar disorder Code(s): F31.9 - BIPOLAR DISORDER, UNSPECIFIED Status: Chronic (10) COPD with asthma Code(s): J44.9 - CHRONIC OBSTRUCTIVE PULMONARY DISEASE, UNSPECIFIED Status: Chronic (11) CKD (chronic kidney disease), stage III Code(s): N18.3 - CHRONIC KIDNEY DISEASE, STAGE 3 (MODERATE) * DO NOT USE * Status: Chronic Qualifiers: Chronic kidney disease stage 3 subtype: stage 3a (GFR 45-59) Qualified Code(s): N18.31 - Chronic kidney disease, stage 3a (12) Hypokalemia Code(s): E87.6 - HYPOKALEMIA Status: Acute (13) Anemia, normocytic normochromic Code(s): D64.9 - ANEMIA, UNSPECIFIED Status: Chronic (14) Neuropathy Code(s): G62.9 - POLYNEUROPATHY, UNSPECIFIED Status: Chronic - 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, continue antibiotics, respiratory therapy, DVT proph w/lovenox Plan Today her blood pressure runs on lower side so I have reduce lisinopril to 5 mg daily and have discontinued amlodipine Continue IV Lasix, patient has good diuretic response and has clinical improvement Today we will change levofloxacin to orally Patient request her Lyrica needs to be restarted so we will add her in profile We will plan to do nuclear medicine stress test for evaluation of chest discomfort and shortness of breath, Medication reviewed and continue provide symptomatic and supportive care We will wean off oxygen as tolerated,
[2020-03-17] MEDS: Mometasone 200 MCG/Formoterol 5 MCG 120 PUFF INHALER INH SCH ×2 (10:34→19:09)
[2020-03-17] MEDS: Lisinopril 5 MG TAB PO SCH (11:57)
[2020-03-17] MEDS: Fenofibrate Nanocrystallized 145 MG TAB PO SCH (11:57)
[2020-03-17] MEDS: Pregabalin 50 MG CAP PO SCH ×2 (15:45→19:54)
[2020-03-17] MEDS: rOPINIRole HCl 1 MG TAB PO SCH (19:53)
[2020-03-17] MEDS: Rosuvastatin 10 MG TAB PO SCH (19:53)
[2020-03-17] MEDS: Zolpidem Tartrate 5 MG TAB PO PRN (19:53)
[2020-03-17] MEDS: hydrOXYzine 25 MG TAB PO SCH (19:53)
[2020-03-18] MEDS: Furosemide 40 MG/4 ML VIAL SLOW IVP SCH ×2 (06:21→14:38)
[2020-03-18] MEDS: Pregabalin 50 MG CAP PO SCH ×3 (06:21→21:13)
[2020-03-18] MEDS: Acetaminophen/Codeine 30-300mg Tablet PO PRN ×3 (06:26→21:14)
[2020-03-18] MEDS: Mometasone 200 MCG/Formoterol 5 MCG 120 PUFF INHALER INH SCH ×2 (07:33→18:38)
[2020-03-18] MEDS: metFORMIN 500 MG TAB PO SCH ×2 (07:57→16:44)
[2020-03-18] MEDS: HumuLIN 70/30 (300 UNITS/3 ML VIAL) SC SCH ×2 (07:57→21:15)
[2020-03-18] MEDS: Fenofibrate Nanocrystallized 145 MG TAB PO SCH (08:04)
[2020-03-18] MEDS: OLANZapine 5 MG TAB PO SCH (08:05)
[2020-03-18] MEDS: ALPRAZolam 0.25 MG TAB PO PRN ×3 (08:49→21:19)
--- NOTE | 2020-03-18 09:09 | PDOC.HOSPP ---
- Subjective Encounter Date: 03/18/20 Encounter Time: 07:00 Subjective: Patient seen and examined. No new complaints. No overnight events - Objective Vital Signs & Weight: Vital Signs (12 hours) Temp Pulse Resp BP Pulse Ox 03/18/20 07:32 80 20 03/18/20 07:20 98.6 F 67 16 117/56 L 96 03/18/20 04:00 97.9 F 70 16 108/49 L 03/18/20 00:48 16 Weight Weight 289 lb 14.4 oz I&O: 03/17/20 03/18/20 03/19/20 06:59 06:59 06:59 Intake Total 960 850 Output Total 2560 1500 Balance -1600 -650 Result Diagrams: 03/16/20 04:03 03/16/20 04:03 Additional Labs: Accuchecks 03/18/20 03/17/20 03/17/20 06:01 20:18 11:10 POC Glucose 111 H 181 H 194 H EKG Reviewed by me: Yes Hospitalist ROS - Review of Systems ENT: denies: ear pain, ear discharge, nose pain, nose discharge, nose congestion, mouth pain, mouth swelling, throat pain, throat swelling, other Respiratory: denies: cough, dry, shortness of breath, hemoptysis, SOB with excertion, pleuritic pain, sputum, wheezing, other Cardiovascular: denies: chest pain, palpitations, orthopnea, paroxysmal noc. dyspnea, edema, light headedness, other Gastrointestinal: denies: nausea, vomiting, abdominal pain, diarrhea, constipation, melena, hematochezia, other Genitourinary: denies: dysuria, frequency, incontinence, hematuria, retention, other Musculoskeletal: denies: neck pain, shoulder pain, arm pain, back pain, hand pain, leg pain, foot pain, other - Medication Medications: Active Medications Generic Name Dose Route Start Last Admin Trade Name Freq PRN Reason Stop Dose Admin Acetaminophen/Codeine Phosphate 1 tab 03/16/20 10:07 03/18/20 06:26 Acetaminophen/Codeine 30-300mg Tablet PO 1 tab Q4H PRN Administration Moderate Pain (4-6) Albuterol/Ipratropium 3 ml 03/15/20 19:00 03/18/20 07:32 Ipratropium/Albuterol Sulfate 3 Ml Neb NEB 3 ml [id number] BETO Administration Alprazolam 0.25 mg 03/16/20 10:04 03/18/20 08:49 Alprazolam 0.25 Mg Tab PO 0.25 mg TIDPRN PRN Administration Anxiety Enoxaparin Sodium 40 mg 03/16/20 09:00 03/17/20 08:28 Enoxaparin Sodium 40 Mg/0.4 Ml Syringe SC 40 mg 0900 BETO Administration Fenofibrate 145 mg 03/17/20 09:00 03/18/20 08:04 Fenofibrate Nanocrystallized 145 Mg Tab PO 145 mg DAILY BETO Administration Furosemide 40 mg 03/16/20 06:00 03/18/20 06:21 Furosemide 40 Mg/4 Ml Vial SLOW IVP Not Given 0600,1400 BETO Hydroxyzine HCl 25 mg 03/17/20 21:00 03/17/20 19:53 Hydroxyzine 25 Mg Tab PO 25 mg HS BETO Administration Insulin Human Isoph/Insulin Regular 80 units 03/15/20 21:00 03/18/20 07:57 Humulin 70/30 (300 Units/3 Ml Vial) SC Not Given BID BETO Insulin Human Regular 0 units 03/15/20 17:09 03/17/20 11:59 Insulin Regular 300 Units/3 Ml Vial SC 3 unit .AGGRESSIVE SLIDING PRN Administration Aggressive Correctional Scale Levofloxacin 750 mg 03/18/20 06:00 03/18/20 06:21 Levofloxacin 750 Mg Tab PO 750 mg 0600 BETO Administration Lisinopril 5 mg 03/17/20 09:00 03/17/20 11:57 Lisinopril 5 Mg Tab PO 5 mg DAILY BETO Administration Loratadine 10 mg 03/15/20 17:09 03/18/20 08:04 Loratadine 10 Mg Tab PO 10 mg DAILYPRN PRN Administration Sinus Symptoms Metformin HCl 1,000 mg 03/15/20 17:00 03/18/20 07:57 Metformin 500 Mg Tab PO Not Given BID-WM BETO Mometasone Furoate/Formoterol Fumar 2 puff 03/15/20 18:30 03/18/20 07:33 Mometasone 200 Mcg/Formoterol 5 Mcg 120 Puff Inhaler INH 2 puff BID-RT BETO Administration Olanzapine 20 mg 03/16/20 09:00 03/18/20 08:05 Olanzapine 5 Mg Tab PO 20 mg DAILY BETO Administration Ondansetron HCl 4 mg 03/15/20 17:09 03/16/20 10:17 Ondansetron Pf 4 Mg/2 Ml Vial IVP 4 mg Q6H PRN Administration Nausea/Vomiting Pantoprazole Sodium 40 mg 03/16/20 09:00 03/18/20 08:04 Pantoprazole 40 Mg Tab PO 40 mg DAILY BETO Administration Pregabalin 100 mg 03/17/20 14:00 03/18/20 06:21 Pregabalin 50 Mg Cap PO 100 mg Q8HR BETO Administration Ropinirole HCl 3 mg 03/17/20 21:00 03/17/20 19:53 Ropinirole Hcl 1 Mg Tab PO 3 mg HS BETO Administration Rosuvastatin Calcium 10 mg 03/15/20 21:00 03/17/20 19:53 Rosuvastatin 10 Mg Tab PO 10 mg HS BETO Administration Zolpidem Tartrate 5 mg 03/15/20 17:09 03/17/20 19:53 Zolpidem Tartrate 5 Mg Tab PO 5 mg HSPRN PRN Administration Insomnia Hospitalist Exam Vitals: Vital Signs (12 hours) Temp Pulse Resp BP Pulse Ox 03/18/20 07:32 80 20 03/18/20 07:20 98.6 F 67 16 117/56 L 96 03/18/20 04:00 97.9 F 70 16 108/49 L 03/18/20 00:48 16 Weight Weight 289 lb 14.4 oz General Appearance: NAD, awake alert Eye: PERRL, anicteric sclera ENT: normocephalic atraumatic, no oropharyngeal lesions Neck: supple, symmetric, no JVD, no thyromegaly Heart: RRR, no murmur, no gallops, no rubs Respiratory: no wheezes, no rales, no ronchi Gastrointestinal: soft, non-tender, non-distended, normal bowel sounds Extremities: no cyanosis, no clubbing, no edema Skin: normal turgor, no lesions Neurological: no focal deficits Musculoskeletal: normal tone, normal strength Psychiatric: normal affect, normal behavior Hosp A/P (1) Acute diastolic heart failure Code(s): I50.31 - ACUTE DIASTOLIC (CONGESTIVE) HEART FAILURE Status: Acute (2) Pneumonia Code(s): J18.9 - PNEUMONIA, UNSPECIFIED ORGANISM Status: Acute Qualifiers: Aspiration pneumonia type: unspecified Lung location: unspecified part of lung (3) Acute respiratory failure with hypoxia Code(s): J96.01 - ACUTE RESPIRATORY FAILURE WITH HYPOXIA Status: Acute (4) DM II (diabetes mellitus, type II), controlled Code(s): E11.9 - TYPE 2 DIABETES MELLITUS WITHOUT COMPLICATIONS Status: Chronic Qualifiers: Diabetes 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 Diabetes mellitus complication status: without complication Qualified Code(s): E11.9 - Type 2 diabetes mellitus without complications; Z79.4 - residential (current) use of insulin (5) HTN (hypertension) Code(s): I10 - ESSENTIAL (PRIMARY) HYPERTENSION Status: Chronic Qualifiers: Hypertension type: essential hypertension Qualified Code(s): I10 - Essential (primary) hypertension (6) Morbid obesity Code(s): E66.01 - MORBID (SEVERE) OBESITY DUE TO EXCESS CALORIES Status: Chronic (7) Obstructive sleep apnea on CPAP Code(s): G47.33 - OBSTRUCTIVE SLEEP APNEA (ADULT) (PEDIATRIC); Z99.89 - DEPENDENCE ON OTHER ENABLING MACHINES AND DEVICES Status: Chronic (8) Dyslipidemia Code(s): E78.5 - HYPERLIPIDEMIA, UNSPECIFIED Status: Chronic (9) Bipolar disorder Code(s): F31.9 - BIPOLAR DISORDER, UNSPECIFIED Status: Chronic (10) COPD with asthma Code(s): J44.9 - CHRONIC OBSTRUCTIVE PULMONARY DISEASE, UNSPECIFIED Status: Chronic (11) CKD (chronic kidney disease), stage III Code(s): N18.3 - CHRONIC KIDNEY DISEASE, STAGE 3 (MODERATE) * DO NOT USE * Status: Chronic Qualifiers: Chronic kidney disease stage 3 subtype: stage 3a (GFR 45-59) Qualified Code(s): N18.31 - Chronic kidney disease, stage 3a (12) Hypokalemia Code(s): E87.6 - HYPOKALEMIA Status: Acute (13) Anemia, normocytic normochromic Code(s): D64.9 - ANEMIA, UNSPECIFIED Status: Chronic (14) Neuropathy Code(s): G62.9 - POLYNEUROPATHY, UNSPECIFIED Status: Chronic - 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, continue antibiotics, respiratory therapy Plan Continue Lasix today and change to p.o. Lasix on discharge Today second portion of stress test, if negative for any ischemia then patient is medically stable for discharge, Before discharge will consider oxygen challenge test to make sure she needs oxygen upon discharge or not,
--- NOTE | 2020-03-18 09:12 | PDOC.DS.DS ---
Provider Date of Admission: 03/15/20 12:52 Date of Discharge: 03/18/20 Admitting Provider: Fiona Yun MD Primary Care Physician: Alem Marion MD Course Hospital Course: History on admission- Patient reports that she had a COVID-19 infection in July at that time she required intubation, since then patient has gradually worsening of shortness of breath, patient has gradually increasing bilateral lower extremity edema, Patient saw cardiology yesterday and they were planning to do stress test and echocardiography as an outpatient basis. Last night patient was feeling more short of breath, she was feeling inter mittent palpitation and nausea, she was not able to breathe and her oxygen saturation was low and she was also tachycardic at home so she decided to come to emergency room for evaluation. She did not have any fever or chills, she denies any cough or upper respiratory infection, she denies any further COVID-19 exposure, In the emergency room patient had BNP normal, she was having bilateral lower extremity edema and she was hypoxic to 80% on room air, with oxygen her saturation improved. She received Lasix and after that patient was feeling better, we have admitted this patient for further evaluation. ED Course: In the emergency room patient was hypoxic with 80% on room air, oxygen saturation improved to 98% on 3 L, her blood sugar was also elevated, patient had chest x-ray which showed right lower lobe infiltration, patient is given Rocephin 2 g, Levaquin 750 mg, Nitropatch and Lasix 40 mg, After admission patient was admitted to telemetry floor, we continued with oxygen to maintain saturation above 92%, we treated her with the Lasix, Nitropatch was discontinued because of her headache, we have to adjust her hypertensive medication based on her hemodynamics, we continued with the levofloxacin while in hospital, subsequently we changed to p.o. levofloxacin for her suspected pneumonia, patient had significant diuretic response with the Lasix and she became euvolemic. Before discharge we did oxygen challenge test to make sure she needs any oxygen upon discharge or not, based on oxygen challenge test result will arrange oxygen if needed While in hospital we also performed echocardiography which showed diastolic dysfunction, subsequently when patient became euvolemic we did nuclear medicine stress test. We have provided patient education about salt restriction, fluid restriction, discharge medication reconciliation done, patient will follow up with her PCP as well as cardiology after discharge. Resuscitation Status: 03/15/20 12:35 Resuscitation Status Routine Resuscitation Status: FULL: Full Resuscitation Lab Results: 03/16/20 04:03 03/16/20 04:03 Microbiology - Entire Visit 03/15/20 12:33 Venous blood - Right Arm Blood Culture - Preliminary NO GROWTH AT 48 HOURS 03/15/20 12:37 Venous blood - Left Arm Blood Culture - Preliminary NO GROWTH AT 48 HOURS EKG Status: image reviewed by me Additional comments: Normal sinus rhythm within normal limit Other Additional comments: Echocardiography showed normal EF, hyperdynamic circulation Chest x-ray Status: image reviewed by me Additional comments: Chest x-ray showed right lower lobe infiltration Vitals: Vital Signs (12 hours) Temp Pulse Resp BP Pulse Ox 03/18/20 07:32 80 20 03/18/20 07:20 98.6 F 67 16 117/56 L 96 03/18/20 04:00 97.9 F 70 16 108/49 L 03/18/20 00:48 16 Weight Weight 289 lb 14.4 oz Physical Exam: The patient was seen and examined on the day of discharge. General Appearance: NAD, awake alert Eye: PERRL, anicteric sclera ENT: normocephalic atraumatic, no oropharyngeal lesions Neck: supple, symmetric, no JVD, no thyromegaly Respiratory: no wheezes, no rales, no ronchi Cardiovascular: RRR, no murmur, no gallops, no rubs Gastrointestinal: soft, non-tender, non-distended, normal bowel sounds Gastrointestinal - other findings: Morbid obesity noted Extremities: no clubbing, no edema Skin: normal turgor, no lesions Neurological: no focal deficits Musculoskeletal: normal tone, normal strength, no muscle wasting PSYCH: normal affect, normal behavior, A&O x 3 Problem (1) Acute diastolic heart failure Code(s): I50.31 - ACUTE DIASTOLIC (CONGESTIVE) HEART FAILURE Status: Acute (2) Pneumonia Code(s): J18.9 - PNEUMONIA, UNSPECIFIED ORGANISM Status: Resolved Qualifiers: Aspiration pneumonia type: unspecified Lung location: unspecified part of lung (3) Acute respiratory failure with hypoxia Code(s): J96.01 - ACUTE RESPIRATORY FAILURE WITH HYPOXIA Status: Acute (4) DM II (diabetes mellitus, type II), controlled Code(s): E11.9 - TYPE 2 DIABETES MELLITUS WITHOUT COMPLICATIONS Status: Chronic Qualifiers: Diabetes mellitus alf insulin use: with alf use Diabetes mellitus complication status: without complication Qualified Code(s): E11.9 - Type 2 diabetes mellitus without complications; Z79.4 - intermediate (current) use of insulin (5) HTN (hypertension) Code(s): I10 - ESSENTIAL (PRIMARY) HYPERTENSION Status: Chronic Qualifiers: Hypertension type: essential hypertension Qualified Code(s): I10 - Essential (primary) hypertension (6) Morbid obesity Code(s): E66.01 - MORBID (SEVERE) OBESITY DUE TO EXCESS CALORIES Status: Chronic (7) Obstructive sleep apnea on CPAP Code(s): G47.33 - OBSTRUCTIVE SLEEP APNEA (ADULT) (PEDIATRIC); Z99.89 - D EPENDENCE ON OTHER ENABLING MACHINES AND DEVICES Status: Chronic (8) Dyslipidemia Code(s): E78.5 - HYPERLIPIDEMIA, UNSPECIFIED Status: Chronic (9) Bipolar disorder Code(s): F31.9 - BIPOLAR DISORDER, UNSPECIFIED Status: Chronic (10) COPD with asthma Code(s): J44.9 - CHRONIC OBSTRUCTIVE PULMONARY DISEASE, UNSPECIFIED Status: Chronic (11) CKD (chronic kidney disease), stage III Code(s): N18.3 - CHRONIC KIDNEY DISEASE, STAGE 3 (MODERATE) * DO NOT USE * Status: Chronic Qualifiers: Chronic kidney disease stage 3 subtype: stage 3a (GFR 45-59) Qualified Code(s): N18.31 - Chronic kidney disease, stage 3a (12) Hypokalemia Code(s): E87.6 - HYPOKALEMIA Status: Acute (13) Anemia, normocytic normochromic Code(s): D64.9 - ANEMIA, UNSPECIFIED Status: Chronic (14) Neuropathy Code(s): G62.9 - POLYNEUROPATHY, UNSPECIFIED Status: Chronic Plan Prescriptions: Furosemide [Lasix] 40 mg PO BID #60 tab Levofloxacin [Levaquin] 750 mg PO DAILY #3 tab Potassium Chloride 10 meq PO BID #60 tab Lisinopril [Zestril] 5 mg PO DAILY #30 tab Home Medications: Medication Instructions Recorded Confirmed Type Ipratropium/Albuterol Sulfate 3 ml NEB QID 01/30/19 03/15/20 History [DuoNeb] Acetaminophen [Tylenol Regular 650 mg PO Q4H PRN tab 08/10/19 03/15/20 Rx Strength] HumuLIN 70/30 [HumuLIN 70/30 Vial] 70 units SC BID 08/10/19 03/15/20 History Fenofibrate 160 mg PO DAILY #30 tablet 08/25/19 03/15/20 Rx Pantoprazole [Protonix] 40 mg PO DAILY #30 tab 08/25/19 03/15/20 Rx Aspirin [Ecotrin Low Strength] 81 mg PO DAILY 03/15/20 03/15/20 History Budesonide/Formoterol Fumarate 2 puff IH BID 03/15/20 03/15/20 History [Budesonide-Formoterol 160-4.5] Cetirizine HCl [Zyrtec] 10 mg PO DAILY 03/15/20 03/15/20 History Cholecalciferol (Vitamin D3) 125 mcg PO DAILY 03/15/20 03/15/20 History [Vitamin D3] OLANZapine [ZyPREXA] 10 mg PO DAILY 03/15/20 03/15/20 History Ondansetron HCl [Zofran] 1 - 2 tab PO Q8HR 03/15/20 03/15/20 History Pregabalin 100 mg PO Q8HR 03/15/20 03/15/20 History Rosuvastatin [Crestor] 10 mg PO HS 03/15/20 03/15/20 History Saxagliptin HCl [Onglyza] 5 mg PO DAILY 03/15/20 03/15/20 History hydrOXYzine HCl [Hydroxyzine HCl] 25 mg PO HS 03/15/20 03/15/20 History metFORMIN HCl [Metformin HCl ER] 1,000 mg PO DAILY 03/15/20 03/15/20 History rOPINIRole HCl 3 mg PO QPM 03/15/20 03/15/20 History Furosemide [Lasix] 40 mg PO BID #60 tab 03/18/20 Rx Levofloxacin [Levaquin] 750 mg PO DAILY #3 tab 03/18/20 Rx Lisinopril [Zestril] 5 mg PO DAILY #30 tab 03/18/20 Rx Potassium Chloride 10 meq PO BID #60 tab 03/18/20 Rx Allergies: clarithromycin [From Biaxin] Allergy (Intermediate, Verified 08/10/19 19:12) ITCHING, PER PT ketorolac tromethamine [From Toradol] Allergy (Intermediate, Verified 08/10/19 19:12) Rash WELTS PER PATIENT Latex, Natural Rubber Allergy (Intermediate, Verified 08/10/19 19:12) Rash BLISTERS, PER PT morphine Allergy (Intermediate, Verified 08/10/19 19:12) Hives WELTS AND HIVES PER PT baclofen Allergy (Verified 03/15/20 17:19) hydrocodone Allergy (Verified 03/15/20 17:19) Activity:: Activity as Tolerated Nourishment:: Fluid Restriction Diet, Heart Healthy Diet Fluid Restrictions:: 1.5 L fluid restriction per day Therapies:: Not Applicable Equipment/Supplies:: Not Applicable IV Therapy:: Not Applicable Referrals: [facility] [Outside] ([facility] will be in contact with you regarding your home oxygen.) [facility] [Outside] (correction with physical and occupational therapy services.) Alem Marion MD [Primary Care Provider] - 7 Days (Please call the office and schedule a follow up appointment within a week. ) Disposition: HOME HEALTH Quality CORE MEASURES:: N/A
[2020-03-18] MEDS: Lisinopril 5 MG TAB PO SCH (11:38)
--- NOTE | 2020-03-18 11:58 | NM ---
NUCLEAR MEDICINE CARDIAC MYOCARDIAL PERFUSION SPECT EJECTION FRACTION STUDY WALL MOTION CINE: DATE: 03/18/2020 HISTORY: 54-year-old female with hypertension, diabetes mellitus, and dyslipidemia presents with chest pain TECHNIQUE: Number of days: 2 Rest study: Technetium 99m-sestamibi (Cardiolite) dose: 27.7 mCi Pharmacologic stress: Lexiscan dose: 0.4 mg Stress study: Technetium 99m-sestamibi (Cardiolite) dose: 33.0 mCi FINDINGS: CARDIAC (MYOCARDIAL PERFUSION) SPECT There are no reversible myocardial perfusion defects. EJECTION FRACTION STUDY Left ventricular EF = 56 % WALL MOTION CINE Minimal hypokinesis of septum. Otherwise no major wall motion abnormality IMPRESSION: No evidence of reversible ischemia.
[2020-03-18] MEDS ORDERED: Regadenoson 0.4 MG/5 ML SYRINGE ONE (13:17)
[2020-03-18] MEDS: Enoxaparin Sodium 40 MG/0.4 ML SYRINGE SC SCH (14:38)
[2020-03-18] MEDS: Insulin Regular 300 UNITS/3 ML VIAL SC PRN (16:51)
[2020-03-18] MEDS: rOPINIRole HCl 1 MG TAB PO SCH (21:10)
[2020-03-18] MEDS: Rosuvastatin 10 MG TAB PO SCH (21:12)
[2020-03-18] MEDS: hydrOXYzine 25 MG TAB PO SCH (21:13)
[2020-03-18] MEDS: Zolpidem Tartrate 5 MG TAB PO PRN (21:14)
[2020-03-19] MEDS: Acetaminophen/Codeine 30-300mg Tablet PO PRN ×3 (03:33→13:39)
[2020-03-19] MEDS: Pregabalin 50 MG CAP PO SCH ×2 (06:10→13:30)
[2020-03-19] MEDS: Furosemide 40 MG/4 ML VIAL SLOW IVP SCH ×2 (06:10→13:30)
[2020-03-19] MEDS: Insulin Regular 300 UNITS/3 ML VIAL SC PRN (06:15)
[2020-03-19] MEDS: ALPRAZolam 0.25 MG TAB PO PRN ×2 (06:16→16:22)
--- NOTE | 2020-03-19 07:42 | PDOC.HOSPP ---
- Subjective Encounter Date: 03/19/20 Encounter Time: 07:00 Subjective: Patient seen and examined. No new complaints. No overnight events - Objective Vital Signs & Weight: Vital Signs (12 hours) Temp Pulse Resp BP BP Pulse Ox 03/19/20 03:26 98.2 F 84 18 104/55 L 96 03/19/20 00:29 16 03/18/20 20:00 98.1 F 81 18 102/46 L 92 L Weight Weight 292 lb 1 oz I&O: 03/18/20 03/19/20 03/20/20 06:59 06:59 06:59 Intake Total 850 1560 Output Total 1500 4000 Balance -650 -2440 Result Diagrams: 03/16/20 04:03 03/16/20 04:03 Additional Labs: Accuchecks 03/19/20 03/18/20 03/18/20 05:17 20:10 16:43 POC Glucose 188 H 214 H 183 H Radiology Reviewed by me: Yes (Stress test negative for reversible ischemia) EKG Reviewed by me: Yes (Normal sinus rhythm) Hospitalist ROS - Review of Systems Constitutional: denies: fever, chills, sweats, weakness, malaise, other ENT: denies: ear pain, ear discharge, nose pain, nose discharge, nose congestion, mouth pain, mouth swelling, throat pain, throat swelling, other Respiratory: denies: cough, dry, shortness of breath, hemoptysis, SOB with excer tion, pleuritic pain, sputum, wheezing, other Cardiovascular: denies: chest pain, palpitations, orthopnea, paroxysmal noc. dyspnea, edema, light headedness, other Gastrointestinal: denies: nausea, vomiting, abdominal pain, diarrhea, constipation, melena, hematochezia, other Genitourinary: denies: dysuria, frequency, incontinence, hematuria, retention, other Musculoskeletal: denies: neck pain, shoulder pain, arm pain, back pain, hand pain, leg pain, foot pain, other Skin: denies: rash, lesions, deep, bruising, other - Medication Medications: Active Medications Generic Name Dose Route Start Last Admin Trade Name Freq PRN Reason Stop Dose Admin Acetaminophen/Codeine Phosphate 1 tab 03/16/20 10:07 03/19/20 03:33 Acetaminophen/Codeine 30-300mg Tablet PO 1 tab Q4H PRN Administration Moderate Pain (4-6) Albuterol/Ipratropium 3 ml 03/15/20 19:00 03/19/20 00:29 Ipratropium/Albuterol Sulfate 3 Ml Neb NEB 3 ml [id number] BETO Administration Alprazolam 0.25 mg 03/16/20 10:04 03/19/20 06:16 Alprazolam 0.25 Mg Tab PO 0.25 mg TIDPRN PRN Administration Anxiety Enoxaparin Sodium 40 mg 03/16/20 09:00 03/18/20 14:38 Enoxaparin Sodium 40 Mg/0.4 Ml Syringe SC 40 mg 0900 BETO Administration Fenofibrate 145 mg 03/17/20 09:00 03/18/20 08:04 Fenofibrate Nanocrystallized 145 Mg Tab PO 145 mg DAILY BETO Administration Furosemide 40 mg 03/16/20 06:00 03/19/20 06:10 Furosemide 40 Mg/4 Ml Vial SLOW IVP 40 mg 0600,1400 BETO Administration Hydroxyzine HCl 25 mg 03/17/20 21:00 03/18/20 21:13 Hydroxyzine 25 Mg Tab PO 25 mg HS BETO Administration Insulin Human Isoph/Insulin Regular 80 units 03/15/20 21:00 03/18/20 21:15 Humulin 70/30 (300 Units/3 Ml Vial) SC 80 unit BID BETO Administration Insulin Human Regular 0 units 03/15/20 17:09 03/19/20 06:15 Insulin Regular 300 Units/3 Ml Vial SC 3 unit .AGGRESSIVE SLIDING PRN Administration Aggressive Correctional Scale Levofloxacin 750 mg 03/18/20 06:00 03/19/20 06:11 Levofloxacin 750 Mg Tab PO 750 mg 0600 BETO Administration Lisinopril 5 mg 03/17/20 09:00 03/18/20 11:38 Lisinopril 5 Mg Tab PO 5 mg DAILY BETO Administration Loratadine 10 mg 03/15/20 17:09 03/18/20 08:04 Loratadine 10 Mg Tab PO 10 mg DAILYPRN PRN Administration Sinus Symptoms Metformin HCl 1,000 mg 03/15/20 17:00 03/18/20 16:44 Metformin 500 Mg Tab PO 1,000 mg BID-WM BETO Administration Mometasone Furoate/Formoterol Fumar 2 puff 03/15/20 18:30 03/18/20 18:38 Mometasone 200 Mcg/Formoterol 5 Mcg 120 Puff Inhaler INH 2 puff BID-RT BETO Administration Olanzapine 20 mg 03/16/20 09:00 03/18/20 08:05 Olanzapine 5 Mg Tab PO 20 mg DAILY BETO Administration Ondansetron HCl 4 mg 03/15/20 17:09 03/16/20 10:17 Ondansetron Pf 4 Mg/2 Ml Vial IVP 4 mg Q6H PRN Administration Nausea/Vomiting Pantoprazole Sodium 40 mg 03/16/20 09:00 03/18/20 08:04 Pantoprazole 40 Mg Tab PO 40 mg DAILY BETO Administration Pregabalin 100 mg 03/17/20 14:00 03/19/20 06:10 Pregabalin 50 Mg Cap PO 100 mg Q8HR BETO Administration Ropinirole HCl 3 mg 03/17/20 21:00 03/18/20 21:10 Ropinirole Hcl 1 Mg Tab PO 3 mg HS BETO Administration Rosuvastatin Calcium 10 mg 03/15/20 21:00 03/18/20 21:12 Rosuvastatin 10 Mg Tab PO 10 mg HS BETO Administration Sodium Chloride 0 ml 03/15/20 17:09 03/18/20 21:21 Sodium Chloride 0.65% Nasal 44 Ml Bot EA NARE 1 spr QIDPRN PRN Administration Nasal Congestion Zolpidem Tartrate 5 mg 03/15/20 17:09 03/18/20 21:14 Zolpidem Tartrate 5 Mg Tab PO 5 mg HSPRN PRN Administration Insomnia Hospitalist Exam Vitals: Vital Signs (12 hours) Temp Pulse Resp BP BP Pulse Ox 03/19/20 03:26 98.2 F 84 18 104/55 L 96 03/19/20 00:29 16 03/18/20 20:00 98.1 F 81 18 102/46 L 92 L Weight Weight 292 lb 1 oz General Appearance: NAD, awake alert Eye: PERRL, anicteric sclera ENT: normocephalic atraumatic, no oropharyngeal lesions Neck: supple, symmetric, no JVD, no thyromegaly Heart: RRR, no murmur, no gallops, no rubs Respiratory: no wheezes, no rales, no ronchi Gastrointestinal: soft, non-tender, non-distended, normal bowel sounds Extremities: no cyanosis, no clubbing, no edema Skin: normal turgor, no lesions Neurological: no focal deficits Musculoskeletal: normal tone, normal strength, no muscle wasting Psychiatric: normal affect, normal behavior, A&O x 3 Hosp A/P (1) Acute diastolic heart failure Code(s): I50.31 - ACUTE DIASTOLIC (CONGESTIVE) HEART FAILURE Status: Acute Plan: Now patient is euvolemic, continue oral Lasix (2) Pneumonia Code(s): J18.9 - PNEUMONIA, UNSPECIFIED ORGANISM Status: Resolved Qualifiers: Aspiration pneumonia type: unspecified Lung location: unspecified part of lung Plan: This has been completely resolved, patient will Complete course of treatment (3) Acute respiratory failure with hypoxia Code(s): J96.01 - ACUTE RESPIRATORY FAILURE WITH HYPOXIA Status: Acute Plan: Now patient also has chronic respiratory failure and she will require home oxygen, COPD, CHF and obstructive sleep apnea and morbid obesity contributing to her respiratory failure (4) DM II (diabetes mellitus, type II), controlled Code(s): E11.9 - TYPE 2 DIABETES MELLITUS WITHOUT COMPLICATIONS Status: Chronic Qualifiers: Diabetes mellitus assisted insulin use: with assisted use Diabetes mellitus complication status: without complication Qualified Code(s): E11.9 - Type 2 diabetes mellitus without complications; Z79.4 - supervisor intermediates (current) use of insulin (5) HTN (hypertension) Code(s): I10 - ESSENTIAL (PRIMARY) HYPERTENSION Status: Chronic Qualifiers: Hypertension type: essential hypertension Qualified Code(s): I10 - Essential (primary) hypertension (6) Morbid obesity Code(s): E66.01 - MORBID (SEVERE) OBESITY DUE TO EXCESS CALORIES Status: Chronic (7) Obstructive sleep apnea on CPAP Code(s): G47.33 - OBSTRUCTIVE SLEEP APNEA (ADULT) (PEDIATRIC); Z99.89 - DEPENDENCE ON OTHER ENABLING MACHINES AND DEVICES Status: Chronic (8) Dyslipidemia Code(s): E78.5 - HYPERLIPIDEMIA, UNSPECIFIED Status: Chronic (9) Bipolar disorder Code(s): F31.9 - BIPOLAR DISORDER, UNSPECIFIED Status: Chronic (10) COPD with asthma Code(s): J44.9 - CHRONIC OBSTRUCTIVE PULMONARY DISEASE, UNSPECIFIED Status: Chronic (11) CKD (chronic kidney disease), stage III Code(s): N18.3 - CHRONIC KIDNEY DISEASE, STAGE 3 (MODERATE) * DO NOT USE * Status: Chronic Qualifiers: Chronic kidney disease stage 3 subtype: stage 3a (GFR 45-59) Qualified Code(s): N18.31 - Chronic kidney disease, stage 3a (12) Hypokalemia Code(s): E87.6 - HYPOKALEMIA Status: Acute (13) Anemia, normocytic normochromic Code(s): D64.9 - ANEMIA, UNSPECIFIED Status: Chronic (14) Neuropathy Code(s): G62.9 - POLYNEUROPATHY, UNSPECIFIED Status: Chronic - 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, 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 Patient is overall medically stable for discharge. Please see my discharge summary dictated.
[2020-03-19] MEDS: Fenofibrate Nanocrystallized 145 MG TAB PO SCH ×2 (08:07→08:08)
[2020-03-19] MEDS: OLANZapine 5 MG TAB PO SCH (08:07)
[2020-03-19] MEDS: metFORMIN 500 MG TAB PO SCH ×2 (08:08→16:22)
[2020-03-19] MEDS: Lisinopril 5 MG TAB PO SCH (08:08)
[2020-03-19] MEDS: Enoxaparin Sodium 40 MG/0.4 ML SYRINGE SC SCH (08:09)
[2020-03-19] MEDS: HumuLIN 70/30 (300 UNITS/3 ML VIAL) SC SCH (08:10)
[2020-03-19] MEDS: Mometasone 200 MCG/Formoterol 5 MCG 120 PUFF INHALER INH SCH ×2 (08:23→18:28)
[2020-03-19 15:44] VITALS: BP 98/44; TEMP 98.6
--- NOTE | 2020-03-24 22:53 | EKG ---
Test Reason : Blood Pressure : / mmHG Vent. Rate : 086 BPM Atrial Rate : 086 BPM P-R Int : 154 ms QRS Dur : 090 ms QT Int : 354 ms P-R-T Axes : 053 033 051 degrees QTc Int : 423 ms Normal sinus rhythm Anteroseptal infarct , age undetermined Abnormal ECG Confirmed by RAUL BRADY, JAX ([id number]), mapping editor JOSE WHITNEY ([id number]) on 03/24/2020 10:52:33 PM Referred By: Confirmed By:JAX CARTER MD
== END 2020-03-19 18:50 | disposition home health service (06) | DRG 177 ==
LOC: ERS 11:10 → 2NO 12:52
PROVIDERS: ADMIT Internal Medicine; ATTEND Internal Medicine
PROC: 5A09457 Assistance with Respiratory Ventilation, 24-96 Consecutive Hours, Continuous Positive Airway Pressure (ICD-10-PCS; principal; 2020-03-15)
DX: J69.0 Pneumonitis due to inhalation of food and vomit (principal); I50.31 Acute diastolic (congestive) heart failure; J96.21 Acute and chronic respiratory failure with hypoxia; I13.0 Hypertensive heart and chronic kidney disease with heart failure and stage 1 through stage 4 chronic kidney disease, or unspecified chronic kidney disease; Z68.43 Body mass index [BMI] 50.0-59.9, adult; G25.81 Restless legs syndrome; E78.5 Hyperlipidemia, unspecified; F31.9 Bipolar disorder, unspecified; K21.9 Gastro-esophageal reflux disease without esophagitis; G47.33 Obstructive sleep apnea (adult) (pediatric); Z99.89 Dependence on other enabling machines and devices; E66.01 Morbid (severe) obesity due to excess calories; N18.30 Chronic kidney disease, stage 3 unspecified; E11.22 Type 2 diabetes mellitus with diabetic chronic kidney disease; E87.6 Hypokalemia; M79.7 Fibromyalgia; D64.9 Anemia, unspecified; Z20.822 Contact with and (suspected) exposure to COVID-19; E11.42 Type 2 diabetes mellitus with diabetic polyneuropathy; F41.9 Anxiety disorder, unspecified; Z87.891 Personal history of nicotine dependence; Z88.1 Allergy status to other antibiotic agents; Z88.6 Allergy status to analgesic agent; Z88.8 Allergy status to other drugs, medicaments and biological substances; Z79.899 Other long term (current) drug therapy; Z91.040 Latex allergy status; Z79.4 Long term (current) use of insulin; Z79.51 Long term (current) use of inhaled steroids; Z86.16 Personal history of COVID-19; J44.9 Chronic obstructive pulmonary disease, unspecified
CPT/HCPCS: 0240U; 36415; 36416; 71045; 78452; 80053; 81003; 82550; 83605; 83690; 83735; 83880; 84484; 85025; 85610; 85730; 87040; 87449; 87899; 93005; 93017; 93306; 94640; 96365; 96375; A9500; J0696; J1650; J1815; J1940; J1956; J2405; J2785; J3475; J7050; J7620

== ENCOUNTER 2020-03-21 09:11 | Inpatient (IN) | payer MEDICARE ==
[2020-03-21 10:50] LABS: #Eosinphils 0.2 thou/uL (0.0-0.7); #Lymphocytes 1.2 thou/uL (1.20-3.40); #Monocytes 1.1 thou/uL (0.11-0.59); #Neutrophils 10.2 thou/uL (1.40-6.50); %Basophils 0.2 % (0.0-1.0); %Eosinophils 1.9 % (0.0-10.0); %Lymphocytes 9.5 % (21.0-51.0); %Monocytes 8.6 % (0.0-10.0); %Neutrophils 79.8 % (42.0-75.0); Hemoglobin 10.3 g/dL (12.0-16.0); Mean Corpuscular HGB CONC 30.4 g/dL (32.0-36.0); Mean Corpuscular Hemoglobin 25.3 pg (27.0-31.0); Mean Corpuscular Volume 83.1 fL (78.0-98.0); Mean Platelet Volume 8.1 fL (7.4-10.4); Platelet Count 320 thou/uL (130-400); RBC Distribution Width 13.8 % (11.5-14.5); Red Blood Cell (RBC) Count 4.08 mill/uL (4.20-5.40); White Blood Cell (WBC) Count 12.8 thou/uL (4.8-10.8)
[2020-03-21 11:12] LABS: ALT (SGPT) 13 U/L (8-55); AST (SGOT) 14 U/L (5-34); Albumin 3.9 g/dL (3.5-5.0); Alkaline Phosphatase 42 U/L (40-110); Anion Gap 16 mmol/L (10-20); BUN (Urea Nitrogen) 84 mg/dL (9.8-20.1); Bilirubin, Total 0.3 mg/dL (0.2-1.2); Calc. Creatinine Clearance 0 mL/min (70-130); Calcium 8.5 mg/dL (7.8-10.44); Carbon Dioxide 31 mmol/L (22-29); Chloride 91 mmol/L (98-107); Globulin 2.6 g/dL (2.4-3.5); Glucose 215 mg/dL (70-105); Potassium 6.1 mmol/L (3.5-5.1); Protein, Total 6.5 g/dL (6.0-8.3); Sodium 132 mmol/L (136-145)
[2020-03-21] MEDS ORDERED: Dextrose 50% Abboject 50 ML SYRINGE ONE (12:20)
[2020-03-21] MEDS ORDERED: Sodium Bicarbonate 2.5 MEQ/5 ML VIAL ONE (12:20)
[2020-03-21] MEDS ORDERED: Calcium Chloride 1 GM/10 ML Abboject SYRINGE ONE (12:21)
[2020-03-21] MEDS ORDERED: Sodium Bicarb 50 MEQ/50 ML Abboject 8.4% SYRINGE ONE (12:21)
[2020-03-21] MEDS ORDERED: Calcium Gluc 4.6 MEQ/10 ML (100 MG/ML) ONE (12:23)
[2020-03-21] MEDS ORDERED: Insulin Regular 300 UNITS/3 ML VIAL ONE (12:24)
[2020-03-21] MEDS ORDERED: Ondansetron ODT 4 MG TAB ONE (12:33)
[2020-03-21] MEDS ORDERED: Ondansetron PF 4 MG/2 ML Vial ONE ×2 (12:34→16:57)
--- NOTE | 2020-03-21 12:39 | PDOC.HHP ---
Hospitalist HPI nausea, unable to urinate History of Present Illness: This is a 54 year old female with past medical history of bipolar disease, hypertension, CHF, asthma who presented to the emergency room with worsening nausea, inability to urinate or defecate for the past few days. The patient was recently discharged from the hospital and was treated for CHF exacerbation and pneumonia. She was discharged with lasix 40 mg bid and levaquin. The patient states that she was able to urinate until Thursday. Since then she has had the persistent urge to urinate, but hardly anything comes out. She also is constipated and her last good bowel movement was when she was in the hospital. She denies dysuria. She reports abdominal discomfort but no pain. She denies diarrhea. She reports refractory nausea and has not been able to eat anything for the past few days due to the nausea. Her daughter states that the patient is more confused and has trouble remembering things. She does have some shortness of breath on exertion from her chronic asthma. She denies leg swelling or orthopnea. She denies fevers, chills. ED Course: Vitals were unremarkable upon arrival to the ER. Labs showed WBC of 12.8, Hb 10.3, sodium 132, potassium 6.1, creatinine of 4.67. The patient had a chest Xray which showed hazy infiltrates in the right mid and lower lung bowden and left base. CT abdomen showed mild stool in the colon. Bladder scan showed only 40 cc of urine. Allergies/Adverse Reactions: Allergy/AdvReac Type Severity Reaction Status Date / Time clarithromycin [From Biaxin] Allergy Intermediate Verified 08/10/19 19:12 ketorolac tromethamine Allergy Intermediate Rash Verified 08/10/19 19:12 [From Toradol] Latex, Natural Rubber Allergy Intermediate Rash Verified 08/10/19 19:12 morphine Allergy Intermediate Hives Verified 08/10/19 19:12 baclofen Allergy Verified 03/15/20 17:19 hydrocodone Allergy Verified 03/15/20 17:19 Home Medications: Medication Instructions Recorded Confirmed Type Ipratropium/Albuterol Sulfate 3 ml NEB QID 01/30/19 03/15/20 History [DuoNeb] Acetaminophen [Tylenol Regular 650 mg PO Q4H PRN tab 08/10/19 03/15/20 Rx Strength] HumuLIN 70/30 [HumuLIN 70/30 Vial] 70 units SC BID 08/10/19 03/15/20 History Fenofibrate 160 mg PO DAILY #30 tablet 08/25/19 03/15/20 Rx Pantoprazole [Protonix] 40 mg PO DAILY #30 tab 08/25/19 03/15/20 Rx Aspirin [Ecotrin Low Strength] 81 mg PO DAILY 03/15/20 03/15/20 History Budesonide/Formoterol Fumarate 2 puff IH BID 03/15/20 03/15/20 History [Budesonide-Formoterol 160-4.5] Cetirizine HCl [Zyrtec] 10 mg PO DAILY 03/15/20 03/15/20 History Cholecalciferol (Vitamin D3) 125 mcg PO DAILY 03/15/20 03/15/20 History [Vitamin D3] OLANZapine [ZyPREXA] 10 mg PO DAILY 03/15/20 03/15/20 History Ondansetron HCl [Zofran] 1 - 2 tab PO Q8HR 03/15/20 03/15/20 History Pregabalin 100 mg PO Q8HR 03/15/20 03/15/20 History Rosuvastatin [Crestor] 10 mg PO HS 03/15/20 03/15/20 History Saxagliptin HCl [Onglyza] 5 mg PO DAILY 03/15/20 03/15/20 History hydrOXYzine HCl [Hydroxyzine HCl] 25 mg PO HS 03/15/20 03/15/20 History metFORMIN HCl [Metformin HCl ER] 1,000 mg PO DAILY 03/15/20 03/15/20 History rOPINIRole HCl 3 mg PO QPM 03/15/20 03/15/20 History Furosemide [Lasix] 40 mg PO BID #60 tab 03/18/20 Rx Levofloxacin [Levaquin] 750 mg PO DAILY #3 tab 03/18/20 Rx Lisinopril [Zestril] 5 mg PO DAILY #30 tab 03/18/20 Rx Potassium Chloride 10 meq PO BID #60 tab 03/18/20 Rx Past History: PMHx: COPD/Asthma Fibromyalgia PSHx: Hysterectomy 1988 Right knee torn meniscus FHx: mom was on dialysis from diabetes Social: The patient smoked 1.5 pack a day for thirty years. No alcohol use Hospitalist HPI ROS Constitutional: denies: fever, chills Eyes: denies: pain, vision change ENT: denies: ear pain, ear discharge Respiratory: reports: shortness of breath (while walking). denies: cough, dry, pleuritic pain Cardiovascular: denies: chest pain Gastrointestinal: reports: nausea Musculoskeletal: reports: neck pain, shoulder pain Neurological: reports: confusion (not able to retain information , out of it). denies: weakness, numbness Hospitalist Exam General Appearance: NAD, awake alert Eye: PERRL, anicteric sclera ENT: normocephalic atraumatic, no oropharyngeal lesions Neck: no JVD Heart: RRR, no murmur, no gallops, no rubs Respiratory: CTAB, no wheezes, no rales, no ronchi Gastrointestinal: soft, non-tender Gastrointestinal - other findings: distended, mildly firm to palpation, nontender Extremities: no cyanosis, no clubbing, no edema Skin: normal turgor, no lesions, no rashes Neurological: cranial nerve grossly intact, normal sensation to touch, no weakness Musculoskeletal: normal tone, normal strength, no muscle wasting Psychiatric: normal affect, normal behavior, A&O x 3 (oriented to the date) Hospitalist Results Result Diagrams: 03/21/20 10:37 03/21/20 10:37 Lab results: Laboratory Last Values WBC 12.8 thou/uL (4.8-10.8) H 03/21/20 10:37 RBC 4.08 mill/uL (4.20-5.40) L 03/21/20 10:37 Hgb 10.3 g/dL (12.0-16.0) L 03/21/20 10:37 Hct 33.9 % (36.0-47.0) L 03/21/20 10:37 MCV 83.1 fL (78.0-98.0) 03/21/20 10:37 MCH 25.3 pg (27.0-31.0) L 03/21/20 10:37 MCHC 30.4 g/dL (32.0-36.0) L 03/21/20 10:37 RDW 13.8 % (11.5-14.5) 03/21/20 10:37 Plt Count 320 thou/uL (130-400) 03/21/20 10:37 MPV 8.1 fL (7.4-10.4) 03/21/20 10:37 Neutrophils % 79.8 % (42.0-75.0) H 03/21/20 10:37 Lymphocytes % 9.5 % (21.0-51.0) L 03/21/20 10:37 Monocytes % 8.6 % (0.0-10.0) 03/21/20 10:37 Eosinophils % 1.9 % (0.0-10.0) 03/21/20 10:37 Basophils % 0.2 % (0.0-1.0) 03/21/20 10:37 Neutrophils # 10.2 thou/uL (1.40-6.50) H 03/21/20 10:37 Lymphocytes # 1.2 thou/uL (1.20-3.40) 03/21/20 10:37 Monocytes # 1.1 thou/uL (0.11-0.59) H 03/21/20 10:37 Eosinophils # 0.2 thou/uL (0.0-0.7) 03/21/20 10:37 Basophils # 0.0 thou/uL (0.0-0.2) 03/21/20 10:37 Sodium 132 mmol/L (136-145) L 03/21/20 10:37 Potassium 6.1 mmol/L (3.5-5.1) H 03/21/20 10:37 Chloride 91 mmol/L (98-107) L 03/21/20 10:37 Carbon Dioxide 31 mmol/L (22-29) H 03/21/20 10:37 Anion Gap 16 mmol/L (10-20) 03/21/20 10:37 BUN 84 mg/dL (9.8-20.1) H 03/21/20 10:37 Creatinine 4.67 mg/dL (0.6-1.1) H 03/21/20 10:37 Estimated GFR (MDRD) 10 03/21/20 10:37 Glucose 215 mg/dL (70-105) H 03/21/20 10:37 Calcium 8.5 mg/dL (7.8-10.44) 03/21/20 10:37 Total Bilirubin 0.3 mg/dL (0.2-1.2) 03/21/20 10:37 AST 14 U/L (5-34) 03/21/20 10:37 ALT 13 U/L (8-55) 03/21/20 10:37 Alkaline Phosphatase 42 U/L (40-110) 03/21/20 10:37 Serum Total Protein 6.5 g/dL (6.0-8.3) 03/21/20 10:37 Albumin 3.9 g/dL (3.5-5.0) 03/21/20 10:37 Globulin 2.6 g/dL (2.4-3.5) 03/21/20 10:37 Albumin/Globulin Ratio 1.5 g/dL (1.2-2.2) 03/21/20 10:37 Hospitalist H&P A/P Plan: Chest X ray: hazy infiltrates in right mid and lower lung bow[place] CT abdomen: no acute findings. Stable right middle and left lower lobe pulmonary nodules This is a 54 year old female who presented to the ER with inability to urinate, poop and with refractory nausea for the past two days. She was found to be in a cute renal failure Acute renal failure with hyperkalemia - possibly from lasix versus medication toxocitiy - patient presents with a creatinine of 4.67 and potassium of 6.1. She was given insulin and dextrose for hyperkalemia. Bladder scan showed no urine. CT scan showed no ascites or significant stool, no hydronephrosis. Belly seems distended but may be intravascularly depleted - patient is hyponatremic with elevated bicarb. Will trial IV fluids at low dose and hold diuretics. Check UA and renal ultrasound - nephrology was consulted since she seems to have some signs of uremia . #Hyponatremia #Metabolic alkalosis - sodium 127, bicarb 30. Hold lasix and trial IV fluids Restless leg syndrome - continue ropinirole Bipolar - continue zyprexa Type II diabetes - continue insulin sliding scale - hold metformin and onglyza Asthma - continue symbicort Dispo: admit to inpatient telemetry Code status: full code
[2020-03-21] MEDS ORDERED: Acetaminophen/Codeine 30-300mg Tablet PO SCH (13:00)
--- NOTE | 2020-03-21 13:24 | RAD ---
PORTABLE CHEST: Date: 03/21/2020 HISTORY: Dyspnea, CHF exacerbation. COMPARISON: 03/15/2020 exam. FINDINGS: Heart size appears slightly enlarged. Slightly patchy lung changes with changes more predominant in t he right mid to lower lung field are a similar appearance to the prior examination. IMPRESSION: Hazy infiltrates in the right mid and lower lung bowden and left base, stable. POS: [facility]
--- NOTE | 2020-03-21 13:49 | CT ---
CT ABDOMEN AND PELVIS PERFORMECD WITHOUT CONTRAST ENHANCEMENT: 03/21/20 HISTORY: Diffuse abdominal pain. COMPARISON: A Ct angio of the chest of 01/30/19 as well as a 08/06/18 exam. On the upper most slices, there is some minimal more linear parenchymal changes seen in the lingula a nd right upper lobe probably on the basis of atelectasis. 5 mm nodule on axial image 1 within the rig ht middle lobe and a 6 mm nodule within the left lower lobe axial image 3 are felt to be stable as c ompared to the most recent previous exam. The liver, spleen, pancreas, and gallbladder regions are un remarkable. Right and left adrenal glands and right and left kidneys are normal in appearance. No obstruction. No renal calculi. No significant periaortic or mesenteric adenopathy. There is a mild amount of stool t hroughout the colon. CT OF PELVIS PERFORMED WITH CONTRAST ENHANCEMENT: A tiny fat containing paraumbilical hernia is seen. No inflammatory change. No pelvic lymphadenopathy or mass. Appendix is difficult to definitely identify but there is no periappendiceal inflammatory c hange. In view of osseous structures show some arthritic change of the spine. Pseudoarthrosis of the right L5 transverse process at the sacrum. IMPRESSION: 1. No acute findings of the abdomen or pelvis. 2. Stable right middle and left lower lobe pulmonary nodules as compared to the 01/30/19 study. 3. Borderline liver size. 4. Small fat containing paraumbilical hernia. POS: [facility] [place]
[2020-03-21] MEDS ORDERED: Acetaminophen/Codeine 30-300mg Tablet ONE (14:17)
[2020-03-21] MEDS ORDERED: Dextrose 50% Abboject 50 ML SYRINGE SLOW IVP PRN (14:39)
[2020-03-21] MEDS ORDERED: Dextrose 5% in Water 1,000 ML IV PRN (14:39)
[2020-03-21] MEDS ORDERED: Sodium Chloride 0.9% 1,000 ML IV SCH ×2 (14:45→16:45)
--- NOTE | 2020-03-21 15:25 | ULT ---
RENAL ULTRASOUND HISTORY: Elevated creatinine COMPARISON: Prior noncontrast CT abdomen pelvis dated March 21, 2020. FINDINGS: Right Kidney: Size: 9.0 x 5.0 x 5.2 cm. Abnormality: No focal renal lesion or hydronephrosis is evident. The right renal cortical thickness w as 1.2 cm. Left Kidney: Size: 7.9 x 4.3 x 4.2 cm. Abnormality: No focal renal lesion or hydronephrosis evident. Left renal cortical thickness is 1.1 cm . Urinary bladder: No intraluminal mass is evident. Prevoid bladder volume was 117.1 cc. IMPRESSION: No hydronephrosis.
[2020-03-21] MEDS: Sodium Chloride 0.9% 1,000 ML IV SCH (18:14)
[2020-03-21 19:23] VITALS: BMI 55.3
[2020-03-21] MEDS: hydrOXYzine 25 MG TAB PO SCH (20:00)
[2020-03-21] MEDS: Rosuvastatin 10 MG TAB PO SCH (20:00)
[2020-03-21] MEDS: rOPINIRole HCl 2 MG TAB PO SCH (20:00)
--- NOTE | 2020-03-21 20:56 | CON ---
DATE OF CONSULTATION: CONSULTING PHYSICIAN: Sukumar Knight MD REQUESTING PHYSICIAN: ER physician and Dr. Hector with the hospitalist program. REASON FOR CONSULTATION: [id number] kidney disease and hyperkalemia. IMPRESSION: 1. Ulcow-eo-gyjscgv kidney disease. This is possibly hemodynamically mediated in the context of poor p.o. intake resulting in prerenal kidney injury. 2. Hyperkalemia related to problem #1 in addition to medications in this case, lisinopril and potassium supplementation. 3. Morbid obesity. PLAN: 1. Renal ultrasound has ruled out any significant obstructive uropathy. 2. IV fluid resuscitation of this patient. 3. Medical management of hyperkalemia. 4. Discontinue metformin, discontinue lisinopril, and discontinue furosemide. 5. Renally dose all medications and avoid potentially nephrotoxic agents. 6. Hopefully, this prerenal state may have not prolonged to the point of acute tubular necrosis. Therefore, expecting significant improvement in the renal function. However, if this response does not occur, the patient may be heading toward hemodialysis. 7. Further management to be dependent on the clinical course. HISTORY OF PRESENT ILLNESS: History is that of 54-year-old female patient, who was recently managed here for congestive heart failure with a baseline creatinine of about 1.7, discharged home on lisinopril, potassium supplementation, and furosemide. The patient does have other past medical history significant for bipolar disorder, hypertension, CHF, asthma, morbid obesity. The patient also did report not been able to move a bowel and also has not been urinating for some days since after discharge and has not been eating or drinking as well. As a result of all these findings, decision has been taken to involve Renal in the management of this case. PAST MEDICAL HISTORY: As documented in the body of the history. MEDICATIONS: Reviewed and as documented on [employer]. FAMILY HISTORY: Mom was on dialysis, kidney failure due to diabetes. SOCIAL HISTORY: Significant for tobacco use, but no alcohol. REVIEW OF SYSTEMS: As documented in the body of history. All the other systems were reviewed and found not to be significantly related to present illness. PHYSICAL EXAMINATION: GENERAL: The patient was found to be in some physical distress. Noted with the following vital signs. VITAL SIGNS: Blood pressure HEENT: Remarkable for dry oral mucosa. Neck was supple. No conjunctival injection. No icterus. CARDIOVASCULAR SYSTEM: First and second heart sounds were heard. RESPIRATORY SYSTEM: Clear to auscultation. DIGESTIVE SYSTEM: Revealed an obese abdomen. EXTREMITIES: No significant peripheral edema. SKIN: No new gross rash. LYMPHATICS: No peripheral lymphadenopathy. In summary, a 54-year-old female patient, who presented here with significant evidence of isheg-cw-rrojmsr kidney disease with hyperkalemia. Thank you for this consultation. We will follow with you. Job ID: [id number]
[2020-03-21] MEDS: Pregabalin 50 MG CAP PO SCH (21:20)
[2020-03-21] MEDS: Acetaminophen/Codeine 30-300mg Tablet PO PRN (21:20)
[2020-03-21] MEDS: Mometasone 200 MCG/Formoterol 5 MCG 120 PUFF INHALER INH SCH (21:49)
[2020-03-22] MEDS: Sodium Chloride 0.9% 1,000 ML IV SCH ×2 (05:15→14:12)
[2020-03-22] MEDS: Acetaminophen/Codeine 30-300mg Tablet PO PRN ×3 (05:15→19:59)
[2020-03-22] MEDS: Pregabalin 50 MG CAP PO SCH ×3 (05:25→19:59)
[2020-03-22 05:37] LABS: Bacteria/HPF None Seen HPF (None Seen); Bilirubin Negative (Negative); Blood, Urine Negative (Negative); Clarity Clear (Clear); Glucose, Urine (Dipstick) Normal (Negative); Ketone, Urine Negative (Negative); Leukocyte Negative Leu/uL (Negative); Nitrite Negative (Negative); Protein, Urine (Dipstick) 10 mg/dL (Neg-Trace); RBC/HPF 0-3 HPF (0-3); Specific Gravity, Urine 1.018 (1.002-1.036); Squamous Epithelial 0-3 HPF (0-3); Urobilinogen Normal mg/dL (Less than 2); WBC/HPF 0-3 HPF (0-3)
[2020-03-22 05:38] LABS: Urine Culture Reflex No No
[2020-03-22] MEDS: Mometasone 200 MCG/Formoterol 5 MCG 120 PUFF INHALER INH SCH ×2 (07:42→18:48)
[2020-03-22 09:35] LABS: Albumin 3.6 g/dL (3.5-5.0); Anion Gap 18 mmol/L (10-20); BUN (Urea Nitrogen) 100 mg/dL (9.8-20.1); Calc. Creatinine Clearance 32 mL/min (70-130); Calcium 7.9 mg/dL (7.8-10.44); Carbon Dioxide 26 mmol/L (22-29); Chloride 97 mmol/L (98-107); Glucose 145 mg/dL (70-105); Phosphorus 4.3 mg/dL (2.3-4.7); Potassium 5.7 mmol/L (3.5-5.1); Sodium 135 mmol/L (136-145)
[2020-03-22] MEDS: OLANZapine 5 MG TAB PO SCH (09:56)
[2020-03-22] MEDS: Loratadine 10 MG TAB PO SCH (09:56)
[2020-03-22] MEDS: Fenofibrate Nanocrystallized 145 MG TAB PO SCH (09:56)
[2020-03-22] MEDS: Aspirin 81 mg Enteric Coated Tablet PO SCH (09:56)
[2020-03-22 10:25] LABS: Hemoglobin 9.5 g/dL (12.0-16.0); Mean Corpuscular Hemoglobin 26.2 pg (27.0-31.0); Mean Corpuscular Volume 84.4 fL (78.0-98.0); Mean Platelet Volume 7.9 fL (7.4-10.4); Platelet Count 274 thou/uL (130-400); RBC Distribution Width 13.6 % (11.5-14.5); Red Blood Cell (RBC) Count 3.61 mill/uL (4.20-5.40); White Blood Cell (WBC) Count 8.8 thou/uL (4.8-10.8)
[2020-03-22] MEDS ORDERED: Dextrose 50% Abboject 50 ML SYRINGE SLOW IVP SCH (10:45)
[2020-03-22] MEDS ORDERED: Insulin Regular 300 UNITS/3 ML VIAL IVP SCH (10:45)
[2020-03-22 10:46] LABS: ALT (SGPT) 12 U/L (8-55); AST (SGOT) 12 U/L (5-34); Albumin 3.7 g/dL (3.5-5.0); Alkaline Phosphatase 39 U/L (40-110); Anion Gap 17 mmol/L (10-20); BUN (Urea Nitrogen) 96 mg/dL (9.8-20.1); Bilirubin, Total 0.3 mg/dL (0.2-1.2); Calc. Creatinine Clearance 32 mL/min (70-130); Calcium 7.7 mg/dL (7.8-10.44); Carbon Dioxide 28 mmol/L (22-29); Chloride 94 mmol/L (98-107); Globulin 2.5 g/dL (2.4-3.5); Glucose 162 mg/dL (70-105); Potassium 5.2 mmol/L (3.5-5.1); Protein, Total 6.2 g/dL (6.0-8.3); Sodium 134 mmol/L (136-145)
--- NOTE | 2020-03-22 13:49 | PDOC.HOSPP ---
- Subjective Encounter Date: 03/22/20 Encounter Time: 13:48 Subjective: The patient appears more confused today. She states that she was visiting a friend at [facility], but she herself was not admitted. She is asking to speak to some friends in her anglican group because she is supposed to help them. She has not had a bowel movement yet, complains of the urge to urinate She believes the date is the - Objective Vital Signs & Weight: Vital Signs (12 hours) Temp Pulse Resp BP Pulse Ox 03/22/20 12:00 97.2 F L 18 L 20 138/88 94 L 03/22/20 11:44 77 20 96 03/22/20 07:33 73 18 99 03/22/20 07:20 98.2 F 73 18 106/51 L 92 L 03/22/20 03:32 98.5 F 71 20 104/51 L 92 L Weight Weight 298 lb 4.8 oz I&O: 03/21/20 03/22/20 03/23/20 06:59 06:59 06:59 Intake Total 1720 Output Total 1200 Balance 520 Result Diagrams: 03/22/20 10:14 03/22/20 10:14 Additional Labs: Accuchecks 03/22/20 03/22/20 11:25 05:40 POC Glucose 206 H 146 H Hospitalist ROS - Review of Systems Constitutional: denies: fever, chills - Medication Medications: Active Medications Generic Name Dose Route Start Last Admin Trade Name Freq PRN Reason Stop Dose Admin Acetaminophen/Codeine Phosphate 1 tab 03/21/20 20:00 03/22/20 11:53 Acetaminophen/Codeine 30-300mg Tablet PO 1 tab Q4H PRN Administration Moderate Pain (4-6) Albuterol/Ipratropium 3 ml 03/21/20 15:00 03/22/20 11:44 Ipratropium/Albuterol Sulfate 3 Ml Neb NEB 3 ml QID-RT BETO Administration Aspirin 81 mg 03/22/20 09:00 03/22/20 09:56 Aspirin 81 Mg Enteric Coated Tablet PO 81 mg DAILY BETO Administration Fenofibrate 145 mg 03/22/20 09:00 03/22/20 09:56 Fenofibrate Nanocrystallized 145 Mg Tab PO 145 mg DAILY BETO Administration Hydroxyzine HCl 25 mg 03/21/20 21:00 03/21/20 20:00 Hydroxyzine 25 Mg Tab PO 25 mg HS BETO Administration Sodium Chloride 1,000 mls @ 100 mls/hr 03/21/20 17:54 03/22/20 05:15 Normal Saline 0.9% IV 1,000 mls .Q10H BETO Administration Loratadine 10 mg 03/22/20 09:00 03/22/20 09:56 Loratadine 10 Mg Tab PO 10 mg DAILY BETO Administration Mometasone Furoate/Formoterol Fumar 2 puff 03/21/20 18:30 03/22/20 07:42 Mometasone 200 Mcg/Formoterol 5 Mcg 120 Puff Inhaler INH 2 puff BID-RT BETO Administration Olanzapine 10 mg 03/22/20 09:00 03/22/20 09:56 Olanzapine 5 Mg Tab PO 10 mg DAILY BETO Administration Pantoprazole Sodium 40 mg 03/22/20 09:00 03/22/20 09:56 Pantoprazole 40 Mg Tab PO 40 mg DAILY BETO Administration Pregabalin 100 mg 03/21/20 22:00 03/22/20 05:25 Pregabalin 50 Mg Cap PO 100 mg Q8HR BETO Administration Ropinirole HCl 3 mg 03/21/20 21:00 03/21/20 20:00 Ropinirole Hcl 2 Mg Tab PO 3 mg QPM BETO Administration Rosuvastatin Calcium 10 mg 03/21/20 21:00 03/21/20 20:00 Rosuvastatin 10 Mg Tab PO 10 mg HS BETO Administration Hospitalist Exam Vitals: Vital Signs (12 hours) Temp Pulse Resp BP Pulse Ox 03/22/20 12:00 97.2 F L 18 L 20 138/88 94 L 03/22/20 11:44 77 20 96 03/22/20 07:33 73 18 99 03/22/20 07:20 98.2 F 73 18 106/51 L 92 L 03/22/20 03:32 98.5 F 71 20 104/51 L 92 L Weight Weight 298 lb 4.8 oz General Appearance: NAD, awake alert Eye: PERRL, anicteric sclera ENT: normocephalic atraumatic, no oropharyngeal lesions Neck: no JVD Heart: RRR, no murmur, no gallops, no rubs Respiratory: CTAB, no wheezes, no rales, no ronchi Gastrointestinal: soft, non-tender, non-distended, normal bowel sounds Extremities: no cyanosis, no clubbing, no edema Skin: normal turgor, no lesions, no rashes Neurological: cranial nerve grossly intact, normal sensation to touch Musculoskeletal: normal tone, normal strength, no muscle wasting Psychiatric: normal affect, normal behavior, A&O x 3 Psychiatric - other findings: confused Hosp A/P - Plan Chest X ray: hazy infiltrates in right mid and lower lung [place] CT abdomen: no acute findings. Stable right middle and left lower lobe pulmonary nodules This is a 54 year old female who presented to the ER with inability to urinate, poop and with refractory nausea for the past two days. She was found to be in acute renal failure Acute renal failure with hyperkalemia - possibly from lasix versus medication toxicity - patient presents with a creatinine of 4.67 and potassium of 6.1. Creatinine is now 4.35, potassium is 5.2. - she was started on IV fluids, will decrease rate to 75 - will give kayexelate. She appears more confused today - appreciate nephrology recs, may need dialysis #Hyponatremia #Metabolic alkalosis - sodium is up to 134, continue gentle hydration #Anemia - Hb 9.5 Restless leg syndrome - continue ropinirole Bipolar - continue zyprexa Type II diabetes - continue insulin sliding scale - hold metformin and onglyza Asthma - continue symbicort Leukocytosis - resolved. UA negative. Chest X ray shows hazy infiltrates, however no signs of pneumonia
--- NOTE | 2020-03-22 19:50 | PRG ---
DATE OF SERVICE: 03/22/2020 SUBJECTIVE: The patient is seen and examined. She claimed not to be feeling well, seems a little bit confused. OBJECTIVE: VITAL SIGNS: Noted with the following vital signs: Afebrile, temperature 98.9, pulse 66, respiratory rate of 18, O2 saturations of 95%, blood pressure 151/68. HEENT: Unremarkable. CARDIOVASCULAR SYSTEM: First and second heart sounds were heard. RESPIRATORY SYSTEM: Clear to auscultation. DIGESTIVE SYSTEM: Revealed a very obese abdomen. EXTREMITIES: Showed no significant edema. LABORATORY INVESTIGATION: Showed a hemoglobin of 9.5. Chemistry showed a BUN of 96 with a creatinine of 4.35, potassium 5.2, bicarb of 28, sodium 134. IMPRESSION: 1. Acute on chronic kidney disease, not much improvement, status post rehydration, signaling possibility of acute tubular necrosis. 2. Morbid obesity. 3. Anemia. 4. Possible toxic metabolic encephalopathy. PLAN: 1. Discontinue IV fluids. 2. Renally dose all medications and avoid potentially nephrotoxic agents. 3. We will monitor this kidney function for the next 24 hours and if no significant improvement and toxic metabolic symptoms worsens, we will likely have the patient undergo renal replacement therapy (hemodialysis). 4. Further management to be dependent on the clinical course. Job ID: [id number]
[2020-03-22] MEDS: rOPINIRole HCl 2 MG TAB PO SCH (20:00)
[2020-03-22] MEDS: Rosuvastatin 10 MG TAB PO SCH (20:01)
[2020-03-22] MEDS: hydrOXYzine 25 MG TAB PO SCH (20:01)
[2020-03-23] MEDS: Acetaminophen/Codeine 30-300mg Tablet PO PRN ×3 (02:44→14:04)
[2020-03-23 04:28] LABS: Hemoglobin 9.1 g/dL (12.0-16.0); Mean Corpuscular HGB CONC 31.6 g/dL (32.0-36.0); Mean Corpuscular Hemoglobin 26.1 pg (27.0-31.0); Mean Corpuscular Volume 82.6 fL (78.0-98.0); Mean Platelet Volume 8.2 fL (7.4-10.4); Platelet Count 260 thou/uL (130-400); White Blood Cell (WBC) Count 8.2 thou/uL (4.8-10.8)
[2020-03-23 04:58] LABS: Albumin 3.6 g/dL (3.5-5.0); Anion Gap 14 mmol/L (10-20); BUN (Urea Nitrogen) 77 mg/dL (9.8-20.1); BUN/Creatinine Ratio 29.17; Calc. Creatinine Clearance 53 mL/min (70-130); Calcium 8.1 mg/dL (7.8-10.44); Carbon Dioxide 32 mmol/L (22-29); Chloride 96 mmol/L (98-107); Glucose 165 mg/dL (70-105); Phosphorus 2.9 mg/dL (2.3-4.7); Potassium 4.8 mmol/L (3.5-5.1); Sodium 137 mmol/L (136-145)
[2020-03-23] MEDS: Pregabalin 50 MG CAP PO SCH ×3 (05:00→23:26)
[2020-03-23] MEDS: Mometasone 200 MCG/Formoterol 5 MCG 120 PUFF INHALER INH SCH ×2 (07:20→19:52)
[2020-03-23] MEDS: OLANZapine 5 MG TAB PO SCH (08:53)
[2020-03-23] MEDS: Fenofibrate Nanocrystallized 145 MG TAB PO SCH (08:53)
[2020-03-23] MEDS: Aspirin 81 mg Enteric Coated Tablet PO SCH (08:53)
[2020-03-23] MEDS: Loratadine 10 MG TAB PO SCH (08:53)
--- NOTE | 2020-03-23 11:40 | PDOC.HOSPP ---
- Subjective Encounter Date: 03/23/20 Encounter Time: 11:36 Subjective: Ms. Blackman was seen today in follow-up of Acute kidney injury. She says she felt a bit confused, and out of herself this morning, but is coming around now. - Objective Vital Signs & Weight: Vital Signs (12 hours) Temp Pulse Resp BP Pulse Ox 03/23/20 10:40 70 18 94 L 03/23/20 08:00 97 03/23/20 07:50 97.6 F 60 16 111/54 L 97 03/23/20 07:20 62 16 95 03/23/20 04:00 98.7 F 64 20 95 Weight Weight 301 lb 6.4 oz I&O: 03/22/20 03/23/20 03/24/20 06:59 06:59 06:59 Intake Total 1720 1020 Output Total 1200 84781 Balance 520 -8941 Result Diagrams: 03/23/20 03:53 03/23/20 03:53 Additional Labs: Accuchecks 03/23/20 03/23/20 03/22/20 11:14 05:58 20:15 POC Glucose 203 H 150 H 187 H 03/22/20 03/22/20 16:48 14:21 POC Glucose 151 H 196 H Hospitalist ROS - Medication Medications: Active Medications Generic Name Dose Route Start Last Admin Trade Name Freq PRN Reason Stop Dose Admin Acetaminophen/Codeine Phosphate 1 tab 03/21/20 20:00 03/23/20 08:55 Acetaminophen/Codeine 30-300mg Tablet PO 1 tab Q4H PRN Administration Moderate Pain (4-6) Albuterol/Ipratropium 3 ml 03/21/20 15:00 03/23/20 10:40 Ipratropium/Albuterol Sulfate 3 Ml Neb NEB 3 ml QID-RT BETO Administration Aspirin 81 mg 03/22/20 09:00 03/23/20 08:53 Aspirin 81 Mg Enteric Coated Tablet PO 81 mg DAILY BETO Administration Fenofibrate 145 mg 03/22/20 09:00 03/23/20 08:53 Fenofibrate Nanocrystallized 145 Mg Tab PO 145 mg DAILY BETO Administration Hydroxyzine HCl 25 mg 03/21/20 21:00 03/22/20 20:01 Hydroxyzine 25 Mg Tab PO 25 mg HS EBTO Administration Loratadine 10 mg 03/22/20 09:00 03/23/20 08:53 Loratadine 10 Mg Tab PO 10 mg DAILY BETO Administration Mometasone Furoate/Formoterol Fumar 2 puff 03/21/20 18:30 03/23/20 07:20 Mometasone 200 Mcg/Formoterol 5 Mcg 120 Puff Inhaler INH 2 puff BID-RT BETO Administration Olanzapine 10 mg 03/22/20 09:00 03/23/20 08:53 Olanzapine 5 Mg Tab PO 10 mg DAILY BETO Administration Pantoprazole Sodium 40 mg 03/22/20 09:00 03/23/20 08:53 Pantoprazole 40 Mg Tab PO 40 mg DAILY BETO Administration Pregabalin 100 mg 03/21/20 22:00 03/23/20 05:00 Pregabalin 50 Mg Cap PO 100 mg Q8HR BETO Administration Ropinirole HCl 3 mg 03/21/20 21:00 03/22/20 20:00 Ropinirole Hcl 2 Mg Tab PO 3 mg QPM BETO Administration Rosuvastatin Calcium 10 mg 03/21/20 21:00 03/22/20 20:01 Rosuvastatin 10 Mg Tab PO 10 mg HS BETO Administration Hospitalist Exam Vitals: Vital Signs (12 hours) Temp Pulse Resp BP Pulse Ox 03/23/20 10:40 70 18 94 L 03/23/20 08:00 97 03/23/20 07:50 97.6 F 60 16 111/54 L 97 03/23/20 07:20 62 16 95 03/23/20 04:00 98.7 F 64 20 95 Weight Weight 301 lb 6.4 oz General Appearance: NAD, awake alert Eye: PERRL, anicteric sclera Heart: RRR, no murmur, no gallops, no rubs, normal peripheral pulses Respiratory: CTAB, no wheezes, no rales, no ronchi, normal chest expansion, no tachypnea Gastrointestinal: soft, non-tender, non-distended, normal bowel sounds, no palpable masses, no hepatomegaly Extremities: no cyanosis, 1+ LE edema Hosp A/P (1) Chronic diastolic heart failure Code(s): I50.32 - CHRONIC DIASTOLIC (CONGESTIVE) HEART FAILURE Status: Acute (2) Acute kidney injury (TAMICA) with acute tubular necrosis (ATN) Code(s): N17.0 - ACUTE KIDNEY FAILURE WITH TUBULAR NECROSIS Status: Acute (3) Bipolar disorder Code(s): F31.9 - BIPOLAR DISORDER, UNSPECIFIED Status: Chronic (4) COPD with asthma Code(s): J44.9 - CHRONIC OBSTRUCTIVE PULMONARY DISEASE, UNSPECIFIED Status: Chronic (5) DM II (diabetes mellitus, type II), controlled Code(s): E11.9 - TYPE 2 DIABETES MELLITUS WITHOUT COMPLICATIONS Status: Chronic Qualifiers: Diabetes mellitus shelter insulin use: with shelter use Diabetes mellitus complication status: without complication Qualified Code(s): E11.9 - Type 2 diabetes mellitus without complications; Z79.4 - care home (current) use of insulin (6) HTN (hypertension) Code(s): I10 - ESSENTIAL (PRIMARY) HYPERTENSION Status: Chronic Qualifiers: Hypertension type: essential hypertension Qualified Code(s): I10 - Essential (primary) hypertension (7) Morbid obesity Code(s): E66.01 - MORBID (SEVERE) OBESITY DUE TO EXCESS CALORIES Status: Chronic (8) Obstructive sleep apnea on CPAP Code(s): G47.33 - OBSTRUCTIVE SLEEP APNEA (ADULT) (PEDIATRIC); Z99.89 - DEPENDENCE ON OTHER ENABLING MACHINES AND DEVICES Status: Chronic - Plan * Acute on chronic kidney injury=- her renal function is beginning to improve with hydration. However , i am infirmed that she also had urinary retention last night and had to have a JOYCE catheter placed. She will need a voiding trial before discharge * Chronic diastolic hear failure- improved- she is now euvolemic * DM- blood glucose is stable- continue to hold Metformin and 70/30 insulin for now * HTN- blood pressure is stable- continue to hold Lisinopril, due to acute kidney injury * Metabolic encephalopathy- likely from uremia, which is improving * COPD- continue Dulera, and Duonebs as needed * Generalaized weakness- PT/OT
--- NOTE | 2020-03-23 19:30 | PRG ---
DATE OF SERVICE: 03/23/2020 SUBJECTIVE: The patient is seen and examined. Noted with the following vital signs. OBJECTIVE: VITAL SIGNS: Afebrile. Temperature 98, pulse 80, respiratory rate of 16, O2 saturations of 97%, blood pressure 119/56. HEENT: Unremarkable. CARDIOVASCULAR SYSTEM: First and second heart sounds were heard. RESPIRATORY SYSTEM: Clear to auscultation. DIGESTIVE SYSTEM: Revealed a benign abdomen with positive bowel sounds. EXTREMITIES: No peripheral edema. SKIN: No new gross rash. LYMPHATICS: No peripheral lymphadenopathy. LABORATORY INVESTIGATION: Significant for creatinine that has dropped down to 2.64 with BUN of 77. IMPRESSION: 1. [id number] kidney disease, seems to be improving. 2. Possible obstructive uropathy, query cause. PLAN: 1. We will continue with current renal supportive measures. 2. Continue to monitor the renal function. 3. Further management to be dependent on the clinical course. Job ID: [id number]
[2020-03-23] MEDS: Rosuvastatin 10 MG TAB PO SCH (20:50)
[2020-03-23] MEDS: rOPINIRole HCl 2 MG TAB PO SCH (20:50)
[2020-03-23] MEDS: Docusate 100 MG CAP PO SCH (20:51)
[2020-03-23] MEDS: hydrOXYzine 25 MG TAB PO SCH (20:51)
[2020-03-23] MEDS ORDERED: Ondansetron PF 4 MG/2 ML Vial IVP PRN (22:23)
[2020-03-24] MEDS: Acetaminophen/Codeine 30-300mg Tablet PO PRN ×3 (00:09→18:28)
[2020-03-24] MEDS ORDERED: diphenhydrAMINE 50 MG/ML VIAL IVP PRN (01:33)
[2020-03-24] MEDS ORDERED: ALPRAZolam 0.5 MG TAB PO SCH (02:00)
[2020-03-24 05:00] LABS: Albumin 3.9 g/dL (3.5-5.0); Anion Gap 14 mmol/L (10-20); BUN (Urea Nitrogen) 38 mg/dL (9.8-20.1); BUN/Creatinine Ratio 29.23; Calc. Creatinine Clearance 107 mL/min (70-130); Calcium 9.3 mg/dL (7.8-10.44); Carbon Dioxide 35 mmol/L (22-29); Chloride 97 mmol/L (98-107); Glucose 195 mg/dL (70-105); Phosphorus 3.5 mg/dL (2.3-4.7); Potassium 5.1 mmol/L (3.5-5.1); Sodium 141 mmol/L (136-145)
[2020-03-24] MEDS ORDERED: Promethazine HCl 12.5 MG in Sodium Chloride 0.9% 50 ML IVPB SCH (06:30)
[2020-03-24] MEDS: Pregabalin 50 MG CAP PO SCH ×3 (07:32→20:15)
[2020-03-24] MEDS: Mometasone 200 MCG/Formoterol 5 MCG 120 PUFF INHALER INH SCH ×2 (07:34→18:52)
[2020-03-24] MEDS: Fenofibrate Nanocrystallized 145 MG TAB PO SCH (09:07)
[2020-03-24] MEDS: Aspirin 81 mg Enteric Coated Tablet PO SCH (09:07)
[2020-03-24] MEDS: OLANZapine 5 MG TAB PO SCH (09:07)
[2020-03-24] MEDS: Loratadine 10 MG TAB PO SCH (09:08)
[2020-03-24] MEDS: Docusate 100 MG CAP PO SCH ×2 (09:08→20:15)
[2020-03-24] MEDS: HumaLOG 300 UNITS/3 ML VIAL SC PRN (18:22)
--- NOTE | 2020-03-24 19:00 | PDOC.HOSPP ---
- Subjective Encounter Date: 03/24/20 Subjective: feels well, wanting to walk - Objective Vital Signs & Weight: Vital Signs (12 hours) Temp Pulse Resp BP Pulse Ox 03/24/20 18:53 98 03/24/20 18:52 98 03/24/20 18:50 17 98 03/24/20 16:00 97.8 F 80 14 143/68 H 96 03/24/20 14:38 66 18 03/24/20 12:00 97.8 F 84 16 142/70 H 94 L 03/24/20 09:53 77 16 03/24/20 07:52 97.9 F 78 18 129/60 95 03/24/20 07:26 74 10 L Weight Weight 284 lb 9.6 oz I&O: 03/23/20 03/24/20 03/25/20 06:59 06:59 06:59 Intake Total 1020 980 720 Output Total [address]04 [address] [facility] -[id number] [id number] [phone] Result Diagrams: 03/23/20 03:53 03/24/20 04:23 Additional Labs: Accuchecks 03/24/20 03/23/20 05:42 20:34 POC Glucose 185 H 172 H Hospitalist ROS - Medication Medications: Active Medications Generic Name Dose Route Start Last Admin Trade Name Freq PRN Reason Stop Dose Admin Acetaminophen/Codeine Phosphate 1 tab 03/21/20 20:00 03/24/20 18:28 Acetaminophen/Codeine 30-300mg Tablet PO 1 tab Q4H PRN Administration Moderate Pain (4-6) Albuterol/Ipratropium 3 ml 03/21/20 15:00 03/24/20 18:50 Ipratropium/Albuterol Sulfate 3 Ml Neb NEB 3 ml QID-RT BETO Administration Aspirin 81 mg 03/22/20 09:00 03/24/20 09:07 Aspirin 81 Mg Enteric Coated Tablet PO 81 mg DAILY BETO Administration Docusate Sodium 100 mg 03/23/20 21:00 03/24/20 09:08 Docusate 100 Mg Cap PO 100 mg BID BETO Administration Fenofibrate 145 mg 03/22/20 09:00 03/24/20 09:07 Fenofibrate Nanocrystallized 145 Mg Tab PO 145 mg DAILY BETO Administration Hydroxyzine HCl 25 mg 03/21/20 21:00 03/23/20 20:51 Hydroxyzine 25 Mg Tab PO 25 mg HS BETO Administration Insulin Human Lispro 0 units 03/21/20 14:39 03/24/20 18:22 Humalog 300 Units/3 Ml Vial SC 2 unit .MILD SLIDING SCALE PRN Administration Mild Correctional Scale Loratadine 10 mg 03/22/20 09:00 03/24/20 09:08 Loratadine 10 Mg Tab PO 10 mg DAILY BETO Administration Mometasone Furoate/Formoterol Fumar 2 puff 03/21/20 18:30 03/24/20 18:52 Mometasone 200 Mcg/Formoterol 5 Mcg 120 Puff Inhaler INH 2 puff BID-RT BETO Administration Olanzapine 10 mg 03/22/20 09:00 03/24/20 09:07 Olanzapine 5 Mg Tab PO 10 mg DAILY BETO Administration Ondansetron HCl 4 mg 03/23/20 22:23 03/23/20 23:06 Ondansetron Pf 4 Mg/2 Ml Vial IVP 4 mg Q6H PRN Administration Nausea/Vomiting Pantoprazole Sodium 40 mg 03/22/20 09:00 03/24/20 09:08 Pantoprazole 40 Mg Tab PO 40 mg DAILY BETO Administration Pregabalin 100 mg 03/21/20 22:00 03/24/20 14:32 Pregabalin 50 Mg Cap PO 100 mg Q8HR BETO Administration Ropinirole HCl 3 mg 03/21/20 21:00 03/23/20 20:50 Ropinirole Hcl 2 Mg Tab PO 3 mg QPM BETO Administration Rosuvastatin Calcium 10 mg 03/21/20 21:00 03/23/20 20:50 Rosuvastatin 10 Mg Tab PO 10 mg HS BETO Administration Hospitalist Exam Vitals: Vital Signs (12 hours) Temp Pulse Resp BP Pulse Ox 03/24/20 18:53 98 03/24/20 18:52 98 03/24/20 18:50 17 98 03/24/20 16:00 97.8 F 80 14 143/68 H 96 03/24/20 14:38 66 18 03/24/20 12:00 97.8 F 84 16 142/70 H 94 L 03/24/20 09:53 77 16 03/24/20 07:52 97.9 F 78 18 129/60 95 03/24/20 07:26 74 10 L Weight Weight 284 lb 9.6 oz General Appearance: NAD Eye: anicteric sclera ENT: normocephalic atraumatic Neck: supple, symmetric Heart: RRR, no murmur, no gallops Respiratory: CTAB, no wheezes, no rales Gastrointestinal: soft, non-tender Extremities: no edema Hosp A/P (1) Chronic diastolic heart failure Code(s): I50.32 - CHRONIC DIASTOLIC (CONGESTIVE) HEART FAILURE Status: Acute (2) Acute kidney injury (TAMICA) with acute tubular necrosis (ATN) Code(s): N17.0 - ACUTE KIDNEY FAILURE WITH TUBULAR NECROSIS Status: Acute (3) Bipolar disorder Code(s): F31.9 - BIPOLAR DISORDER, UNSPECIFIED Status: Chronic (4) Diabetes Code(s): E11.9 - TYPE 2 DIABETES MELLITUS WITHOUT COMPLICATIONS Status: Acute - Plan plan for today 2/6 labs are improving, patient is more oriented, I will continue current management, repeat her labs, and ask PT to evaluate her.
--- NOTE | 2020-03-24 19:36 | PRG ---
DATE OF SERVICE: 03/24/2020 SUBJECTIVE: The patient seen and examined. OBJECTIVE: VITAL SIGNS: Noted with the following vital signs; afebrile, temperature 97.8, pulse 80, respiratory rate of 14, O2 saturation of 96%, and blood pressure 143/68. HEENT: Unremarkable. CARDIOVASCULAR SYSTEM: First and second heart sounds were heard. RESPIRATORY SYSTEM: Clear to auscultation. DIGESTIVE SYSTEM: An obese abdomen. EXTREMITIES: No peripheral edema. SKIN: No new gross rash. LYMPHATICS: No peripheral lymphadenopathy. LABORATORY INVESTIGATION: Potassium of 5.1, bicarb of 35 with BUN of 38 and creatinine 1.3. IMPRESSION: 1. Acute on chronic kidney disease, which shows unremarkable improvement. 2. Morbid obesity. 3. Metabolic alkalosis possibly this may be compensation to possible respiratory acidosis. PLAN: 1. We will continue with current renal supportive measures. 2. Renally dose all medications. 3. Further management to be dependent on the clinical course. Job ID: [id number]
[2020-03-24] MEDS: rOPINIRole HCl 2 MG TAB PO SCH (20:15)
[2020-03-24] MEDS: Rosuvastatin 10 MG TAB PO SCH (20:15)
[2020-03-24] MEDS: hydrOXYzine 25 MG TAB PO SCH (20:16)
[2020-03-25 04:47] LABS: #Eosinphils 0.3 thou/uL (0.0-0.7); #Lymphocytes 1.7 thou/uL (1.20-3.40); #Monocytes 0.8 thou/uL (0.11-0.59); #Neutrophils 5.4 thou/uL (1.40-6.50); %Basophils 0.5 % (0.0-1.0); %Lymphocytes 20.4 % (21.0-51.0); %Monocytes 9.1 % (0.0-10.0); %Neutrophils 65.9 % (42.0-75.0); Hemoglobin 10.2 g/dL (12.0-16.0); Mean Corpuscular Hemoglobin 25.7 pg (27.0-31.0); Platelet Count 301 thou/uL (130-400); RBC Distribution Width 13.8 % (11.5-14.5); Red Blood Cell (RBC) Count 3.97 mill/uL (4.20-5.40); White Blood Cell (WBC) Count 8.2 thou/uL (4.8-10.8)
[2020-03-25 05:08] LABS: Albumin 3.9 g/dL (3.5-5.0); Anion Gap 14 mmol/L (10-20); BUN (Urea Nitrogen) 24 mg/dL (9.8-20.1); BUN/Creatinine Ratio 22.43; Calc. Creatinine Clearance 122 mL/min (70-130); Calcium 9.5 mg/dL (7.8-10.44); Carbon Dioxide 32 mmol/L (22-29); Chloride 97 mmol/L (98-107); Glucose 188 mg/dL (70-105); Phosphorus 3.6 mg/dL (2.3-4.7); Potassium 4.6 mmol/L (3.5-5.1); Sodium 138 mmol/L (136-145)
[2020-03-25] MEDS: Pregabalin 50 MG CAP PO SCH ×3 (05:18→21:21)
[2020-03-25] MEDS: Acetaminophen/Codeine 30-300mg Tablet PO PRN (05:19)
[2020-03-25] MEDS: HumaLOG 300 UNITS/3 ML VIAL SC PRN ×3 (05:54→19:02)
[2020-03-25] MEDS: Mometasone 200 MCG/Formoterol 5 MCG 120 PUFF INHALER INH SCH ×2 (06:33→20:39)
[2020-03-25] MEDS: OLANZapine 5 MG TAB PO SCH (09:10)
[2020-03-25] MEDS: Loratadine 10 MG TAB PO SCH (09:10)
[2020-03-25] MEDS: Docusate 100 MG CAP PO SCH ×2 (09:10→21:27)
[2020-03-25] MEDS: Aspirin 81 mg Enteric Coated Tablet PO SCH (09:10)
[2020-03-25] MEDS: Fenofibrate Nanocrystallized 145 MG TAB PO SCH (09:10)
[2020-03-25] MEDS ORDERED: Acetaminophen/Codeine 30-300mg Tablet PO PRN (11:09)
[2020-03-25] MEDS: Acetaminophen 325 MG TAB PO PRN ×2 (13:08→21:20)
--- NOTE | 2020-03-25 17:08 | PDOC.HOSPP ---
- Subjective Encounter Date: 03/25/20 Subjective: feels well - Objective Vital Signs & Weight: Vital Signs (12 hours) Temp Pulse Pulse Pulse Resp BP BP 03/25/20 16:50 97.6 F 71 20 03/25/20 13:43 64 18 03/25/20 11:59 98.8 F 63 16 03/25/20 10:53 88 80 141/66 H 139/65 03/25/20 09:44 66 16 03/25/20 09:10 03/25/20 07:41 98.7 F 66 18 03/25/20 06:33 79 16 03/25/20 06:32 57 L 16 BP Pulse Ox Pulse Ox Pulse Ox 03/25/20 16:50 145/63 H 96 03/25/20 13:43 97 03/25/20 11:59 138/63 94 L 03/25/20 10:53 89 L 95 03/25/20 09:44 97 03/25/20 09:10 93 L 03/25/20 07:41 129/60 93 L 03/25/20 06:33 97 03/25/20 06:32 97 Weight Weight 286 lb 1.6 oz I&O: 03/24/20 03/25/20 03/26/20 06:59 06:59 06:59 Intake Total 980 1440 Output Total 5781 9570 Balance -0919 -3183 Result Diagrams: 03/25/20 04:18 03/25/20 04:18 Additional Labs: Accuchecks 03/25/20 03/25/20 03/24/20 10:57 05:38 20:37 POC Glucose 186 H 174 H 213 H Hospitalist ROS - Medication Medications: Active Medications Generic Name Dose Route Start Last Admin Trade Name Freq PRN Reason Stop Dose Admin Acetaminophen 650 mg 03/25/20 12:26 03/25/20 13:08 Acetaminophen 325 Mg Tab PO 650 mg Q6H PRN Administration Pain Albuterol/Ipratropium 3 ml 03/21/20 15:00 03/25/20 13:43 Ipratropium/Albuterol Sulfate 3 Ml Neb NEB 3 ml QID-RT BETO Administration Aspirin 81 mg 03/22/20 09:00 03/25/20 09:10 Aspirin 81 Mg Enteric Coated Tablet PO 81 mg DAILY BETO Administration Docusate Sodium 100 mg 03/23/20 21:00 03/25/20 09:10 Docusate 100 Mg Cap PO 100 mg BID BETO Administration Fenofibrate 145 mg 03/22/20 09:00 03/25/20 09:10 Fenofibrate Nanocrystallized 145 Mg Tab PO 145 mg DAILY BETO Administration Hydroxyzine HCl 25 mg 03/21/20 21:00 03/24/20 20:16 Hydroxyzine 25 Mg Tab PO 25 mg HS BETO Administration Insulin Human Lispro 0 units 03/21/20 14:39 03/25/20 12:06 Humalog 300 Units/3 Ml Vial SC 2 unit .MILD SLIDING SCALE PRN Administration Mild Correctional Scale Loratadine 10 mg 03/22/20 09:00 03/25/20 09:10 Loratadine 10 Mg Tab PO 10 mg DAILY BETO Administration Mometasone Furoate/Formoterol Fumar 2 puff 03/21/20 18:30 03/25/20 06:33 Mometasone 200 Mcg/Formoterol 5 Mcg 120 Puff Inhaler INH 2 puff BID-RT BETO Administration Olanzapine 10 mg 03/22/20 09:00 03/25/20 09:10 Olanzapine 5 Mg Tab PO 10 mg DAILY BETO Administration Ondansetron HCl 4 mg 03/23/20 22:23 03/23/20 23:06 Ondansetron Pf 4 Mg/2 Ml Vial IVP 4 mg Q6H PRN Administration Nausea/Vomiting Pantoprazole Sodium 40 mg 03/22/20 09:00 03/25/20 09:10 Pantoprazole 40 Mg Tab PO 40 mg DAILY BETO Administration Pregabalin 100 mg 03/21/20 22:00 03/25/20 13:06 Pregabalin 50 Mg Cap PO 100 mg Q8HR BETO Administration Ropinirole HCl 3 mg 03/21/20 21:00 03/24/20 20:15 Ropinirole Hcl 2 Mg Tab PO 3 mg QPM BETO Administration Rosuvastatin Calcium 10 mg 03/21/20 21:00 03/24/20 20:15 Rosuvastatin 10 Mg Tab PO 10 mg HS BETO Administration Hospitalist Exam Vitals: Vital Signs (12 hours) Temp Pulse Pulse Pulse Resp BP BP 03/25/20 16:50 97.6 F 71 20 03/25/20 13:43 64 18 03/25/20 11:59 98.8 F 63 16 03/25/20 10:53 88 80 141/66 H 139/65 03/25/20 09:44 66 16 03/25/20 09:10 03/25/20 07:41 98.7 F 66 18 03/25/20 06:33 79 16 03/25/20 06:32 57 L 16 BP Pulse Ox Pulse Ox Pulse Ox 03/25/20 16:50 145/63 H 96 03/25/20 13:43 97 03/25/20 11:59 138/63 94 L 03/25/20 10:53 89 L 95 03/25/20 09:44 97 03/25/20 09:10 93 L 03/25/20 07:41 129/60 93 L 03/25/20 06:33 97 03/25/20 06:32 97 Weight Weight 286 lb 1.6 oz General Appearance: NAD Eye: PERRL ENT: normocephalic atraumatic Neck: supple, symmetric Heart: RRR, no murmur, no gallops Respiratory: CTAB, no wheezes Gastrointestinal: soft, non-tender Extremities: no cyanosis, no clubbing Hosp A/P (1) Chronic diastolic heart failure Code(s): I50.32 - CHRONIC DIASTOLIC (CONGESTIVE) HEART FAILURE Status: Acute (2) Acute kidney injury (TAMICA) with acute tubular necrosis (ATN) Code(s): N17.0 - ACUTE KIDNEY FAILURE WITH TUBULAR NECROSIS Status: Acute (3) Bipolar disorder Code(s): F31.9 - BIPOLAR DISORDER, UNSPECIFIED Status: Chronic (4) Diabetes Code(s): E11.9 - TYPE 2 DIABETES MELLITUS WITHOUT COMPLICATIONS Status: Acute - Plan plan for today 03/24 labs are improving, patient is more oriented, I will continue current management, repeat her labs, and ask PT to evaluate her. plan for today 03/25 she continue to improve, I will d/c her Palomo and see if she can void on her own, a bladder scan at some point tonight would be best. PT saw her and she is barely able to go to her hair, will consult case management for placement.
[2020-03-25] MEDS: hydrOXYzine 25 MG TAB PO SCH (21:22)
[2020-03-25] MEDS: Rosuvastatin 10 MG TAB PO SCH (21:22)
[2020-03-25] MEDS: rOPINIRole HCl 2 MG TAB PO SCH (21:22)
[2020-03-25] MEDS ORDERED: HumaLOG 300 UNITS/3 ML VIAL SC PRN (23:34)
[2020-03-26] MEDS: Acetaminophen/Codeine 30-300mg Tablet PO PRN ×2 (02:24→12:44)
[2020-03-26 05:30] LABS: #Basophils 0.1 thou/uL (0.0-0.2); #Eosinphils 0.4 thou/uL (0.0-0.7); #Lymphocytes 2.2 thou/uL (1.20-3.40); #Neutrophils 6.9 thou/uL (1.40-6.50); %Basophils 0.6 % (0.0-1.0); %Eosinophils 3.9 % (0.0-10.0); %Lymphocytes 20.8 % (21.0-51.0); %Monocytes 9.5 % (0.0-10.0); %Neutrophils 65.2 % (42.0-75.0); Hemoglobin 10.6 g/dL (12.0-16.0); Mean Corpuscular HGB CONC 31.5 g/dL (32.0-36.0); Mean Corpuscular Hemoglobin 25.9 pg (27.0-31.0); Mean Corpuscular Volume 82.2 fL (78.0-98.0); Mean Platelet Volume 8.2 fL (7.4-10.4); Platelet Count 322 thou/uL (130-400); RBC Distribution Width 13.8 % (11.5-14.5); Red Blood Cell (RBC) Count 4.08 mill/uL (4.20-5.40); White Blood Cell (WBC) Count 10.5 thou/uL (4.8-10.8)
[2020-03-26] MEDS: Pregabalin 50 MG CAP PO SCH ×3 (05:46→20:51)
[2020-03-26 05:48] LABS: Anion Gap 15 mmol/L (10-20); BUN (Urea Nitrogen) 22 mg/dL (9.8-20.1); BUN/Creatinine Ratio 20.18; Calc. Creatinine Clearance 121 mL/min (70-130); Calcium 9.8 mg/dL (7.8-10.44); Carbon Dioxide 29 mmol/L (22-29); Chloride 98 mmol/L (98-107); Glucose 191 mg/dL (70-105); Sodium 138 mmol/L (136-145)
--- NOTE | 2020-03-26 05:58 | PRG ---
DATE OF SERVICE: 03/25/2020 SUBJECTIVE: The patient is seen and examined with no new complaints except that of . Noted with the following vital signs. OBJECTIVE: VITAL SIGNS: Temperature 98.8, pulse 63, respiratory rate of 16, O2 saturation 97%, blood pressure 138/63. HEENT: Unremarkable. CARDIOVASCULAR SYSTEM: Heart sounds were heard. RESPIRATORY SYSTEM: Clear to auscultation. DIGESTIVE SYSTEM: Revealed an obese abdomen. EXTREMITIES: No peripheral edema. SKIN: No new gross rash. IMPRESSION: 1. Acute kidney injury, which seems to have done remarkably very well. 2. Hyperkalemia, resolved. 3. Morbid obesity. PLAN: 1. We will continue with current renal supportive measures. 2. Discontinue Tylenol with codeine in place of this, start acetaminophen/Tylenol p.r.n. 3. Further management to be dependent on the clinical course. We will defer the Palomo catheter management to the primary team. Job ID: [id number]
[2020-03-26] MEDS: Mometasone 200 MCG/Formoterol 5 MCG 120 PUFF INHALER INH SCH ×2 (06:56→19:12)
[2020-03-26] MEDS: HumaLOG 300 UNITS/3 ML VIAL SC PRN ×3 (07:28→18:15)
[2020-03-26] MEDS: Fenofibrate Nanocrystallized 145 MG TAB PO SCH (08:08)
[2020-03-26] MEDS: Aspirin 81 mg Enteric Coated Tablet PO SCH (08:08)
[2020-03-26] MEDS: OLANZapine 5 MG TAB PO SCH (08:08)
[2020-03-26] MEDS: Loratadine 10 MG TAB PO SCH (08:09)
[2020-03-26] MEDS: Docusate 100 MG CAP PO SCH ×2 (08:09→20:47)
--- NOTE | 2020-03-26 13:32 | PDOC.HOSPP ---
- Subjective Encounter Date: 03/26/20 Subjective: Appears well in no acute distress has no specific complaints. - Objective Vital Signs & Weight: Vital Signs (12 hours) Temp Pulse Resp BP BP Pulse Ox 03/26/20 11:20 98.1 F 69 18 132/63 93 L 03/26/20 08:25 96 03/26/20 07:34 97.8 F 64 18 159/70 H 96 03/26/20 06:56 57 L 16 03/26/20 04:38 98.6 F 67 16 131/60 93 L Weight Weight 286 lb 1.6 oz I&O: 03/25/20 03/26/20 03/27/20 06:59 06:59 06:59 Intake Total 1440 1600 Output Total 3275 1150 Balance -1835 450 Result Diagrams: 03/26/20 04:13 03/26/20 04:13 Additional Labs: Accuchecks 03/26/20 03/26/20 03/25/20 10:05 05:47 21:17 POC Glucose 214 H 200 H 237 H 03/25/20 03/24/20 17:33 17:36 POC Glucose 203 H 196 H Hospitalist ROS - Medication Medications: Active Medications Generic Name Dose Route Start Last Admin Trade Name Freq PRN Reason Stop Dose Admin Acetaminophen 650 mg 03/25/20 12:26 03/25/20 21:20 Acetaminophen 325 Mg Tab PO 650 mg Q6H PRN Administration Pain Albuterol/Ipratropium 3 ml 03/21/20 15:00 03/26/20 10:59 Ipratropium/Albuterol Sulfate 3 Ml Neb NEB 3 ml QID-RT BETO Administration Aspirin 81 mg 03/22/20 09:00 03/26/20 08:08 Aspirin 81 Mg Enteric Coated Tablet PO 81 mg DAILY BETO Administration Docusate Sodium 100 mg 03/23/20 21:00 03/26/20 08:09 Docusate 100 Mg Cap PO Not Given BID BETO Fenofibrate 145 mg 03/22/20 09:00 03/26/20 08:08 Fenofibrate Nanocrystallized 145 Mg Tab PO 145 mg DAILY BETO Administration Hydroxyzine HCl 25 mg 03/21/20 21:00 03/25/20 21:22 Hydroxyzine 25 Mg Tab PO 25 mg HS BETO Administration Insulin Human Lispro 0 units 03/21/20 14:39 03/26/20 12:39 Humalog 300 Units/3 Ml Vial SC 3 unit .MILD SLIDING SCALE PRN Administration Mild Correctional Scale Insulin Human Lispro 0 units 03/25/20 23:34 03/25/20 23:42 Humalog 300 Units/3 Ml Vial SC 2 unit .BEDTIME SLIDING SC PRN Administration Bedtime Correctional Scale Loratadine 10 mg 03/22/20 09:00 03/26/20 08:09 Loratadine 10 Mg Tab PO 10 mg DAILY BETO Administration Mometasone Furoate/Formoterol Fumar 2 puff 03/21/20 18:30 03/26/20 06:56 Mometasone 200 Mcg/Formoterol 5 Mcg 120 Puff Inhaler INH 2 puff BID-RT BETO Administration Olanzapine 10 mg 03/22/20 09:00 03/26/20 08:08 Olanzapine 5 Mg Tab PO 10 mg DAILY BETO Administration Ondansetron HCl 4 mg 03/23/20 22:23 03/23/20 23:06 Ondansetron Pf 4 Mg/2 Ml Vial IVP 4 mg Q6H PRN Administration Nausea/Vomiting Pantoprazole Sodium 40 mg 03/22/20 09:00 03/26/20 08:09 Pantoprazole 40 Mg Tab PO 40 mg DAILY BETO Administration Pregabalin 100 mg 03/21/20 22:00 03/26/20 12:45 Pregabalin 50 Mg Cap PO 100 mg Q8HR BETO Administration Ropinirole HCl 3 mg 03/21/20 21:00 03/25/20 21:22 Ropinirole Hcl 2 Mg Tab PO 3 mg QPM BETO Administration Rosuvastatin Calcium 10 mg 03/21/20 21:00 03/25/20 21:22 Rosuvastatin 10 Mg Tab PO 10 mg HS BETO Administration Hospitalist Exam Vitals: Vital Signs (12 hours) Temp Pulse Resp BP BP Pulse Ox 03/26/20 11:20 98.1 F 69 18 132/63 93 L 03/26/20 08:25 96 03/26/20 07:34 97.8 F 64 18 159/70 H 96 03/26/20 06:56 57 L 16 03/26/20 04:38 98.6 F 67 16 131/60 93 L Weight Weight 286 lb 1.6 oz General Appearance: NAD Eye: PERRL, anicteric sclera ENT: normocephalic atraumatic Neck: supple, symmetric Heart: RRR, no murmur, no gallops Respiratory: CTAB, no wheezes, no rales Gastrointestinal: soft, non-tender Hosp A/P (1) Chronic diastolic heart failure Code(s): I50.32 - CHRONIC DIASTOLIC (CONGESTIVE) HEART FAILURE Status: Acute (2) Acute kidney injury (TAMICA) with acute tubular necrosis (ATN) Code(s): N17.0 - ACUTE KIDNEY FAILURE WITH TUBULAR NECROSIS Status: Acute (3) Bipolar disorder Code(s): F31.9 - BIPOLAR DISORDER, UNSPECIFIED Status: Chronic (4) Diabetes Code(s): E11.9 - TYPE 2 DIABETES MELLITUS WITHOUT COMPLICATIONS Status: Acute - Plan plan for today 03/24 labs are improving, patient is more oriented, I will continue current fanny sheehan, repeat her labs, and ask PT to evaluate her. plan for today 03/25 she continue to improve, I will d/c her Palomo and see if she can void on her own, a bladder scan at some point tonight would be best. PT saw her and she is barely able to go to her hair, will consult case management for placement. Plan for today 03/26 Renal----patient's kidney function recovered, I went to her previous admissions, latest one was for congestive heart failure due to diastolic dysfunction, she was started on Lasix twice a day which I think is was a contributing factor for her acute kidney insufficiency, she does need to be on diuretics due to her congestive heart failure, will start her on lower dose of Lasix 40 mg once a day, we will keep on holding her SINDHU inhibitor for now. Endocrinology----patient is diabetic and was on Metformin Onglyza and 7 0--currently only on a sliding scale--- I will restart Metformin and Onglyza, possibly adding the 70/30 if her glycemic levels are high. Neuro and psychiatry--- patient has been on her psychiatric meds since admission--- she back to baseline mental status. Musculoskeletal--- patient is very deconditioned, PT is recommending home health, but I think she would be better served to go to a [facility] facility, she is interested in that option, [facility] is working on finding her placement. As per nephrology recommendation her Tylenol with codeine was stopped and regular Tylenol was started.
[2020-03-26] MEDS: Acetaminophen 325 MG TAB PO PRN (18:10)
--- NOTE | 2020-03-26 18:17 | PRG ---
DATE OF SERVICE: 03/26/2020 OBJECTIVE: VITAL SIGNS: The patient noted with the following vital signs; afebrile, temperature 97.8, pulse 68, respiratory rate of 17, O2 saturation of 93%, with blood pressure of 136/63. HEENT: Unremarkable. CARDIOVASCULAR SYSTEM: First and second heart sounds were heard. RESPIRATORY SYSTEM: Clear to auscultation. DIGESTIVE SYSTEM: Revealed a benign abdomen with positive bowel sounds. EXTREMITIES: No peripheral edema. SKIN: No new gross rash. LYMPHATICS: No peripheral lymphadenopathy. IMPRESSION: 1. Acute on chronic kidney disease, much improved. 2. Obesity. 3. Hyperkalemia, which has resolved. PLAN: 1. Continue current renal supportive measures. 2. Further management to be dependent on the clinical course. Job ID: [id number]
[2020-03-26] MEDS: rOPINIRole HCl 2 MG TAB PO SCH (20:47)
[2020-03-26] MEDS: Rosuvastatin 10 MG TAB PO SCH (20:48)
[2020-03-26] MEDS: hydrOXYzine 25 MG TAB PO SCH (20:51)
[2020-03-27] MEDS: Acetaminophen 325 MG TAB PO PRN (02:42)
[2020-03-27 05:01] LABS: #Basophils 0.1 thou/uL (0.0-0.2); #Eosinphils 0.5 thou/uL (0.0-0.7); #Lymphocytes 2.3 thou/uL (1.20-3.40); #Neutrophils 5.6 thou/uL (1.40-6.50); %Basophils 0.7 % (0.0-1.0); %Eosinophils 5.8 % (0.0-10.0); %Lymphocytes 24.1 % (21.0-51.0); %Monocytes 10.1 % (0.0-10.0); %Neutrophils 59.3 % (42.0-75.0); Hemoglobin 10.6 g/dL (12.0-16.0); Mean Corpuscular HGB CONC 32.6 g/dL (32.0-36.0); Mean Corpuscular Hemoglobin 26.6 pg (27.0-31.0); Mean Corpuscular Volume 81.5 fL (78.0-98.0); Mean Platelet Volume 8.2 fL (7.4-10.4); Platelet Count 327 thou/uL (130-400); Red Blood Cell (RBC) Count 3.98 mill/uL (4.20-5.40); White Blood Cell (WBC) Count 9.4 thou/uL (4.8-10.8)
[2020-03-27 05:27] LABS: Anion Gap 16 mmol/L (10-20); BUN (Urea Nitrogen) 21 mg/dL (9.8-20.1); Calc. Creatinine Clearance 120 mL/min (70-130); Calcium 9.4 mg/dL (7.8-10.44); Carbon Dioxide 27 mmol/L (22-29); Chloride 99 mmol/L (98-107); Glucose 231 mg/dL (70-105); Potassium 3.9 mmol/L (3.5-5.1); Sodium 138 mmol/L (136-145)
[2020-03-27] MEDS: HumaLOG 300 UNITS/3 ML VIAL SC PRN ×2 (05:40→11:04)
[2020-03-27] MEDS: Pregabalin 50 MG CAP PO SCH (05:41)
[2020-03-27] MEDS ORDERED: metFORMIN 500 MG TAB PO SCH (08:00)
[2020-03-27] MEDS: Mometasone 200 MCG/Formoterol 5 MCG 120 PUFF INHALER INH SCH (08:29)
[2020-03-27] MEDS: Aspirin 81 mg Enteric Coated Tablet PO SCH (08:56)
[2020-03-27] MEDS: OLANZapine 5 MG TAB PO SCH (08:56)
[2020-03-27] MEDS: Fenofibrate Nanocrystallized 145 MG TAB PO SCH (08:56)
[2020-03-27] MEDS: Loratadine 10 MG TAB PO SCH (08:56)
[2020-03-27] MEDS: Docusate 100 MG CAP PO SCH (08:57)
[2020-03-27] MEDS ORDERED: Alogliptin 25 MG TAB PO SCH (09:00)
[2020-03-27] MEDS ORDERED: Furosemide 40 MG TAB PO SCH (09:00)
[2020-03-27 11:02] VITALS: TEMP 98.2
[2020-03-27 11:42] VITALS: BP 161/62
--- NOTE | 2020-03-27 11:53 | PDOC.DS.DS ---
Provider Date of Admission: 03/21/20 12:50 Date of Discharge: 03/27/20 Admitting Provider: Estefania Hector MD Consultations: Nephrology Primary Care Physician: Alem Marion MD Course Hospital Course: This is a 54 year old female with past medical history of bipolar disease, hypertension, CHF, asthma who presented to the emergency room with worsening nausea, inability to urinate or defecate for the past few days. The patient was recently discharged from the hospital and was treated for CHF exacerbation and pneumonia. She was discharged with lasix 40 mg bid and levaquin. The patient states that she was able to urinate until Thursday. Since then she has had the persistent urge to urinate, but hardly anything comes out. She also is constipated and her last good bowel movement was when she was in the hospital. She denies dysuria. During her stay she was started on IV fluids, her SINDHU inhibitor and Metformin were stopped, she was seen by nephrology and she underwent a renal ultrasound that showed no obstruction, it was thought that her acute renal failure is secondary to overdiuresis also possibly urinary retention. As the days progressed her kidney function recovered quickly and now it is back to baseline, her Palomo catheter was removed and she successfully urinated, I will discharge her today with home health on Lasix once a day instead of twice a day, she has been on this dose for the past 24 hours and she did well her kidney function remained stable. She can go back on her other home meds. I explained to her the above and she verbalized understanding. She can follow-up with her primary care physician within a week. Resuscitation Status: 03/21/20 14:40 Resuscitation Status Routine Resuscitation Status: FULL: Full Resuscitation Discussed with: patient Lab Results: 03/27/20 04:33 03/27/20 04:33 Abnormal Lab Results - Last 48 hrs 03/26/20 04:13: BUN 22 H 03/26/20 04:13: RBC 4.08 L, Hgb 10.6 L, Hct 33.6 L, MCH 25.9 L, MCHC 31.5 L, Lymphocytes % 20.8 L, Neutrophils # 6.9 H, Monocytes # 1.0 H 03/27/20 04:33: BUN 21 H 03/27/20 04:33: RBC 3.98 L, Hgb 10.6 L, Hct 32.4 L, MCH 26.6 L, Monocytes % 10.1 H, Monocytes # 1.0 H Vitals: Vital Signs (12 hours) Temp Pulse Pulse Pulse Resp BP BP 03/27/20 11:18 16 03/27/20 11:01 98.2 F 60 18 03/27/20 09:20 80 77 161/62 H 140/60 03/27/20 08:29 18 03/27/20 07:29 97.5 F L 57 L 20 03/27/20 04:30 97.4 F L 55 L 20 03/27/20 03:37 BP BP Pulse Ox 03/27/20 11:18 95 03/27/20 11:01 145/68 H 97 03/27/20 09:20 03/27/20 08:29 95 03/27/20 07:29 133/60 96 03/27/20 04:30 121/60 95 03/27/20 03:37 94 L Weight Weight 278 lb 6 oz Physical Exam: The patient was seen and examined on the day of discharge. General Appearance: NAD, awake alert Eye: PERRL, anicteric sclera ENT: normocephalic atraumatic Neck: supple, symmetric Respiratory: CTAB, no wheezes Cardiovascular: RRR, no murmur Problem (1) Chronic diastolic heart failure Code(s): I50.32 - CHRONIC DIASTOLIC (CONGESTIVE) HEART FAILURE Status: Acute (2) Acute kidney injury ([place]AM[place]) with acute tubular necrosis (ATN) Code(s): N17.0 - ACUTE KIDNEY FAILURE WITH TUBULAR NECROSIS Status: Acute (3) Bipolar disorder Code(s): F31.9 - BIPOLAR DISORDER, UNSPECIFIED Status: Chronic (4) Diabetes Code(s): E11.9 - TYPE 2 DIABETES MELLITUS WITHOUT COMPLICATIONS Status: Acute Time Spent in discharge related activities (mins): 45 Plan Home Medications: Medication Instructions Recorded Confirmed Type Ipratropium/Albuterol Sulfate 3 ml NEB QID 01/30/19 03/21/20 History [DuoNeb] Acetaminophen [Tylenol Regular 650 mg PO Q4H PRN tab 08/10/19 03/21/20 Rx Strength] HumuLIN 70/30 [HumuLIN 70/30 Vial] 70 units SC BID 08/10/19 03/21/20 History Fenofibrate 160 mg PO DAILY #30 tablet 08/25/19 03/21/20 Rx Pantoprazole [Protonix] 40 mg PO DAILY #30 tab 08/25/19 03/21/20 Rx Aspirin [Ecotrin Low Strength] 81 mg PO DAILY 03/15/20 03/21/20 History Budesonide/Formoterol Fumarate 2 puff IH BID 03/15/20 03/21/20 History [Budesonide-Formoterol 160-4.5] Cetirizine HCl [Zyrtec] 10 mg PO DAILY 03/15/20 03/21/20 History Cholecalciferol (Vitamin D3) 125 mcg PO DAILY 03/15/20 03/21/20 History [Vitamin D3] OLANZapine [ZyPREXA] 10 mg PO DAILY 03/15/20 03/21/20 History Pregabalin 100 mg PO Q8HR 03/15/20 03/21/20 History Rosuvastatin [Crestor] 10 mg PO HS 03/15/20 03/21/20 History Saxagliptin HCl [Onglyza] 5 mg PO DAILY 03/15/20 03/21/20 History hydrOXYzine HCl [Hydroxyzine HCl] 25 mg PO HS 03/15/20 03/21/20 History metFORMIN HCl [Metformin HCl ER] 1,000 mg PO DAILY 03/15/20 03/21/20 History rOPINIRole HCl 3 mg PO QPM 03/15/20 03/21/20 History Lisinopril [Zestril] 5 mg PO DAILY #30 tab 03/18/20 03/21/20 Rx Potassium Chloride 10 meq PO BID #60 tab 03/18/20 03/21/20 Rx Furosemide [Lasix] 40 mg PO DAILY tab 03/27/20 Rx Allergies: clarithromycin [From Biaxin] Allergy (Intermediate, Verified 03/21/20 22:05) ITCHING, PER PT ketorolac tromethamine [From Toradol] Allergy (Intermediate, Verified 03/21/20 22:05) Rash WELTS PER PATIENT Latex, Natural Rubber Allergy (Intermediate, Verified 03/21/20 22:05) Rash BLISTERS, PER PT morphine Allergy (Intermediate, Verified 03/21/20 22:05) Hives WELTS AND HIVES PER PT baclofen Allergy (Verified 03/21/20 22:05) hydrocodone Allergy (Verified 03/21/20 22:05) Referrals: [facility] [Outside] (Currently receiving Home health services.) Alem Marion MD [Primary Care Provider] - Disposition: HOME HEALTH Quality CORE MEASURES:: N/A
== END 2020-03-27 13:24 | disposition home health service (06) | DRG 682 ==
LOC: ERS 09:11 → ERHOLD 12:50 → 2NO 18:53
PROVIDERS: ADMIT Internal Medicine; ATTEND Internal Medicine
DX: N17.0 Acute kidney failure with tubular necrosis (principal); G92 Toxic encephalopathy; I50.22 Chronic systolic (congestive) heart failure; E87.1 Hypo-osmolality and hyponatremia; I13.0 Hypertensive heart and chronic kidney disease with heart failure and stage 1 through stage 4 chronic kidney disease, or unspecified chronic kidney disease; Z68.43 Body mass index [BMI] 50.0-59.9, adult; I50.32 Chronic diastolic (congestive) heart failure; E87.4 Mixed disorder of acid-base balance; K59.00 Constipation, unspecified; J45.909 Unspecified asthma, uncomplicated; E87.5 Hyperkalemia; M79.7 Fibromyalgia; E78.5 Hyperlipidemia, unspecified; F31.9 Bipolar disorder, unspecified; F41.9 Anxiety disorder, unspecified; R91.1 Solitary pulmonary nodule; G25.81 Restless legs syndrome; E66.01 Morbid (severe) obesity due to excess calories; N18.9 Chronic kidney disease, unspecified; E11.22 Type 2 diabetes mellitus with diabetic chronic kidney disease; Z90.710 Acquired absence of both cervix and uterus; Z87.891 Personal history of nicotine dependence; Z88.1 Allergy status to other antibiotic agents; Z91.040 Latex allergy status; Z88.6 Allergy status to analgesic agent; Z79.4 Long term (current) use of insulin; Z79.51 Long term (current) use of inhaled steroids; Z79.82 Long term (current) use of aspirin; Z98.890 Other specified postprocedural states; Z83.3 Family history of diabetes mellitus; D72.829 Elevated white blood cell count, unspecified; D64.9 Anemia, unspecified; G47.33 Obstructive sleep apnea (adult) (pediatric); R33.9 Retention of urine, unspecified; Z20.822 Contact with and (suspected) exposure to COVID-19
CPT/HCPCS: 36415; 36416; 71045; 74176; 76770; 80048; 80053; 80069; 81001; 83690; 85025; 85027; 93005; 96374; 96375; J1815; J2001; J2405; J2550; J7620; Q0162

== ENCOUNTER 2020-11-15 02:00 | Emergency (ER) | payer MEDICARE ==
[2020-11-15 02:35] LABS: #Basophils 0.1 thou/uL (0.0-0.2); #Eosinphils 0.4 thou/uL (0.0-0.7); #Lymphocytes 2.2 thou/uL (1.20-3.40); #Monocytes 0.9 thou/uL (0.11-0.59); #Neutrophils 6.8 thou/uL (1.40-6.50); %Basophils 0.6 % (0.0-1.0); %Eosinophils 4.1 % (0.0-10.0); %Monocytes 8.4 % (0.0-10.0); %Neutrophils 65.9 % (42.0-75.0); Mean Corpuscular HGB CONC 30.7 g/dL (32.0-36.0); Mean Corpuscular Hemoglobin 26.8 pg (27.0-31.0); Mean Corpuscular Volume 87.4 fL (78.0-98.0); Platelet Count 310 thou/uL (130-400); RBC Distribution Width 14.3 % (11.5-14.5); Red Blood Cell (RBC) Count 4.09 mill/uL (4.20-5.40); White Blood Cell (WBC) Count 10.3 thou/uL (4.8-10.8)
[2020-11-15 02:57] LABS: ALT (SGPT) 17 U/L (8-55); AST (SGOT) 15 U/L (5-34); Albumin 3.9 g/dL (3.5-5.0); Alkaline Phosphatase 50 U/L (40-110); BUN (Urea Nitrogen) 14 mg/dL (9.8-20.1); Bilirubin, Total 0.3 mg/dL (0.2-1.2); Calc. Creatinine Clearance 0 mL/min (70-130); Calcium 8.6 mg/dL (7.8-10.44); Globulin 2.4 g/dL (2.4-3.5); Glucose 162 mg/dL (70-105); Protein, Total 6.3 g/dL (6.0-8.3)
[2020-11-15 03:07] LABS: Anion Gap 15 mmol/L (10-20); Carbon Dioxide 35 mmol/L (22-29); Chloride 96 mmol/L (98-107); Sodium 142 mmol/L (136-145)
== END 2020-11-15 04:55 | disposition home or self-care (01) ==
LOC: ERS 02:00
DX: J45.909 Unspecified asthma, uncomplicated (principal); D64.9 Anemia, unspecified; I50.9 Heart failure, unspecified; Z79.899 Other long term (current) drug therapy; Z79.84 Long term (current) use of oral hypoglycemic drugs; E11.9 Type 2 diabetes mellitus without complications; E78.5 Hyperlipidemia, unspecified; I11.0 Hypertensive heart disease with heart failure; Z87.891 Personal history of nicotine dependence
CPT/HCPCS: 71045; 80053; 83880; 84484; 85025; 93005; 94640; J7620

== ENCOUNTER 2021-08-07 09:22 | Outpatient (CLI) | payer MEDICARE, MEDICAID | END 2021-08-07 09:23 | disposition home or self-care (01) | LOC: MRI 09:22 | PROVIDERS: ATTEND Family Medicine | DX: M54.40 Lumbago with sciatica, unspecified side (principal); M51.26 Other intervertebral disc displacement, lumbar region | CPT/HCPCS: 72148 ==

== ENCOUNTER 2024-10-23 15:53 | Emergency (ER) | payer MEDICARE, MEDICAID ==
[2024-10-23 17:19] LABS: #Basophils 0.04 10x3/uL (0.0-0.2); #Eosinophils 0.32 10x3/uL (0.0-0.7); #Monocytes 0.47 10x3/uL (0.11-0.59); #Neutrophils 2.43 10x3/uL (1.40-6.50); %Basophils 0.8 % (0.0-1.0); %Eosinophils 6.1 % (0.0-10.0); %Lymphocytes 37.2 % (21.0-51.0); %Monocytes 9.0 % (0.0-10.0); %Neutrophils 46.5 % (42.0-75.0); Hematocrit 36.4 % (36.0-47.0); Hemoglobin 11.4 g/dL (12.0-16.0); Mean Corpuscular Hemoglobin 28.1 pg (27.0-31.0); Mean Corpuscular Volume 89.7 fL (78.0-98.0); Platelet Count 259 10x3/uL (130-400); Red Blood Cell (RBC) Count 4.06 mill/uL (4.20-5.40); White Blood Cell (WBC) Count 5.22 10x3/uL (4.8-10.8)
[2024-10-23 17:38] LABS: ALT (SGPT) 20 U/L (Less than 34); AST (SGOT) 26 U/L (11-34); Albumin 3.9 g/dL (3.1-4.5); Alkaline Phosphatase 44 U/L (40-110); Anion Gap 11 mmol/L (10-20); BUN (Urea Nitrogen) 10 mg/dL (9.8-20.1); Bilirubin, Total 0.2 mg/dL (0.3-1.2); Calc. Creatinine Clearance 0 mL/min (70-130); Calcium 9.3 mg/dL (7.8-10.44); Carbon Dioxide 34 mmol/L (22-29); Chloride 100 mmol/L (98-107); Globulin 3.3 g/dL (2.4-3.5); Glucose 92 mg/dL (70-105); Potassium 3.9 mmol/L (3.5-5.1); Sodium 141 mmol/L (136-145)
[2024-10-23] MEDS ORDERED: Ondansetron PF 4 MG/2 ML Vial ONE (17:45)
[2024-10-23] MEDS ORDERED: diphenhydrAMINE 50 MG/ML VIAL ONE (17:45)
[2024-10-23] MEDS ORDERED: Acetaminophen 500 MG TAB ONE (17:45)
== END 2024-10-23 19:34 | disposition home or self-care (01) ==
LOC: ERS 15:53
DX: R51.9 Headache, unspecified (principal); E11.9 Type 2 diabetes mellitus without complications; I10 Essential (primary) hypertension; J45.909 Unspecified asthma, uncomplicated; Z87.891 Personal history of nicotine dependence; Z79.82 Long term (current) use of aspirin; Z79.4 Long term (current) use of insulin; Z79.51 Long term (current) use of inhaled steroids; Z79.899 Other long term (current) drug therapy
CPT/HCPCS: 80053; 85025; J1200; J2405; 96374; 96375

== ENCOUNTER 2024-12-21 10:37 | Day surgery (SDC) | payer MEDICARE, MEDICAID ==
[2024-12-20 08:17] VITALS: BMI 51.5
[2024-12-21] MEDS ORDERED: PROPOFOL 200 MG/20 ML VIAL ONE (13:30)
== END 2024-12-21 15:18 | disposition home or self-care (01) ==
LOC: SDC 10:37
PROVIDERS: ATTEND Internal Medicine Gastroenterology
PROC: 0DBN8ZX Excision of Sigmoid Colon, Via Natural or Artificial Opening Endoscopic, Diagnostic (ICD-10-PCS; principal; 2024-12-21)
PROC: 0DBL8ZX Excision of Transverse Colon, Via Natural or Artificial Opening Endoscopic, Diagnostic (ICD-10-PCS; 2024-12-21)
PROC: 0DJ08ZZ Inspection of Upper Intestinal Tract, Via Natural or Artificial Opening Endoscopic (ICD-10-PCS; 2024-12-21)
DX: Z12.11 Encounter for screening for malignant neoplasm of colon (principal); D12.3 Benign neoplasm of transverse colon; T18.4XXA Foreign body in colon, initial encounter; K21.9 Gastro-esophageal reflux disease without esophagitis; E78.00 Pure hypercholesterolemia, unspecified; J45.909 Unspecified asthma, uncomplicated; E11.22 Type 2 diabetes mellitus with diabetic chronic kidney disease; I12.9 Hypertensive chronic kidney disease with stage 1 through stage 4 chronic kidney disease, or unspecified chronic kidney disease; N18.9 Chronic kidney disease, unspecified; E66.01 Morbid (severe) obesity due to excess calories; Z68.41 Body mass index [BMI] 40.0-44.9, adult; Z79.82 Long term (current) use of aspirin; Z79.899 Other long term (current) drug therapy; Z79.85 Long-term (current) use of injectable non-insulin antidiabetic drugs; Z88.1 Allergy status to other antibiotic agents; Z91.040 Latex allergy status; Z88.5 Allergy status to narcotic agent
CPT/HCPCS: 43235; 45385; 82962; J2704; 36416; 88305

== ENCOUNTER 2025-01-09 14:35 | Inpatient (IN) | payer MEDICARE, MEDICAID ==
[2025-01-09] MEDS ORDERED: Dexamethasone 10 MG/ML VIAL ONE (15:26)
[2025-01-09 15:53] LABS: #Basophils Less than 0.03 10x3/uL (0.0-0.2); #Eosinophils 0.26 10x3/uL (0.0-0.7); #Monocytes 0.88 10x3/uL (0.11-0.59); #Neutrophils 5.95 10x3/uL (1.40-6.50); %Basophils 0.1 % (0.0-1.0); %Eosinophils 3.0 % (0.0-10.0); %Lymphocytes 18.5 % (21.0-51.0); %Monocytes 10.0 % (0.0-10.0); %Neutrophils 67.7 % (42.0-75.0); Hematocrit 36.3 % (36.0-47.0); Hemoglobin 10.6 g/dL (12.0-16.0); Mean Corpuscular Hemoglobin 27.1 pg (27.0-31.0); Mean Corpuscular Volume 92.8 fL (78.0-98.0); Platelet Count 248 10x3/uL (130-400); Red Blood Cell (RBC) Count 3.91 mill/uL (4.20-5.40); White Blood Cell (WBC) Count 8.78 10x3/uL (4.8-10.8)
[2025-01-09 16:10] LABS: ALT (SGPT) 28 U/L (Less than 34); AST (SGOT) 34 U/L (11-34); Albumin 3.8 g/dL (3.1-4.5); Alkaline Phosphatase 46 U/L (40-110); Anion Gap 14 mmol/L (10-20); BUN (Urea Nitrogen) 14 mg/dL (9.8-20.1); Bilirubin, Total 0.4 mg/dL (0.3-1.2); Calc. Creatinine Clearance 0 mL/min (70-130); Calcium 9.0 mg/dL (7.8-10.44); Carbon Dioxide 31 mmol/L (22-29); Chloride 98 mmol/L (98-107); Globulin 3.1 g/dL (2.4-3.5); Glucose 119 mg/dL (70-105); Potassium 3.6 mmol/L (3.5-5.1); Sodium 139 mmol/L (136-145)
[2025-01-09 18:07] LABS: Actual Bicarbonate (HCO3v) 33.2 mEq/L (22-28); Base Excess 5.0 mEq/L (-2.0 to +3.0); Calcium, Ionized (venous) 1.09 mmol/L (1.16-1.32); Chloride (VBG) 99 mmol/L (98-106); Hematocrit-VBG 35 % (36.0-47.0); Hemoglobin (Hb) 11.9 g/dL (11.7-16.0); Potassium (VBG) 4.14 mmol/L (3.70-5.30); Sodium 141 mmol/L (133-146)
[2025-01-09] MEDS ORDERED: Acetaminophen 325 MG TAB PO PRN (18:37)
[2025-01-09 21:13] VITALS: BMI 52.7
[2025-01-09] MEDS ORDERED: Dextrose 50% Abboject 50 ML SYRINGE SLOW IVP PRN (21:14)
[2025-01-09] MEDS ORDERED: Glucagon 1 MG/ML KIT IM PRN (21:14)
[2025-01-09 22:05] LABS: Actual Bicarbonate (HCO3v) 30.1 mEq/L (22-28); Base Excess 2.7 mEq/L (-2.0 to +3.0); Calcium, Ionized (venous) 1.10 mmol/L (1.16-1.32); Chloride (VBG) 97 mmol/L (98-106); Hematocrit-VBG 35 % (36.0-47.0); Hemoglobin (Hb) 12.0 g/dL (11.7-16.0); Potassium (VBG) 4.37 mmol/L (3.70-5.30); Sodium 138 mmol/L (133-146)
[2025-01-10] MEDS: Acetaminophen/Codeine 30-300mg Tablet PO SCH (02:46)
[2025-01-10 04:15] LABS: Actual Bicarbonate (HCO3v) 31.7 mEq/L (22-28); Base Excess 5.0 mEq/L (-2.0 to +3.0); Calcium, Ionized (venous) 1.05 mmol/L (1.16-1.32); Chloride (VBG) 97 mmol/L (98-106); Hematocrit-VBG 36 % (36.0-47.0); Hemoglobin (Hb) 12.4 g/dL (11.7-16.0); Potassium (VBG) 4.07 mmol/L (3.70-5.30); Sodium 138 mmol/L (133-146)
[2025-01-10 04:28] LABS: #Basophils Less than 0.03 10x3/uL (0.0-0.2); #Eosinophils Less than 0.03 10x3/uL (0.0-0.7); #Monocytes 0.74 10x3/uL (0.11-0.59); #Neutrophils 6.97 10x3/uL (1.40-6.50); %Basophils 0.2 % (0.0-1.0); %Eosinophils 0.1 % (0.0-10.0); %Lymphocytes 10.8 % (21.0-51.0); %Monocytes 8.4 % (0.0-10.0); %Neutrophils 79.2 % (42.0-75.0); Hematocrit 37.4 % (36.0-47.0); Hemoglobin 11.3 g/dL (12.0-16.0); Mean Corpuscular Hemoglobin 27.7 pg (27.0-31.0); Mean Corpuscular Volume 91.7 fL (78.0-98.0); Platelet Count 231 10x3/uL (130-400); Red Blood Cell (RBC) Count 4.08 mill/uL (4.20-5.40); White Blood Cell (WBC) Count 8.80 10x3/uL (4.8-10.8)
[2025-01-10 04:42] LABS: Anion Gap 16 mmol/L (10-20); BUN (Urea Nitrogen) 13 mg/dL (9.8-20.1); Calc. Creatinine Clearance 186 mL/min (70-130); Calcium 9.1 mg/dL (7.8-10.44); Carbon Dioxide 30 mmol/L (22-29); Chloride 98 mmol/L (98-107); Glucose 211 mg/dL (70-105); Potassium 4.1 mmol/L (3.5-5.1); Sodium 140 mmol/L (136-145)
[2025-01-10] MEDS ORDERED: Acetaminophen/Codeine 30-300mg Tablet PO SCH (06:00)
[2025-01-10] MEDS: Famotidine 20 MG TAB PO SCH (07:58)
[2025-01-10] MEDS: predniSONE 20 MG TAB PO SCH (07:58)
[2025-01-10] MEDS: Enoxaparin 60 MG (0.6 mL) SYRINGE SC SCH (07:59)
[2025-01-10] MEDS: Aspirin 81 mg Enteric Coated Tablet PO SCH (07:59)
[2025-01-10] MEDS: Acetaminophen/Codeine 30-300mg Tablet PO PRN (08:02)
[2025-01-10 11:01] VITALS: BP 145/67; TEMP 97.2
[2025-01-10] MEDS: Cyclobenzaprine 10 MG TAB PO SCH (12:41)
[2025-01-10] MEDS ORDERED: ROPINIROLE HCL 3 MG PO SCH (21:00)
[2025-01-10] MEDS ORDERED: OLANZapine 5 MG TAB PO SCH (21:00)
[2025-01-11] MEDS ORDERED: Cholecalciferol 1,000 UNITS (25 MCG) TAB PO SCH (09:00)
== END 2025-01-10 16:30 | disposition home or self-care (01) | DRG 189 ==
LOC: ERS 14:35 → ERHOLD 18:37 → IMCU/EMU 22:54
PROVIDERS: ADMIT Student in an Organized Health Care Education/Training Program; ATTEND Family Medicine
PROC: 5A09357 Assistance with Respiratory Ventilation, Less than 24 Consecutive Hours, Continuous Positive Airway Pressure (ICD-10-PCS; principal; 2025-01-09)
DX: J96.21 Acute and chronic respiratory failure with hypoxia (principal); J45.901 Unspecified asthma with (acute) exacerbation; J44.1 Chronic obstructive pulmonary disease with (acute) exacerbation; Z88.5 Allergy status to narcotic agent; Z88.8 Allergy status to other drugs, medicaments and biological substances; Z88.1 Allergy status to other antibiotic agents; Z91.040 Latex allergy status; I10 Essential (primary) hypertension; E11.9 Type 2 diabetes mellitus without complications; E78.5 Hyperlipidemia, unspecified; F31.9 Bipolar disorder, unspecified; D64.9 Anemia, unspecified; Z86.73 Personal history of transient ischemic attack (TIA), and cerebral infarction without residual deficits; Z79.899 Other long term (current) drug therapy; Z79.82 Long term (current) use of aspirin
CPT/HCPCS: 36415; 36416; 71045; 80048; 80053; 82805; 83605; 83880; 84484; 85025; 87428; 93005; 94640; 94660; 94760; 96374; J1100; J1650; J1815; J7512; J7626